=== PATIENT | male | born 1995 | race Caucasian/White ===

== ENCOUNTER 2019-09-10 08:39 | Emergency (ER) | payer SELFPAY ==
--- NOTE | 2019-09-10 08:42 | W.ED.ABDPA2 ---
HPI - Abdominal Pain General: Chief Complaint: Chest Pain Stated Complaint: abd pain Time Seen by Provider: 09/10/19 08:42 History of Present Illness: HPI narrative: Patient comes in today with complaints of abdominal pain. Patient has had several ER visits this year for complaints that are similar to today's issues. Patient has had CTA done in May but noted an episode of epiploic appendagitis, patient last visit was done and July on the and patient was diagnosed with acute bronchitis at that time. Patient appears well. Patient appears in mild to no pain. Patient does appear disheveled. MD elicited complaint: abdominal pain Associated Symptoms: Reports nausea and vomiting Review of Systems General: Reports: 10 or more systems reviewed and unremarkable except in HPI and below GI: Reports: abdominal pain, nausea, vomiting and painful bowel movements PFSH ED PFSH: Statuses (acute, chronic, etc) shown below reflect problem list status as previously entered and may not be historically accurate Social History Smoking and tobacco status: never smoked Physical Exam Const: COMMON NORMALS: no apparent distress and oriented x3 GENERAL APPEARANCE: cooperative HENMT: COMMON NORMALS: normocephalic, external ears normal, EAC's normal, TM's normal bilaterally and external nose normal HEAD & SCALP: normal to inspection and normocephalic FACE & SINUS: normal facial exam NOSE: external nose normal GENERAL EAR: hearing not grossly impaired EXTERNAL EAR: Yes external ears normal EXTERNAL AUDITORY CANAL: EAC's normal TYMPANIC MEMBRANE: TM's normal bilaterally MOUTH: oral and palatal mucosa normal THROAT: posterior oropharynx normal Eye: COMMON NORMALS: PERRL and EOMs intact bilaterally PUPIL: Yes PERRL Neck/C-Spine: COMMON NORMALS: full ROM and no lymphadenopathy Lymph: LYMPHATIC: no lymphedema noted Chest: COMMONS NORMALS: inspection of chest normal and palpation of chest normal Resp: COMMON NORMALS: normal respiratory effort and clear to auscultation bilaterally AUSCULTATION: clear to auscultation bilaterally Cardio: COMMON NORMALS: regular rate and regular rhythm RATE: regular rate RHYTHM: regular rhythm GI: COMMON NORMALS: normal to inspection, nondistended, normoactive bowel sounds PALPATION: Yes tender (moderate) Details: LLQ RECTAL EXAM: Yes visual inspection normal, Yes normal sphincter tone, Yes prostate normal, Yes heme negative stool and Yes anal wink reflex intact : COMMON NORMALS: Yes no CVA tenderness BLADDER/KIDNEY EXAM: Yes no CVA tenderness Back/Pelvis: COMMON NORMALS: no CVA tenderness and thoracic and lumbar spine normal to inspection Extremity: COMMON NORMALS: normal to inspection GENERAL: No edema Neuro: COMMON NORMALS: oriented x3, moves all extremities and no focal motor deficits Psych: COMMON NORMALS: mental status grossly normal and cooperative Skin: COMMON NORMALS: no rashes or lesions noted GENERAL SKIN EXAM: no rashes or lesions noted Course Vital Signs: Vital signs: Vital Signs Temperature 99 F 09/10/19 08:43 Respiratory Rate 16 09/10/19 08:43 Blood Pressure 156/100 09/10/19 08:43 Pulse Oximetry 99 09/10/19 08:43 MDM - Abdominal Pain MDM Narrative: Medical decision making narrative: Patient comes in today for complaints of abdominal and chest discomfort. Patient has been having this episodes for about the last year. Patient does not have insurance and has been diagnosed with bronchitis and other problems for the past year without much relief. Review of the record noted a diagnosis of epiploic appendagitis, on a previous CT. Exam noted soft abdomen with some tenderness in the left lower quadrant. Bowel sounds are present. Vital signs were stable. Differential diagnosis includes ACS, anxiety, malingering, ulcerative colitis, diverticulitis, appendagitis, mesenteric lymphadenitis, appendicitis, GI bleed, gastroenteritis. Laboratory values were insignificant acute abdomen x-ray series was negative for obstruction or free air. Patient was treated for pain with Toradol and Phenergan. Patient was recommended to follow-up for upper GI and colonoscopy series. Patient reported understanding and agreed with plan, case management will assist with referral. Patient will be given medication for pain and nausea. Lab Data: Labs: Lab Results 09/10/19 09/10/19 09/10/19 Range/Units 08:59 08:59 08:59 WBC 10.3 H (4.0-10.0) 10^3/ uL RBC 5.30 (4.1-5.3) 10^6/u L Hgb 15.8 (11.7-16.6) g/dL Hct 46.7 (42.0-52.0) % MCV 88.1 (80-94) fL MCH 29.8 (28.0-34.0) pg MCHC 33.8 (30.0-36.0) g/dL RDW 11.9 L (12.1-15.1) % Plt Count 270 (130-400) 10^3/c mm MPV 10.0 (7.4-10.4) fL Neut % (Auto) 42.5 % Lymph % (Auto) 43.5 % Woodward % (Auto) 8.2 % Eos % (Auto) 5.0 % Baso % (Auto) 0.6 % Neut # (Auto) 4.4 (1.8-7.7) 10^3/u L Lymph # (Auto) 4.5 (0.8-4.8) 10^3/u L Woodward # (Auto) 0.8 (0.2-0.9) 10^3/u L Eos # (Auto) 0.5 (0.0-0.8) 10^3/u L Baso # (Auto) 0.1 (0.0-0.1) 10^3/u L Nucleated RBC % (a uto) 0 % Nucleated RBCs # 0.0 /100WBC Sodium 138 (136-145) mmol/L Potassium 3.7 (3.5-5.1) mmol/L Chloride 103 (98-107) mmol/L Carbon Dioxide 23 (22-29) mmol/L Anion Gap 15.7 (5-19) BUN 16 (6-20) mg/dL Creatinine 0.9 (0.7-1.2) mg/dL GFR Calculation 103.7 (90-130) mL/min Glucose 101 (74-109) mg/dL Lactate 1.6 (0.5-2.2) mmol/L Calcium 10.3 H (8.6-10.0) mg/Dl Total Bilirubin 0.8 (0.15-1.2) mg/dL AST 18 (0-40) U/L ALT 28 (0-41) U/L Alkaline Phosphata se 71 (40-130) IU/L Total Protein 7.4 (6.6-8.7) g/dL Albumin 5.0 (3.5-5.2) g/dL Globulin 2.4 (1.3-4.6) g/dL Lipase 19 (13-60) U/L Urine Color (Yellow) Urine Appearance (CLEAR) Urine pH (5-7) Ur Specific Gravit y (1.005-1.030) Urine Protein (Negative) Urine Glucose (UA) (Normal) Urine Ketones (Negative) Urine Occult Blood (Negative) Urine Nitrate (Negative) Urine Bilirubin (NEGATIVE) Urine Urobilinogen (Negative) mg/dL Ur Leukocyte Mary ase (Negative) Urine RBC (0-2) /hpf Urine WBC (0-5) /hpf Ur Squamous Epith Cells (0-5) Urine Bacteria (NONE) Urine Mucus 09/10/19 Range/Units 09:45 WBC (4.0-10.0) 10^3/ uL RBC (4.1-5.3) 10^6/u L Hgb (11.7-16.6) g/dL Hct (42.0-52.0) % MCV (80-94) fL MCH (28.0-34.0) pg MCHC (30.0-36.0) g/dL RDW (12.1-15.1) % Plt Count (130-400) 10^3/c mm MPV (7.4-10.4) fL Neut % (Auto) % Lymph % (Auto) % Woodward % (Auto) % Eos % (Auto) % Baso % (Auto) % Neut # (Auto) (1.8-7.7) 10^3/u L Lymph # (Auto) (0.8-4.8) 10^3/u L Woodward # (Auto) (0.2-0.9) 10^3/u L Eos # (Auto) (0.0-0.8) 10^3/u L Baso # (Auto) (0.0-0.1) 10^3/u L Nucleated RBC % (a uto) % Nucleated RBCs # /100WBC Sodium (136-145) mmol/L Potassium (3.5-5.1) mmol/L Chloride (98-107) mmol/L Carbon Dioxide (22-29) mmol/L Anion Gap (5-19) BUN (6-20) mg/dL Creatinine (0.7-1.2) mg/dL GFR Calculation (90-130) mL/min Glucose (74-109) mg/dL Lactate (0.5-2.2) mmol/L Calcium (8.6-10.0) mg/Dl Total Bilirubin (0.15-1.2) mg/dL AST (0-40) U/L ALT (0-41) U/L Alkaline Phosphata se (40-130) IU/L Total Protein (6.6-8.7) g/dL Albumin (3.5-5.2) g/dL Globulin (1.3-4.6) g/dL Lipase (13-60) U/L Urine Color Yellow (Yellow) Urine Appearance Clear (CLEAR) Urine pH 7 (5-7) Ur Specific Gravit y 1.010 (1.005-1.030) Urine Protein Neg (Negative) Urine Glucose (UA) Norm (Normal) Urine Ketones Negative (Negative) Urine Occult Blood Neg (Negative) Urine Nitrate Negative (Negative) Urine Bilirubin Neg (NEGATIVE) Urine Urobilinogen Norm (Negative) mg/dL Ur Leukocyte Mary ase Negative (Negative) Urine RBC None (0-2) /hpf Urine WBC None (0-5) /hpf Ur Squamous Epith Cells None (0-5) Urine Bacteria None (NONE) Urine Mucus Trace EKG Data ^: EKG 1: Attestation: I personally reviewed and interpreted this EKG as follows: (0852, Sinus katelyn, rate 47, no ectopy, regular, no ST elevation, no significant change from prior EKG) Discharge Plan Discharge Patient Disposition: Home, Self-Care Clinical Impression: Epiploic appendagitis Abdominal pain Qualifiers: Abdominal location: left lower quadrant Qualified Code(s): R10.32 - Left lower quadrant pain Condition: Stable Prescriptions: New diclofenac potassium 50 mg tablet 50 mg PO Q8H PRN (Reason: pain) Qty: 20 RF: 0 promethazine 12.5 mg tablet 12.5 mg PO Q4H PRN (Reason: nausea and vomiting) Qty: 20 RF: 0 Patient Instructions: Cholecystitis (ED), Abdominal Pain (ED) Coding Level of Care Code ED Program Writer for Genaro Goddard Exam Problem Focused
[2019-09-10 08:43] VITALS: BP 156/100; RESP 16; TEMP 37.2; O2SAT 99; BMI 26.5
--- NOTE | 2019-09-10 09:02 | XRR_ITS ---
PROCEDURE INFORMATION: Exam: XR Complete Acute Abdomen Series Exam date and time: 09/10/2019 9:03 AM Age: 24 years old Clinical indication: Abdominal pain; Generalized; Additional info: Abd pain TECHNIQUE: Imaging protocol: XR complete acute abdomen series, including 2 or more views of the abdomen and a single view chest. COMPARISON: CT chest abdomen pelvis June 13, 2019 FINDINGS: Lungs: Normal. No consolidation. Pleural space: Normal. No pneumothorax. Heart/Mediastinum: Normal. No cardiomegaly. Gastrointestinal tract: Normal. No bowel dilation. Intraperitoneal space: Normal. No free air. Bones/joints: Normal. No acute fracture. Soft tissues: Normal. XR/XR acute abdomen series [id number] IMPRESSION: No acute findings.
[2019-09-10 09:05] LABS: Basophils # 0.1 10^3/uL (0.0-0.1); Basophils % 0.6 %; Eosinophils # 0.5 10^3/uL (0.0-0.8); Hematocrit 46.7 % (42.0-52.0); Hemoglobin 15.8 g/dL (11.7-16.6); Lymphocytes # 4.5 10^3/uL (0.8-4.8); Lymphocytes % 43.5 %; Mean Corpuscular HGB Conc 33.8 g/dL (30.0-36.0); Mean Corpuscular Hemoglobin 29.8 pg (28.0-34.0); Mean Corpuscular Volume 88.1 fL (80-94); Monocytes # 0.8 10^3/uL (0.2-0.9); Monocytes % 8.2 %; Neutrophils # 4.4 10^3/uL (1.8-7.7); Neutrophils % 42.5 %; Nucleated Red Blood Cells % 0 %; Platelet Count 270 10^3/cmm (130-400); Red Cell Distribution Width 11.9 % (12.1-15.1); White Blood Count 10.3 10^3/uL (4.0-10.0)
[2019-09-10 09:33] LABS: Alanine Aminotransferase 28 U/L (0-41); Alkaline Phosphatase 71 IU/L (40-130); Anion Gap 15.7 (5-19); Aspartate Amino Transferase 18 U/L (0-40); Blood Urea Nitrogen 16 mg/dL (6-20); Calcium 10.3 mg/Dl (8.6-10.0); Carbon Dioxide 23 mmol/L (22-29); Chloride 103 mmol/L (98-107); Globulin 2.4 g/dL (1.3-4.6); Glomerular Filtration Rate 103.7 mL/min (90-130); Glucose 101 mg/dL (74-109); Lipase 19 U/L (13-60); Potassium 3.7 mmol/L (3.5-5.1); Sodium 138 mmol/L (136-145); Total Bilirubin 0.8 mg/dL (0.15-1.2); Total Protein 7.4 g/dL (6.6-8.7)
[2019-09-10 09:34] LABS: Lactate (Lactic Acid level) 1.6 mmol/L (0.5-2.2)
[2019-09-10 10:13] LABS: Bilirubin Urine Neg (NEGATIVE); Blood Urine Neg (Negative); Glucose Urine UA Norm (Normal); Ketones Urine Negative (Negative); Nitrate Urine Negative (Negative); Protein Urine Neg (Negative); Urine Appearance Clear (CLEAR); Urine Color Yellow (Yellow); pH Urine 7 (5-7)
[2019-09-10 10:14] LABS: Leukocyte Esterase Urine Negative (Negative); Urobilinogen Urine Norm (Negative)
[2019-09-10 10:15] LABS: Add Urine Culture? No; Mucus Urine TRACE
[2019-09-10] MEDS: promethazine 25 mg/mL SDV 1 mL IM (10:55)
[2019-09-10] MEDS: ketorolac 30 mg/mL INJ IM (10:56)
--- NOTE | 2019-09-10 11:04 | ECG_ITS ---
Measurements Intervals [place] Rate: 47 P: 17 LA: 130 QRS: 7 QRSD: 100 T: 19 QT: 400 QTc: 357 SINUS BRADYCARDIA INTERPRETATION BASED ON A DEFAULT AGE OF 40 YEARS Compared to ECG 08/23/2019 15:08:00 No significant changes Electronically Signed On 09-10-2019 16:45:14 GETTER OPERATOR by Skinny Haley M.D. [id number]
[2019-09-10 11:19] VITALS: BP 151/99; PULSE 78; RESP 16; O2SAT 96
--- NOTE | 2019-09-12 15:11 | DCPLANNER ---
residential property manager had message to schedule a follow up appointment for patient with general surgery. residential property manager called [facility], spoke with [place], a follow up appointment is scheduled for Saturday, September 14, 2019 at 2:[address] Esteban. residential property manager called patient and gave patient the appointment information. Patient asked about financial assistance. residential property manager left both of the financial business analyst applications for patient at the ED registration for patient to lemon picker.
--- NOTE | 2019-09-20 14:25 | DCPLANNER ---
Patient attended appointment scheduled for 09.14.19 at [facility].
== END 2019-09-10 11:20 | disposition home or self-care (01) ==
PROVIDERS: Emergency Provider Nurse Practitioner Family
DX: K63.89 Other specified diseases of intestine (principal)
CPT/HCPCS: 36415; 74022; 80053; 81001; 83605; 83690; 85025; 87040; 93005; 96372; 99282; J1885; J2550

== ENCOUNTER 2019-09-12 06:57 | Outpatient (CLI) | payer SELFPAY ==
--- NOTE | 2019-09-12 07:02 | ECG_ITS ---
NAME OF STUDY: EXERCISE SESTAMIBI STRESS TEST INDICATION: Atypical Chest Pain Baseline blood pressure of 147/87 mm Hg, heart rate 49 beats per minute and oxygen saturation of 94%. EKG showed sinus bradycardia normal axis with with nonspecific T wave changes The patient exercised for 10 minutes 1 second on a standard Virgil protocol. Patient attained a maximum heart rate of 179 beats per minute(91 % of the maximum predicted heart rate) with a blood pressure at the peak exercise of 199/114 mm Hg and oxygen saturation of 90%. The EKG at the peak exercise revealed sinus tachycardia with no significant ST-T wave changes. Patient did not have any chest pain or any significant arrhythmia with the exercise During the recovery phase, there were no new changes. Blood pressure at the end of the recovery phase was 175/90 mm Hg with a heart rate of 95 beats per minute and oxygen saturation of 98%. CONCLUSION: 1. Normal EKG response to treadmill exercise. 2. No exercise-induced chest pain or cardiac arrhythmia. 3. Good exercise tolerance, attained a maximum of 13.5 METs. Maximum VO2 of 47.3 mL/kg/min. 4. Baseline normal blood pressure with normal response to exercise. Electronically Signed On 09-13-2019 12:29:37 BATH HOUSE ATTENDANT by Lissett Lora M.D. [email or web address]
--- NOTE | 2019-09-12 07:03 | NMCV_ITS ---
NM MIBI/MIBI Stress/Rest [id number] Anthony Del Valle Age: 24 Gender: M : 1995 Exam Date: 09/12/2019 07:48 Ordering Phys: Sanford Garcia NP Technologist: DEMETRI Vizcaino Exam Location: [facility] Indications: Atypical Chest Pain STRESS TEST [facility] IMAGE PROTOCOL Rest/Stress 1 Exercise Day Radiopharmaceutical Dose (mCi) Administration Site Administered by Rest: Tc-99m IV DEMETRI Vizcaino Sestamibi Stress:Tc-99m IV DEMETRI Vizcaino Sestamibi Rest: 12-Sep-2019 60 Discovery 630 Stress: 12-Sep-2019 60 Discovery 630 Radiopharmaceutical was injected at 86 % maximum heart rate. SPECT RESULTS Technical Quality: Good Raw Data Analysis: Normal Image Corrections: No attenuation or motion correction applied Summed Stress Score: 0 Summed Rest Score: 0 Summed Difference Score: 0 PERFUSION FINDINGS SPECT images demonstrate homogeneous tracer distribution throughout the myocardium. FUNCTIONAL RESULTS (calculated via Gated SPECT) Stress Image LV EF (%): 68 Stress EDV (mL):98 TID: 0.86 Stress ESV (mL):31 FUNCTIONAL FINDINGS: The left ventricle is normal in size. Transient Ischemia Dilatation of 0.86. There is normal left ventricular systolic function. The left ventricular ejection fraction is normal with a value of 68%. There is normal left ventricular wall thickening. Normal end-diastolic and end-systolic volumes. IMPRESSIONS 1. Myocardial perfusion imaging is normal. 2. Overall left ventricular systolic function is normal without regional wall motion abnormalities. 3. The left ventricular ejection fraction is normal with a value of 68%. 4. This study suggests a low likelihood of angiographically significant coronary artery disease. Lissett Lora MD (Electronically Signed) Final Date: 12 September 2019 13:26 S
[2019-09-12 07:19] VITALS: BMI 26.5
[2019-09-12 08:53] VITALS: BP 175/90; PULSE 97
== END 2019-09-12 06:58 | disposition home or self-care (01) ==
LOC: RAD 07:01
PROVIDERS: Visit Provider Nurse Practitioner Family
DX: R07.89 Other chest pain (principal)
CPT/HCPCS: 78452; 93017; A9500

== ENCOUNTER 2019-09-21 07:30 | Day surgery (SDC) | payer SELFPAY ==
[2019-09-20 13:31] VITALS: BMI 26.5
--- NOTE | 2019-09-21 08:07 | P.ANES_ITS ---
Pre-Anesthetic Assessment Pre-Anesthetic Assessment: Height/Weight: Height 1.78 m Weight 83.915 kg Proposed Procedure: Operation Date: 09/21/19 09:00 Proposed Procedures p EGD/COLON(Not Applicable) - Bj Driscoll MD s Colonoscopy(Not Applicable) - Bj Driscoll MD Social: Social History: No alcohol and No tobacco Exam: Pre-Anes Outpt Exam: alert, oriented x 3, clear to auscultation bilaterally and regular rate & rhythm Airway: Submandibular: WNL Cervical ROM: WNL MP: 1 History/ROS: No significant history except as noted Pulmonary: Pulmonary: None reported CV/HEM: CV/HEM: HTN : : None reported Hepatic: Hepatic: None reported GI: GI: GERD Metabolic: Metabolic: None reported Musc/skel: Musc/skel: None reported Neuropsych: Neuropsych: None reported Anesthetic Plan: ASA status: II Anesthesia: Anesthesia Evaluation and MAC Risk of > 500 ml blood loss (7ml/kg in children): No PFSH Anesthesia PFSH: Social History Smoking and tobacco status: never smoked Second hand smoke exposure: No Alcohol intake: never Adopted: No Caregiver/support person: Yes Lives independently: Yes Household members: significant other Housing: House Marital status: Single Highest education level completed: High School Graduate service: No Current occupational status: employed Current occupational exposures/hazards: No Pets and animals: No History of recent travel: No Leisure activites: exercise Sexually active: Yes Current gender identity: Male and Female Trixie/Scientologist: Sikh Special trixie needs: No Agree to transfusion: No Financial difficulty paying for basics: Not Very Hard Data Anesthesia Cardiac Studies: No Data to Display
[2019-09-21 08:42] VITALS: BP 159/104; PULSE 91; RESP 18; TEMP 36.7; O2SAT 97
[2019-09-21] MEDS: sodium chloride 0.9% 1,000 ML 30 ML (08:46)
--- NOTE | 2019-09-21 09:11 | PM.HPUD ---
H&P update H&P Update: DATE OF SURGERY/PROCEDURE: 09/21/19 DATE H&P PERFORMED: 09/14/19 H&P UPDATE INFORMATION: H&P completed within last 30 days and No changes to prior documentation PREOP DIAGNOSIS: Abdominal Pain PLANNED PROCEDURE: Operation Date: 09/21/19 09:00 Proposed Procedures p EGD/COLON(Not Applicable) - Bj Driscoll MD s Colonoscopy(Not Applicable) - Bj Driscoll MD Full H&P Perinent History: Family History: Family History (Updated 09/14/19 @ 14:54 by Quiana Diallo RN) Father Cancer liver Grandfather Cancer lung Denies family history of Anesthesia complication Bleeding disorder Social History: Social History Smoking and tobacco status: never smoked Second hand smoke exposure: No Alcohol intake: never Adopted: No Caregiver/support person: Yes Lives independently: Yes Household members: significant other Housing: House Marital status: Single Highest education level completed: High School Graduate service: No Current occupational status: employed Current occupational exposures/hazards: No Pets and animals: No History of recent travel: No Leisure activites: exercise Sexually active: Yes Current gender identity: Male and Female Trixie/Jewish: Yazidi Special trixie needs: No Agree to transfusion: No Financial difficulty paying for basics: Not Very Hard
[2019-09-21 09:35] VITALS: BP 115/80; PULSE 95; RESP 16; TEMP 36.1; O2SAT 96
--- NOTE | 2019-09-21 09:41 | ANE.PACU ---
 Inpatient post-anesthesia follow up: Airway intact: Yes Vital signs: Temperature 97.0 F Pulse Rate [Bilate ral Radial] 95 Respiratory Rate 16 Blood Pressure [Le ft Arm] 115/80 Pulse Oximetry 96 Oxygen Delivery Me thod Nasal Cannula Oxygen Flow Rate 2 Fraction of Inspir ed Oxygen Hydration adequate: Yes Nausea and vomiting: No Pain level: 1 Mental status: Baseline
[2019-09-21 09:50] VITALS: BP 135/75; PULSE 90; RESP 18; TEMP 36.1; O2SAT 94
[2019-09-22 11:02] LABS: H. Pylori / CLO Test Negative
== END 2019-09-21 10:09 | disposition home or self-care (01) ==
PROVIDERS: Absent Provider Internal Medicine; PCP Internal Medicine; Visit Provider Surgery
PROC: 0DJ08ZZ Inspection of Upper Intestinal Tract, Via Natural or Artificial Opening Endoscopic (ICD-10-PCS; CPT 43235; principal; 2019-09-21 09:00)
PROC: 0DJD8ZZ Inspection of Lower Intestinal Tract, Via Natural or Artificial Opening Endoscopic (ICD-10-PCS; CPT 45378; 2019-09-21 09:00)
DX: R10.9 Unspecified abdominal pain (principal); K21.9 Gastro-esophageal reflux disease without esophagitis; K29.70 Gastritis, unspecified, without bleeding; I10 Essential (primary) hypertension
CPT/HCPCS: 12345; 43239; 45378; 87077; 96365; J2704; J7030

== ENCOUNTER 2019-10-19 09:33 | Outpatient (CLI) | payer MEDICAID, SELFPAY ==
--- NOTE | 2019-10-19 09:42 | NM_ITS ---
WS: [id number] NUCLEAR MEDICINE HIDA SCAN CLINICAL INFORMATION: ABDOMINAL PAIN TECHNIQUE: Following intravenous administration of 8.1 mCi of technetium 99m mebrofenin, images of th e abdomen were obtained over the course of 60 minutes. Next, gallbladder ejection fraction was determ ined by obtaining preprandial and one-hour postprandial images of the gallbladder following oral pat stion of Ensure. COMPARISON: None. FINDINGS: Normal hepatic uptake at 5 minutes. Gallbladder is visualized by 15 minutes. Normal common bile duct and small bowel activity visualized. No evidence of acute cholecystitis. Gallbladder ejection fraction 90%. No evidence of chronic cholecystitis. NM/NM hepatobiliary w phar* [id number] IMPRESSION: 1. No evidence of acute or chronic cholecystitis. 2. Gallbladder ejection fraction 90% within normal limits.
== END 2019-10-19 09:34 | disposition home or self-care (01) ==
LOC: NM 09:36
PROVIDERS: PCP Internal Medicine; Visit Provider Surgery
DX: R10.9 Unspecified abdominal pain (principal)
CPT/HCPCS: 78227; A9537

== ENCOUNTER 2019-10-26 18:53 | Emergency (ER) | payer MEDICAID, SELFPAY ==
[2019-10-26 19:02] VITALS: BP 152/107; PULSE 75; RESP 17; TEMP 36.9; O2SAT 98; BMI 25.8
[2019-10-26 20:21] LABS: Basophils % 0.4 %; Eosinophils # 0.3 10^3/uL (0.0-0.8); Hematocrit 48.4 % (42.0-52.0); Hemoglobin 16.5 g/dL (11.7-16.6); Lymphocytes # 3.8 10^3/uL (0.8-4.8); Lymphocytes % 41.4 %; Mean Corpuscular HGB Conc 34.1 g/dL (30.0-36.0); Mean Corpuscular Hemoglobin 30.1 pg (28.0-34.0); Mean Corpuscular Volume 88.2 fL (80-94); Monocytes # 0.6 10^3/uL (0.2-0.9); Neutrophils # 4.5 10^3/uL (1.8-7.7); Nucleated Red Blood Cells % 0 %; Platelet Count 280 10^3/cmm (130-400); Red Blood Count 5.49 10^6/uL (4.1-5.3); Red Cell Distribution Width 11.9 % (12.1-15.1); White Blood Count 9.3 10^3/uL (4.0-10.0)
[2019-10-26 20:40] LABS: Alanine Aminotransferase 18 U/L (0-41); Albumin Level 4.8 g/dL (3.5-5.2); Alkaline Phosphatase 82 IU/L (40-130); Anion Gap 13.8 (5-19); Aspartate Amino Transferase 17 U/L (0-40); Blood Urea Nitrogen 12 mg/dL (6-20); Calcium 10.3 mg/dL (8.5-10.5); Carbon Dioxide 26 mmol/L (22-29); Chloride 102 mmol/L (98-107); Creatinine Clr Calc Pharmacy 153.9795; Globulin 3.8 g/dL (1.3-4.6); Glomerular Filtration Rate 118.8 mL/min (90-130); Glucose 99 mg/dL (65-115); Lipase 19 U/L (13-60); Potassium 3.8 mmol/L (3.5-5.1); Sodium 138 mmol/L (136-145); Total Bilirubin 0.8 mg/dL (0.15-1.2); Total Protein 8.6 g/dL (6.6-8.7)
[2019-10-26 22:24] VITALS: BP 170/109; PULSE 79; O2SAT 94
--- NOTE | 2019-10-26 22:24 | ED_ITS ---
Entered by Omayra Skinner, acting as scribe for Lina Armstrong Oct 26, 2019 18:53 HPI - Abdominal Pain General: Chief Complaint: Abdominal Pain Stated Complaint: ABD PAIN Time Seen by Provider: 10/26/19 19:02 Source: patient Mode of arrival: ambulatory History of Present Illness: HPI narrative: 24 y/o male presents to the ED with complaint of abd pain. Pt states this has been going on for about 4 months. He has been seen by Dr. Driscoll but the tests ( EGD, colonoscopy, HIDA scan) thus far have been inconclusive. He reports Upper and lower, Right and left side pain. He has had N/V as well. MD elicited complaint: abdominal pain Onset (ago): month(s) (4) Pain Consistency: constant Location: LUQ, RUQ, RLQ and LLQ Severity: similar to previous episodes Exacerbating factors: eating and movement Relieving factors: nothing Associated Symptoms: Denies chills, dysuria, fever(s), hematuria and syncope Review of Systems General: Reports: other (negative unless marked) Const: Denies: fever, chills, body aches, fatigue, malaise or diaphoresis Eyes: Denies: change in vision or blurry vision ENMT: Denies: throat pain, painful swallowing, hoarseness, ear pain, ear discharge, Change in hearing or nasal discharge Card: Denies: chest pain, palpitations, irregular heart rhythm, syncope, pre- syncope, shortness of breath on exertion or shortness of breath when lying down Resp: Denies: shortness of breath, productive cough, non-productive cough, wheezing, coughing up blood or chest congestion : Denies: flank pain, difficulty urinating, painful urination, urinary frequency, urinary urgency, decreased urine ouput, urinary incontinence or blood in urine Musc: Denies: neck pain, back pain, extremity pain, extremity swelling, joint pain, joint swelling, joint warmth or joint stiffness Skin/Breast: Denies: rash, skin tenderness or yellow skin Neuro: Denies: headache, numbness in extremities, weakness in extremities, changes in sensation, lack of coordination, difficulty walking, dizziness, vertigo or confusion Endo: Denies: excessive thirst, tired all the time, cold intolerance, excessive sweating, flushing or hot flashes Ady/Lymph: Denies: easy bruising, easy bleeding, petechiae or enlarged lymph nodes All/Imm: Denies: hives, throat swelling, tongue swelling, facial swelling or acute wheezing PFSH ED PFSH: Social History Smoking and tobacco status: never smoked Second hand smoke exposure: No Alcohol intake: never Adopted: No Caregiver/support person: Yes Lives independently: Yes Household members: significant other Housing: House Marital status: Single Highest education level completed: High School Graduate service: No Current occupational status: employed Current occupational exposures/hazards: No Pets and animals: No History of recent travel: No Leisure activites: exercise Sexually active: Yes Current gender identity: Male and Female Trixie/Yazidism: Synagogue Special trixie needs: No Agree to transfusion: No Financial difficulty paying for basics: Not Very Hard Physical Exam Const: COMMON NORMALS: no apparent distress, oriented x3, no limitations, healthy appearing and well nourished EXAM LIMITATIONS: no altered mental status GENERAL APPEARANCE: cooperative, well kempt and well developed ORIENTATION/CONSCIOUSNESS: Yes awake HENMT: COMMON NORMALS: normocephalic, head/scalp atraumatic, hearing grossly normal bilaterally, external ears normal, EAC's normal, external nose normal and moist oral mucous membranes HEAD & SCALP: normal to inspection, normocephalic and atraumatic FACE & SINUS: normal facial exam and face symmetric NOSE: external nose normal and nares normal EXTERNAL EAR: Yes external ears normal EXTERNAL AUDITORY CANAL: EAC's normal MOUTH: oral and palatal mucosa normal and tongue normal Eye: COMMON NORMALS: PERRL, EOMs intact bilaterally, conjunctivae normal and no scleral icterus GENERAL EYE: normal appearance of both eyes and normal light reflex CONJUNCTIVA: Yes conjunctivae normal SCLERA: sclerae normal CORNEA: Yes corneas normal PUPIL: Yes PERRL DIRECT OPHTHALMOSCOPY: Yes normal light reflex Neck/C-Spine: COMMON NORMALS: full ROM, no lymphadenopathy, supple, no meningeal signs and no JVD GENERAL: Yes normal visual inspection and Yes trachea midline CERVICAL SPINE: Yes cervical ROM normal Chest: COMMONS NORMALS: inspection of chest normal and palpation of chest normal Resp: COMMON NORMALS: normal respiratory effort, no retractions, no use of accessory muscles and clear to auscultation bilaterally EFFORT & INSPECTION: Yes able to speak in complete sentences AUSCULTATION: clear to auscultation bilaterally Cardio: COMMON NORMALS: no JVD, regular rate, regular rhythm, S1 normal heart sound, S2 normal heart sound, no gallops, no clicks, no murmurs and no rub JUGULAR VENOUS DISTENTION: no JVD RATE: regular rate RHYTHM: regular rhythm HEART SOUNDS: S1 normal and S2 normal : COMMON NORMALS: Yes no CVA tenderness BLADDER/KIDNEY EXAM: Yes no CVA tenderness Back/Pelvis: COMMON NORMALS: no CVA tenderness, thoracic and lumbar spine normal to inspection, no thoracic nor lumbar tenderness and thoraco-lumbar ROM normal Extremity: COMMON NORMALS: normal to inspection, full ROM, normal capillary refill, no joint enlargement, no clubbing, cyanosis or edema and no calf tenderness Neuro: COMMON NORMALS: oriented x3, CN's II-XII intact bilaterally, moves all extremities, no focal motor deficits and no sensory deficits noted MENINGEAL SIGNS: Yes no meningeal signs Psych: COMMON NORMALS: mental status grossly normal, thought process normal, cooperative, affect normal, speech normal and activity/motor behavior normal APPEARANCE: Yes well kempt SPEECH: Yes normal speech THOUGHT PROCESS: normal thought process Skin: COMMON NORMALS: no rashes or lesions noted, skin turgor normal, no jaundice, no petechiae and no mottling GENERAL SKIN EXAM: no rashes or lesions noted and turgor normal Course Vital Signs: Vital signs: Vital Signs Temperature 98.4 F 10/26/19 19:02 Pulse Rate 62 10/27/19 00:00 Respiratory Rate 17 10/26/19 19:02 Blood Pressure 134/88 10/27/19 00:00 Pulse Oximetry 95 10/27/19 00:00 MDM - Abdominal Pain MDM Narrative: Medical decision making narrative: The patient is relieved to hear his CT scan is unremarkable. We did follow-up on his HIDA scan which shows a normal ejection fraction from his gallbladder. His CT scan does show an enlarged lymph node on the left side and this is where he is hurting. I will put him on a short course of Cipro and Flagyl and he wants to follow-up with Dr. Driscoll who is performing his outpatient work-up of his chronic abdominal pain. Lab Data: Attestation: I reviewed the patient's lab results. Labs: Lab Results 10/26/19 10/26/19 Range/Units 20:15 20:15 WBC 9.3 (4.0-10.0) 10^3/ uL RBC 5.49 H (4.1-5.3) 10^6/u L Hgb 16.5 (11.7-16.6) g/dL Hct 48.4 (42.0-52.0) % MCV 88.2 (80-94) fL MCH 30.1 (28.0-34.0) pg MCHC 34.1 (30.0-36.0) g/dL RDW 11.9 L (12.1-15.1) % Plt Count 280 (130-400) 10^3/c mm MPV 10.0 (7.4-10.4) fL Neut % (Auto) 49.0 % Lymph % (Auto) 41.4 % Mckinley % (Auto) 6.0 % Eos % (Auto) 3.0 % Baso % (Auto) 0.4 % Neut # (Auto) 4.5 (1.8-7.7) 10^3/u L Lymph # (Auto) 3.8 (0.8-4.8) 10^3/u L Mckinley # (Auto) 0.6 (0.2-0.9) 10^3/u L Eos # (Auto) 0.3 (0.0-0.8) 10^3/u L Baso # (Auto) 0.0 (0.0-0.1) 10^3/u L Nucleated RBC % (a uto) 0 % Nucleated RBCs # 0.0 /100WBC Sodium 138 (136-145) mmol/L Potassium 3.8 (3.5-5.1) mmol/L Chloride 102 (98-107) mmol/L Carbon Dioxide 26 (22-29) mmol/L Anion Gap 13.8 (5-19) BUN 12 (6-20) mg/dL Creatinine 0.8 (0.7-1.2) mg/dL GFR Calculation 118.8 (90-130) mL/min Glucose 99 (65-115) mg/dL Calcium 10.3 (8.5-10.5) mg/dL Total Bilirubin 0.8 (0.15-1.2) mg/dL AST 17 (0-40) U/L ALT 18 (0-41) U/L Alkaline Phosphata se 82 (40-130) IU/L Total Protein 8.6 (6.6-8.7) g/dL Albumin 4.8 (3.5-5.2) g/dL Globulin 3.8 (1.3-4.6) g/dL Lipase 19 (13-60) U/L Imaging Data ^: CT Abd/Pel: Radiologist's impression: [address] [address] [address] Scan Report Signed Patient: Anthony Del Valle #: [id number] : 1995Acct#:[id number] Age/Sex: Date: 10/26/19 Loc: ERRoom/Bed: Attending Dr: Ordering Provider/Ordering MD: Lina Armstrong DO Date of Service: 10/26/19 Procedure(s): CT abdomen pelvis wo con [id number] Accession Number(s): [id number] Report Number: [id number] PROCEDURE INFORMATION: Exam: CT Abdomen And Pelvis Without Contrast Exam date and time: 10/26/2019 10:35 PM Age: 24 years old Clinical indication: Abdominal pain; Generalized; Patient HX: Chronic abd pain TECHNIQUE: Imaging protocol: Computed tomography of the abdomen and pelvis without contrast. Total DLP: 1587.85 mGy-cm Radiation optimization: All CT scans at this facility use at least one of these dose optimization techniques: automated exposure control; mA and/or kV adjustment per patient size (includes targeted exams where dose is matched to clinical indication); or iterative reconstruction. COMPARISON: CT abdomen pelvis w con* [id number] 11/22/2012 9:08 AM FINDINGS: Lungs: Interval mild atelectasis in the lung bases. Interval minimal decrease in size of the 5 mm granuloma in the left lower lobe. Heart: Interval prominent cardiophrenic fat pads. Still no cardiomegaly. Liver: No apparent liver disease. Gallbladder and bile ducts: Still no calcified gallstones or biliary ductal dilatation. Pancreas: Pancreas still unremarkable. Spleen: Still no splenomegaly. Adrenals: Still no adrenal mass. Kidneys and ureters: Still no hydronephrosis or apparent renal mass. Stomach and bowel: No current rectal impaction. Interval appearance of the 13 x 15 mm ovoid mass containing central fat along the anterior margin of the distal descending colon, but no haziness or stranding in the fat around it; no definite connection of the mass to the colon. No apparent colonic wall thickening. Terminal ileum unremarkable. Still no obstruction. Nondistended stomach. Appendix: Continued normal appendix. Intraperitoneal space: Still no free air or fluid. Vasculature: Still no aortic aneurysm. Two left renal arteries again evident. Lymph nodes: Slight enlargement of 1 mesenteric node, but interval clearance of most of the mesenteric adenopathy. No new suspicious nodes. Bladder: Interval lack of bladder distension. Still no stones. Reproductive: Unremarkable as visualized. Bones/joints: Stable slight compression fractures. Continued minimal retrolisthesis at L5-S1. Soft tissues: Unremarkable. CT/CT abdomen pelvis wo con [id number] IMPRESSION: 1. No acute abdominal findings. Interval mild atelectasis in the lung bases. 2. Interval appearance of the 13 x 15 mm ovoid mass along the distal descending colon suggesting a benign enlarged node. Interval clearance of most of the mesenteric adenopathy. Other findings detailed above. Radiation Dose CTDIVOL = (mGy): DLP = 1587.85 (mGy-cm) Dictated By:Sue Mascorro MD Signed By:Sue Mascorroigned Date/Time:10/26/192327 Discharge Plan Discharge Patient Disposition: Home, Self-Care Clinical Impression: Abdominal pain Qualifiers: Abdominal location: left upper quadrant Qualified Code(s): R10.12 - Left upper quadrant pain Condition: Stable Prescriptions: New Flagyl 500 mg tablet 500 mg PO Q8H 7 Days Qty: 21 RF: 0 Cipro 500 mg tablet 500 mg PO BID Qty: 20 RF: 0 No Action pantoprazole [Protonix] 40 mg tablet,delayed release (DR/EC) 40 mg PO ONCE RF: 0 Discharge Orders: Discharge Order (Routine); Ordered 10/26/19 Ordered By: Lina Armstrong Referrals: SWETHA VU DO [Primary Care Provider] - 1-3 days Bj Driscoll MD [Physician] - 1-3 days Discharge Diet: Advance as tolerated Discharge Activity: Increase activity as tolerated Patient Instructions: Abdominal Pain (ED) Activity Restrictions/Additional Instructions: Please return to the ER immediately for any of the signs or symptoms listed on your discharge instruction sheets, worsening/changing of your symptoms, you are not getting better as quickly as expected, or for ANY other cause or concerns. Discharge Date/Time: 10/27/19 00:00 Coding Level of Care Code ED Program Counselor for Chg Fwd Exam Comprehensive The documentation recorded by the liborioibBrody siu Ashley, accurately reflects the service I personally performed and the decisions made by me, Lina Armstrong Oct 26, 2019 18:53
[2019-10-26] MEDS: ondansetron 2 mg/ML SDV 2 mL 4 MG IVP (22:41)
[2019-10-26] MEDS: sodium chloride 0.9% 1,000 ML 999 ML IV (22:42)
--- NOTE | 2019-10-26 22:44 | PC.NURSE ---
pt transported to CT by wheelchair with tech
[2019-10-27] VITALS: BP 134/88; PULSE 62; O2SAT 95
[2019-10-27] MEDS: metroNIDAZOLE 500 MG Tablet PO (00:14)
[2019-10-27] MEDS: ciprofloxacin 500 mg Tablet PO (00:14)
== END 2019-10-27 | disposition home or self-care (01) ==
PROVIDERS: Emergency Medicine; Emergency Provider Emergency Medicine; PCP Internal Medicine
DX: R10.9 Unspecified abdominal pain (principal)
CPT/HCPCS: 36415; 74176; 80053; 83690; 85025; 96361; 96374; 96375; 99283; J2405; J7030

== ENCOUNTER 2019-11-23 08:58 | Outpatient (CLI) | payer MEDICAID, SELFPAY ==
--- NOTE | 2019-11-23 09:14 | FL_ITS ---
WS: [id number] SMALL BOWEL FOLLOW-THROUGH HISTORY: ABDOMINAL PAIN COMPARISON: CT abdomen and pelvis 10/26/2019 FLUOROSCOPY TIME: None. TECHNIQUE: Manager Pathology film performed of the abdomen. Parental oral contrast is provided to evaluate the sm all bowel. Sequential imaging is performed. Manager Pathology radiograph reveals mild fecal retention. No obstruction. Good distention of small bowel after b arium contrast. No areas of dilatation or stricture. Terminal ileum and RIGHT lower quadrant are nega tive. No fatty proliferation or obstruction. Normal transit time through the small bowel. FL/FL small bowel series 55530 IMPRESSION: Negative small bowel follow-through.
== END 2019-11-23 08:59 | disposition home or self-care (01) ==
LOC: RADWPI 09:04
PROVIDERS: PCP Internal Medicine; Visit Provider Surgery
DX: R10.9 Unspecified abdominal pain (principal)
CPT/HCPCS: 74250

== ENCOUNTER 2020-04-09 08:31 | Outpatient (CLI) | payer MEDICAID, SELFPAY ==
--- NOTE | 2020-04-09 08:34 | US_ITS ---
WS: [id number] ULTRASOUND ABDOMEN CLINICAL INFORMATION: CHRONIC ABDOMINAL PAIN COMPARISON: None. FINDINGS: Liver Size: Normal. Craniocaudal length: 15.5 cm. Echogenicity: Normal. Surface nodularity: None. Mass (size and location): None. Bile ducts Intrahepatic ducts: Normal. Common bile duct diameter: 0.4 cm. Gallbladder Normal. Gallstones: None. Gallbladder sludge: None. Gallbladder wall thickening: None. Pericholecystic fluid: None. Sonographic Bennett sign: Absent. Pancreas Normal as visualized. Spleen Splenomegaly: None. Craniocaudal length: cm. Right kidney: Normal. Hydronephrosis: None. Size: 10.4 cm x 5.6 cm x 5.9 cm Left kidney: Normal. Hydronephrosis: None. Size: 9.5 cm x 5.2 cm x 5.7 cm. Abdominal aorta and IVC Visualized portions are normal. Ascites: None. US/US abdomen complete* [id number] IMPRESSION: Normal abdominal ultrasound
== END 2020-04-09 08:32 | disposition home or self-care (01) ==
LOC: US 08:32
PROVIDERS: PCP Internal Medicine; Visit Provider Nurse Practitioner Family
DX: R10.9 Unspecified abdominal pain (principal); G89.29 Other chronic pain
CPT/HCPCS: 76700

== ENCOUNTER 2020-04-17 15:53 | Outpatient (CLI) | payer MEDICAID, SELFPAY ==
--- NOTE | 2020-04-17 16:29 | XR_ITS ---
WS: [id number] RIBS LEFT TECHNIQUE: 3 views left ribs CLINICAL INFORMATION: RIB PAIN, LEFT SIDED COMPARISON: March 27, 2020 FINDINGS: Visualized left ribs are normal. No visualized fractures. Visualized left lung is normal. XR/XR ribs LT 2V* [id number] IMPRESSION: Normal left ribs. No visualized fractures.
== END 2020-04-17 15:54 | disposition home or self-care (01) ==
LOC: RADWPI 15:55
PROVIDERS: PCP Internal Medicine; Visit Provider Nurse Practitioner Family
DX: R07.81 Pleurodynia (principal)
CPT/HCPCS: 71100

== ENCOUNTER 2020-04-24 11:38 | Outpatient (CLI) | payer MEDICAID, SELFPAY ==
--- NOTE | 2020-04-24 11:43 | XR_ITS ---
WS: [id number] PROCEDURE: XR chest 2V* [id number] CLINICAL INFORMATION: RIB PAIN COMPARISON: April 17, 2020 FINDINGS: Heart: Normal cardiac silhouette. Lungs: Lungs are clear. No consolidation or pleural fluid. Bones: Normal visualized bony structures. XR/XR chest 2V* [id number] IMPRESSION: Normal chest
== END 2020-04-24 11:39 | disposition home or self-care (01) ==
LOC: RAD 11:42
PROVIDERS: PCP Internal Medicine; Visit Provider Nurse Practitioner Family
DX: R07.81 Pleurodynia (principal)
CPT/HCPCS: 71046

== ENCOUNTER 2020-05-23 08:51 | Outpatient (CLI) | payer MEDICAID, SELFPAY ==
--- NOTE | 2020-05-23 09:00 | FL_ITS ---
WS: [id number] MODIFIED BARIUM SWALLOW TECHNIQUE: Modified barium swallow with speech therapy using multiple consistencies. FLUOROSCOPY TIME: 1.5 minutes. CLINICAL INFORMATION: R13.10 Dysphagia, unspecified COMPARISON: None. FINDINGS: Multiple consistencies utilized. No evidence of aspiration or penetration. Normal oropharyngeal phase . No difficulties with barium tablet. FL/FL barium swallow modifd [id number] IMPRESSION: Normal swallowing study
== END 2020-05-23 08:52 | disposition home or self-care (01) ==
LOC: RAD 08:54
PROVIDERS: PCP Internal Medicine; Visit Provider Surgery
DX: R13.10 Dysphagia, unspecified (principal)
CPT/HCPCS: 74230; 92611

== ENCOUNTER 2020-06-06 06:59 | Outpatient (CLI) | payer MEDICAID, SELFPAY ==
--- NOTE | 2020-06-06 07:15 | US_ITS ---
WS: [id number] US soft tissue head neck [id number] REASON FOR EXAM: right sided neck mass FINDINGS: Several elongated, ovoid-like masses are identified in the region of the clinical abnormality. They h ave an echogenicity very similar to muscle with septations and foci of hyper echogenicity. The larges t of these measures 1.27 x 0.5 or 5 x 1.45 cm and in the sagittal plane has a very kidney like appear ance. No other mass or focal fluid collection identified. There was no increased Doppler signal from these areas of abnormality. US/US soft tissue head neck 40981 IMPRESSION: Ultrasounding the area of clinical concern the right side of the neck demonstra fernando what is believed to be some mildly enlarged lymph nodes. The elongated appe arance of these nodes is more compatible with reaction to a low-grade inflammat ory process. Neoplasm is unlikely but not readily excluded with a single examin ation.
== END 2020-06-06 07:00 | disposition home or self-care (01) ==
LOC: RAD 07:00
PROVIDERS: PCP Internal Medicine; Visit Provider Surgery
DX: R22.1 Localized swelling, mass and lump, neck (principal)
CPT/HCPCS: 76536

== ENCOUNTER 2020-06-29 07:43 | Outpatient (CLI) | payer MEDICAID, SELFPAY ==
--- NOTE | 2020-06-29 08:09 | CT_ITS ---
WS: [id number] Exam: CT neck w con* [id number] Date/Time of Exam: 06/29/2020 8:09 AM Reason For Exam: lymph node enlargement DLP: 2594.[address] scans at [facility] use at least one of these dose optimization techniques: automat ed exposure control; mA and/or kV adjustment per patient size (includes targeted exams where dose is matched to clinical indication); or iterative reconstruction. The neck is evaluated in the axial plane with sagittal and coronal reformatted images. Intravenous co ntrast was administered. There is no sign of neck mass or significant cervical lymphadenopathy. The submandibular glands and p arotid glands are symmetrical side to side. No mass is noted in the region of the tongue base. The ai rway is patent. Normal thyroid lobes. The common carotid arteries and the extracranial internal carot id arteries are patent. Myofascial structures are unremarkable from side to side. The cervical spine is normal in appearance. CT/CT neck w con* [id number] IMPRESSION: 1. No sign of neck mass or significant cervical lymphadenopathy.
[2020-06-29] MEDS: iohexol 300 mg/mL 100 mL Btl IV (08:25)
== END 2020-06-29 07:44 | disposition home or self-care (01) ==
LOC: RADWPI 07:45
PROVIDERS: PCP Internal Medicine; Visit Provider Surgery
DX: R59.0 Localized enlarged lymph nodes (principal)
CPT/HCPCS: 70491; Q9967

== ENCOUNTER 2020-08-11 09:29 | Emergency (ER) | payer MEDICAID, SELFPAY ==
[2020-08-11 09:51] VITALS: BP 169/106; PULSE 104; RESP 18; TEMP 36.7; O2SAT 97; BMI 27.9
--- NOTE | 2020-08-11 09:55 | ECG_ITS ---
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
[2020-08-11] MEDS: lidocaine 2% viscous 15 ML, aluminum-mag hydrox-simethicon 30 ML, sucralfate oral liq 1 GM PO (10:16)
[2020-08-11 11:04] LABS: Basophils # 0.1 10^3/uL (0.0-0.1); Basophils % 0.5 %; Eosinophils # 0.1 10^3/uL (0.0-0.8); Eosinophils % 0.9 %; Hematocrit 52.1 % (42.0-52.0); Hemoglobin 17.6 g/dL (11.7-16.6); Lymphocytes # 2.8 10^3/uL (0.8-4.8); Lymphocytes % 18.6 %; Mean Corpuscular HGB Conc 33.8 g/dL (30.0-36.0); Mean Corpuscular Hemoglobin 29.8 pg (28.0-34.0); Mean Corpuscular Volume 88.2 fL (80-94); Mean Platelet Volume 10.8 fL (7.4-10.4); Monocytes # 1.4 10^3/uL (0.2-0.9); Monocytes % 9.4 %; Neutrophils # 10.73 10^3/uL (1.8-7.7); Neutrophils % 70.3 %; Nucleated Red Blood Cells % 0 %; Platelet Count 299 10^3/cmm (130-400); Red Blood Count 5.91 10^6/uL (4.1-5.3); Red Cell Distribution Width 11.9 % (12.1-15.1); White Blood Count 15.3 10^3/uL (4.0-10.0)
[2020-08-11 11:11] LABS: Troponin T (5th) Once 6 ng/L (0-15)
--- NOTE | 2020-08-11 11:11 | CTR_ITS ---
PROCEDURE INFORMATION: Exam: CT Abdomen And Pelvis With Contrast Exam date and time: 08/11/2020 11:48 AM Age: 25 years old Clinical indication: Abdominal pain TECHNIQUE: Imaging protocol: Computed tomography of the abdomen and pelvis with intravenous contrast. Radiation optimization: All CT scans at this facility use at least one of these dose optimization techniques: automated exposure control; mA and/or kV adjustment per patient size (includes targeted exams where dose is matched to clinical indication); or iterative reconstruction. Contrast material: OMNI 300; Contrast volume: 95 ml; Contrast route: INTRAVENOUS (IV); COMPARISON: CT abdomen pelvis wo con [id number] 10/26/2019 11:00 PM RADIATION DOSE METRICS: Total DLP (mGy-cm): 875.26 FINDINGS: Inferior thorax: Interstitial prominence and asymmetric left basilar airspace disease. Liver: Fatty infiltration of the liver. Gallbladder and bile ducts: Gallbladder dilatation and questionable cholelithiasis, which can be better evaluated with ultrasound if clinically indicated. No biliary ductal dilatation. Pancreas: No pancreatic mass or ductal dilatation. Spleen: Spleen upper limits of normal in size. Accessory spleens, the largest measuring 2.3 cm. New Adrenal glands: Unremarkable adrenals. Kidneys and ureters: Normal renal morphology. No hydronephrosis. Stomach and bowel: Questionable wall thickening in the nondistended stomach. Mild small bowel dilatation without a focal transition zone. Diverticula, without pericolonic inflammation. Prominent stool. Appendix: Appendix upper limits of normal in size, without periappendiceal inflammation. Intraperitoneal space: No free fluid. Vasculature: Normal caliber of the abdominal aorta. Lymph nodes: Subcentimeter lymph nodes. Urinary bladder: Normal bladder morphology . Reproductive: Unremarkable as visualized. Bones/joints: No acute osseous pathology. Soft tissues: Small fat containing umbilical hernia. CT/CT abdomen pelvis w con* [id number] IMPRESSION: 1. Gallbladder dilatation and questionable cholelithiasis, which can be better evaluated with ultrasound if clinically indicated. 2. No acute inflammatory process in the abdomen or pelvis. 3. Additional findings as described above. Radiation Dose CTDIVOL = (mGy): DLP = 875.26 (mGy-cm)
[2020-08-11 11:15] LABS: Add Urine Microscopic? NO
[2020-08-11 11:18] LABS: Bilirubin Urine Neg (Negative); Blood Urine Neg (Negative); Glucose Urine UA Norm (Normal); Ketones Urine Negative (Negative); Leukocyte Esterase Urine Negative (Negative); Nitrate Urine Negative (Negative); Protein Urine Neg (Negative); Specific Gravity, Urine 1.015 (1.005-1.030); Urine Appearance Clear (CLEAR); Urine Color Straw (Yellow); Urobilinogen Urine Norm (Negative); pH Urine 6.5 (5-7)
[2020-08-11 11:29] LABS: Alanine Aminotransferase 49 U/L (0-41); Albumin Level 4.8 g/dL (3.5-5.2); Alkaline Phosphatase 77 IU/L (40-130); Anion Gap 18.8 (5-19); Aspartate Amino Transferase 18 U/L (0-40); Blood Urea Nitrogen 10 mg/dL (6-20); Calcium 9.7 mg/dL (8.5-10.5); Carbon Dioxide 21 mmol/L (22-29); Chloride 100 mmol/L (98-107); Globulin 3.2 g/dL (1.3-4.6); Glomerular Filtration Rate 137.4 mL/min (90-130); Glucose 93 mg/dL (65-115); Lipase 16 U/L (13-60); Osmolality Calculated 281 mOsm/kg (285-295); Potassium 3.8 mmol/L (3.5-5.1); Sodium 136 mmol/L (136-145); Total Bilirubin 1.8 mg/dL (0.15-1.2)
[2020-08-11] MEDS: diphenhydrAMINE 50 mg/mL SDV 1mL IVP (11:54)
[2020-08-11] MEDS: iohexol 300 mg/mL 100 mL Btl IV (12:18)
--- NOTE | 2020-08-11 13:22 | USR_ITS ---
PROCEDURE INFORMATION: Exam: US Abdomen, Limited; Right Upper Quadrant Exam date and time: 08/11/2020 2:00 PM Age: 25 years old Clinical indication: Abdominal pain TECHNIQUE: Imaging protocol: US abdomen. Real time ultrasound with image documentation. Limited exam focused on the right upper quadrant. COMPARISON: US gall bladder [id number] 06/13/2019 2:54 AM FINDINGS: Liver: Fatty infiltration of the liver. Gallbladder: Low level echoes in the gallbladder, believed to be artifactual. No shadowing calculi, wall edema, or pericholecystic fluid. Common bile duct: Normal caliber of the incompletely visualized common bile duct measuring 2 mm in diameter. Pancreas: obscuration of the pancreas by bowel gas. Right kidney: Normal right renal morphology. No hydronephrosis. US/US gall bladder [id number] IMPRESSION: 1. Fatty infiltration of the liver. 2. No cholelithiasis
[2020-08-11 15:08] VITALS: BP 133/84; PULSE 94; RESP 18; O2SAT 95
[2020-08-11 15:09] VITALS: BP 133/84; PULSE 94; RESP 18; O2SAT 95
--- NOTE | 2020-08-11 15:30 | ED_ITS ---
HPI - Abdominal Pain General: Chief Complaint: Abdominal Pain Stated Complaint: ABD PAIN Time Seen by Provider: 08/11/20 09:35 Source: patient Mode of arrival: ambulatory Limitations: no limitations History of Present Illness: HPI narrative: 25-year-old male patient presents to the emergency department complaining of diffuse abdominal pain. Patient states this pain has been going on for over a year. Patient states he has to GI specialist has had a EGD and a colonoscopy and they are not able to find any acute findings. Patient states he feels like his abdominal pain is worsening. Patient denies any fever. Patient denies any chest pain or shortness of breath. Patient denies any urinary symptoms. Patient denies any back pain. Patient states he is taking 3 medications currently for GERD. Associated Symptoms: Reports nausea; Denies chills, constipation, diarrhea, dysuria, fever(s), syncope and vomiting Review of Systems Const: Reports: change in appetite; Denies: fever(s), chills, body aches, fatigue or malaise Eyes: Denies: change in vision ENMT: Denies: throat pain, uvular edema, enlarged tonsils, odynophagia, tinnitus, nasal discharge or nasal congestion Card: Denies: chest pain, palpitations, irregular heart rhythm, lightheadedness or syncope Resp: Denies: dyspnea, productive cough, non-productive cough or wheezing GI: Reports: abdominal pain and nausea; Denies: vomiting, diarrhea or constipation : Denies: flank pain, difficulty urinating, dysuria or urinary frequency Musc: Denies: neck pain, back pain, extremity pain or extremity swelling Skin/Breast: Denies: rash Neuro: Denies: headache(s) or numbness in extremities Psych: Denies: anxiety, depression, suicidal ideation or homicidal ideation [facility] ED PFSH: Medical History Abdominal pain Dysphagia Surgical History History of colonoscopy (~08/2019) History of esophagogastroduodenoscopy (EGD) (~08/2019) Family History Father Cancer liver Grandfather Cancer lung Denies family history of Anesthesia complication Bleeding disorder Social History Smoking and tobacco status: never smoked Second hand smoke exposure: No Alcohol intake: never Adopted: No Caregiver/support person: Yes Lives independently: Yes Household members: significant other Housing: House Marital status: Single Highest education level completed: High School Graduate service: No Current occupational status: employed Current occupational exposures/hazards: No Pets and animals: No History of recent travel: No Leisure activites: exercise Sexually active: Yes Current gender identity: Male and Female [employer]: [employer] tri[employer]ie needs: No Agree to transfusion: No Financial difficulty paying for basics: Not Very Hard Physical Exam Const: COMMON NORMALS: no acute distress, average body habitus, patient oriented x3, no limitations, healthy appearing, alert and well nourished HENMT: COMMON NORMALS: normocephalic, atraumatic, external ears normal, EAC's normal and Normal external nose present HEAD & SCALP: normocephalic and atraumatic FACE & SINUS: normal facial exam NOSE: Normal external nose present and Normal nares present EXTERNAL EAR: Yes external ears normal EXTERNAL AUDITORY CANAL: EAC's normal MOUTH: Normal oral and palatal mucosa present THROAT: posterior oropharynx normal, tonsils normal and uvula midline; no uvular edema Eye: COMMON NORMALS: Equal, round and reactive pupils present, EOMs intact bilaterally, conjunctivae normal, no scleral icterus and no papilledema CONJUNCTIVA: Yes conjunctivae normal PUPIL: Yes Equal, round and reactive pupils present DIRECT OPHTHALMOSCOPY: Yes no papilledema Neck/C-Spine: COMMON NORMALS: full ROM, no lymphadenopathy, supple, no meningeal signs and no JVD Lymph: LYMPHATIC: no lymphadenopathy noted and no lymphedema noted Chest: COMMONS NORMALS: normal inspection of the chest and normal palpation of entire chest wall Resp: COMMON NORMALS: normal respiratory effort, No retractions, No use of accessory muscles and clear to auscultation bilaterally AUSCULTATION: clear to auscultation bilaterally Cardio: COMMON NORMALS: no JVD, regular rate and regular rhythm RATE: regular rate RHYTHM: regular rhythm GI: COMMON NORMALS: Normal to inspection, nondistended, normoactive bowel sounds present, Soft to palpation, No hepatosplenomegaly present, no masses and no bruits INSPECTION: Yes normal to inspection AUSCULTATION: Yes normoactive bowel sounds PALPATION: Yes Soft to palpation, Yes Tenderness to palpation present (GI) Details: LLQ, RLQ, LUQ and RUQ and Yes No hepatosplenomegaly present : COMMON NORMALS: Yes no CVA tenderness BLADDER/KIDNEY EXAM: Yes no CVA tenderness Back/Pelvis: COMMON NORMALS: no CVA tenderness, thoracic and lumbar spine normal to inspection, no thoracic nor lumbar tenderness and thoraco-lumbar ROM normal Extremity: COMMON NORMALS: normal to inspection, full ROM and capillary refill normal Neuro: COMMON NORMALS: patient oriented x3, CN's II-XII intact bilaterally, moves all extremities, no focal motor deficits and no sensory deficits noted SENSORIUM/ORIENTATION: Yes alert MENINGEAL SIGNS: Yes no meningeal signs Psych: COMMON NORMALS: denies homicidal ideation and denies suicidal ideation Skin: COMMON NORMALS: no rashes or lesions noted, no wounds and turgor normal GENERAL SKIN EXAM: no rashes or lesions noted and turgor normal Course ED course: Pt developed a red erythema rash to right mandie eof neck. Pt was given Benadryl IV and this resolved the issue pt denied SOB or any other new symptoms Vital Signs: Vital signs: Vital Signs Temperature 98.1 F 08/11/20 09:51 Pulse Rate 94 08/11/20 15:09 Respiratory Rate 18 08/11/20 15:09 Blood Pressure 133/84 08/11/20 15:09 Pulse Oximetry 95 08/11/20 15:09 MDM - Abdominal Pain MDM Narrative: Medical decision making narrative: 25-year-old male patient presents to the emergency department complaining of diffuse abdominal pain. Patient states this pain has been going on for over a year. Patient states he has to GI specialist has had a EGD and a colonoscopy and they are not able to find any acute findings. Patient states he feels like his abdominal pain is worsening. Patient denies any fever. Patient denies any chest pain or shortness of breath. Patient denies any urinary symptoms. Patient denies any back pain. Patient states he is taking 3 medications currently for GERD. Pt is well appearing non toxic and in no acute distress. I reviewed lab findings with patient. Mildly elevated bilirubin elevated WBC. Pt was given GI coctail and stated that did seem to help. Pt does not have an acute surgical abd. CT reveals rdering Provider/Ordering MD: Charlotte Nunez NP Date of Service: 08/11/20 Procedure(s): CT abdomen pelvis w con* [id number] Accession Number(s): [id number] Report Number: [id number] PROCEDURE INFORMATION: Exam: CT Abdomen And Pelvis With Contrast Exam date and time: 08/11/2020 11:48 AM Age: 25 years old Clinical indication: Abdominal pain TECHNIQUE: Imaging protocol: Computed tomography of the abdomen and pelvis with intravenous contrast. Radiation optimization: All CT scans at this facility use at least one of these dose optimization techniques: automated exposure control; mA and/or kV adjustment per patient size (includes targeted exams where dose is matched to clinical indication); or iterative reconstruction. Contrast material: OMNI 300; Contrast volume: 95 ml; Contrast route: INTRAVENOUS (IV); COMPARISON: CT abdomen pelvis wo con [id number] 10/26/2019 11:00 PM RADIATION DOSE METRICS: Total DLP (mGy-cm): 875.26 FINDINGS: Inferior thorax: Interstitial prominence and asymmetric left basilar airspace disease. Liver: Fatty infiltration of the liver. Gallbladder and bile ducts: Gallbladder dilatation and questionable cholelithiasis, which can be better evaluated with ultrasound if clinically indicated. No biliary ductal dilatation. Pancreas: No pancreatic mass or ductal dilatation. Spleen: Spleen upper limits of normal in size. Accessory spleens, the largest measuring 2.3 cm. New Adrenal glands: Unremarkable adrenals. Kidneys and ureters: Normal renal morphology. No hydronephrosis. Stomach and bowel: Questionable wall thickening in the nondistended stomach. Mild small bowel dilatation without a focal transition zone. Diverticula, without pericolonic inflammation. Prominent stool. Appendix: Appendix upper limits of normal in size, without periappendiceal inflammation. Intraperitoneal space: No free fluid. Vasculature: Normal caliber of the abdominal aorta. Lymph nodes: Subcentimeter lymph nodes. Urinary bladder: Normal bladder morphology . Reproductive: Unremarkable as visualized. Bones/joints: No acute osseous pathology. Soft tissues: Small fat containing umbilical hernia. CT/CT abdomen pelvis w con* [id number] IMPRESSION: 1. Gallbladder dilatation and questionable cholelithiasis, which can be better evaluated with ultrasound if clinically indicated. 2. No acute inflammatory process in the abdomen or pelvis. 3. Additional findings as described above. I did discuss these findings with patient. Given the CT results I did order [facility] [address] [place] [address] Ultrasound Report Signed Patient: Anthony Del Valle #: [id number] : 1995Acct#:[id number] Age/Sex: 25 / MADM Date: 08/11/20 Loc: ERRoom/Bed: Attending Dr: Ordering Provider/Ordering MD: Charlotte Nunez NP Date of Service: 08/11/20 Procedure(s): US gall bladder [id number] Accession Number(s): [id number] Report Number: [id number] PROCEDURE INFORMATION: Exam: US Abdomen, Limited; Right Upper Quadrant Exam date and time: 08/11/2020 2:00 PM Age: 25 years old Clinical indication: Abdominal pain TECHNIQUE: Imaging protocol: US abdomen. Real time ultrasound with image documentation. Limited exam focused on the right upper quadrant. COMPARISON: US gall bladder [id number] 06/13/2019 2:54 AM FINDINGS: Liver: Fatty infiltration of the liver. Gallbladder: Low level echoes in the gallbladder, believed to be artifactual. No shadowing calculi, wall edema, or pericholecystic fluid. Common bile duct: Normal caliber of the incompletely visualized common bile duct measuring 2 mm in diameter. Pancreas: obscuration of the pancreas by bowel gas. Right kidney: Normal right renal morphology. No hydronephrosis. US/US gall bladder [id number] IMPRESSION: 1. Fatty infiltration of the liver. 2. No cholelithiasis I discussed dietary changes with patient and will prescribe carafate liquid to patient. Pt is to follow up with GI doc this coming week. Return precautions advised and home care reviewed. I advised patient to have labs rechecked at follow up visit. Case reviewed with Dr. Rojas Lab Data: Labs: Lab Results 08/11/20 08/11/20 08/11/20 Range/Units 10:28 10:28 10:28 WBC 15.3 H (4.0-10.0) 10^3/ uL RBC 5.91 H (4.1-5.3) 10^6/u L Hgb 17.6 H (11.7-16.6) g/dL Hct 52.1 H (42.0-52.0) % MCV 88.2 (80-94) fL MCH 29.8 (28.0-34.0) pg MCHC 33.8 (30.0-36.0) g/dL RDW 11.9 L (12.1-15.1) % Plt Count 299 (130-400) 10^3/c mm MPV 10.8 H (7.4-10.4) fL Neut % (Auto) 70.3 % Lymph % (Auto) 18.6 % Sevier % (Auto) 9.4 % Eos % (Auto) 0.9 % Baso % (Auto) 0.5 % Neut # (Auto) 10.73 H (1.8-7.7) 10^3/u L Lymph # (Auto) 2.8 (0.8-4.8) 10^3/u L Sevier # (Auto) 1.4 H (0.2-0.9) 10^3/u L Eos # (Auto) 0.1 (0.0-0.8) 10^3/u L Baso # (Auto) 0.1 (0.0-0.1) 10^3/u L Nucleated RBC % (a uto) 0 % Nucleated RBCs # 0.0 /100WBC Sodium Cancelled Potassium Cancelled Chloride Cancelled Carbon Dioxide Cancelled Anion Gap Cancelled BUN Cancelled Creatinine Cancelled GFR Calculation Cancelled Glucose Cancelled Calculated Osmolal ity Cancelled Calcium Cancelled Total Bilirubin Cancelled AST Cancelled ALT Cancelled Alkaline Phosphata se Cancelled Troponin T Gen 5 n g/L 6 (0-15) ng/L Total Protein Cancelled Albumin Cancelled Globulin Cancelled Lipase Cancelled Urine Color (Yellow) Urine Appearance (CLEAR) Urine pH (5-7) Ur Specific Gravit y (1.005-1.030) Urine Protein (Negative) Urine Glucose (UA) (Normal) Urine Ketones (Negative) Urine Blood (Negative) Urine Nitrate (Negative) Urine Bilirubin (Negative) Urine Urobilinogen (Negative) mg/dL Ur Leukocyte Mary ase (Negative) 08/11/20 08/11/20 Range/Units 10:28 10:44 WBC (4.0-10.0) 10^3/ uL RBC (4.1-5.3) 10^6/u L Hgb (11.7-16.6) g/dL Hct (42.0-52.0) % MCV (80-94) fL MCH (28.0-34.0) pg MCHC (30.0-36.0) g/dL RDW (12.1-15.1) % Plt Count (130-400) 10^3/c mm MPV (7.4-10.4) fL Neut % (Auto) % Lymph % (Auto) % Sevier % (Auto) % Eos % (Auto) % Baso % (Auto) % Neut # (Auto) (1.8-7.7) 10^3/u L Lymph # (Auto) (0.8-4.8) 10^3/u L Sevier # (Auto) (0.2-0.9) 10^3/u L Eos # (Auto) (0.0-0.8) 10^3/u L Baso # (Auto) (0.0-0.1) 10^3/u L Nucleated RBC % (a uto) % Nucleated RBCs # /100WBC Sodium 136 Potassium 3.8 Chloride 100 Carbon Dioxide 21 L Anion Gap 18.8 BUN 10 Creatinine 0.7 GFR Calculation 137.4 H Glucose 93 Calculated Osmolal ity 281 L Calcium 9.7 Total Bilirubin 1.8 H AST 18 ALT 49 H Alkaline Phosphata se 77 Troponin T Gen 5 n g/L (0-15) ng/L Total Protein 8.0 Albumin 4.8 Globulin 3.2 Lipase 16 Urine Color Straw (Yellow) Urine Appearance Clear (CLEAR) Urine pH 6.5 (5-7) Ur Specific Gravit y 1.015 (1.005-1.030) Urine Protein Neg (Negative) Urine Glucose (UA) Norm (Normal) Urine Ketones Negative (Negative) Urine Blood Neg (Negative) Urine Nitrate Negative (Negative) Urine Bilirubin Neg (Negative) Urine Urobilinogen Norm (Negative) mg/dL Ur Leukocyte Mary ase Negative (Negative) Discharge Plan Discharge Patient Disposition: Home Clinical Impression: Abdominal pain Qualifiers: Abdominal location: generalized Qualified Code(s): R10.84 - Generalized abdominal pain Condition: Stable Prescriptions: New Carafate 100 mg/mL suspension 1 g PO TID 28 Days Qty: 840 RF: 0 No Action pantoprazole [Protonix] 40 mg tablet,delayed release (DR/EC) 40 mg PO DAILY@10 RF: 0 sucralfate 1 gram tablet 1 g PO QID RF: 0 Tylenol Extra Strength 500 mg Tablet 1,000 mg PO PRN RF: 0 BC Pain Relief 845-65 mg Powder In Packet 1 ea PO BID PRN (Reason: Headache) RF: 0 Discharge Orders: Discharge ED (Routine); Ordered 08/11/20 Ordered By: Charlotte Nunez Referrals: Ankita Dong, [Primary Care Provider] - Discharge Diet: Advance as tolerated Discharge Activity: Resume usual activity Patient Instructions: Abdominal Pain (ED) Activity Restrictions/Additional Instructions: Please take medications as prescribed Please follow up with your Gi specialist Please return to ER with any worsening of symptoms Coding Level of Care Code ED [employer] for Genaro Goddard
== END 2020-08-11 15:11 | disposition home or self-care (01) ==
PROVIDERS: Emergency Provider Registered Nurse; PCP Internal Medicine
DX: R10.84 Generalized abdominal pain (principal)
CPT/HCPCS: 12345; 74177; 76705; 80053; 81003; 83690; 84484; 85025; 93005; 96374; 96375; 99283; J1200; Q9967

== ENCOUNTER 2020-08-30 12:31 | Outpatient (CLI) | payer MEDICAID, SELFPAY ==
--- NOTE | 2020-08-30 12:38 | XR_ITS ---
WS: [id number] Exam: XR KUB [id number] Date/Time of Exam: 08/30/2020 12:42 PM Reason For Exam: LEFT UPPER QUADRANT ABDOMINAL PAIN No bowel obstruction or free air. Visualized organ margins are intact. Bony elements of the lumbar sp ine and pelvis are unremarkable. XR/XR KUB [id number] IMPRESSION: 1. No acute abdominal finding.
--- NOTE | 2020-08-30 12:38 | XR_ITS ---
WS: [id number] Exam: XR chest 2V* [id number] Date/Time of Exam: 08/30/2020 12:38 PM Reason For Exam: CHEST WALL PAIN, ANTERIOR Comparison 04/24/2020. Findings: The lungs are clear and fully expanded. Costophrenic angles are sharp. No infiltrates. Bronchovascula r relief appears normal. Cardiac silhouette is unremarkable. Bony elements are intact. XR/XR chest 2V* [id number] IMPRESSION: Unremarkable chest radiograph.
== END 2020-08-30 12:32 | disposition home or self-care (01) ==
LOC: RAD 12:34
PROVIDERS: PCP Internal Medicine; Visit Provider Nurse Practitioner Family
DX: R07.89 Other chest pain (principal); R10.12 Left upper quadrant pain
CPT/HCPCS: 71046; 74018

== ENCOUNTER 2020-09-10 13:49 | Outpatient (CLI) | payer OTHER, MEDICAID, SELFPAY ==
--- NOTE | 2020-09-10 14:19 | PFTS_ITS ---
Date of Study:09/10/20 Date of Dictation: MECHANICS: Forced vital capacity (FVC) is normal. Forced expiratory volume in one second (FEV1) is normal. FEV1/FVC is normal. FLOW VOLUME LOOP: Normal. LUNG VOLUMES: Not performed DIFFUSING CAPACITY FOR CARBON MONOXIDE: Not performed. INTERPRETATION: The prebronchodilator spirometry is normal. MTDD
== END 2020-09-10 13:50 | disposition home or self-care (01) ==
LOC: RT 13:52
PROVIDERS: PCP Nurse Practitioner Family; Visit Provider Family Medicine
DX: R06.00 Dyspnea, unspecified (principal); R06.2 Wheezing
CPT/HCPCS: 94010

== ENCOUNTER 2020-09-14 17:42 | Emergency (ER) | payer BC, MEDICAID, SELFPAY ==
[2020-09-14 17:49] VITALS: BP 174/107; PULSE 111; RESP 18; TEMP 36.6; O2SAT 97; BMI 27.2
--- NOTE | 2020-09-14 18:03 | ED_ITS ---
HPI - Dizziness General: Chief Complaint: Dizziness Stated Complaint: Headaches/Ear pain and cordination Time Seen by Provider: 09/14/20 18:02 History of Present Illness: HPI Narrative: Patient is a 25-year-old male comes to the ED with a headache and right ear pain. Patient describes having headaches of been on and off for the past 6 months. He states that this current headache has been going on for about 3 days and it does cause him some nausea and vomiting. He rates his current headache is 7 out of 10 and the pain is located on the top right side of head and retro-orbital. He denies any photophobia, vision changes, numbness/weakness to extremities or face and any other neurological symptoms. He also is complaining of having some right ear pain that has progressed over the last 2 weeks. Denies any drainage right ear or loss of hearing. Associated symptoms: Reports headache(s); Denies chest pain, chills, nausea, nasal congestion, palpitations or vomiting Associated neuro symptoms: Deny numbness in extremities Review of Systems Const: Denies: fever(s), chills or fatigue Eyes: Denies: change in vision or eye discomfort ENMT: Reports: ear or mastoid pain (Right); Denies: throat pain, odynophagia, nasal discharge or nasal congestion Card: Denies: chest pain, palpitations, edema, swelling of feet/ankles, dyspnea on exertion or orthopnea Resp: Denies: dyspnea, productive cough or non-productive cough GI: Denies: abdominal pain, nausea, vomiting, diarrhea, constipation or hematochezia : Denies: flank pain, difficulty urinating, dysuria or hematuria Musc: Denies: neck pain, back pain or extremity swelling Skin/Breast: Denies: rash or new lesions Neuro: Reports: headache(s); Denies: numbness in extremities or weakness in extremities PFS ED PFSH: Medical History Abdominal pain Dysphagia Surgical History History of colonoscopy (~08/2019) History of esophagogastroduodenoscopy (EGD) (~08/2019) Family History Father Cancer liver Grandfather Cancer lung Denies family history of Anesthesia complication Bleeding disorder Social History Smoking and tobacco status: never smoked Second hand smoke exposure: No Alcohol intake: never Adopted: No Caregiver/support person: Yes Lives independently: Yes Household members: significant other Housing: House Marital status: Single Highest education level completed: High School Graduate service: No Current occupational status: employed Current occupational exposures/hazards: No Pets and animals: No History of recent travel: No Leisure activites: exercise Sexually active: Yes Current gender identity: Male and Female Trixie/Yazdanism: Rastafari Special trixie needs: No Agree to transfusion: No Financial difficulty paying for basics: Not Very Hard Physical Exam Const: COMMON NORMALS: no acute distress, patient oriented x3, healthy appearing and alert GENERAL APPEARANCE: cooperative and comfortable HENMT: COMMON NORMALS: normocephalic and EAC's normal HEAD & SCALP: normocephalic FACE & SINUS: no Facial tenderness on exam of face and sinuses EXTERNAL AUDITORY CANAL: EAC's normal TYMPANIC MEMBRANE: TM normal on the left and TM abnormal TM laterality: right Details: erythematous and fluid behind TM MOUTH: Normal oral and palatal mucosa present THROAT: posterior oropharynx normal and uvula midline Eye: COMMON NORMALS: Equal, round and reactive pupils present, EOMs intact bilaterally, conjunctivae normal and normal visual rivas by confrontation CONJUNCTIVA: Yes conjunctivae normal PUPIL: Yes Equal, round and reactive pupils present Neck/C-Spine: COMMON NORMALS: supple GENERAL: Yes normal visual inspection Resp: COMMON NORMALS: normal respiratory effort, No retractions, No use of accessory muscles and clear to auscultation bilaterally EFFORT & INSPECTION: Yes able to speak in complete sentences, No tachypneic, No respiratory distress and No labored AUSCULTATION: clear to auscultation bilaterally Cardio: COMMON NORMALS: regular rate, regular rhythm, S1 normal heart sound present, S2 normal heart sound present, No gallops present (Cardio), No clicks present (Cardio), No murmurs present (Cardio) and Peripheral pulses 2+ throughout RATE: regular rate RHYTHM: regular rhythm HEART SOUNDS: S1 normal heart sound present and S2 normal heart sound present PERIPHERAL PULSES: Peripheral pulses 2+ throughout GI: COMMON NORMALS: Normal to inspection, nondistended, normoactive bowel sounds present, Soft to palpation, non-tender and no masses PALPATION: Yes Soft to palpation : COMMON NORMALS: Yes no CVA tenderness BLADDER/KIDNEY EXAM: Yes no CVA tenderness Back/Pelvis: COMMON NORMALS: no CVA tenderness Extremity: COMMON NORMALS: normal to inspection Neuro: COMMON NORMALS: patient oriented x3, CN's II-XII intact bilaterally, moves all extremities and no sensory deficits noted SENSORIUM/ORIENTATION: Yes alert COORDINATION/BALANCE: [id number] test normal SPEECH: speech normal MOTOR EXAM: 5/5 motor strength present throughout COORDINATION: [id number] test normal Skin: GENERAL SKIN EXAM: dry skin Course Reevaluation(s): Reevaluation #1: After IV migraine cocktail patient says headache improved greatly. Vital Signs: Vital signs: Vital Signs Temperature 97.8 F 09/14/20 17:49 Pulse Rate 81 09/14/20 20:00 Respiratory Rate 18 09/14/20 20:45 Blood Pressure 153/91 09/14/20 20:00 Pulse Oximetry 96 09/14/20 20:00 MDM - Dizziness MDM Narrative: Medical decision making narrative: Patient is a 25-year-old male comes to the ED with headache and right ear pain. Patient has been having on and off again headaches for the past 6 months. This current headache has lasted for a couple days he also has nausea and vomiting. Right ear pain is been going on for the last 2 weeks with no drainage. Physical exam remarkable for right TM erythema and bulging. Neuro exam normal. CT of the head showed no acute findings. Patient was given IV migraine cocktail and his headache improved greatly. He was also given a dose of amoxicillin while here in the ED. Patient diagnosed with a headache and acute otitis media of the right ear. He was discharged with a prescription for amoxicillin. Follow-up with PCP in 7 to 10 days. Return ED precautions given. Patient understood agree with plan. Imaging Data^: CT Head: Attestation: I personally reviewed and interpreted this imaging study as follows: Radiologist's impression: [address] [address] [address] Scan Report Signed Patient: Anthony Del Valle Unit #: [id number] : 1995 Age/Sex: 25 / M ADM Date: 09/14/20 Loc: ER Room/Bed: Attending Dr: Ordering Provider/Ordering MD: Nathan Ryan Date of Service: 09/14/20 Procedure(s): CT head wo con* [id number] Accession Number(s): [id number] Report Number: [id number] PROCEDURE INFORMATION: Exam: CT Head Without Contrast Exam date and time: 09/14/2020 6:46 PM Age: 25 years old Clinical indication: Pain; Headache TECHNIQUE: Imaging protocol: Computed tomography of the head without contrast. Radiation optimization: All CT scans at this facility use at least one of these dose optimization techniques: automated exposure control; mA and/or kV adjustment per patient size (includes targeted exams where dose is matched to clinical indication); or iterative reconstruction. COMPARISON: CT head wo con* [id number] 06/10/2019 11:01 PM RADIATION DOSE METRICS: Total DLP (mGy-cm): 865.7 FINDINGS: Brain: Unremarkable. No hemorrhage. No significant white matter disease. No edema. Cerebral ventricles: No ventriculomegaly. Bones/joints: Unremarkable. No acute fracture. Paranasal sinuses: Visualized sinuses are unremarkable. No fluid levels. Mastoid air cells: Unremarkable as visualized. No mastoid effusion. Soft tissues: Unremarkable. CT/CT head wo con* [id number] IMPRESSION: 1. No acute intracranial abnormality demonstrated. 2. There is no interval change from the prior examination. Radiation Dose CTDIVOL = (mGy): DLP = 865.7 (mGy-cm) Dictated By: Vincent Bunn MD Signed By: Vincent Bunn MD Signed Date/Time: 09/14/201947 DD/ 45 Discharge Plan Discharge Patient Disposition: Home Clinical Impression: Otitis media Qualifiers: Otitis media type: serous Chronicity: acute Laterality: right Recurrence: non- recurrent Qualified Code(s): H65.01 - Acute serous otitis media, right ear Headache Qualifiers: Headache type: unspecified Headache chronicity pattern: acute headache Intractability: not intractable Qualified Code(s): R51.9 - Headache, unspecified Condition: Stable Prescriptions: New amoxicillin 500 mg tablet 500 mg PO BID 10 Days Qty: 20 RF: 0 No Action pantoprazole [Protonix] 40 mg tablet,delayed release (DR/EC) 40 mg PO DAILY@10 RF: 0 sucralfate 1 gram tablet 1 g PO QID RF: 0 Tylenol Extra Strength 500 mg Tablet 1,000 mg PO PRN RF: 0 BC Pain Relief 845-65 mg Powder In Packet 1 ea PO BID PRN (Reason: Headache) RF: 0 Discharge Orders: Discharge ED (Routine); Ordered 09/14/20 Ordered By: Nathan Ryan Referrals: Sanford Garcia NP [Primary Care Provider] - Discharge Diet: Regular Discharge Activity: Resume usual activity Patient Instructions: Headache, Otitis Media (ED) Activity Restrictions/Additional Instructions: Follow-up with medical provider as directed. Take full course of antibiotics as prescribed. Take Tylenol or ibuprofen for any fever or headache. Return to the ER or your medical provider if condition worsens. Please read and understand discharge instructions. If any questions, please ask. 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
[2020-09-14 18:13] VITALS: RESP 18
--- NOTE | 2020-09-14 18:40 | CTR_ITS ---
PROCEDURE INFORMATION: Exam: CT Head Without Contrast Exam date and time: 09/14/2020 6:46 PM Age: 25 years old Clinical indication: Pain; Headache TECHNIQUE: Imaging protocol: Computed tomography of the head without contrast. Radiation optimization: All CT scans at this facility use at least one of these dose optimization techniques: automated exposure control; mA and/or kV adjustment per patient size (includes targeted exams where dose is matched to clinical indication); or iterative reconstruction. COMPARISON: CT head wo con* [id number] 06/10/2019 11:01 PM RADIATION DOSE METRICS: Total DLP (mGy-cm): 865.7 FINDINGS: Brain: Unremarkable. No hemorrhage. No significant white matter disease. No edema. Cerebral ventricles: No ventriculomegaly. Bones/joints: Unremarkable. No acute fracture. Paranasal sinuses: Visualized sinuses are unremarkable. No fluid levels. Mastoid air cells: Unremarkable as visualized. No mastoid effusion. Soft tissues: Unremarkable. CT/CT head wo con* [id number] IMPRESSION: 1. No acute intracranial abnormality demonstrated. 2. There is no interval change from the prior examination. Radiation Dose CTDIVOL = (mGy): DLP = 865.7 (mGy-cm)
[2020-09-14] MEDS: sodium chloride 0.9% 1,000 ML 999 ML IV (18:59)
[2020-09-14] MEDS: ketorolac 30 mg/mL INJ IVP (19:00)
[2020-09-14] MEDS: diphenhydrAMINE 50 mg/mL SDV 1mL 25 MG IVP (19:00)
[2020-09-14] MEDS: metoclopramide 5 mg/mL SDV 2 mL 10 MG IVP (19:01)
[2020-09-14] MEDS: dexamethasone 10 mg/mL INJ IVP (19:01)
[2020-09-14 19:13] VITALS: BP 188/110; PULSE 98; RESP 18; O2SAT 96
[2020-09-14 20:00] VITALS: BP 153/91; PULSE 81; RESP 18; O2SAT 96
[2020-09-14] MEDS: amoxicillin 500 mg Capsule PO (20:32)
[2020-09-14 20:45] VITALS: RESP 18
== END 2020-09-14 20:45 | disposition home or self-care (01) ==
PROVIDERS: Emergency Provider Physician Assistant; PCP Nurse Practitioner Family
DX: R51.9 Headache, unspecified (principal); H65.01 Acute serous otitis media, right ear
CPT/HCPCS: 12345; 70450; 96361; 96374; 96375; 99283; J1100; J1200; J1885; J2765; J7030

== ENCOUNTER 2020-09-24 18:28 | Emergency (ER) | payer BC, MEDICAID, SELFPAY ==
[2020-09-24 19:01] VITALS: BP 143/105; PULSE 103; RESP 14; TEMP 37.1; O2SAT 97; BMI 27.2
--- NOTE | 2020-09-24 19:20 | ED_ITS ---
HPI - COVID General: Chief Complaint: COVID symptoms Stated Complaint: body aches Time Seen by Provider: 09/24/20 19:14 Triage information: No fever, cough or shortness of breath . No known COVID + exposure last 14 days History of Present Illness: HPI Narrative: Patient is a 25-year-old male who comes to the ED with body aches, nausea and emesis. Symptoms started approximately 3 days ago. He denies any known contact with Covid positive patient. He describes having body aches throughout his whole body. He has had some nausea for the past 3 days and has had a couple episodes of emesis. He says he is able to eat and drink and keep things down majority of the time. Currently he says he is not nauseous here in the ED. Denies any nasal drainage/ congestion, sore throat, fever, cough, shortness of breath, chest pain, abdominal pain, bladder or bowel symptoms. COVID 19 common symptoms: positive fatigue, body aches, nausea and vomiting; negative fever(s), chills, non-productive cough, productive cough, dyspnea, headache(s), throat pain, nasal congestion or diarrhea COVID 19 other sytmptoms: negative chest pain COVID Results: Nasal/Oral Coronavirus 2019 PCR Pending 09/24/20 19:45 09/24/20 Review of Systems Const: Reports: body aches and fatigue; Denies: fever(s) or chills Eyes: Denies: change in vision or eye discomfort ENMT: Denies: throat pain, odynophagia, nasal discharge or nasal congestion Card: Denies: chest pain, palpitations, edema, swelling of feet/ankles, dyspnea on exertion or orthopnea Resp: Denies: dyspnea, productive cough or non-productive cough GI: Reports: nausea and vomiting; Denies: abdominal pain, diarrhea, constipation or hematochezia : Denies: flank pain, difficulty urinating, dysuria or hematuria Musc: Denies: neck pain, back pain or extremity swelling Skin/Breast: Denies: rash or new lesions Neuro: Denies: headache(s), numbness in extremities or weakness in extremities PFS ED PFSH: Medical History Abdominal pain Dysphagia Surgical History History of colonoscopy (~08/2019) History of esophagogastroduodenoscopy (EGD) (~08/2019) Family History Father Cancer liver Grandfather Cancer lung Denies family history of Anesthesia complication Bleeding disorder Social History Smoking and tobacco status: never smoked Second hand smoke exposure: No Alcohol intake: never Adopted: No Caregiver/support person: Yes Lives independently: Yes Household members: significant other Housing: House Marital status: Single Highest education level completed: High School Graduate service: No Current occupational status: employed Current occupational exposures/hazards: No Pets and animals: No History of recent travel: No Leisure activites: exercise Sexually active: Yes Current gender identity: Male and Female Trixie/Holiness: Mormonism Special trixie needs: No Agree to transfusion: No Financial difficulty paying for basics: Not Very Hard Physical Exam Const: COMMON NORMALS: no acute distress, patient oriented x3, healthy appearing and alert GENERAL APPEARANCE: cooperative and comfortable HENMT: COMMON NORMALS: normocephalic HEAD & SCALP: normocephalic MOUTH: Normal oral and palatal mucosa present THROAT: posterior oropharynx normal and uvula midline Eye: COMMON NORMALS: Equal, round and reactive pupils present PUPIL: Yes Equal, round and reactive pupils present Neck/C-Spine: COMMON NORMALS: supple GENERAL: Yes normal visual inspection Resp: COMMON NORMALS: normal respiratory effort, No retractions, No use of accessory muscles and clear to auscultation bilaterally EFFORT & INSPECTION: Yes able to speak in complete sentences, No tachypneic, No respiratory distress and No labored AUSCULTATION: clear to auscultation bilaterally Cardio: COMMON NORMALS: regular rate, regular rhythm, S1 normal heart sound present, S2 normal heart sound present, No gallops present (Cardio), No clicks present (Cardio), No murmurs present (Cardio) and Peripheral pulses 2+ throughout RATE: regular rate RHYTHM: regular rhythm HEART SOUNDS: S1 normal heart sound present and S2 normal heart sound present PERIPHERAL PULSES: Peripheral pulses 2+ throughout GI: COMMON NORMALS: Normal to inspection, nondistended, normoactive bowel sounds present, Soft to palpation, non-tender and no masses PALPATION: Yes Soft to palpation : COMMON NORMALS: Yes no CVA tenderness BLADDER/KIDNEY EXAM: Yes no CVA tenderness Back/Pelvis: COMMON NORMALS: no CVA tenderness Extremity: COMMON NORMALS: normal to inspection and no pedal edema Neuro: COMMON NORMALS: patient oriented x3 and moves all extremities SENSORIUM/ORIENTATION: Yes alert Skin: GENERAL SKIN EXAM: dry skin Course Vital Signs: Vital signs: Vital Signs Temperature 98.7 F 09/24/20 19:01 Pulse Rate 78 09/24/20 20:38 Respiratory Rate 16 09/24/20 20:38 Blood Pressure 142/96 09/24/20 20:38 Pulse Oximetry 95 09/24/20 20:38 MDM - COVID MDM Narrative: Medical decision making narrative: Patient is a 25-year-old male comes to the ED with body aches. Denies fever, cough, shortness of breath, chest pain. Patient appears in no acute severe pain. Lungs are clear to auscultation bilaterally. Vitals are stable. Chest x-ray was unremarkable. Influenza negative. COVID-19 pending results. Patient was given Toradol while here in the ED and discharged. He was given instructions on how to self quarantine pending COVID-19 results. Return to ED precautions given. Follow-up with PCP in 7 to 10 days. Patient understood and agree with plan. Lab Data: Labs: Lab Results 09/24/20 Range/Units 19:45 Influenza Type A A g Negative (Negative) Influenza Type B A g Negative (Negative) Imaging Data: CXR: Attestation: I personally reviewed and interpreted this imaging study as follows: My impression: Chest x-ray showed no acute findings. COVID Results: Nasal/Oral Coronavirus 2019 PCR Pending 09/24/20 19:45 09/24/20 Discharge Plan Discharge Patient Disposition: Home Clinical Impression: Acute viral syndrome Condition: Stable Prescriptions: No Action pantoprazole [Protonix] 40 mg tablet,delayed release (DR/EC) 40 mg PO DAILY@10 RF: 0 sucralfate 1 gram tablet 1 g PO QID RF: 0 Tylenol Extra Strength 500 mg Tablet 1,000 mg PO PRN RF: 0 BC Pain Relief 845-65 mg Powder In Packet 1 ea PO BID PRN (Reason: Headache) RF: 0 Discharge Orders: Discharge ED (Routine); Ordered 09/24/20 Ordered By: Nathan Ryan Referrals: Sanford Garcia NP [Primary Care Provider] - Discharge Diet: Regular Discharge Activity: Increase activity as tolerated and Limit activity as instructed Patient Instructions: Viral Syndrome (ED) Activity Restrictions/Additional Instructions: Follow-up with medical provider as directed in 7-10 days. COVID testing was performed and sent to lab and results will be back in 1 to 2 days. [facility] should contact you to let you know Covid results, but you can also contact [facility] to find out results as well. Self quarantine until you get Covid results. If positive self quarantine for the next 12 days. Take ibuprofen or Tylenol for fevers. Drink plenty of fluids and stay hydrated. Sy mptom management with [id number] cough and nasal decongestant meds. Return to the ER or your medical provider if condition worsens. Please read and understand discharge instructions. 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
--- NOTE | 2020-09-24 19:21 | XR_ITS ---
WS: [id number] Exam: XR chest 1V portable [id number] Date/Time of Exam: 09/24/2020 7:26 PM Reason For Exam: upper resp symptoms Comparison 08/30/2020. Findings: The lungs are clear and fully expanded. Costophrenic angles are sharp. No infiltrates. Bronchovascula r relief appears normal. Cardiac silhouette is unremarkable. Bony elements are intact. XR/XR chest 1V portable [id number] IMPRESSION: Unremarkable chest radiograph.
[2020-09-24 19:42] VITALS: O2SAT 97
[2020-09-24] MEDS: ketorolac 60 mg/2 mL INJ IM (19:49)
[2020-09-24 20:38] VITALS: BP 142/96; PULSE 78; RESP 16; O2SAT 95
[2020-09-24 20:54] LABS: Influenza A by IFA Negative (Negative); Influenza B by IFA Negative (Negative)
[2020-09-25 16:49] LABS: Coronavirus Test Green County Not Detected
--- NOTE | 2020-09-26 08:23 | PC.NURSE ---
Pt called and notified of negative COVID result.
== END 2020-09-24 21:49 | disposition home or self-care (01) ==
PROVIDERS: Emergency Provider Physician Assistant; PCP Nurse Practitioner Family
DX: B34.9 Viral infection, unspecified (principal)
CPT/HCPCS: 12345; 71045; 87635; 87804; 96372; 99281; 99283; J1885

== ENCOUNTER 2020-09-25 18:00 | Outpatient (CLI) | payer BC, MEDICAID, SELFPAY ==
[2020-09-25 18:18] LABS: Basophils # 0.1 10^3/uL (0.0-0.1); Basophils % 0.5 %; Eosinophils # 0.1 10^3/uL (0.0-0.8); Eosinophils % 0.5 %; Hematocrit 51.9 % (42.0-52.0); Hemoglobin 17.7 g/dL (11.7-16.6); Lymphocytes # 3.6 10^3/uL (0.8-4.8); Lymphocytes % 29.9 %; Mean Corpuscular HGB Conc 34.1 g/dL (30.0-36.0); Mean Corpuscular Hemoglobin 29.8 pg (28.0-34.0); Mean Corpuscular Volume 87.4 fL (80-94); Mean Platelet Volume 9.8 fL (7.4-10.4); Monocytes # 1.1 10^3/uL (0.2-0.9); Monocytes % 9.4 %; Neutrophils # 7.12 10^3/uL (1.8-7.7); Neutrophils % 59.4 %; Nucleated Red Blood Cells % 0 %; Platelet Count 347 10^3/cmm (130-400); Red Blood Count 5.94 10^6/uL (4.1-5.3); Red Cell Distribution Width 12.2 % (12.1-15.1)
[2020-09-25 18:29] LABS: LAB Peripheral Smear Sent for Review
[2020-09-25 18:52] LABS: C Reactive Protein 51.8 mg/L (0.0-4.9); Creatine Phosphokinase 62 U/L (39-308)
[2020-09-25 19:09] LABS: Erythrocyte Sedimentation Rate 16 mm/hr (0-10)
== END 2020-09-25 18:01 | disposition home or self-care (01) ==
LOC: LAB 18:03
PROVIDERS: PCP Nurse Practitioner Family; Visit Provider Nurse Practitioner Family
DX: R53.83 Other fatigue (principal); M79.10 Myalgia, unspecified site; R20.2 Paresthesia of skin
CPT/HCPCS: 36415; 80500; 82550; 85025; 85651; 86140

== ENCOUNTER 2020-10-26 09:41 | Outpatient (CLI) | payer BC, MEDICAID, SELFPAY ==
--- NOTE | 2020-10-26 09:46 | FL_ITS ---
WS: [id number] ESOPHAGRAM WITH FLUOROSCOPY HISTORY: DYSPHAGIA, OROPHARYNGEAL PHASE COMPARISON: None available. FLUOROSCOPY TIME: 1.1 minutes. Esophagus and swallowing function: Patient swallowed the barium mixture without difficulty. No strict ures or mucosal abnormalities are identified. Barium tablet swallowed without difficulty. Gastroesophageal reflux: None. Hiatal hernia: No hiatal hernia. FL/FL barium swallow [id number] IMPRESSION: Normal esophagram.
== END 2020-10-26 09:42 | disposition home or self-care (01) ==
LOC: RADWPI 09:44
PROVIDERS: PCP Nurse Practitioner Family; Visit Provider Specialist
DX: R13.12 Dysphagia, oropharyngeal phase (principal)
CPT/HCPCS: 74220

== ENCOUNTER 2020-11-22 11:41 | Emergency (ER) | payer BC, MEDICAID, SELFPAY ==
[2020-11-22] VITALS (7 sets, daily range): BP systolic 120–144; BP diastolic 57–86; PULSE 68–110; RESP 16–18; TEMP 36.2; O2SAT 95–99; BMI 25.8
[2020-11-22] MEDS: ketorolac 30 mg/mL INJ IVP (12:38)
[2020-11-22] MEDS: diphenhydrAMINE 50 mg/mL SDV 1mL IVP (12:38)
--- NOTE | 2020-11-22 12:40 | ED_ITS ---
HPI - Headache General: Chief Complaint: Headache Stated Complaint: Headache x 2 weeks Time Seen by Provider: 11/22/20 12:10 Source: patient Mode of arrival: ambulatory Limitations: no limitations History of Present Illness: MD elicited complaint: headache Onset (ago): week(s) (2) Onset description: gradually Location: frontal Severity: severe Quality & Timing: throbbing Exacerbating factors: light Relieving factors: nothing Context: occurred at rest Associated symptoms: Reports photophobia; Deny chest pain, confusion, cough, diaphoresis, eye pain, eye redness, fever(s), lightheadedness, loss of vision, malaise, nausea, neck stiffness, numbness, paresthesias, pre-syncope, rash, seizures, short of breath, sound sensitivity, syncope, vomiting or weakness Review of Systems General: Reports: 10 or more systems reviewed and unremarkable except in HPI and below Const: Denies: fever(s), malaise or diaphoresis Eyes: Denies: change in vision or blurry vision ENMT: Denies: throat pain, enlarged tonsils, odynophagia, hoarseness, mouth pain or swelling of lips/tongue Card: Denies: chest pain, lightheadedness, syncope or pre-syncope Resp: Denies: dyspnea, productive cough or non-productive cough GI: Denies: nausea or vomiting : Denies: flank pain, dysuria, urinary frequency, urinary urgency or urinary hesitancy Musc: Denies: neck pain, back pain or extremity swelling Skin/Breast: Denies: rash Neuro: Denies: confusion Endo: Denies: polyuria, polydipsia or tired all the time PFS ED PFSH: Medical History Abdominal pain Dysphagia Surgical History History of colonoscopy (~08/2019) History of esophagogastroduodenoscopy (EGD) (~08/2019) Family History Father Cancer liver Grandfather Cancer lung Denies family history of Anesthesia complication Bleeding disorder Social History Smoking and tobacco status: never smoked Second hand smoke exposure: No Alcohol intake: never Adopted: No Caregiver/support person: Yes Lives independently: Yes Household members: significant other Housing: House Marital status: Single Highest education level completed: High School Graduate service: No Current occupational status: employed Current occupational exposures/hazards: No Pets and animals: No History of recent travel: No Leisure activites: exercise Sexually active: Yes Current gender identity: Male and Female Trixie/Anabaptist: Pentecostal Special trixie needs: No Agree to transfusion: No Financial difficulty paying for basics: Not Very Hard Physical Exam Const: COMMON NORMALS: no acute distress, average body habitus, patient orien sherly x3, no limitations, healthy appearing, alert and well nourished HENMT: COMMON NORMALS: normocephalic, atraumatic and moist oral mucous membran es HEAD & SCALP: normocephalic and atraumatic Eye: COMMON NORMALS: Equal, round and reactive pupils present, EOMs intact bilaterally, conjunctivae normal and no scleral icterus CONJUNCTIVA: Yes conjunctivae normal PUPIL: Yes Equal, round and reactive pupils present DIRECT OPHTHALMOSCOPY: Yes photophobia Neck/C-Spine: COMMON NORMALS: full ROM, supple, no meningeal signs, no JVD and No carotid bruits Resp: COMMON NORMALS: normal respiratory effort, No retractions, No use of accessory muscles, clear to auscultation bilaterally and percussion normal AUSCULTATION: clear to auscultation bilaterally PERCUSSION: percussion normal Cardio: COMMON NORMALS: no JVD, regular rate, regular rhythm, S1 normal heart sound present, S2 normal heart sound present, No gallops present (Cardio), No clicks present (Cardio), No murmurs present (Cardio), No rub (Cardio) and Peripheral pulses 2+ throughout RATE: regular rate RHYTHM: regular rhythm HEART SOUNDS: S1 normal heart sound present and S2 normal heart sound present PERIPHERAL PULSES: Peripheral pulses 2+ throughout GI: COMMON NORMALS: Normal to inspection, nondistended, normoactive bowel sounds present, Soft to palpation, non-tender, No hepatosplenomegaly present, no masses and no bruits PALPATION: Yes Soft to palpation and Yes No hepatosplenomegaly present Neuro: COMMON NORMALS: patient oriented x3 SENSORIUM/ORIENTATION: Yes alert MENINGEAL SIGNS: Yes no meningeal signs Skin: COMMON NORMALS: no rashes or lesions noted, no wounds, turgor normal, no jaundice, no petechiae and no mottling GENERAL SKIN EXAM: no rashes or lesions noted and turgor normal Course Reevaluation(s): Reevaluation #1: At any better. Will order dexamethasone, magnesium sulfate and valproic acid. He voiced understanding and is in agre ement with the plan. Time: 13:37 Reevaluation #2: Discussed the CT scan findings with him. Negative for acute findings. Explained that he likely has a migraine. We will discharge him home. He is to follow-up with his primary care provider for further evaluation and management. He voiced understanding and he is in agreement with the plan. Time: 17:43 Vital Signs: Vital signs: Vital Signs Temperature 97.2 F L 11/22/20 12:18 Pulse Rate 110 H 11/22/20 18:32 Respiratory Rate 18 11/22/20 18:32 Blood Pressure 130/57 11/22/20 18:32 Pulse Oximetry 96 11/22/20 18:32 MDM - Headache MDM Narrative: Medical decision making narrative: 25-year-old male with a history of migraines who presents to the emergency department with a headache. Evaluation in the emergency department is unremarkable and discharged home. Head CT was negative. Headache eventually improved after multiple medications. Medical Records: Attestation: I reviewed the patient's medical records. Imaging Data^: CT Head: Attestation: I personally reviewed and interpreted this imaging study as follows: Radiologist's impression: [address] [address] [address] Scan Report Signed Patient: Anthony Del Valle #: [id number] : 1995Acct#:[id number] Age/Sex: 25 / MADM Date: 11/22/20 [facility] Attending Dr: Ordering Provider/Ordering MD: Kareem Carmona MD, [facility] [place] Date of Service: 11/22/20 Procedure(s): CT head wo con* [id number] Accession Number(s): [id number] Report Number: [id number] PROCEDURE INFORMATION: Exam: CT Head Without Contrast Exam date and time: 11/22/2020 4:46 PM Age: 25 years old Clinical indication: Pain; Dizziness; Headache TECHNIQUE: Imaging protocol: Computed tomography of the head without contrast. Radiation optimization: All CT scans at this facility use at least one of these dose optimization techniques: automated exposure control; mA and/or kV adjustment per patient size (includes targeted exams where dose is matched to clinical indication); or iterative reconstruction. COMPARISON: CT head wo con* [id number] 09/14/2020 7:21 PM RADIATION DOSE METRICS: Total DLP (mGy-cm): 920.37 FINDINGS: Brain: Normal. No hemorrhage. Unremarkable white matter. No mass effect. Cerebral ventricles: No ventriculomegaly. Bones/joints: Unremarkable. No acute fracture. Paranasal sinuses: Visualized sinuses are unremarkable. No fluid levels. Mastoid air cells: Visualized mastoid air cells are well aerated. Soft tissues: Unremarkable. CT/CT head wo con* [id number] IMPRESSION: No acute intracranial abnormality. Radiation Dose CTDIVOL = (mGy): DLP = 920.37 (mGy-cm) Dictated By:Alexander Latif MD Signed By:Alexander Latif MDSigned Date/Time:11/22/201717 DD/ 15 Discharge Plan Discharge Patient Disposition: Home Clinical Impression: Migraine Qualifiers: Migraine type: without aura Status migrainosus presence: without status migrainosus Intractability: intractable Qualified Code(s): G43.019 - Migraine without aura, intractable, without status migrainosus Condition: Stable Prescriptions: Continued pantoprazole [Protonix] 40 mg tablet,delayed release (DR/EC) 40 mg PO BID RF: 0 lisinopril 20 mg Tablet 20 mg PO DAILY RF: 0 Effexor XR 150 mg Capsule,Extended Release 24hr 150 mg PO DAILY RF: 0 sumatriptan succinate 50 mg tablet 50 mg PO PRN MDD 2 tabs PRN (Reason: Migraine Headache) RF: 0 ProAir HFA 90 mcg/actuation Hfa Aerosol Inhaler 1 puff INHALATION Q4H PRN (Reason: Shortness Of Breath) RF: 0 acetaminophen [Tylenol Extra Strength] 500 mg Tablet 1,000 mg PO PRN RF: 0 Discharge Orders: Discharge ED (Routine); Ordered 11/22/20 Ordered By: Kareem Carmona Referrals: Sanford Garcia NP [Primary Care Provider] - 1-3 days Discharge Diet: Usual diet Discharge Activity: Increase activity as tolerated Patient Instructions: Headache - Migraine (Adult) Activity Restrictions/Additional Instructions: Return for any new or worsening symptoms. Follow-up with your primary care provider within 3 days. Take your migraine medications as prescribed. Coding Level of Care Code ED Marketing Sales Manager for Chg Fwd Exam Comprehensive
[2020-11-22] MEDS: dexamethasone 10 mg/mL INJ IVP (13:52)
[2020-11-22] MEDS: magnesium sulfate premix 2 GM/50 ML PIGGYBACK IV (13:52)
[2020-11-22] MEDS: valproic acid inj 1,000 MG in sodium chloride 0.9% 50 ML 55 MG IV (14:57)
--- NOTE | 2020-11-22 16:45 | CTR_ITS ---
PROCEDURE INFORMATION: Exam: CT Head Without Contrast Exam date and time: 11/22/2020 4:46 PM Age: 25 years old Clinical indication: Pain; Dizziness; Headache TECHNIQUE: Imaging protocol: Computed tomography of the head without contrast. Radiation optimization: All CT scans at this facility use at least one of these dose optimization techniques: automated exposure control; mA and/or kV adjustment per patient size (includes targeted exams where dose is matched to clinical indication); or iterative reconstruction. COMPARISON: CT head wo con* [id number] 09/14/2020 7:21 PM RADIATION DOSE METRICS: Total DLP (mGy-cm): 920.37 FINDINGS: Brain: Normal. No hemorrhage. Unremarkable white matter. No mass effect. Cerebral ventricles: No ventriculomegaly. Bones/joints: Unremarkable. No acute fracture. Paranasal sinuses: Visualized sinuses are unremarkable. No fluid levels. Mastoid air cells: Visualized mastoid air cells are well aerated. Soft tissues: Unremarkable. CT/CT head wo con* [id number] IMPRESSION: No acute intracranial abnormality. Radiation Dose CTDIVOL = (mGy): DLP = 920.37 (mGy-cm)
[2020-11-22] MEDS: SUMAtriptan 6 mg/0.5 mL SDV SUBCUT (18:06)
== END 2020-11-22 18:30 | disposition home or self-care (01) ==
PROVIDERS: Emergency Provider Family Medicine; PCP Nurse Practitioner Family
DX: G43.019 Migraine without aura, intractable, without status migrainosus (principal)
CPT/HCPCS: 70450; 96365; 96375; 99284; J1100; J1200; J1885; J3030; J3475

== ENCOUNTER 2020-11-27 18:04 | Emergency (ER) | payer BC, MEDICAID, SELFPAY ==
[2020-11-27 18:15] VITALS: BP 144/103; PULSE 80; RESP 16; TEMP 36.9; O2SAT 97; BMI 27.2
--- NOTE | 2020-11-27 18:58 | W.ED.ANXIETY ---
HPI - Anxiety General: Chief Complaint: Anxiety Stated Complaint: Depression, N/V, Body Aches Time Seen by Provider: 11/27/20 18:35 Source: patient and family (significant other) Mode of arrival: ambulatory Limitations: no limitations History of Present Illness: HPI narrative: This is a 25-year-old gentleman who presents to the emergency department with complaints of generalized body aches. He states that his symptoms have been ongoing for about 2 years. He has had multiple tests and some different specialists and has not been given any definite diagnosis as his test has been negative. His symptoms started with left upper abdominal pain and eventually his pain is become generalized. He has had an upper and lower GI endoscopy with negative results. He has tried multiple medications but with no improvement in his symptoms. Imaging done has also been unremarkable. Because of all this pain that he has had with no diagnosis and the fact that he has been living with pain every day he has been getting more and more depressed and has had thoughts of suicide. He has no plans for suicide but only has thoughts that may be of a better day down to continue living in pain. He is not actively suicidal at this time. He just wants a break from his pain. He is here to see a associate juvenile court judge or a pain specialist. He is also not sleeping as he is in a lot of pain. He is depressed and has anxiety because of this. complaint: anxiety Severity: severe Quality: constant Provoking factors: none known Relieving factors: nothing Associated symptoms: Deny anorexia, chest pain, chills, confusion, diaphoresis, fever(s), headache(s), malaise, nausea, palpitations, short of breath, syncope, vomiting or weakness Review of Systems General: Reports: 10 or more systems reviewed and unremarkable except in HPI and below Const: Denies: fever(s), chills, malaise or diaphoresis Card: Denies: chest pain, palpitations or syncope GI: Denies: nausea or vomiting Neuro: Denies: headache(s) or confusion [facility] ED PFSH: Medical History (Reviewed 11/27/20 @ 22:57 by Kareem Carmona MD, [facility] [place]) Abdominal pain Dysphagia Surgical History (Reviewed 11/27/20 @ 22:57 by Kareem Carmona MD, [facility] [place]) History of colonoscopy (~08/2019) History of esophagogastroduodenoscopy (EGD) (~08/2019) Family History (Reviewed 11/27/20 @ 22:57 by Kareem Carmona MD, [facility] [place]) Father Cancer liver Grandfather Cancer lung Denies family history of Anesthesia complication Bleeding disorder Social History (Reviewed 11/27/20 @ 22:57 by Kareem Carmona MD, [facility] [place]) Smoking and tobacco status: never smoked Second hand smoke exposure: No Alcohol intake: never Adopted: No Caregiver/support person: Yes Lives independently: Yes Household members: significant other Housing: House Marital status: Single Highest education level completed: High School Graduate service: No Current occupational status: employed Current occupational exposures/hazards: No Pets and animals: No History of recent travel: No Leisure activites: exercise Sexually active: Yes Current gender identity: Male and Female Trixie/Jewish: Presybeterian Special trixie needs: No Agree to transfusion: No Financial difficulty paying for basics: Not Very Hard Physical Exam Const: COMMON NORMALS: no acute distress, average body habitus, patient oriented x3, no limitations, healthy appearing, alert and well nourished HENMT: COMMON NORMALS: normocephalic, atraumatic and moist oral mucous membranes HEAD & SCALP: normocephalic and atraumatic Eye: COMMON NORMALS: Equal, round and reactive pupils present, EOMs intact bilaterally, conjunctivae normal and no scleral icterus CONJUNCTIVA: Yes conjunctivae normal PUPIL: Yes Equal, round and reactive pupils present Neck/C-Spine: COMMON NORMALS: no meningeal signs and no JVD Resp: COMMON NORMALS: normal respiratory effort, No retractions, No use of accessory muscles, clear to auscultation bilaterally and percussion normal AUSCULTATION: clear to auscultation bilaterally PERCUSSION: percussion normal Cardio: COMMON NORMALS: no JVD, regular rate, regular rhythm, S1 normal heart sound present, S2 normal heart sound present, No gallops present (Cardio), No clicks present (Cardio), No murmurs present (Cardio), No rub (Cardio) and Peripheral pulses 2+ throughout RATE: regular rate RHYTHM: regular rhythm HEART SOUNDS: S1 normal heart sound present and S2 normal heart sound present PERIPHERAL PULSES: Peripheral pulses 2+ throughout GI: COMMON NORMALS: Normal to inspection, nondistended, normoactive bowel sounds present, Soft to palpation, non-tender, No hepatosplenomegaly present, no masses and no bruits PALPATION: Yes Soft to palpation and Yes No hepatosplenomegaly present Extremity: COMMON NORMALS: normal to inspection, full ROM, capillary refill normal, no calf tenderness and no pedal edema Neuro: COMMON NORMALS: patient oriented x3 SENSORIUM/ORIENTATION: Yes alert MENINGEAL SIGNS: Yes no meningeal signs Skin: COMMON NORMALS: no rashes or lesions noted, no wounds, turgor normal, no jaundice, no petechiae and no mottling GENERAL SKIN EXAM: no rashes or lesions noted and turgor normal Course Vital Signs: Vital signs: Vital Signs Temperature 98.4 F 11/27/20 18:15 Pulse Rate 76 11/27/20 19:25 Respiratory Rate 16 11/27/20 19:25 Blood Pressure 140/93 11/27/20 19:25 Pulse Oximetry 97 11/27/20 19:25 MDM - Anxiety MDM Narrative: Medical decision making narrative: 25 year old male with chronic generalized pain. His pain has been ongoing for at least 2 years. He has not obtained any relief from his pain. His chronic pain is causing him to be depressed which is worsening his functional status. He has had thoughts of suicide because of the chronic pain but is not suicidal at this moment. His who he lives with has no fears that he is suicidal and she is comfortable with him being discharged home. I had an extensive conversation with both of them and i explained that his chronic pain is best managed on an outpatient basis. However i think he may benefit from a trial of gabapentin for his pain and trazodone for his sleep. He will also benefit from referral to rheumatology to evaluate him for possible rheumatologic illness and if this is negative he can follow up with the pain specialists to assist with pain control. They were grateful for conversation and plan to f/u with rheumatology/pain management. They will try trazodone and gabapentin. A referral to rheumatology was made. Medical Records: Attestation: I reviewed the patient's medical records. Discharge Plan Discharge Patient Disposition: Home Clinical Impression: Chronic pain disorder Insomnia Qualifiers: Insomnia type: unspecified Qualified Code(s): G47.00 - Insomnia, unspecified Condition: Stable Prescriptions: New trazodone 50 mg tablet 50 mg PO BEDTIME PRN (Reason: insomnia) Qty: 30 RF: 0 gabapentin 100 mg capsule 100 mg PO TID Qty: 90 RF: 0 Continued pantoprazole [Protonix] 40 mg tablet,delayed release (DR/EC) 40 mg PO BID@0900,1800 RF: 0 lisinopril 20 mg Tablet 20 mg PO DAILY@0900 RF: 0 venlafaxine [Effexor XR] 150 mg Capsule,Extended Release 24hr 150 mg PO DAILY@0900 RF: 0 albuterol sulfate [ProAir HFA] 90 mcg/actuation Hfa Aerosol Inhaler 1 puff INHALATION Q4H PRN (Reason: Shortness Of Breath) RF: 0 acetaminophen [Tylenol Extra Strength] 500 mg Tablet 1,000 mg PO PRN RF: 0 No Action ibuprofen 200 mg Tablet 200 - 400 mg PO Q6H PRN (Reason: pain/fever) RF: 0 Vitamin C 1 tab PO DAILY@0900 RF: 0 Vitamin D3 1 tab PO DAILY@0900 RF: 0 Discharge Orders: Discharge ED (Routine); Ordered 11/27/20 Ordered By: Kareem Carmona Referrals: Sanford Garcia NP [Primary Care Provider] - 1-3 days Discharge Diet: Usual diet Discharge Activity: Increase activity as tolerated Patient Instructions: Chronic Pain (ED), Insomnia (ED) Activity Restrictions/Additional Instructions: Return for any new or worsening symptoms. Follow-up with your primary care provider within 3 days. You will be contacted to schedule an appointment with [facility] and with a associate juvenile court judge. Take the gabapentin and trazodone as we discussed. The trazodone will be taken at night for sleep as needed while the gabapentin can be taken up to 3 times a day. Coding Level of Care Code ED Casualty Underwriter for Genaro Goddard
[2020-11-27 19:11] VITALS: RESP 18
[2020-11-27] MEDS: orphenadrine 30 mg/mL Inj 2 mL 60 MG IM (19:11)
[2020-11-27] MEDS: morphine 4 mg/mL SDV 1 mL IM (19:11)
[2020-11-27] MEDS: ketorolac 60 mg/2 mL INJ IM (19:11)
[2020-11-27 19:25] VITALS: BP 140/93; PULSE 76; RESP 16; O2SAT 97
--- NOTE | 2020-11-28 12:17 | DCPLANNER ---
Addendum entered by Rayna Grissom 03/26/21 11:35: Patient had a follow up appointment scheduled for 03.18.[address] Aaron with Rheuatology - patient did attend appointment. Addendum entered by Rayna Grissom 02/06/21 11:14: Patient has a follow up appointment scheduled for Thursday, February at 1:[address] Aaron. Clinic will call patient with appointment information. Original Note: intellectual property manager had message to schedule a follow up appointment for patient with rheumatology, and [facility]. intellectual property manager called rheumatology, left message for Ruth about the referral for patient. intellectual property manager also had message to speak with patient about [facility] services. intellectual property manager called patient and told patient what he would need to do to start services. intellectual property manager told patient that he would need to go to [facility] and fill out the initial paperwork, turn it in and then an initial assessment would be set up for patient. intellectual property manager told patient that patient case coordinator would email Raisa Box at [facility] and let her know to be looking for patients paperwork so that an initial assessment can be scheduled. Patient stated that he would go and fill out the paperwork.
== END 2020-11-27 19:26 | disposition home or self-care (01) ==
PROVIDERS: Emergency Provider Family Medicine; PCP Nurse Practitioner Family
DX: G89.29 Other chronic pain (principal); G47.00 Insomnia, unspecified
CPT/HCPCS: 96372; 99283; J1885; J2270; J2360

== ENCOUNTER 2020-11-28 18:49 | Emergency (ER) | payer BC, MEDICAID, SELFPAY ==
[2020-11-28 18:52] VITALS: BP 175/98; PULSE 102; RESP 18; O2SAT 97; BMI 27.2
--- NOTE | 2020-11-28 19:06 | XR_ITS ---
WS: [id number] Lumbar spine, 3 views, 11/28/2020 Clinical Data: left leg pain= sciatica Comparison: None. Findings: No compression fractures or subluxation is seen. No disc space narrowing is seen. The transverse proc esses and SI joints are normal. XR/XR lumbar spine 2-3V* [id number] Impression: Negative lumbar spine.
--- NOTE | 2020-11-28 19:07 | W.ED.GENADLT ---
HPI - General Adult General: Chief complaint: General Medical Stated complaint: body aches, here 11/27 for same Time Seen by Provider: 11/28/20 19:00 History of Present Illness: HPI narrative: Patient with ongoing pain seen here in the ER yesterday. Did not get prescription filled. Patient desiring radiology imaging for his pain. Patient is not suicidal and said he would not take his life that thoughts of suicide he has had a good part of his life but it is not something he would act on. complaint: Left leg pain chest pains back pains chronic Onset (ago): year(s) Severity: moderate Quality: aching Pain Consistency: constant Relieving factors: none Exacerbating factors: movement Associated symptoms: Reports no associated symptoms; Deny chest pain, dyspnea, headache(s), nausea, rash or vomiting Treatments prior to arrival: none Review of Systems Const: Denies: fever(s), chills or body aches Eyes: Denies: change in vision or blurry vision ENMT: Denies: throat pain or nasal congestion Card: Denies: chest pain or dyspnea on exertion Resp: Denies: dyspnea, productive cough or non-productive cough GI: Denies: abdominal pain, nausea or vomiting : Denies: difficulty urinating Musc: Reports: back pain, extremity pain and joint pain Skin/Breast: Denies: rash Neuro: Denies: headache(s) Psych: Denies: anxiety or depression Ady/Lymph: Denies: easy bruising PFSH ED PFSH: Medical History (Reviewed 11/27/20 @ 22:57 by Kareem Carmona MD, [facility] [place]) Abdominal pain Dysphagia Surgical History (Reviewed 11/27/20 @ 22:57 by Kareem Carmona MD, [facility] [place]) History of colonoscopy (~08/2019) History of esophagogastroduodenoscopy (EGD) (~08/2019) Family History (Reviewed 11/27/20 @ 22:57 by Kareem Carmona MD, [facility] [place]) Father Cancer liver Grandfather Cancer lung Denies family history of Anesthesia complication Bleeding disorder Social History (Reviewed 11/27/20 @ 22:57 by Kareem Carmona MD, [facility] [place]) Smoking and tobacco status: never smoked Second hand smoke exposure: No Alcohol intake: never Adopted: No Caregiver/support person: Yes Lives independently: Yes Household members: significant other Housing: House Marital status: Single Highest education level completed: High School Graduate service: No Current occupational status: employed Current occupational exposures/hazards: No Pets and animals: No History of recent travel: No Leisure activites: exercise Sexually active: Yes Current gender identity: Male and Female Trixie/Orthodoxy: Muslim Special trixie needs: No Agree to transfusion: No Financial difficulty paying for basics: Not Very Hard Physical Exam Const: COMMON NORMALS: no acute distress, average body habitus and patient oriented x3 HENMT: COMMON NORMALS: normocephalic HEAD & SCALP: normal to inspection and normocephalic FACE & SINUS: normal facial exam Eye: COMMON NORMALS: conjunctivae normal GENERAL EYE: appearance normal, both eyes and all related structures CONJUNCTIVA: Yes conjunctivae normal Neck/C-Spine: COMMON NORMALS: no JVD Chest: COMMONS NORMALS: normal inspection of the chest Resp: COMMON NORMALS: normal respiratory effort and clear to auscultation bilaterally AUSCULTATION: clear to auscultation bilaterally Cardio: COMMON NORMALS: no JVD, regular rate and regular rhythm RATE: regular rate RHYTHM: regular rhythm GI: COMMON NORMALS: Normal to inspection, nondistended, normoactive bowel sounds present Extremity: COMMON NORMALS: normal to inspection and full ROM Neuro: COMMON NORMALS: patient oriented x3 Psych: COMMON NORMALS: mental status grossly normal, Normal thought process present, cooperative, normal affect, speech normal, activity/motor behavior normal, denies hallucinations, denies homicidal ideation and denies suicidal ideation SPEECH: Yes normal speech THOUGHT PROCESS: Normal thought process present Course Vital Signs: Vital signs: Vital Signs Pulse Rate 102 H 11/28/20 18:52 Respiratory Rate 18 11/28/20 18:52 Blood Pressure 175/98 11/28/20 18:52 Pulse Oximetry 97 11/28/20 18:52 MDM - General Adult MDM Narrative: Medical decision making narrative: Patient is not suicidal. He has no thoughts even hurt himself and does not want her himself. Said he just tired of hurting. Did not get his prescription filled last night. Requesting imaging studies done. I looked back at his history and he has had multiple imaging studies done but none of his lumbar spines we will go ahead and check that due to his sciatica on the left side. 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 Discharge Plan Discharge Patient Disposition: Home Clinical Impression: Chronic pain disorder, Anxiety about health Condition: Stable Prescriptions: No Action pantoprazole [Protonix] 40 mg tablet,delayed release (DR/EC) 40 mg PO BID@0900,1800 RF: 0 lisinopril 20 mg Tablet 20 mg PO DAILY@0900 RF: 0 venlafaxine [Effexor XR] 150 mg Capsule,Extended Release 24hr 150 mg PO DAILY@0900 RF: 0 albuterol sulfate [ProAir HFA] 90 mcg/actuation Hfa Aerosol Inhaler 1 puff INHALATION Q4H PRN (Reason: Shortness Of Breath) RF: 0 ibuprofen 200 mg Tablet 200 - 400 mg PO Q6H PRN (Reason: pain/fever) RF: 0 Vitamin C 1 tab PO DAILY@0900 RF: 0 Vitamin D3 1 tab PO DAILY@0900 RF: 0 trazodone 50 mg tablet 50 mg PO BEDTIME PRN (Reason: insomnia) Qty: 30 RF: 0 gabapentin 100 mg capsule 100 mg PO TID@,, RF: 0 acetaminophen [Tylenol Extra Strength] 500 mg Tablet 1,000 mg PO PRN RF: 0 Discharge Orders: Discharge ED (Routine); Ordered 11/28/20 Ordered By: Filiberto Abel Referrals: Sanford Garcia, PREDICTIVE MAINTENANCE SPECIALIST [Primary Care Provider] - Discharge Diet: Usual diet Discharge Activity: Resume usual activity Patient Instructions: Fibromyalgia (ED) Activity Restrictions/Additional Instructions: Get your prescription filled as wrote by Dr. Carmona. Follow-up Sanford Garcia and have work-up for your muscle pain, fibromyalgia, and anxiety over health. 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
[2020-11-28] MEDS: trazodone 50 mg Tablet 25 MG PO (20:17)
[2020-11-28] MEDS: gabapentin 300 mg Capsule PO (20:17)
== END 2020-11-28 20:52 | disposition home or self-care (01) ==
PROVIDERS: Emergency Provider Nurse Practitioner Family; PCP Nurse Practitioner Family
DX: G89.29 Other chronic pain (principal); F41.9 Anxiety disorder, unspecified
CPT/HCPCS: 72100; 99283

== ENCOUNTER 2020-12-01 12:40 | Emergency (ER) | payer BC, MEDICAID, SELFPAY ==
[2020-12-01 12:45] VITALS: BP 139/92; PULSE 100; RESP 18; TEMP 36.6; O2SAT 97; BMI 27.2
[2020-12-01 13:44] LABS: Basophils # 0.1 10^3/uL (0.0-0.1); Basophils % 0.6 %; Eosinophils # 0.4 10^3/uL (0.0-0.8); Eosinophils % 4.1 %; Hematocrit 46.5 % (42.0-52.0); Hemoglobin 15.9 g/dL (11.7-16.6); Lymphocytes # 3.7 10^3/uL (0.8-4.8); Lymphocytes % 37.2 %; Mean Corpuscular HGB Conc 34.2 g/dL (30.0-36.0); Mean Corpuscular Hemoglobin 30.9 pg (28.0-34.0); Mean Corpuscular Volume 90.5 fL (80-94); Mean Platelet Volume 10.3 fL (7.4-10.4); Monocytes # 0.8 10^3/uL (0.2-0.9); Monocytes % 8.1 %; Neutrophils # 4.92 10^3/uL (1.8-7.7); Neutrophils % 49.8 %; Nucleated Red Blood Cells % 0 %; Platelet Count 309 10^3/cmm (130-400); Red Blood Count 5.14 10^6/uL (4.1-5.3); Red Cell Distribution Width 12.4 % (12.1-15.1); White Blood Count 9.9 10^3/uL (4.0-10.0)
--- NOTE | 2020-12-01 13:44 | ED_ITS ---
HPI - Psych General: Chief Complaint: Psychiatric Symptoms Stated Complaint: Muscle Aches/Chest tightness Time Seen by Provider: 12/01/20 13:00 History of Present Illness: HPI Narrative: Patient presents complaining with multiple complaints that have all been chronic for months to year. He has left leg pain any bowel or bladder incontinence denies numbness or tingling he has mid to left upper abdominal pain colicky in nature sharp at times. He also has generalized bone pain throughout but denies specific joint pain denies recent tick bites or fevers denies any STDs exposures or dysuria. He also has chest pain that has been intermittent for a year center of his chest and his back and sharp in nature denies shortness of breath. He feels all of these complaints are not being taken seriously by his doctors and that it is leading to some depression and that while he does not think he would actually harm himself he has had some thoughts of suicide he feels his anxiety is up and elevated. He has been to the ER 3 times this week for similar type complaints denies any vomiting diarrhea Never been hospitalized for psychiatric issues he does not have a plan he does not think he would really do anything but he is says he is being honest that he has thought about it Review of Systems General: Reports: 10 or more systems reviewed and unremarkable except in HPI and below Narrative: General: denies fatigue, fever or chills, generalized myalgias HEENT: denies ear pain, denies nasal congestion, denies vision changes, denies sore throat Neck: denies masses or pain Resp: denies cough, denies shortness of breath, denies pleuritic pain Cardio: See HPI denies edema GI: See HPI denies N/V/D, denies black/tarry or bloody stools : denies hematuria, denies dysuria Neuro: denies headache, denies dizziness, denies motor or sensory changes Musculoskeletal: See HPI denies swelling denies any trauma Skin: denies rashes Psych: See HPI Endocrine: denies thyroid symptoms, denies lymphadenopathy all over ROS reviewed and patient denies PFSH ED PFSH: Medical History Abdominal pain Dysphagia Surgical History History of colonoscopy (~08/2019) History of esophagogastroduodenoscopy (EGD) (~08/2019) Family History Father Cancer liver Grandfather Cancer lung Denies family history of Anesthesia complication Bleeding disorder Social History Smoking and tobacco status: never smoked Second hand smoke exposure: No Alcohol intake: never Adopted: No Caregiver/support person: Yes Lives independently: Yes Household members: significant other Housing: House Marital status: Single Highest education level completed: High School Graduate service: No Current occupational status: employed Current occupational exposures/hazards: No Pets and animals: No History of recent travel: No Leisure activites: exercise Sexually active: Yes Current gender identity: Male and Female Trixie/Faith: Nondenominational Special trixie needs: No Agree to transfusion: No Financial difficulty paying for basics: Not Very Hard Physical Exam Narrative: EXAM NARRATIVE: General: a/o/3, no distress Head: atraumatic HEENT: normal eyes, normal conjunctiva, normal hearing, normal external nose, normal mouth, mucous membranes moist small eyelid stye left upper eyelid conjunctiva is normal Neck: FROM, trachea midline Chest: normal expansion, no gross deformities Resp: normal speech, no retractions, no accessory muscle use, CTA bilaterally Cardio: regular rate and rhythm and no murmur, no peripheral edema, normal peripheral pulses GI: soft, flat non tender, no guarding normal BS : deferred Musculoskeletal: FROM, no pain or gross deformities Neuro: a/o appropriate for age, no gross motor or sensory deficitys, CN II-XII grossly intact, normal coordination, normal speech Skin: no rashes Psych: cooperative, flat MDM - Psych MDM Narrative: Medical decision making narrative: Reviewed patient's chart has been here several times this week for similar type complaints has made some slight comments of suicidal ideation and anxiety both times he is denied a plan or that he would actually go through with it. I reviewed his medical chart as well and he has significant amount of testing I discussed with the patient I can do some basic laboratory work here today but as far as testing I can only provide CAT scans ultrasounds laboratory work and he has had all of these done I do not feel these need to be repeated especially in his age group. Discussed with him he needs to follow-up with his primary care doctor there might be other testings and work-up that can be done that we cannot do in the emergency department as they are not deemed emergent. I did discuss with psychiatry Dr. Costa who will come and evaluate the patient from a psychiatric standpoint to see if he is cleared for discharge from a psychiatric standpoint Dr. Costa saw the patient the emergency department felt we could start him on propanolol 20 mg 3 times daily after 3 days he can start Prozac 20 mg a day as he wants the patient to see how he feels on the propanolol first before he starts an additional medication. Dr. Costa note will be in the chart and he did discuss that maybe eventually the patient should wean down off his Effexor but that maybe he is on that for pain as that can sometimes be used. However patient will have to follow-up with the provider to discuss that type of medication. I discussed with patient about his symptoms he feels safe he feels comfortable going home says he will not harm himself and contracts with me for safety the he has any further thoughts of that he return to the emergency department Medical Records: Attestation: I reviewed the patient's medical records. Lab Data: Attestation: I reviewed the patient's lab results. Labs: Lab Results 12/01/20 12/01/20 12/01/20 Range/Units 13:32 13:38 13:38 WBC 9.9 (4.0-10.0) 10^3/ uL RBC 5.14 (4.1-5.3) 10^6/u L Hgb 15.9 (11.7-16.6) g/dL Hct 46.5 (42.0-52.0) % MCV 90.5 (80-94) fL MCH 30.9 (28.0-34.0) pg MCHC 34.2 (30.0-36.0) g/dL RDW 12.4 (12.1-15.1) % Plt Count 309 (130-400) 10^3/c mm MPV 10.3 (7.4-10.4) fL Neut % (Auto) 49.8 % Lymph % (Auto) 37.2 % [place] % (Auto) 8.1 % Eos % (Auto) 4.1 % Baso % (Auto) 0.6 % Neut # (Auto) 4.92 (1.8-7.7) 10^3/u L Lymph # (Auto) 3.7 (0.8-4.8) 10^3/u L [place] # (Auto) 0.8 (0.2-0.9) 10^3/u L Eos # (Auto) 0.4 (0.0-0.8) 10^3/u L Baso # (Auto) 0.1 (0.0-0.1) 10^3/u L Nucleated RBC % (a uto) 0 % Nucleated RBCs # 0.0 /100WBC Sodium 140 (136-145) mmol/L Potassium 3.6 (3.5-5.1) mmol/L Chloride 109 H (98-107) mmol/L Carbon Dioxide 20 L (22-29) mmol/L Anion Gap 14.6 (5-19) BUN 10 (6-20) mg/dL Creatinine 0.8 (0.7-1.2) mg/dL GFR Calculation 117.8 (90-130) mL/min Glucose 105 (65-115) mg/dL Calculated Osmolal ity 289 (285-295) mOsm/k g Calcium 9.8 (8.5-10.5) mg/dL Total Bilirubin 1.2 (0.15-1.2) mg/dL AST 18 (0-40) U/L ALT 36 (0-41) U/L Alkaline Phosphata se 65 (40-130) IU/L Total Protein 7.4 (6.6-8.7) g/dL Albumin 4.8 (3.5-5.2) g/dL Globulin 2.6 (1.3-4.6) g/dL Lipase (13-60) U/L Urine Opiates Scre en Negative (Negative) ng/mL Ur Barbiturates Sc reen Negative (Negative) ng/mL Ur Phencyclidine S crn Negative (Negative) ng/mL Ur Amphetamines Sc reen Negative (Negative) ng/mL U Benzodiazepines Scrn Negative (Negative) ng/mL Urine Cocaine Scre en Negative (Negative) ng/mL U Marijuana (THC) Screen Positive H (Negative) ng/mL Ethyl Alcohol < 10 (0-10) mg/dL 12/01/20 Range/Units 13:38 WBC (4.0-10.0) 10^3/ uL RBC (4.1-5.3) 10^6/u L Hgb (11.7-16.6) g/dL Hct (42.0-52.0) % MCV (80-94) fL MCH (28.0-34.0) pg MCHC (30.0-36.0) g/dL RDW (12.1-15.1) % Plt Count (130-400) 10^3/c mm MPV (7.4-10.4) fL Neut % (Auto) % Lymph % (Auto) % [place] % (Auto) % Eos % (Auto) % Baso % (Auto) % Neut # (Auto) (1.8-7.7) 10^3/u L Lymph # (Auto) (0.8-4.8) 10^3/u L [place] # (Auto) (0.2-0.9) 10^3/u L Eos # (Auto) (0.0-0.8) 10^3/u L Baso # (Auto) (0.0-0.1) 10^3/u L Nucleated RBC % (a uto) % Nucleated RBCs # /100WBC Sodium (136-145) mmol/L Potassium (3.5-5.1) mmol/L Chloride (98-107) mmol/L Carbon Dioxide (22-29) mmol/L Anion Gap (5-19) BUN (6-20) mg/dL Creatinine (0.7-1.2) mg/dL GFR Calculation (90-130) mL/min Glucose (65-115) mg/dL Calculated Osmolal ity (285-295) mOsm/k g Calcium (8.5-10.5) mg/dL Total Bilirubin (0.15-1.2) mg/dL AST (0-40) U/L ALT (0-41) U/L Alkaline Phosphata se (40-130) IU/L Total Protein (6.6-8.7) g/dL Albumin (3.5-5.2) g/dL Globulin (1.3-4.6) g/dL Lipase 21 (13-60) U/L Urine Opiates Scre en (Negative) ng/mL Ur Barbiturates Sc reen (Negative) ng/mL Ur Phencyclidine S crn (Negative) ng/mL Ur Amphetamines Sc reen (Negative) ng/mL U Benzodiazepines Scrn (Negative) ng/mL Urine Cocaine Scre en (Negative) ng/mL U Marijuana (THC) Screen (Negative) ng/mL Ethyl Alcohol (0-10) mg/dL Discharge Plan Discharge Condition: Stable Prescriptions: New propranolol 20 mg tablet 20 mg PO TID Qty: 90 RF: 0 Prozac 20 mg capsule 20 mg PO DAILY Qty: 30 RF: 0 No Action pantoprazole [Protonix] 40 mg tablet,delayed release (DR/EC) 40 mg PO BID@0900,1800 RF: 0 lisinopril 20 mg Tablet 20 mg PO DAILY@0900 RF: 0 venlafaxine [Effexor XR] 150 mg Capsule,Extended Release 24hr 150 mg PO DAILY@0900 RF: 0 albuterol sulfate [ProAir HFA] 90 mcg/actuation Hfa Aerosol Inhaler 1 puff INHALATION Q4H PRN (Reason: Shortness Of Breath) RF: 0 ibuprofen 200 mg Tablet 200 - 400 mg PO Q6H PRN (Reason: pain/fever) RF: 0 Vitamin C 1 tab PO DAILY@0900 RF: 0 Vitamin D3 1 tab PO DAILY@0900 RF: 0 trazodone 50 mg tablet 50 mg PO BEDTIME PRN (Reason: insomnia) Qty: 30 RF: 0 gabapentin 100 mg capsule 100 mg PO TID@,, RF: 0 acetaminophen [Tylenol Extra Strength] 500 mg Tablet 1,000 mg PO PRN RF: 0 Discharge Orders: Discharge ED (Routine); Ordered 12/01/20 Ordered By: Nona Reyes Referrals: Sanford Garcia NP [Primary Care Provider] - Discharge Diet: Usual diet Discharge Activity: Resume usual activity Patient Instructions: Chronic Pain (ED), Anxiety (ED) Activity Restrictions/Additional Instructions: You are to take the propanolol 20 mg 3 times a day for 3 days prior to starting the other new medication fluoxetine. You also need to make an appoint with your provider in follow-up to discuss if you eventually want to wean off your other Venlafaxine (effexor) but do not stop this medication suddenly this needs to be a slow discontinuation should you and your provider decide that you want to try to change medications Return if you have thoughts of wanting to harm yourself or if you have further anxiety please make sure and follow-up as you are trying some new medications and were not sure if they are going to affect you appropriately Turn to the ER as needed Thank you for choosing [facility] for your healthcare needs today. Please realize this is an emergency room and that we are providing you with a medical screening exam and this may not be complete and all inclusive of all the testing and or work up that you may need to determine your ailment or severity of your illness. It is very important that you follow up as instructed or that you return to the Emergency Department should you have concerns or if your condition changes or worsens in any way. Coding Level of Care Code ED Executive Pastry Chef for Genaro Goddard
[2020-12-01 13:57] LABS: Alanine Aminotransferase 36 U/L (0-41); Albumin Level 4.8 g/dL (3.5-5.2); Alkaline Phosphatase 65 IU/L (40-130); Anion Gap 14.6 (5-19); Aspartate Amino Transferase 18 U/L (0-40); Blood Urea Nitrogen 10 mg/dL (6-20); Calcium 9.8 mg/dL (8.5-10.5); Carbon Dioxide 20 mmol/L (22-29); Chloride 109 mmol/L (98-107); Globulin 2.6 g/dL (1.3-4.6); Glomerular Filtration Rate 117.8 mL/min (90-130); Glucose 105 mg/dL (65-115); Osmolality Calculated 289 mOsm/kg (285-295); Potassium 3.6 mmol/L (3.5-5.1); Sodium 140 mmol/L (136-145); Total Bilirubin 1.2 mg/dL (0.15-1.2); Total Protein 7.4 g/dL (6.6-8.7)
[2020-12-01 14:01] LABS: Alcohol Level < 10 mg/dL (0-10)
[2020-12-01 14:19] LABS: Lipase 21 U/L (13-60)
[2020-12-01 14:19] LABS: Amphetamines Screen Urine Negative (Negative); Barbiturates Screen Urine Negative (Negative); Benzodiazepines Screen Urine Negative (Negative); Cocaine Screen Urine Negative (Negative); Opiate Screen Urine Negative (Negative); PCP Screen Urine Negative (Negative); THC Screen Urine Positive (Negative)
[2020-12-01 15:13] VITALS: RESP 16
== END 2020-12-01 15:13 | disposition home or self-care (01) ==
PROVIDERS: Emergency Provider Emergency Medicine; PCP Nurse Practitioner Family
DX: M79.604 Pain in right leg (principal)
CPT/HCPCS: 80053; 80306; 80307; 83690; 85025; 99283

== ENCOUNTER 2020-12-07 17:30 | Emergency (ER) | payer BC, MEDICAID, SELFPAY ==
[2020-12-07 18:04] VITALS: BP 136/96; PULSE 100; RESP 18; TEMP 37; O2SAT 96; BMI 27.2
--- NOTE | 2020-12-07 19:34 | XRR_ITS ---
PROCEDURE INFORMATION: Exam: XR Left Knee Exam date and time: 12/07/2020 7:36 PM Age: 25 years old Clinical indication: Pain; Knee; Left TECHNIQUE: Imaging protocol: XR Left knee. Views: 3 views. COMPARISON: No relevant prior studies available. FINDINGS: Bones/joints: Normal. Soft tissues: Normal. XR/XR knee LT 3V* [id number] IMPRESSION: No acute findings.
--- NOTE | 2020-12-07 19:45 | ED_ITS ---
HPI - Extremity Problem General: Chief complaint: Extremity Problem,Nontraumatic Stated complaint: LLE LARGE USAMA Time Seen by Provider: 12/07/20 19:21 Source: patient Mode of arrival: ambulatory Limitations: no limitations History of Present Illness: HPI Narrative: Patient is a 25-year-old male who presents to ED today with a complaint of left lower extremity pain. He seems very concerned regarding a knot to the lateral aspect of his left knee. Patient is ambulatory. He states when he walks he has pain to my entire leg but mainly to knee and thigh. He has not had any injury or trauma. He has not noticed any color or temperature changes to his extremity. MD Complaint: joint pain Onset (ago): day(s) Pain Consistency: constant Location: left and lower extremity Radiation: proximal Relieving factors: immobilization Exacerbating factors: weight bearing and walking Associated symptoms: Reports no associated symptoms; Deny chest pain or fever(s) Review of Systems Const: Denies: fever(s) Card: Denies: chest pain Resp: Denies: dyspnea GI: Denies: nausea or vomiting Musc: Reports: extremity pain (L LE) and joint pain (L lateral knee); Denies: neck pain, back pain, extremity swelling, joint swelling, joint stiffness or limited range of motion Neuro: Denies: numbness in extremities or sensory changes PFSH ED PFSH: Medical History Abdominal pain Dysphagia Surgical History History of colonoscopy (~08/2019) History of esophagogastroduodenoscopy (EGD) (~08/2019) Family History Father Cancer liver Grandfather Cancer lung Denies family history of Anesthesia complication Bleeding disorder Social History Smoking and tobacco status: never smoked Second hand smoke exposure: No Alcohol intake: never Adopted: No Caregiver/support person: Yes Lives independently: Yes Household members: significant other Housing: House Marital status: Single Highest education level completed: High School Graduate service: No Current occupational status: employed Current occupational exposures/hazards: No Pets and animals: No History of recent travel: No Leisure activites: exercise Sexually active: Yes Current gender identity: Male and Female Trixie/Spiritism: Spiritism Special trixie needs: No Agree to transfusion: No Financial difficulty paying for basics: Not Very Hard Physical Exam Const: COMMON NORMALS: no acute distress, patient oriented x3, no limitations and alert GENERAL APPEARANCE: cooperative ORIENTATION/CONSCIOUSNESS: Yes awake Extremity: COMMON NORMALS: full ROM, capillary refill normal, no joint enlargement, no clubbing, cyanosis or edema, no calf tenderness and no pedal edema GENERAL: Yes normal exam except as noted OTHER: he is concerned regarding a knot to his L lateral knee; I explained to him that this bony prominence is normal anatomy (fibular head); I even showed patient that he has the same prominence to his R LE as well Neuro: COMMON NORMALS: patient oriented x3, moves all extremities, no focal motor deficits, no sensory deficits noted and gait normal SENSORIUM/ORIENTATION: Yes alert Skin: COMMON NORMALS: no rashes or lesions noted NARRATIVE SKIN EXAM: no color/temp changes noted to extremities GENERAL SKIN EXAM: no rashes or lesions noted TRAUMA: no lacerations or abrasions Course Vital Signs: Vital signs: Vital Signs Temperature 98.6 F 12/07/20 18:04 Pulse Rate 100 12/07/20 18:04 Respiratory Rate 18 12/07/20 18:04 Blood Pressure 136/96 12/07/20 18:04 Pulse Oximetry 96 12/07/20 18:04 MDM - Extremity (Nontraumatic) Imaging Data^: XR L knee: Radiologist's impression: [address] [address] XRay Report Signed Patient: Anthony Del Valle #: [id number] : 1995Acct#:[id number] Age/Sex: 25 / MADM Date: 12/07/20 Loc: ERRoom/Bed: Attending Dr: Ordering Provider/Ordering MD: Argentina Souza Date of Service: 12/07/20 Procedure(s): XR knee LT 3V* [id number] Accession Number(s): [id number] Report Number: [id number] PROCEDURE INFORMATION: Exam: XR Left Knee Exam date and time: 12/07/2020 7:36 PM Age: 25 years old Clinical indication: Pain; Knee; Left TECHNIQUE: Imaging protocol: XR Left knee. Views: 3 views. COMPARISON: No relevant prior studies available. FINDINGS: Bones/joints: Normal. Soft tissues: Normal. XR/XR knee LT 3V* [id number] IMPRESSION: No acute findings. Dictated By:Jae Gilbert Signed By:Lucius Gilbert Date/Time:12/07/202028 DD/ 27 Discharge Plan Discharge Patient Disposition: Home Clinical Impression: Left leg pain Condition: Stable Prescriptions: No Action pantoprazole [Protonix] 40 mg tablet,delayed release (DR/EC) 40 mg PO BID@0900,1800 RF: 0 lisinopril 20 mg Tablet 20 mg PO DAILY@0900 RF: 0 venlafaxine [Effexor XR] 150 mg Capsule,Extended Release 24hr 150 mg PO DAILY@0900 RF: 0 albuterol sulfate [ProAir HFA] 90 mcg/actuation Hfa Aerosol Inhaler 1 puff INHALATION Q4H PRN (Reason: Shortness Of Breath) RF: 0 ibuprofen 200 mg Tablet 200 - 400 mg PO Q6H PRN (Reason: pain/fever) RF: 0 Vitamin C 1 tab PO DAILY@0900 RF: 0 Vitamin D3 1 tab PO DAILY@0900 RF: 0 trazodone 50 mg tablet 50 mg PO BEDTIME PRN (Reason: insomnia) Qty: 30 RF: 0 gabapentin 100 mg capsule 100 mg PO TID@,, RF: 0 propranolol 20 mg tablet 20 mg PO TID Qty: 90 RF: 0 Prozac 20 mg capsule 20 mg PO DAILY Qty: 30 RF: 0 acetaminophen [Tylenol Extra Strength] 500 mg Tablet 1,000 mg PO PRN RF: 0 Discharge Orders: Discharge ED (Routine); Ordered 12/07/20 Ordered By: Argentina Souza Referrals: Sanford Garcia NP [Primary Care Provider] - Coding Level of Care Code ED Forensic Accountant for Chg Fwd Exam Expanded Problem Focused
== END 2020-12-07 20:40 | disposition home or self-care (01) ==
PROVIDERS: Emergency Provider Physician Assistant; PCP Nurse Practitioner Family
DX: M79.605 Pain in left leg (principal)
CPT/HCPCS: 73562; 99282

== ENCOUNTER → 2021-01-21 14:03 | Outpatient (BNVA) | payer BC, MEDICAID, SELFPAY | PROVIDERS: PCP Nurse Practitioner Family; Visit Provider Specialist | DX: G43.711 Chronic migraine without aura, intractable, with status migrainosus (principal) | CPT/HCPCS: 99204 ==

== ENCOUNTER → 2021-01-23 08:41 | Outpatient (BNVA) | payer BC, MEDICAID, SELFPAY | PROVIDERS: PCP Nurse Practitioner Family; Referring Provider Family Medicine; Visit Provider Specialist | DX: M25.562 Pain in left knee (principal) | CPT/HCPCS: 73560; 73565 ==

== ENCOUNTER 2021-02-01 14:28 | Emergency (ER) | payer BC, MEDICAID, SELFPAY ==
--- NOTE | 2021-02-01 14:43 | ECG_ITS ---
[facility] Test Date: 2021-02-01 Pat Name: Anthony Del Valle Department: Room: Gender: Male [employer] Driver: : 1995 Requested By: Charlotte Nunez Order Number: [id number] Reading MD: TAVIA CASAS Measurements Intervals [place] Rate: 97 P: 70 FL: 140 QRS: 116 QRSD: 77 T: 30 QT: 326 QTc: 415 Interpretive Statements SINUS RHYTHM RIGHT VENTRICULAR HYPERTROPHY [SOME/ALL OF: PROMINENT R IN V1, LATE TRANSITION, RAD, JESUS, SSS] NONSPECIFIC T-WAVE ABNORMALITY Compared to ECG 08/11/2020 10:02:20 Right ventricular hypertrophy now present Atrial abnormality now present T-wave abnormality still present Electronically Signed On 02-02-2021 20:21:41 CDT by TAVIA CASAS [email or web address]
--- NOTE | 2021-02-01 14:44 | XR_ITS ---
WS: [id number] Portable AP upright chest, 02/01/2021 Clinical Data: cp Comparison: Portable chest, 09/24/2020. Findings: No nodules, masses or effusions are seen. The heart is normal. The pulmonary vascularity is not increased. No pneumonia or pneumothorax is seen. XR/XR chest 1V portable [id number] Impression: Negative chest.
[2021-02-01 14:46] VITALS: BP 156/105; PULSE 105; RESP 18; TEMP 36.5; O2SAT 98; BMI 27.2
[2021-02-01 15:14] LABS: Basophils # 0.1 10^3/uL (0.0-0.1); Basophils % 0.7 %; Eosinophils # 0.2 10^3/uL (0.0-0.8); Eosinophils % 2.9 %; Hematocrit 45.6 % (42.0-52.0); Hemoglobin 16.2 g/dL (11.7-16.6); Mean Corpuscular HGB Conc 35.5 g/dL (30.0-36.0); Mean Corpuscular Hemoglobin 31.1 pg (28.0-34.0); Mean Corpuscular Volume 87.5 fL (80-94); Mean Platelet Volume 10.1 fL (7.4-10.4); Monocytes # 0.6 10^3/uL (0.2-0.9); Monocytes % 6.9 %; Neutrophils # 4.38 10^3/uL (1.8-7.7); Neutrophils % 53.3 %; Nucleated Red Blood Cells % 0 %; Platelet Count 310 10^3/cmm (130-400); Red Blood Count 5.21 10^6/uL (4.1-5.3); Red Cell Distribution Width 12.5 % (12.1-15.1); White Blood Count 8.2 10^3/uL (4.0-10.0)
[2021-02-01 15:35] LABS: Alanine Aminotransferase 38 U/L (0-41); Albumin Level 4.3 g/dL (3.5-5.2); Alkaline Phosphatase 73 IU/L (40-130); Blood Urea Nitrogen 21 mg/dL (6-20); Calcium 8.7 mg/dL (8.5-10.5); Carbon Dioxide 24 mmol/L (22-29); Chloride 105 mmol/L (98-107); Globulin 2.9 g/dL (1.3-4.6); Glomerular Filtration Rate 137.4 mL/min (90-130); Glucose 111 mg/dL (65-115); Lipase 27 U/L (13-60); Osmolality Calculated 296 mOsm/kg (285-295); Sodium 141 mmol/L (136-145); Total Bilirubin 0.7 mg/dL (0.15-1.2); Total Protein 7.2 g/dL (6.6-8.7)
[2021-02-01 15:36] LABS: Troponin T (5th) Once 6 ng/L (0-15)
[2021-02-01 15:38] LABS: Anion Gap 15.4 (5-19); Aspartate Amino Transferase 30 U/L (0-40); Potassium 3.4 mmol/L (3.5-5.1)
[2021-02-01] MEDS: hyDROXYzine 25 mg Capsule 50 MG PO (15:45)
[2021-02-01 16:17] VITALS: BP 137/94; PULSE 82; RESP 18; O2SAT 98
--- NOTE | 2021-02-01 16:24 | ED_ITS ---
Documented by User: Charlotte Nunez 02/01/21 16:27 HPI - Chest Pain General: Chief Complaint: Chest Pain Stated Complaint: chest pain, lower back pain Time Seen by Provider: 02/01/21 14:51 Source: patient Mode of arrival: ambulatory Limitations: no limitations History of Present Illness: HPI narrative: 25 year old patient present with chest wall pain. He reports it has been an ongoing issue for over a year. He has been seen in the ER and had a stress test and all have been non concerning Pt debies fever, abd pain or sob pt denies n/v/d. Pt does have history of anxiety Associated symptoms: Deny abdominal pain, diaphoresis, dyspnea, fever(s), nausea, palpitations, syncope or vomiting Review of Systems Const: Denies: fever(s), chills, body aches, change in appetite, change in weight, fatigue, malaise or diaphoresis Eyes: Denies: change in vision, blurry vision, blind spots, photophobia, eye discomfort, eye discharge, eye redness, floaters or seeing flashes ENMT: Denies: throat pain, uvular edema, enlarged tonsils, odynophagia, hoarseness, mouth pain, swelling of lips/tongue, oral sores, bleeding gums, dental pain, dry mouth, ear or mastoid pain, ear discharge, change in hearing, tinnitus, disequilibrium, nasal discharge, nasal congestion, post nasal drip or sinus pain Card: Reports: chest pain; Denies: palpitations, irregular heart rhythm, edema, swelling of feet/ankles, lightheadedness, syncope, pre-syncope, dyspnea on exertion, orthopnea, leg pain with exertion or acrocyanosis Resp: Denies: dyspnea, productive cough, non-productive cough, wheezing, stridor, pain on inspiration, change in phlegm color, hemoptysis or chest congestion GI: Denies: abdominal pain, nausea, vomiting, hematemesis, dysphagia, diarrhea, constipation, GI cramping, change in bowel habits or rectal pain : Denies: flank pain, dysuria, urinary frequency, urinary urgency, urinary hesitancy or hematuria Musc: Denies: neck pain, back pain, extremity pain, extremity swelling, joint pain, joint swelling, joint redness, joint warmth or deformity Skin/Breast: Denies: rash, pruritus, erythema, sores, new lesions, changes in skin color or dry skin Neuro: Denies: headache(s), numbness in extremities, weakness in extremities, sensory changes, lack of coordination, difficulty walking, frequent falls, dizziness, vertigo, confusion, behavioral changes, Slurred speech present, difficulty communicating thoughts or seizure-like activity Psych: Denies: anxiety, depression, suicidal ideation or homicidal ideation Endo: Denies: polyuria, polydipsia, tired all the time, cold intolerance, excessive sweating, flushing, hot flashes or heat intolerance Ady/Lymph: Denies: easy bruising, easy bleeding, petechiae, purpura, enlarged lymph nodes or tender lymph nodes All/Imm: Denies: urticaria, throat swelling, tongue swelling, facial swelling, acute wheezing or itchy eyes PFSH ED PFSH: Medical History Abdominal pain Dysphagia Surgical History History of colonoscopy (~08/2019) History of esophagogastroduodenoscopy (EGD) (~08/2019) Family History Father Cancer liver Grandfather Cancer lung Denies family history of Anesthesia complication Bleeding disorder Social History Smoking and tobacco status: never smoked Second hand smoke exposure: No Alcohol intake: never Adopted: No Caregiver/support person: Yes Lives independently: Yes Household members: significant other Housing: House Marital status: Single Highest education level completed: High School Graduate service: No Current occupational status: employed Current occupational exposures/hazards: No Pets and animals: No History of recent travel: No Leisure activites: exercise Sexually active: Yes Current gender identity: Male and Female Trixie/Anabaptist: Episcopal Special trixie needs: No Agree to transfusion: No Financial difficulty paying for basics: Not Very Hard Physical Exam Const: COMMON NORMALS: no acute distress, patient oriented x3, healthy appearing, alert and well nourished GENERAL APPEARANCE: cooperative, comfortable, well kempt and well developed; not ill appearing ORIENTATION/CONSCIOUSNESS: Yes awake, Yes oriented to person, Yes oriented to place and Yes oriented to time HENMT: COMMON NORMALS: normocephalic, atraumatic, hearing grossly normal bilaterally, external ears normal, EAC's normal, TM's normal bilaterally, Normal external nose present, Normal nasal mucous membranes and turbinates present and moist oral mucous membranes HEAD & SCALP: normal to inspection, normocephalic and atraumatic FACE & SINUS: normal facial exam, sinuses nontender and face symmetric NOSE: Normal external nose present, Normal nares present, Normal nasal mucous membranes and turbinates present, No nasal discharge present and Abnormal external nose present EXTERNAL EAR: Yes external ears normal and Yes mastoids normal EXTERNAL AUDITORY CANAL: EAC's normal TYMPANIC MEMBRANE: TM's normal bilaterally MOUTH: Normal oral and palatal mucosa present, lip normal, tongue normal and Normal salivary glands and ducts present THROAT: no uvular edema Eye: COMMON NORMALS: Equal, round and reactive pupils present, EOMs intact bilaterally, conjunctivae normal, no scleral icterus and no papilledema GENERAL EYE: appearance normal, both eyes and all related structures EYELID: eyelids normal CONJUNCTIVA: Yes conjunctivae normal SCLERA: sclerae normal CORNEA: Yes corneas normal PUPIL: Yes Equal, round and reactive pupils present DIRECT OPHTHALMOSCOPY: Yes no papilledema Neck/C-Spine: COMMON NORMALS: full ROM, no lymphadenopathy, supple, no meningeal signs, no JVD and Thyroid normal GENERAL: Yes normal visual inspection and Yes trachea midline THYROID: Thyroid normal CERVICAL SPINE: Yes cervical ROM normal Lymph: LYMPHATIC: no lymphadenopathy noted and no lymphedema noted Chest: COMMONS NORMALS: normal inspection of the chest and normal palpation of entire chest wall Resp: COMMON NORMALS: normal respiratory effort, No retractions, No use of accessory muscles and clear to auscultation bilaterally EFFORT & INSPECTION: Yes able to speak in complete sentences and Yes symmetric chest movement AUSCULTATION: clear to auscultation bilaterally Cardio: COMMON NORMALS: no JVD, regular rate and regular rhythm RATE: regular rate RHYTHM: regular rhythm GI: COMMON NORMALS: Normal to inspection, nondistended, normoactive bowel sounds present, Soft to palpation, non-tender, No hepatosplenomegaly present, no masses and no bruits INSPECTION: Yes normal to inspection AUSCULTATION: Yes normoactive bowel sounds PALPATION: Yes Soft to palpation and Yes No hepatosplenomegaly present PERCUSSION: normal to percussion RECTAL EXAM: Yes deferred : COMMON NORMALS: Yes no CVA tenderness BLADDER/KIDNEY EXAM: Yes no CVA tenderness Back/Pelvis: COMMON NORMALS: no CVA tenderness, thoracic and lumbar spine normal to inspection, no thoracic nor lumbar tenderness, thoraco-lumbar ROM normal and straight leg raise negative bilaterally THORACIC SPINE/UPPER BACK: Yes normal to inspection LUMBAR SPINE/LOWER BACK: Yes normal to inspection Extremity: COMMON NORMALS: normal to inspection, full ROM and capillary refill normal GENERAL: Yes normal exam except as noted Neuro: COMMON NORMALS: patient oriented x3, CN's II-XII intact bilaterally, moves all extremities, no focal motor deficits, no sensory deficits noted, deep tendon reflexes 2+ bilaterally and gait normal SENSORIUM/ORIENTATION: Yes alert, Yes oriented to person, Yes oriented to place and Yes oriented to time MENINGEAL SIGNS: Yes no meningeal signs CRANIAL NERVES: Yes CN normal except as noted SPEECH: speech normal GAIT: Yes Normal gait present SENSORY EXAM: Yes extremities MOTOR EXAM: 5/5 motor strength present throughout Psych: COMMON NORMALS: mental status grossly normal, Normal thought process present, cooperative, normal affect, speech normal, activity/motor behavior normal, denies hallucinations, denies homicidal ideation and denies suicidal ideation APPEARANCE: Yes grossly normal and Yes well kempt ATTITUDE: Yes calm ACTIVITY/MOTOR BEHAVIOR: Yes appropriate eye contact SPEECH: Yes normal speech THOUGHT PROCESS: Normal thought process present THOUGHT CONTENT: Yes Normal thought content present ATTENTION/CONCENTRATION: Yes attention grossly intact MEMORY/COGNITION: Yes memory grossly intact INSIGHT: Good insight present (Psych) JUDGEMENT: Good judgement present (Psych) Skin: COMMON NORMALS: no rashes or lesions noted, no wounds, turgor normal, no jaundice, no petechiae and no mottling GENERAL SKIN EXAM: no rashes or lesions noted and turgor normal Course Vital Signs: Vital signs: Vital Signs Temperature 97.7 F 02/01/21 14:46 Pulse Rate 82 02/01/21 16:37 Respiratory Rate 18 02/01/21 16:37 Blood Pressure 137/94 02/01/21 16:37 Pulse Oximetry 98 02/01/21 16:37 MDM - Chest Pain MDM Narrative: Medical decision making narrative: Pt is well appearing non toxic adn in no acute distress. Pt rop is normal as well as EKG that shows SR without st elevation or depression no acute concerning findings. cxr normal. Labs other robertson unremarkable. Pt ws gien richietaril and states he feels better. Pt has had a normal stress test this year. Lab Data: Labs: Lab Results 02/01/21 02/01/21 02/01/21 Range/Units 15:05 15:05 15:05 WBC 8.2 (4.0-10.0) 10^3/ uL RBC 5.21 (4.1-5.3) 10^6/u L Hgb 16.2 (11.7-16.6) g/dL Hct 45.6 (42.0-52.0) % MCV 87.5 (80-94) fL MCH 31.1 (28.0-34.0) pg MCHC 35.5 (30.0-36.0) g/dL RDW 12.5 (12.1-15.1) % Plt Count 310 (130-400) 10^3/c mm MPV 10.1 (7.4-10.4) fL Neut % (Auto) 53.3 % Lymph % (Auto) 36.0 % Kane % (Auto) 6.9 % Eos % (Auto) 2.9 % Baso % (Auto) 0.7 % Neut # (Auto) 4.38 (1.8-7.7) 10^3/u L Lymph # (Auto) 3.0 (0.8-4.8) 10^3/u L Kane # (Auto) 0.6 (0.2-0.9) 10^3/u L Eos # (Auto) 0.2 (0.0-0.8) 10^3/u L Baso # (Auto) 0.1 (0.0-0.1) 10^3/u L Nucleated RBC % (a uto) 0 % Nucleated RBCs # 0.0 /100WBC Sodium 141 (136-145) mmol/L Potassium 3.4 L (3.5-5.1) mmol/L Chloride 105 (98-107) mmol/L Carbon Dioxide 24 (22-29) mmol/L Anion Gap 15.4 (5-19) BUN 21 H (6-20) mg/dL Creatinine 0.7 (0.7-1.2) mg/dL GFR Calculation 137.4 H (90-130) mL/min Glucose 111 (65-115) mg/dL Calculated Osmolal ity 296 H (285-295) mOsm/k g Calcium 8.7 (8.5-10.5) mg/dL Total Bilirubin 0.7 (0.15-1.2) mg/dL AST 30 (0-40) U/L ALT 38 (0-41) U/L Alkaline Phosphata se 73 (40-130) IU/L Troponin T Gen 5 n g/L 6 (0-15) ng/L Total Protein 7.2 (6.6-8.7) g/dL Albumin 4.3 (3.5-5.2) g/dL Globulin 2.9 (1.3-4.6) g/dL Lipase 27 (13-60) U/L Discharge Plan Discharge Patient Disposition: Home Clinical Impression: Anxiety Condition: Stable Prescriptions: No Action Ajovy Autoinjector 225 mg/1.5 mL auto-injector 225 mg SUBCUT Q30D Qty: 1.5 RF: 3 naproxen 375 mg tablet 375 mg PO BID 7 Days Qty: 14 RF: 0 pantoprazole [Protonix] 40 mg tablet,delayed release (DR/EC) 40 mg PO BID@0900,1800 RF: 0 lisinopril 20 mg Tablet 20 mg PO DAILY@0900 RF: 0 venlafaxine [Effexor XR] 150 mg Capsule,Extended Release 24hr 150 mg PO DAILY@0900 RF: 0 albuterol sulfate [ProAir HFA] 90 mcg/actuation Hfa Aerosol Inhaler 1 puff INHALATION Q4H PRN (Reason: Shortness Of Breath) RF: 0 Vitamin C 1 tab PO DAILY@0900 RF: 0 Vitamin D3 1 tab PO DAILY@0900 RF: 0 trazodone 50 mg tablet 50 mg PO BEDTIME PRN (Reason: insomnia) Qty: 30 RF: 0 gabapentin 100 mg capsule 100 mg PO TID@,, RF: 0 propranolol 20 mg tablet 20 mg PO TID Qty: 90 RF: 0 Prozac 20 mg capsule 20 mg PO DAILY Qty: 30 RF: 0 acetaminophen [Tylenol Extra Strength] 500 mg Tablet 1,000 mg PO PRN RF: 0 Discharge Orders: Discharge ED (Routine); Ordered 02/01/21 Ordered By: Charlotte Nunez Referrals: Sanford Garcia NP [Primary Care Provider] - Discharge Diet: Advance as tolerated Discharge Activity: Increase activity as tolerated Patient Instructions: Opioid Safety Activity Restrictions/Additional Instructions: Pleae return to the ER with any concerning findings Continue to take meds as directed Coding Level of Care Code ED Funds Transfer Clerk for Chg Fwd Exam Comprehensive Documented by User: Kyle Ruffin DO 02/01/21 17:20 HPI - Chest Pain General: Chief Complaint: Chest Pain Stated Complaint: chest pain, lower back pain Time Seen by Provider: 02/01/21 14:51 PFSH ED PFSH: Medical History Abdominal pain Dysphagia Surgical History History of colonoscopy (~08/2019) History of esophagogastroduodenoscopy (EGD) (~08/2019) Family History Father Cancer liver Grandfather Cancer lung Denies family history of Anesthesia complication Bleeding disorder Social History Smoking and tobacco status: never smoked Second hand smoke exposure: No Alcohol intake: never Adopted: No Caregiver/support person: Yes Lives independently: Yes Household members: significant other Housing: House Marital status: Single Highest education level completed: High School Graduate service: No Current occupational status: employed Current occupational exposures/hazards: No Pets and animals: No History of recent travel: No Leisure activites: exercise Sexually active: Yes Current gender identity: Male and Female Trixie/Anabaptist: Episcopal Special trixie needs: No Agree to transfusion: No Financial difficulty paying for basics: Not Very Hard Course Vital Signs: Vital signs: Vital Signs Temperature 97.7 F 02/01/21 14:46 Pulse Rate 82 02/01/21 16:37 Respiratory Rate 18 02/01/21 16:37 Blood Pressure 137/94 02/01/21 16:37 Pulse Oximetry 98 02/01/21 16:37 MDM - Chest Pain MDM Narrative: Medical decision making narrative: Discussed patient with Charlotte Wooten AIRCRAFT REFUELLER. Agree with assessment and plan Lab Data: Labs: Lab Results 02/01/21 02/01/21 02/01/21 Range/Units 15:05 15:05 15:05 WBC 8.2 (4.0-10.0) 10^3/ uL RBC 5.21 (4.1-5.3) 10^6/u L Hgb 16.2 (11.7-16.6) g/dL Hct 45.6 (42.0-52.0) % MCV 87.5 (80-94) fL MCH 31.1 (28.0-34.0) pg MCHC 35.5 (30.0-36.0) g/dL RDW 12.5 (12.1-15.1) % Plt Count 310 (130-400) 10^3/c mm MPV 10.1 (7.4-10.4) fL Neut % (Auto) 53.3 % Lymph % (Auto) 36.0 % Kane % (Auto) 6.9 % Eos % (Auto) 2.9 % Baso % (Auto) 0.7 % Neut # (Auto) 4.38 (1.8-7.7) 10^3/u L Lymph # (Auto) 3.0 (0.8-4.8) 10^3/u L Kane # (Auto) 0.6 (0.2-0.9) 10^3/u L Eos # (Auto) 0.2 (0.0-0.8) 10^3/u L Baso # (Auto) 0.1 (0.0-0.1) 10^3/u L Nucleated RBC % (a uto) 0 % Nucleated RBCs # 0.0 /100WBC Sodium 141 (136-145) mmol/L Potassium 3.4 L (3.5-5.1) mmol/L Chloride 105 (98-107) mmol/L Carbon Dioxide 24 (22-29) mmol/L Anion Gap 15.4 (5-19) BUN 21 H (6-20) mg/dL Creatinine 0.7 (0.7-1.2) mg/dL GFR Calculation 137.4 H (90-130) mL/min Glucose 111 (65-115) mg/dL Calculated Osmolal ity 296 H (285-295) mOsm/k g Calcium 8.7 (8.5-10.5) mg/dL Total Bilirubin 0.7 (0.15-1.2) mg/dL AST 30 (0-40) U/L ALT 38 (0-41) U/L Alkaline Phosphata se 73 (40-130) IU/L Troponin T Gen 5 n g/L 6 (0-15) ng/L Total Protein 7.2 (6.6-8.7) g/dL Albumin 4.3 (3.5-5.2) g/dL Globulin 2.9 (1.3-4.6) g/dL Lipase 27 (13-60) U/L Discharge Plan Discharge Patient Disposition: Home Clinical Impression: Anxiety Condition: Stable Prescriptions: No Action Ajovy Autoinjector 225 mg/1.5 mL auto-injector 225 mg SUBCUT Q30D Qty: 1.5 RF: 3 naproxen 375 mg tablet 375 mg PO BID 7 Days Qty: 14 RF: 0 pantoprazole [Protonix] 40 mg tablet,delayed release (DR/EC) 40 mg PO BID@0900,1800 RF: 0 lisinopril 20 mg Tablet 20 mg PO DAILY@0900 RF: 0 venlafaxine [Effexor XR] 150 mg Capsule,Extended Release 24hr 150 mg PO DAILY@0900 RF: 0 albuterol sulfate [ProAir HFA] 90 mcg/actuation Hfa Aerosol Inhaler 1 puff INHALATION Q4H PRN (Reason: Shortness Of Breath) RF: 0 Vitamin C 1 tab PO DAILY@0900 RF: 0 Vitamin D3 1 tab PO DAILY@0900 RF: 0 trazodone 50 mg tablet 50 mg PO BEDTIME PRN (Reason: insomnia) Qty: 30 RF: 0 gabapentin 100 mg capsule 100 mg PO TID@,, RF: 0 propranolol 20 mg tablet 20 mg PO TID Qty: 90 RF: 0 Prozac 20 mg capsule 20 mg PO DAILY Qty: 30 RF: 0 acetaminophen [Tylenol Extra Strength] 500 mg Tablet 1,000 mg PO PRN RF: 0 Discharge Orders: Discharge ED (Routine); Ordered 02/01/21 Ordered By: Charlotte Nunez Referrals: Sanford Garcia NP [Primary Care Provider] - Discharge Diet: Advance as tolerated Discharge Activity: Increase activity as tolerated Patient Instructions: Opioid Safety Activity Restrictions/Additional Instructions: Pleae return to the ER with any concerning findings Continue to take meds as directed Coding Level of Care Code ED Funds Transfer Clerk for Raúlg Fwd Exam Comprehensive
[2021-02-01 16:37] VITALS: BP 137/94; PULSE 82; RESP 18; O2SAT 98
== END 2021-02-01 16:38 | disposition home or self-care (01) ==
PROVIDERS: Emergency Provider Registered Nurse; PCP Nurse Practitioner Family
DX: F41.9 Anxiety disorder, unspecified (principal)
CPT/HCPCS: 71045; 80053; 83690; 84484; 85025; 93005; 99283

== ENCOUNTER 2021-03-12 16:44 | Emergency (ER) | payer BC, MEDICAID, SELFPAY ==
[2021-03-12 17:02] VITALS: BP 171/107; PULSE 91; RESP 16; TEMP 36.8; O2SAT 96; BMI 27.2
--- NOTE | 2021-03-12 17:30 | ED_ITS ---
HPI - General Adult General: Chief complaint: General Medical Stated complaint: Headache, R ear pain Time Seen by Provider: 03/12/21 17:11 History of Present Illness: HPI narrative: 25-year-old male patient comes in today with complaints of migraine headache. Patient has been evaluated in the ER before multiple times for his headaches. Patient seen neurologist, Dr. Sandoval, in December. Review of prior exams with CT scans x2 this year noted normal brain anatomy. Patient appears well. Patient appears no acute distress. Patient reports right ear pain and headache today. Associated symptoms: Reports headache(s) Review of Systems General: Reports: 10 or more systems reviewed and unremarkable except in HPI and below Neuro: Reports: headache(s) PFSH ED PFSH: Medical History Abdominal pain Dysphagia Surgical History History of colonoscopy (~08/2019) History of esophagogastroduodenoscopy (EGD) (~08/2019) Family History Father Cancer liver Grandfather Cancer lung Denies family history of Anesthesia complication Bleeding disorder Social History Smoking and tobacco status: never smoked Second hand smoke exposure: No Alcohol intake: never Adopted: No Caregiver/support person: Yes Lives independently: Yes Household members: significant other Housing: House Marital status: Single Highest education level completed: High School Graduate service: No Current occupational status: employed Current occupational exposures/hazards: No Pets and animals: No History of recent travel: No Leisure activites: exercise Sexually active: Yes Current gender identity: Male and Female Trixie/Sabianism: Mandaen Special trixie needs: No Agree to transfusion: No Financial difficulty paying for basics: Not Very Hard Physical Exam Const: COMMON NORMALS: no acute distress and patient oriented x3 GENERAL APPEARANCE: cooperative HENMT: COMMON NORMALS: normocephalic and Normal external nose present HEAD & SCALP: normal to inspection and normocephalic NOSE: Normal external nose present and Nasal discharge present TYMPANIC MEMBRANE: TM abnormal TM laterality: bilateral with fluid behind the TM MOUTH: Normal oral and palatal mucosa present THROAT: posterior oropharynx abnormal erythema Eye: GENERAL EYE: appearance normal, both eyes and all related structures Neck/C-Spine: COMMON NORMALS: full ROM Lymph: LYMPHATIC: no lymphadenopathy noted Chest: COMMONS NORMALS: normal inspection of the chest Resp: COMMON NORMALS: normal respiratory effort EFFORT & INSPECTION: Yes able to speak in complete sentences Cardio: COMMON NORMALS: regular rate and regular rhythm RATE: regular rate RHYTHM: regular rhythm GI: COMMON NORMALS: non-tender Back/Pelvis: COMMON NORMALS: thoracic and lumbar spine normal to inspection Extremity: COMMON NORMALS: normal to inspection Neuro: COMMON NORMALS: patient oriented x3 and moves all extremities Psych: COMMON NORMALS: mental status grossly normal and cooperative Skin: COMMON NORMALS: no rashes or lesions noted GENERAL SKIN EXAM: no rashes or lesions noted Course Vital Signs: Vital signs: Vital Signs Temperature 98.2 F 03/12/21 17:02 Pulse Rate 91 03/12/21 17:02 Respiratory Rate 16 03/12/21 17:02 Blood Pressure 171/107 03/12/21 17:02 Pulse Oximetry 96 03/12/21 17:02 MDM - General Adult MDM Narrative: Medical decision making narrative: 25-year-old male patient comes in with exacerbation of headache. Patient been given medication before for migraine type headaches. Patient has always had recurrent headaches and review of the medical documents notes 2 CTs this year and examination by neurology. Patient today also has complaints of right ear pain. Exam is normal with no signs of focal neural deficits, some mild erythema is posterior pharynx and fluid behind both tympanic membranes. Patient has no sinus pain and is afebrile. Differential diagnosis includes but not limited to sinusitis, otitis serous, recurrent migraine syndrome. Patient was medicated with ketorolac, dexamethasone, and Reglan. Patient will be continued on antibiotic for a otitis serous with Flonase spray, and diclofenac and promethazine for his migraine. Patient should follow-up with primary care for further instruction and return to the ER as needed for worsening symptoms. Discharge Plan Discharge Patient Disposition: Home Clinical Impression: Chronic migraine without aura, intractable, with status migrainosus Acute serous otitis media Qualifiers: Laterality: bilateral Recurrence: not specified as recurrent Qualified Code(s): H65.03 - Acute serous otitis media, bilateral Condition: Stable Prescriptions: New Augmentin 875-125 mg tablet 1 tab PO BID Qty: 14 RF: 0 Flonase Allergy Relief 50 mcg/actuation spray,suspension 1 spray intranasal BID Qty: 16 RF: 0 diclofenac sodium 75 mg tablet,delayed release (DR/EC) 75 mg PO BID Qty: 14 RF: 0 promethazine 25 mg tablet 6.25 mg PO BID Qty: 14 RF: 0 No Action Ajovy Autoinjector 225 mg/1.5 mL auto-injector 225 mg SUBCUT Q30D Qty: 1.5 RF: 3 naproxen 375 mg tablet 375 mg PO BID 7 Days Qty: 14 RF: 0 pantoprazole [Protonix] 40 mg tablet,delayed release (DR/EC) 40 mg PO BID@0900,1800 RF: 0 lisinopril 20 mg Tablet 20 mg PO DAILY@0900 RF: 0 venlafaxine [Effexor XR] 150 mg Capsule,Extended Release 24hr 150 mg PO DAILY@0900 RF: 0 albuterol sulfate [ProAir HFA] 90 mcg/actuation Hfa Aerosol Inhaler 1 puff INHALATION Q4H PRN (Reason: Shortness Of Breath) RF: 0 Vitamin C 1 tab PO DAILY@0900 RF: 0 Vitamin D3 1 tab PO DAILY@0900 RF: 0 trazodone 50 mg tablet 50 mg PO BEDTIME PRN (Reason: insomnia) Qty: 30 RF: 0 gabapentin 100 mg capsule 100 mg PO TID@09,,22 RF: 0 propranolol 20 mg tablet 20 mg PO TID Qty: 90 RF: 0 Prozac 20 mg capsule 20 mg PO DAILY Qty: 30 RF: 0 acetaminophen [Tylenol Extra Strength] 500 mg Tablet 1,000 mg PO PRN RF: 0 Discharge Orders: Discharge ED (Routine); Ordered 03/12/21 Ordered By: Gagandeep Franco Referrals: Sanford Garcia NP [Primary Care Provider] - Discharge Diet: Usual diet Discharge Activity: Resume usual activity Patient Instructions: Migraine Headache (ED), Otitis Media (ED), Opioid Safety Activity Restrictions/Additional Instructions: Home and rest, drink plenty of fluids. Activity as tolerated. Follow-up with primary care for further instructions. Return to ER for new concerns Stand Alone Forms: Work/School Release Coding Level of Care Code ED Clinical Nurse Leader for Genaro Goddard
[2021-03-12] MEDS: dexamethasone 4 mg Tablet 10 MG PO (17:32)
[2021-03-12] MEDS: ketorolac 30 mg/mL INJ IM (17:33)
[2021-03-12] MEDS: metoclopramide 5 mg/mL SDV 2 mL 10 MG IM (17:33)
[2021-03-12 17:37] VITALS: BP 145/90; PULSE 66; RESP 18; TEMP 36.6; O2SAT 98
== END 2021-03-12 17:53 | disposition home or self-care (01) ==
PROVIDERS: Emergency Provider Nurse Practitioner Family; PCP Nurse Practitioner Family
DX: G43.701 Chronic migraine without aura, not intractable, with status migrainosus (principal); H65.03 Acute serous otitis media, bilateral
CPT/HCPCS: 96372; 99283; J1885; J2765; J8540

== ENCOUNTER 2021-03-14 13:28 | Outpatient (CLI) | payer BC, MEDICAID, SELFPAY ==
--- NOTE | 2021-03-14 13:45 | MR_ITS ---
WS: [id number] MRI LEFT KNEE NONCONTRAST TECHNIQUE: Axial PD, coronal PD fat sat, coronal PD, sagittal PD, and sagittal PD fat-sat images obta ined. CLINICAL INFORMATION: M25.569 - Pain in unspecified knee COMPARISON: None. FINDINGS: Distal quadriceps and patella tendons are intact. Normal ACL and PCL. No significant joint effusion. Normal medial and lateral meniscus. No acute appearing meniscal tears. Normal bone marrow signal in t he femoral condyles and tibial plateau. Medial and lateral collateral ligaments are intact. Normal pa tella. No significant chondromalacia patella. Normal medial and lateral patellar retinaculum. Palpable marker overlying the head of the fibula. No evidence of underlying mass or lesion. Normal un derlying subcutaneous soft tissues. MR/MR knee LT wo con* [id number] IMPRESSION: 1. Normal ACL and PCL. 2. No acute appearing meniscal tears. 3. Normal patella. 4. No abnormal mass or lesion deep to the palpable marker at the level of the fibular head. Outbridge grading: grade I: focal areas of hyperintensity with normal contour
== END 2021-03-14 13:29 | disposition home or self-care (01) ==
LOC: RADSHAW 13:32
PROVIDERS: PCP Nurse Practitioner Family; Visit Provider Specialist
DX: M25.562 Pain in left knee (principal)
CPT/HCPCS: 73721

== ENCOUNTER → 2021-03-18 12:59 | Outpatient (BNVA) | payer BC, MEDICAID, SELFPAY | PROVIDERS: PCP Family Medicine; Visit Provider Internal Medicine | DX: M25.50 Pain in unspecified joint (principal); R53.83 Other fatigue; R70.0 Elevated erythrocyte sedimentation rate; R51.9 Headache, unspecified; R21 Rash and other nonspecific skin eruption; Z11.59 Encounter for screening for other viral diseases | CPT/HCPCS: 99204 ==

== ENCOUNTER 2021-03-18 13:58 | Outpatient (CLI) | payer BC, MEDICAID, SELFPAY ==
--- NOTE | 2021-03-18 14:23 | XRR_ITS ---
PROCEDURE INFORMATION: Exam: XR Lumbosacral Spine Exam date and time: 03/18/2021 2:23 PM Age: 25 years old Clinical indication: Low back pain; Additional info: R51.9 - headache, unspecified TECHNIQUE: Imaging protocol: XR of the lumbosacral spine. Views: 2 or 3 views. COMPARISON: CR XR knees AP WB w LT lmt ORTH 01/23/2021 8:48 AM FINDINGS: Bones/joints: Normal. No acute fracture. Normal alignment. Vertebral body heights and intervertebral disc spaces are preserved. Soft tissues: Unremarkable. XR/XR lumbar spine 2-3V* [id number] IMPRESSION: No acute findings.
--- NOTE | 2021-03-18 14:23 | XRR_ITS ---
PROCEDURE INFORMATION: Exam: XR Left Hand Exam date and time: 03/18/2021 2:23 PM Age: 25 years old Clinical indication: Condition or disease; Other: Psoriasis; Additional info: R51.9 - headache, unspecified TECHNIQUE: Imaging protocol: XR Left hand. Views: 1 or 2 views. COMPARISON: CR XR knees AP WB w LT lmt ORTH 01/23/2021 8:48 AM FINDINGS: Bones/joints: Normal. Soft tissues: Normal. XR/XR hand LT 2V [id number] IMPRESSION: No acute findings.
--- NOTE | 2021-03-18 14:23 | XRR_ITS ---
PROCEDURE INFORMATION: Exam: XR Bilateral Sacroiliac Joints Exam date and time: 03/18/2021 2:23 PM Age: 25 years old Clinical indication: Condition or disease; Other: Psoriasis; Additional info: L40.9 - psoriasis, unspecified TECHNIQUE: Imaging protocol: XR Bilateral XR of the sacroiliac joints. Views: 3 or more views. COMPARISON: CR XR knees AP WB w LT lmt ORTH 01/23/2021 8:48 AM FINDINGS: Bones/joints: Normal. No acute fracture. Soft tissues: Normal. XR/XR sacroiliac ts 3V [id number] IMPRESSION: No acute findings. No radiographic sequela of sacroiliitis.
--- NOTE | 2021-03-18 14:23 | XRR_ITS ---
PROCEDURE INFORMATION: Exam: XR Right Hand Exam date and time: 03/18/2021 2:23 PM Age: 25 years old Clinical indication: Condition or disease; Other: Psoriasis; Additional info: R51.9 - headache, unspecified TECHNIQUE: Imaging protocol: XR Right hand. Views: 1 or 2 views. COMPARISON: No relevant prior studies available. FINDINGS: Bones/joints: Normal. No evidence of joint space narrowing or osseous erosions. Soft tissues: Normal. XR/XR hand RT 2V [id number] IMPRESSION: No acute findings.
--- NOTE | 2021-03-18 14:23 | XRR_ITS ---
PROCEDURE INFORMATION: Exam: XR Thoracic Spine Exam date and time: 03/18/2021 2:23 PM Age: 25 years old Clinical indication: Other: Low back pain; Additional info: R51.9 - headache, unspecified TECHNIQUE: Imaging protocol: XR of the thoracic spine. Views: 3 views. COMPARISON: CR XR knees AP WB w LT lmt ORTH 01/23/2021 8:48 AM FINDINGS: Bones/joints: Normal. No acute fracture. Normal alignment. Vertebral body heights and intervertebral disc spaces are preserved. Soft tissues: Unremarkable. XR/XR thoracic spine 3V* [id number] IMPRESSION: No acute findings.
[2021-03-18 16:04] LABS: Hepatitis B Core AB, Total Non-Reactive (Nonreactive); Hepatitis B Surface Antigen Non-Reactive (Nonreactive); Hepatitis C Virus Antibody Non-Reactive (Nonreactive)
[2021-03-18 16:17] LABS: 25 Hydroxy Vitamin D 24 ng/mL (30-100); C Reactive Protein 0.7 mg/L (0.0-4.9); Ferritin 271 ng/mL (30-400); Iron 110 ug/dL (59-158); Magnesium 2.4 mg/dL (1.7-2.3); Thyroid Stimulating Hormone 1.77 uIU/mL (0.27-4.20)
[2021-03-18 17:04] LABS: Erythrocyte Sedimentation Rate 6 mm/hr (0-10)
[2021-03-19 13:37] LABS: Cyclic Citrullinated Peptide <16 UNITS
[2021-03-20 13:07] LABS: COMPLEMENT COMPONENT C3C 137 mg/dL (82-185); COMPLEMENT COMPONENT C4C 26 mg/dL (15-53)
[2021-03-20 15:58] LABS: COMPLEMENT, TOTAL (CH50) >60 U/mL (31-60)
[2021-03-21 12:42] LABS: CENTROMERE B ANTIBODY <1.0 NEG AI (<1.0 NEG); JO-1 ANTIBODY <1.0 NEG AI (<1.0 NEG); RNP ANTIBODY <1.0 NEG AI (<1.0 NEG); SCL-70 ANTIBODY <1.0 NEG AI (<1.0 NEG); SJOGREN'S ANTIBODY (SS-A) <1.0 NEG AI (<1.0 NEG); SM ANTIBODY <1.0 NEG AI (<1.0 NEG); SS-B <1.0 NEG AI (<1.0 NEG)
[2021-03-21 15:34] LABS: THYROID PEROXIDASE ANTIBODIES <1 IU/mL (<9)
[2021-03-21 17:48] LABS: ANA SCREEN, IFA NEGATIVE (NEGATIVE); HLA-B27 NEGATIVE (NEGATIVE)
[2021-03-23 14:08] LABS: Tissue Transglutaminase IgA Ab <1 U/mL; Tissue transglutaminase Ab.IgG <1 U/mL
[2021-03-24 21:58] LABS: Immunoglobulin A 206 mg/dL (47-310)
[2021-03-25 20:08] LABS: Gliadin Ab.IgA 5 U (<20); Gliadin Ab.IgG 1 U (<20)
[2021-03-25 22:07] LABS: DNA AB (DS) CRITHIDIA,IFA NEGATIVE (NEGATIVE)
== END 2021-03-18 13:59 | disposition home or self-care (01) ==
PROVIDERS: PCP Family Medicine; Visit Provider Internal Medicine
DX: M25.50 Pain in unspecified joint (principal); R53.83 Other fatigue; R70.0 Elevated erythrocyte sedimentation rate; R51.9 Headache, unspecified; R21 Rash and other nonspecific skin eruption; Z11.59 Encounter for screening for other viral diseases
CPT/HCPCS: 36415; 72072; 72100; 72202; 73120; 82306; 82728; 82784; 83516; 83540; 83735; 84443; 85651; 86140; 86160; 86162; 86235; 86255; 86376; 86704; 86803; 86812; 87340

== ENCOUNTER 2021-03-19 11:21 | Emergency (ER) | payer BC, MEDICAID, SELFPAY ==
[2021-03-19 12:12] VITALS: BP 147/83; PULSE 70; RESP 16; TEMP 37.1; O2SAT 97; BMI 27.2
--- NOTE | 2021-03-19 13:26 | CT_ITS ---
WS: [id number] CT HEAD NONCONTRAST HISTORY: migraine like headache for 3 weeks TECHNIQUE: Contiguous axial imaging performed through the brain in 2.5 mm imaging. Bone and soft tiss ue windows. Sagittal and coronal reformats reviewed. All CT scans at [facility] use at le ast one of these dose optimization techniques: automated exposure control; mA and/or kV adjustment pe r patient size (includes targeted exams where dose is matched to clinical indication); or iterative r econstruction. DLP: 914.41 mGy.cm COMPARISON: 11/22/2020 No acute intracranial hemorrhage, midline shift or mass effect. No atrophy or prior infarcts or herniation. Ventricles: Normal size with no hydrocephalus. Paranasal sinuses: As visualized are clear. Mastoid air cells: Well pneumatized. Calvarium and scalp: Skull is intact with no soft tissue edema or swelling. Unfused posterior ring of C1 normal variant. CT/CT head wo con* [id number] IMPRESSION: Negative head CT.
--- NOTE | 2021-03-19 13:32 | ED_ITS ---
HPI - Headache General: Chief Complaint: Headache Stated Complaint: Headache Time Seen by Provider: 03/19/21 13:02 History of Present Illness: HPI Narrative: Patient is a 25-year-old male who comes to the ED with headache. Headache started approximately 3 weeks ago. He endorses some nausea and photophobia as well. Patient has a history of migraines. The headache is located in the frontal vertex region of head. He rates the headache a 7 out of 10 and he describes it as a throbbing pain. Denies any neurological symptoms. Patient says he is taken Tylenol and ibuprofen and it has not helped. Associated symptoms: Reports nausea; Deny chest pain, fever(s), rash or vomiting Review of Systems Const: Denies: fever(s), chills or fatigue Eyes: Reports: photophobia; Denies: change in vision or eye discomfort ENMT: Denies: throat pain, odynophagia, nasal discharge or nasal congestion Card: Denies: chest pain, palpitations, edema, swelling of feet/ankles, dyspnea on exertion or orthopnea Resp: Denies: dyspnea, productive cough or non-productive cough GI: Reports: nausea; Denies: abdominal pain, vomiting, diarrhea, constipation or hematochezia : Denies: flank pain, difficulty urinating, dysuria or hematuria Musc: Denies: neck pain, back pain or extremity swelling Skin/Breast: Denies: rash or new lesions Neuro: Reports: headache(s); Denies: numbness in extremities or weakness in extremities PFSH ED PFSH: Medical History Abdominal pain Dysphagia Surgical History History of colonoscopy (~08/2019) History of esophagogastroduodenoscopy (EGD) (~08/2019) Family History Father Cancer liver Grandfather Cancer lung Denies family history of Anesthesia complication Bleeding disorder Social History Smoking and tobacco status: never smoked Second hand smoke exposure: No Alcohol intake: never Adopted: No Caregiver/support person: Yes Lives independently: Yes Household members: significant other Housing: House Marital status: Single Highest education level completed: High School Graduate service: No Current occupational status: employed Current occupational exposures/hazards: No Pets and animals: No History of recent travel: No Leisure activites: exercise Sexually active: Yes Current gender identity: Male and Female Trixie/Nondenominational: Restoration Special trixie needs: No Agree to transfusion: No Financial difficulty paying for basics: Not Very Hard Physical Exam Const: COMMON NORMALS: no acute distress, patient oriented x3 and alert GENERAL APPEARANCE: cooperative and comfortable HENMT: COMMON NORMALS: normocephalic HEAD & SCALP: normocephalic MOUTH: Normal oral and palatal mucosa present THROAT: posterior oropharynx normal and uvula midline Neck/C-Spine: COMMON NORMALS: supple GENERAL: Yes normal visual inspection Resp: COMMON NORMALS: normal respiratory effort, No retractions, No use of accessory muscles and clear to auscultation bilaterally AUSCULTATION: clear to auscultation bilaterally Cardio: COMMON NORMALS: regular rate, regular rhythm, S1 normal heart sound present, S2 normal heart sound present, No gallops present (Cardio), No clicks present (Cardio), No murmurs present (Cardio) and Peripheral pulses 2+ throughout RATE: regular rate RHYTHM: regular rhythm HEART SOUNDS: S1 normal heart sound present and S2 normal heart sound present PERIPHERAL PULSES: Peripheral pulses 2+ throughout GI: COMMON NORMALS: Normal to inspection, nondistended, normoactive bowel sounds present, Soft to palpation, non-tender and no masses PALPATION: Yes Soft to palpation : COMMON NORMALS: Yes no CVA tenderness BLADDER/KIDNEY EXAM: Yes no CVA tenderness Back/Pelvis: COMMON NORMALS: no CVA tenderness Extremity: COMMON NORMALS: normal to inspection Neuro: COMMON NORMALS: patient oriented x3, CN's II-XII intact bilaterally, moves all extremities, no focal motor deficits and no sensory deficits noted SENSORIUM/ORIENTATION: Yes alert SENSORY EXAM: Yes extremities (intact) MOTOR EXAM: 5/5 motor strength present throughout Skin: GENERAL SKIN EXAM: dry skin Course Reevaluation(s): Reevaluation #1: After patient received meds he rates his migraine now 5. It started at an 8. Patient thinks his migraine level is now manageable and improving and he would like to go home and rest. Time: 14:35 Vital Signs: Vital signs: Vital Signs Temperature 98.7 F 03/19/21 12:12 Pulse Rate 61 03/19/21 14:49 Respiratory Rate 18 03/19/21 14:49 Blood Pressure 164/96 03/19/21 14:49 Pulse Oximetry 97 03/19/21 14:49 MDM - Headache MDM Narrative: Medical decision making narrative: Patient is a 25-year-old male comes to the ED with migraine. Patient is having migraines been going on for 3 weeks and says that he has never had headache like this before. Neuro exam was normal. Patient appears in no acute distress or pain. CT of head showed no acute findings. Patient was given IV fluids, Toradol, Decadron and Reglan and his symptoms improved. He was discharged home and told to follow-up with his PCP in 7 to 10 days reevaluation. Return ED precautions given. Patient understood agree with plan. Imaging Data^: CT Head: Attestation: I personally reviewed and interpreted this imaging study as follows: Radiologist's impression: [place] [address] CT Scan Report Signed Patient: Anthony Del Valle Unit #: [id number] : 1995 Age/Sex: 25 / M ADM Date: 03/19/21 Loc: ER Room/Bed: Attending Dr: Ordering Provider/Ordering MD: aNthan Ryan Date of Service: 03/19/21 Procedure(s): CT head wo con* [id number] Accession Number(s): [id number] Report Number: [id number] WS: [id number] CT HEAD NONCONTRAST HISTORY: migraine like headache for 3 weeks TECHNIQUE: Contiguous axial imaging performed through the brain in 2.5 mm imaging. Bone and soft tissue windows. Sagittal and coronal reformats reviewed. All CT scans at [facility] use at least one of these dose optimization techniques: automated exposure control; mA and/or kV adjustment per patient size (includes targeted exams where dose is matched to clinical indication); or iterative reconstruction. DLP: 914.41 mGy.cm COMPARISON: 11/22/2020 No acute intracranial hemorrhage, midline shift or mass effect. No atrophy or prior infarcts or herniation. Ventricles: Normal size with no hydrocephalus. Paranasal sinuses: As visualized are clear. Mastoid air cells: Well pneumatized. Calvarium and scalp: Skull is intact with no soft tissue edema or swelling. Unfused posterior ring of C1 normal variant. CT/CT head wo con* [id number] IMPRESSION: Negative head CT. Dictated By: Rona Turpin DO Signed By: Rona Turpin DO Signed Date/Time: 03/19/21 1350 DD/ 1348 Discharge Plan Discharge Patient Disposition: Home Clinical Impression: Migraine Qualifiers: Migraine type: without aura Status migrainosus presence: with status migrainosus Intractability: not intractable Qualified Code(s): G43.001 - Migraine without aura, not intractable, with status migrainosus Condition: Stable Prescriptions: No Action Ajovy Autoinjector 225 mg/1.5 mL auto-injector 225 mg SUBCUT Q30D Qty: 1.5 RF: 3 naproxen 375 mg tablet 375 mg PO BID 7 Days Qty: 14 RF: 0 pantoprazole [Protonix] 40 mg tablet,delayed release (DR/EC) 40 mg PO BID@0900,1800 RF: 0 multivitamin Tablet 1 tab PO DAILY RF: 0 lisinopril 20 mg Tablet 20 mg PO DAILY@0900 RF: 0 albuterol sulfate [ProAir HFA] 90 mcg/actuation Hfa Aerosol Inhaler 1 puff INHALATION Q4H PRN (Reason: Shortness Of Breath) RF: 0 Vitamin C 1 tab PO DAILY@0900 RF: 0 Vitamin D3 1 tab PO DAILY@0900 RF: 0 trazodone 50 mg tablet 50 mg PO BEDTIME PRN (Reason: insomnia) Qty: 30 RF: 0 propranolol 20 mg tablet 20 mg PO TID Qty: 90 RF: 0 Flonase Allergy Relief 50 mcg/actuation spray,suspension 1 spray intranasal BID Qty: 16 RF: 0 diclofenac sodium 75 mg tablet,delayed release (DR/EC) 75 mg PO BID Qty: 14 RF: 0 promethazine 25 mg tablet 6.25 mg PO BID Qty: 14 RF: 0 acetaminophen [Tylenol Extra Strength] 500 mg Tablet 1,000 mg PO PRN RF: 0 Discharge Orders: Discharge ED (Routine); Ordered 03/19/21 Ordered By: Nathan Ryan Referrals: Chava Castro MD [Primary Care Provider] - Discharge Diet: Regular Discharge Activity: Resume usual activity Patient Instructions: Migraine Headache (ED) Activity Restrictions/Additional Instructions: Follow-up with medical provider as directed in 7-19 days. You can go home and take a 25 mg dose of Benadryl and rest to help with headache. Take [id number] Tylenol or ibuprofen for any recurrent headache. Return to the ER or your medical provider if condition worsens. Please read and understand discharge instructions. Thank you for choosing [facility] for your healthcare needs today. Please realize this is an emergency room and that we are providing you with a medical screening exam and this may not be complete and all inclusive of all the testing and or work up that you may need to determine your ailment or severity of your illness. It is very important that you follow up as instructed or that you return to the Emergency Department should you have concerns or if your condition changes or worsens in any way. Coding Level of Care Code ED Photoengraving Proofer Apprentice for Genaro Goddard Exam Comprehensive
[2021-03-19 13:50] VITALS: BP 148/107; PULSE 64; RESP 16; O2SAT 98
[2021-03-19] MEDS: sodium chloride 0.9% 1,000 ML 999 ML IV (14:01)
[2021-03-19] MEDS: ketorolac 30 mg/mL INJ IVP (14:03)
[2021-03-19] MEDS: metoclopramide 5 mg/mL SDV 2 mL 10 MG IVP (14:03)
[2021-03-19] MEDS: dexamethasone 4 mg/mL INJ 10 MG IVP (14:03)
[2021-03-19 14:49] VITALS: BP 164/96; PULSE 61; RESP 18; O2SAT 97
== END 2021-03-19 14:51 | disposition home or self-care (01) ==
PROVIDERS: Emergency Provider Physician Assistant; PCP Family Medicine
DX: G43.001 Migraine without aura, not intractable, with status migrainosus (principal)
CPT/HCPCS: 70450; 96361; 96374; 96375; 99284; J1100; J1885; J2765; J7030

== ENCOUNTER 2021-03-22 14:05 | Outpatient (CLI) | payer BC, MEDICAID, SELFPAY ==
[2021-03-22 14:55] LABS: Basophils # 0.1 10^3/uL (0.0-0.1); Basophils % 0.6 %; Eosinophils # 0.1 10^3/uL (0.0-0.8); Eosinophils % 0.6 %; Hematocrit 50.4 % (42.0-52.0); Lymphocytes % 36.4 %; Mean Corpuscular HGB Conc 33.7 g/dL (30.0-36.0); Mean Corpuscular Hemoglobin 30.3 pg (28.0-34.0); Mean Corpuscular Volume 89.8 fL (80-94); Mean Platelet Volume 11.1 fL (7.4-10.4); Monocytes # 0.9 10^3/uL (0.2-0.9); Monocytes % 7.8 %; Neutrophils # 5.92 10^3/uL (1.8-7.7); Neutrophils % 54.2 %; Nucleated Red Blood Cells % 0 %; Platelet Count 282 10^3/cmm (130-400); Red Blood Count 5.61 10^6/uL (4.1-5.3); Red Cell Distribution Width 12.3 % (12.1-15.1); White Blood Count 10.9 10^3/uL (4.0-10.0)
[2021-03-22 15:35] LABS: LAB Peripheral Smear Sent for Review
== END 2021-03-22 14:06 | disposition home or self-care (01) ==
LOC: LAB 14:10
PROVIDERS: PCP Family Medicine; Visit Provider Family Medicine
DX: R59.0 Localized enlarged lymph nodes (principal); D72.829 Elevated white blood cell count, unspecified
CPT/HCPCS: 36415; 80500; 85025

== ENCOUNTER 2021-04-21 21:41 | Emergency (ER) | payer BC, MEDICAID, SELFPAY ==
[2021-04-21 21:45] VITALS: BP 154/103; PULSE 100; RESP 16; TEMP 36.4; O2SAT 96; BMI 26.5
--- NOTE | 2021-04-21 22:01 | W.ED.GENADLT ---
HPI - General Adult General: Chief complaint: General Medical Stated complaint: back pain for several months, rash on skin Time Seen by Provider: 04/21/21 21:57 History of Present Illness: HPI narrative: Patient is having some anxieties about health. 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 Patient said his white blood cell count has fluctuated. Said just and felt good on and off for months. Also has chronic back pain. Associated symptoms: Reports no associated symptoms; Deny chest pain, dyspnea, headache(s), nausea, rash or vomiting Review of Systems Const: Denies: fever(s), chills or body aches Eyes: Denies: change in vision or blurry vision ENMT: Denies: throat pain or nasal congestion Card: Denies: chest pain or dyspnea on exertion Resp: Denies: dyspnea, productive cough or non-productive cough GI: Denies: abdominal pain, nausea or vomiting : Denies: difficulty urinating Musc: Reports: back pain; Denies: extremity pain Skin/Breast: Reports: other (Random tiny red spots on his skin. 4 months); Denies: rash Neuro: Denies: headache(s) Psych: Denies: anxiety or depression Ady/Lymph: Denies: easy bruising PFSH ED PFSH: Medical History Abdominal pain Dysphagia Surgical History History of colonoscopy (~08/2019) History of esophagogastroduodenoscopy (EGD) (~08/2019) Family History Father Cancer liver Grandfather Cancer lung Denies family history of Anesthesia complication Bleeding disorder Social History Smoking and tobacco status: never smoked Second hand smoke exposure: No Alcohol intake: never Adopted: No Caregiver/support person: Yes Lives independently: Yes Household members: significant other Housing: House Marital status: Single Highest education level completed: High School Graduate service: No Current occupational status: employed Current occupational exposures/hazards: No Pets and animals: No History of recent travel: No Leisure activites: exercise Sexually active: Yes Current gender identity: Male and Female Trixie/Christian: Mu-Ism Special trixie needs: No Agree to transfusion: No Financial difficulty paying for basics: Not Very Hard Physical Exam Const: COMMON NORMALS: no acute distress, average body habitus and patient oriented x3 HENMT: COMMON NORMALS: normocephalic HEAD & SCALP: normal to inspection and normocephalic FACE & SINUS: normal facial exam Eye: COMMON NORMALS: conjunctivae normal GENERAL EYE: appearance normal, both eyes and all related structures CONJUNCTIVA: Yes conjunctivae normal Neck/C-Spine: COMMON NORMALS: no JVD Chest: COMMONS NORMALS: normal inspection of the chest Resp: COMMON NORMALS: normal respiratory effort and clear to auscultation bilaterally AUSCULTATION: clear to auscultation bilaterally Cardio: COMMON NORMALS: no JVD, regular rate and regular rhythm RATE: regular rate RHYTHM: regular rhythm GI: COMMON NORMALS: Normal to inspection, nondistended, normoactive bowel sounds present Extremity: COMMON NORMALS: normal to inspection and full ROM Neuro: COMMON NORMALS: patient oriented x3 Skin: NARRATIVE SKIN EXAM: M may be 1-3 small petechiae not bigger than a pinhead on his arms and right knee. No other areas noted. Course Vital Signs: Vital signs: Vital Signs Temperature 97.6 F 04/21/21 21:45 Pulse Rate 85 04/21/21 22:33 Respiratory Rate 18 04/21/21 22:33 Blood Pressure 141/98 04/21/21 22:33 Pulse Oximetry 95 04/21/21 22:33 MDM - General Adult MDM Narrative: Medical decision making narrative: Patient has anxiety about health. He is requesting CBC. Said he has had some abnormal CBCs in the past and thinks he might have leukemia would like that checked out. Lab Data: Labs: Lab Results 04/21/21 Range/Units 22:00 WBC 10.5 H (4.0-10.0) 10^3/ uL RBC 5.73 H (4.1-5.3) 10^6/u L Hgb 17.4 H (11.7-16.6) g/dL Hct 51.2 (42.0-52.0) % MCV 89.4 (80-94) fl MCH 30.4 (28.0-34.0) pg MCHC 34.0 (30.0-36.0) g/dL RDW 12.2 (12.1-15.1) % Plt Count 296 (130-400) 10^3/c mm MPV 10.7 H (7.4-10.4) fL Neut % (Auto) 50.6 % Lymph % (Auto) 39.2 % Crockett % (Auto) 7.9 % Eos % (Auto) 1.5 % Baso % (Auto) 0.6 % Neut # (Auto) 5.29 (1.8-7.7) 10^3/u L Lymph # (Auto) 4.1 (0.8-4.8) 10^3/u L Crockett # (Auto) 0.8 (0.2-0.9) 10^3/u L Eos # (Auto) 0.2 (0.0-0.8) 10^3/u L Baso # (Auto) 0.1 (0.0-0.1) 10^3/u L Nucleated RBC % (a uto) 0 % Nucleated RBCs # 0.0 /100WBC Discharge Plan Discharge Patient Disposition: Home Clinical Impression: Anxiety about health Condition: Stable Prescriptions: No Action Ajovy Autoinjector 225 mg/1.5 mL auto-injector 225 mg SUBCUT Q30D Qty: 1.5 RF: 3 naproxen 375 mg tablet 375 mg PO BID 7 Days Qty: 14 RF: 0 pantoprazole [Protonix] 40 mg tablet,delayed release (DR/EC) 40 mg PO BID@0900,1800 RF: 0 multivitamin Tablet 1 tab PO DAILY RF: 0 promethazine 25 mg tablet 6.25 mg PO BID PRNRF: 0 propranolol 20 mg tablet 20 mg PO TID PRNRF: 0 cholecalciferol (vitamin D3) 1,250 mcg (50,000 unit) capsule 50,000 unit PO .qweek Qty: 14 RF: 0 lisinopril 20 mg Tablet 20 mg PO DAILY@0900 RF: 0 albuterol sulfate [ProAir HFA] 90 mcg/actuation Hfa Aerosol Inhaler 1 puff INHALATION Q4H PRN (Reason: Shortness Of Breath) RF: 0 Vitamin C 1 tab PO DAILY@0900 RF: 0 Vitamin D3 1 tab PO DAILY@0900 RF: 0 Flonase Allergy Relief 50 mcg/actuation spray,suspension 1 spray intranasal BID Qty: 16 RF: 0 acetaminophen [Tylenol Extra Strength] 500 mg Tablet 1,000 mg PO PRN RF: 0 Discharge Orders: Discharge ED (Routine); Ordered 04/21/21 Ordered By: Filiberto Abel Referrals: Chava Castro MD [Primary Care Provider] - Discharge Diet: Usual diet Discharge Activity: Resume usual activity Activity Restrictions/Additional Instructions: Follow-up with your primary care provider as directed. Consider going to see a mental health professional and discuss your anxieties. Coding Level of Care Code ED Quarrying Manager for Raúlg Fwd Exam Comprehensive
[2021-04-21 22:16] VITALS: BP 137/92; PULSE 92; RESP 18; O2SAT 96
[2021-04-21 22:19] LABS: Basophils # 0.1 10^3/uL (0.0-0.1); Basophils % 0.6 %; Eosinophils # 0.2 10^3/uL (0.0-0.8); Eosinophils % 1.5 %; Hematocrit 51.2 % (42.0-52.0); Hemoglobin 17.4 g/dL (11.7-16.6); Lymphocytes # 4.1 10^3/uL (0.8-4.8); Lymphocytes % 39.2 %; Mean Corpuscular Hemoglobin 30.4 pg (28.0-34.0); Mean Corpuscular Volume 89.4 fl (80-94); Mean Platelet Volume 10.7 fL (7.4-10.4); Monocytes # 0.8 10^3/uL (0.2-0.9); Monocytes % 7.9 %; Neutrophils # 5.29 10^3/uL (1.8-7.7); Neutrophils % 50.6 %; Nucleated Red Blood Cells % 0 %; Platelet Count 296 10^3/cmm (130-400); Red Blood Count 5.73 10^6/uL (4.1-5.3); Red Cell Distribution Width 12.2 % (12.1-15.1); White Blood Count 10.5 10^3/uL (4.0-10.0)
[2021-04-21 22:33] VITALS: BP 141/98; PULSE 85; RESP 18; O2SAT 95
== END 2021-04-21 22:34 | disposition home or self-care (01) ==
PROVIDERS: Emergency Provider Nurse Practitioner Family; PCP Family Medicine
DX: F41.9 Anxiety disorder, unspecified (principal)
CPT/HCPCS: 85025; 99282

== ENCOUNTER 2021-04-22 13:04 | Outpatient (CLI) | payer BC, MEDICAID, SELFPAY ==
[2021-04-22 13:43] LABS: Basophils # 0.1 10^3/uL (0.0-0.1); Basophils % 0.5 %; Eosinophils # 0.4 10^3/uL (0.0-0.8); Eosinophils % 3.9 %; Hematocrit 50.7 % (42.0-52.0); Hemoglobin 17.2 g/dL (11.7-16.6); Lymphocytes # 3.8 10^3/uL (0.8-4.8); Lymphocytes % 40.6 %; Mean Corpuscular HGB Conc 33.9 g/dL (30.0-36.0); Mean Corpuscular Hemoglobin 30.2 pg (28.0-34.0); Mean Corpuscular Volume 88.9 fl (80-94); Monocytes # 0.8 10^3/uL (0.2-0.9); Monocytes % 8.5 %; Neutrophils # 4.12 10^3/uL (1.8-7.7); Neutrophils % 44.7 %; Nucleated Red Blood Cells % 0 %; Platelet Count 272 10^3/cmm (130-400); Red Cell Distribution Width 12.3 % (12.1-15.1); White Blood Count 9.3 10^3/uL (4.0-10.0)
[2021-04-22 14:06] LABS: Alanine Aminotransferase 23 U/L (0-41); Albumin Level 4.7 g/dL (3.5-5.2); Alkaline Phosphatase 77 IU/L (40-130); Aspartate Amino Transferase 18 U/L (0-40); Blood Urea Nitrogen 19 mg/dL (6-20); Calcium 9.9 mg/dL (8.5-10.5); Carbon Dioxide 23 mmol/L (22-29); Chloride 102 mmol/L (98-107); Glucose 90 mg/dL (65-115); Osmolality Calculated 292 mOsm/kg (285-295); Sodium 140 mmol/L (136-145); Total Bilirubin 1.5 mg/dL (0.15-1.2); Total Protein 7.7 g/dL (6.6-8.7)
--- NOTE | 2021-04-22 15:43 | ONC CON_ITS ---
Dr. Lopez New Patient Note Patient: Anthony Del Valle Unit #: [id number]: 1995 Dicatated By: Gema Lopez M.D.Date of Visit: Apr 22, 2021 Onc MED New Patient/Consult Referring Physician: Chava Castro History of Present Illness: Mr. Anthony Del Valle, is a 26-year-old gentleman with a year long history of fluctuating mild isolated leukocytosis., As per patient his white blood count would stay between 15-18,000, patient denies any history of recurrent infection,, denies any night sweats but about 10 pound weight loss due to epigastric discomfort for which he underwent CT scan of abdomen pelvis done on August 11, 2020 which showed gallbladder dilation and questionable cholelithiasis, no acute inflammatory process in the abdomen or pelvis. As per patient he underwent a HIDA scan it was unremarkable, as per patient in the past he underwent colonoscopy twice but it was unremarkable. Patient said he did notice small lymphadenopathy in the right neck for which he underwent CT scan of neck done on June 29, 2020 shows no sign of neck mass or significant cervical lymphadenopathy and during follow-up patient had lab work-up done, his CBC done on March 22, 2021, shows persistent isolated leukocytosis, white blood count 10.9, peripheral blood smear shows mild leukocytosis with a normal platelet count slightly elevated red blood cell count no evidence of blast or blast equivalent cell. Repeat CBC done on March 27, 2021 showed white blood count 11.9K, and hemoglobin 17.5 g normal range is 16.6 or below hematocrit 50.2 platelets 286,000 and again peripheral blood smear showed leukocytosis with monocytosis and atypical lymphocytes, most likely reactive as no blasts or blast equivalent cells seen either. , B12 251, RPR nonreactive, JEAN negative, C-reactive protein 2 normal being 0-10 Patient denies smoking but to use off and on Flonase for allergic rhinitis. Denies any dysuria, denies any sinusitis related side effect he denies any skin infection denies any signs symptom suggestive of chronic infection Past Medical History: Mr. Salomon medical history consists of anxiety, hypertension, and Migraines. Past Surgical History: There is no documented surgical history. Medications: Albuterol Sulfate Aerosol Powder, Breath Activated Inhalation PRN, Lisinopril (20 mg) Tablet Oral daily, Maxalt Tablet Oral PRN, Pantoprazole Sodium 1 Tablet (of 40 mg) Pack Oral b.i.d., Propranolol HCl (20 mg) Tablet Oral t.i.d., traZODone HCl (50 mg) Tablet Oral at bedtime Allergies: No Known Allergies. Social History: Mr. Del Valle is single. Mr. Del Valle has never smoked. He has no history of drinking. He has indicated exposure to the following products: chewing tobacco. uses 1 can smokeless tobacco daily. Family History: Mr. Del Valle's father at age 59: liver cancer. Review Of Symptoms: Review of Systems is not available for this patient. Vital Signs: Performed on Apr 22, 2021 13:57: 7, 5, 26.03, 2.00 sq.m, 70 in, 98 %, 87 /min, 18 /min, 135/80 mm(hg), 97.7 F (LOW), and 181.4 lbs (HIGH). Performance Status: 0 - Fully active, able to carry on all predisease activities without restrictions. (ECOG) Physical Examination: ENMT - , No mouth sores, no thrush, no jaundice, no cervical or axillary lymphadenopathy, Respiratory - Lungs are clear to auscultation, Cardiovascular - Regular rate and rhythm of heart, Abdomen - Soft, bowel sounds present, Extremities - No visible edema or rash. Lab/Imaging: Most recent lab results are not available for this patient. Impression: . Mild fluctuating isolated leukocytosis etiology unclear could be reactive to chronic inflammation like patient may have underlying mild/subacute cholecystitis or stress-induced, patient is on antidepression or off and on steroid especially Flonase or myeloproliferative disorder but less likely Mild polycythemia, reactive to underlying sleep apnea, or polycythemia vera but less likely Anxiety disorder/hypertension/migraine Plan: Discussed with patient regarding his labs from today White blood count 9.3, hemoglobin 17.2 normal being 11.7 to 16.6 g, hematocrit 50.7 normal being 42-52, platelets 272,000 with a normal differential CMP within normal limits Clinically, patient is doing well with no new signs symptom suggestive of acute infection, his repeat CBC done today shows resolution of mild fluctuating isolated leukocytosis but mildly elevated hemoglobin which could be secondary to underlying sleep apnea, will suggest PMD to consider screening for sleep apnea and if needed follow sleep study to confirm sleep apnea as CPAP may benefit especially his symptoms like generalized weakness and fatigue and musculoskeletal discomfort. As mentioned above his repeat CBC done today shows resolution of mild isolated leukocytosis with normal differential, will monitor his blood counts so he will return to clinic in 1 month with CBC with Differential Signed By: Gema Lopez M.D. <<Signature on File>>
== END 2021-04-22 13:05 | disposition home or self-care (01) ==
PROVIDERS: PCP Family Medicine; Visit Provider Internal Medicine Hematology & Oncology
DX: D72.829 Elevated white blood cell count, unspecified (principal); D75.1 Secondary polycythemia; F41.9 Anxiety disorder, unspecified; I10 Essential (primary) hypertension; G43.909 Migraine, unspecified, not intractable, without status migrainosus
CPT/HCPCS: 36415; 80053; 85025; 99204; 99213

== ENCOUNTER 2021-04-30 14:58 | Emergency (ER) | payer BC, MEDICAID, SELFPAY ==
[2021-04-30 15:15] VITALS: BP 150/93; PULSE 81; RESP 18; TEMP 36.8; O2SAT 97; BMI 26.5
--- NOTE | 2021-04-30 15:47 | W.ED.ABDPA2 ---
Documented by User: ISABELLE Serra 04/30/21 16:46 HPI - Abdominal Pain General: Chief Complaint: Abdominal Pain Stated Complaint: R FLANK PAIN, ABD PAIN Time Seen by Provider: 04/30/21 15:33 History of Present Illness: HPI narrative: Patient states that abdominal discomfort very inside since Thursday. He told triage abdominal pain started this morning at 10:00. Said he had one episode of pain with urination last night. Denies any nausea and vomiting able to eat and drink denies any bowel problems. MD elicited complaint: flank pain Pertinent past history: other Onset (ago): day(s) Pain Consistency: colicky Location: Epigastric, L flank and R flank Severity: mild Quality: aching Exacerbating factors: nothing Relieving factors: nothing Associated Symptoms: Reports no associated symptoms; Denies chills, fever(s), nausea and vomiting Review of Systems Const: Denies: fever(s), chills or body aches Eyes: Denies: change in vision or blurry vision ENMT: Denies: throat pain or nasal congestion Card: Denies: chest pain or dyspnea on exertion Resp: Denies: dyspnea, productive cough or non-productive cough GI: Reports: abdominal pain; Denies: nausea or vomiting : Reports: flank pain; Denies: difficulty urinating Musc: Denies: extremity pain Skin/Breast: Denies: rash Neuro: Denies: headache(s) Psych: Denies: anxiety or depression Ady/Lymph: Denies: easy bruising PFSH ED PFSH: Medical History Abdominal pain Dysphagia Surgical History History of colonoscopy (~08/2019) History of esophagogastroduodenoscopy (EGD) (~08/2019) Family History Father Cancer liver Grandfather Cancer lung Denies family history of Anesthesia complication Bleeding disorder Social History Smoking and tobacco status: never smoked Second hand smoke exposure: No Alcohol intake: never Adopted: No Caregiver/support person: Yes Lives independently: Yes Household members: significant other Housing: House Marital status: Single Highest education level completed: High School Graduate service: No Current occupational status: employed Current occupational exposures/hazards: No Pets and animals: No History of recent travel: No Leisure activites: exercise Sexually active: Yes Current gender identity: Male and Female Trixie/Shinto: Anabaptism Special trixie needs: No Agree to transfusion: No Financial difficulty paying for basics: Not Very Hard Physical Exam Const: COMMON NORMALS: no acute distress, average body habitus and patient oriented x3 HENMT: COMMON NORMALS: normocephalic HEAD & SCALP: normal to inspection and normocephalic FACE & SINUS: normal facial exam Eye: COMMON NORMALS: conjunctivae normal GENERAL EYE: appearance normal, both eyes and all related structures CONJUNCTIVA: Yes conjunctivae normal Neck/C-Spine: COMMON NORMALS: no JVD Chest: COMMONS NORMALS: normal inspection of the chest Resp: COMMON NORMALS: normal respiratory effort and clear to auscultation bilaterally AUSCULTATION: clear to auscultation bilaterally Cardio: COMMON NORMALS: no JVD, regular rate and regular rhythm RATE: regular rate RHYTHM: regular rhythm GI: COMMON NORMALS: Normal to inspection, nondistended, normoactive bowel sounds present Extremity: COMMON NORMALS: normal to inspection and full ROM Neuro: COMMON NORMALS: patient oriented x3 Course Vital Signs: Vital signs: Vital Signs Temperature 98.2 F 04/30/21 15:15 Pulse Rate 62 04/30/21 17:20 Respiratory Rate 18 04/30/21 17:20 Blood Pressure 144/92 04/30/21 17:20 Pulse Oximetry 99 04/30/21 17:20 MDM - Abdominal Pain MDM Narrative: Medical decision making narrative: Repeat urine sample to see consent see across test results. Patient urinalysis here to be fine in the past. Lab Data: Labs: Lab Results 04/30/21 04/30/21 Range/Units 15:45 16:51 Urine Color Yellow Yellow (Yellow) Urine Appearance Sl hazy Sl hazy (CLEAR) Urine pH 5 6 (5-7) Ur Specific Gravit y 1.020 1.020 (1.005-1.030) Urine Protein Neg Neg (Negative) Urine Glucose (UA) Norm Norm (Normal) Urine Ketones 2+ H 2+ H (Negative) Urine Blood 2+ H 2+ H (Negative) Urine Nitrate Negative Negative (Negative) Urine Bilirubin 1+ H 1+ H (Negative) Urine Urobilinogen 1 H 1 H (Negative) mg/dL Ur Leukocyte Mary [place]se Negative Negative (Negative) Urine RBC 5-10 H (0-2) /hpf Urine WBC 0-4 H (0-5) /hpf Ur Squamous Epith Cells 0-4 H (0-5) /hpf Amorphous Sediment Not Reportable Urine Bacteria 1+ H (NONE) /hpf Urine Mucus 2+ /hpf Discharge Plan Discharge Patient Disposition: Home Clinical Impression: UTI symptoms Hematuria Qualifiers: Hematuria type: unspecified type Qualified Code(s): R31.9 - Hematuria, unspecified Condition: Stable Prescriptions: No Action naproxen 375 mg tablet 375 mg PO BID 7 Days Qty: 14 RF: 0 pantoprazole [Protonix] 40 mg tablet,delayed release (DR/EC) 40 mg PO BID@0900,1800 RF: 0 multivitamin Tablet 1 tab PO DAILY RF: 0 promethazine 25 mg tablet 6.25 mg PO BID PRN (Reason: NAAUSEA/VOMITING) RF: 0 propranolol 20 mg tablet 20 mg PO TID PRN (Reason: UNKNOWN) RF: 0 albuterol sulfate [ProAir HFA] 90 mcg/actuation Hfa Aerosol Inhaler 1 puff INHALATION Q4H PRN (Reason: Shortness Of Breath) RF: 0 Vitamin C 1 tab PO DAILY@0900 RF: 0 Vitamin D3 1 tab PO DAILY@0900 RF: 0 fluticasone propionate [Flonase Allergy Relief] 50 mcg/actuation spray,suspension 1 spray intranasal BID Qty: 16 RF: 0 acetaminophen [Tylenol Extra Strength] 500 mg Tablet 1,000 mg PO PRN RF: 0 Discharge Orders: Discharge ED (Routine); Ordered 04/30/21 Ordered By: Gagandeep Franco Referrals: Chava Castro MD [Primary Care Provider] - Discharge Diet: Usual diet Discharge Activity: Increase activity as tolerated Patient Instructions: Acute Hematuria (ED), Opioid Safety Activity Restrictions/Additional Instructions: Drink plenty of water. Monitor for fever. Follow-up with primary care in 1 week to recheck urine. Return to the ER for worsening pain, fever greater than 100.4, or new concerns. Sign Out Sign Out Data: Patient Sign Out occurred on 04/30/21 at 16:56. Patient's care was discussed, and care was transferred from to Gagandeep Franco. Coding Level of Care Code ED Non Profit Job Titles for Chg Fwd Exam Comprehensive Documented by User: ISABELLE Estrada 04/30/21 18:12 HPI - Abdominal Pain General: Chief Complaint: Abdominal Pain Stated Complaint: R FLANK PAIN, ABD PAIN Time Seen by Provider: 04/30/21 15:33 PFSH ED PFSH: Medical History Abdominal pain Dysphagia Surgical History History of colonoscopy (~08/2019) History of esophagogastroduodenoscopy (EGD) (~08/2019) Family History Father Cancer liver Grandfather Cancer lung Denies family history of Anesthesia complication Bleeding disorder Social History Smoking and tobacco status: never smoked Second hand smoke exposure: No Alcohol intake: never Adopted: No Caregiver/support person: Yes Lives independently: Yes Household members: significant other Housing: House Marital status: Single Highest education level completed: High School Graduate service: No Current occupational status: employed Current occupational exposures/hazards: No Pets and animals: No History of recent travel: No Leisure activites: exercise Sexually active: Yes Current gender identity: Male and Female Trixie/Shinto: Anabaptism Special trixie needs: No Agree to transfusion: No Financial difficulty paying for basics: Not Very Hard Course Vital Signs: Vital signs: Vital Signs Temperature 98.2 F 04/30/21 15:15 Pulse Rate 62 04/30/21 17:20 Respiratory Rate 18 04/30/21 17:20 Blood Pressure 144/92 04/30/21 17:20 Pulse Oximetry 99 04/30/21 17:20 MDM - Abdominal Pain MDM Narrative: Medical decision making narrative: Patient comes in today with complaints of some flank pain and discomfort with urination. On exam patient appears well. Patient appears in no acute distress. Lungs are clear to auscultation. Abdomen soft nontender. No CVA tenderness is noted on percussion. Differential diagnosis includes urinary tract infection, renal calculi, worried well. Urinalysis showed some blood in the urine. CT scan indicated no renal calculi. There was no specific white blood cells in the urine. Patient has no other signs or symptoms of infection. Recommended patient follow-up with primary care in 1 week for recheck of urine for blood clearance. Encourage patient to drink plenty of water. Recommended follow-up for high fever or worsening symptoms. Patient agreed to plan. Lab Data: Labs: Lab Results 04/30/21 04/30/21 Range/Units 15:45 16:51 Urine Color Yellow Yellow (Yellow) Urine Appearance Sl hazy Sl hazy (CLEAR) Urine pH 5 6 (5-7) Ur Specific Gravit y 1.020 1.020 (1.005-1.030) Urine Protein Neg Neg (Negative) Urine Glucose (UA) Norm Norm (Normal) Urine Ketones 2+ H 2+ H (Negative) Urine Blood 2+ H 2+ H (Negative) Urine Nitrate Negative Negative (Negative) Urine Bilirubin 1+ H 1+ H (Negative) Urine Urobilinogen 1 H 1 H (Negative) mg/dL Ur Leukocyte Mary ase Negative Negative (Negative) Urine RBC 5-10 H (0-2) /hpf Urine WBC 0-4 H (0-5) /hpf Ur Squamous Epith Cells 0-4 H (0-5) /hpf Amorphous Sediment Not Reportable Urine Bacteria 1+ H (NONE) /hpf Urine Mucus 2+ /hpf Discharge Plan Discharge Patient Disposition: Home Clinical Impression: UTI symptoms Hematuria Qualifiers: Hematuria type: unspecified type Qualified Code(s): R31.9 - Hematuria, unspecified Condition: Stable Prescriptions: No Action naproxen 375 mg tablet 375 mg PO BID 7 Days Qty: 14 RF: 0 pantoprazole [Protonix] 40 mg tablet,delayed release (DR/EC) 40 mg PO BID@0900,1800 RF: 0 multivitamin Tablet 1 tab PO DAILY RF: 0 promethazine 25 mg tablet 6.25 mg PO BID PRN (Reason: NAAUSEA/VOMITING) RF: 0 propranolol 20 mg tablet 20 mg PO TID PRN (Reason: UNKNOWN) RF: 0 albuterol sulfate [ProAir HFA] 90 mcg/actuation Hfa Aerosol Inhaler 1 puff INHALATION Q4H PRN (Reason: Shortness Of Breath) RF: 0 Vitamin C 1 tab PO DAILY@0900 RF: 0 Vitamin D3 1 tab PO DAILY@0900 RF: 0 fluticasone propionate [Flonase Allergy Relief] 50 mcg/actuation spray,suspension 1 spray intranasal BID Qty: 16 RF: 0 acetaminophen [Tylenol Extra Strength] 500 mg Tablet 1,000 mg PO PRN RF: 0 Discharge Orders: Discharge ED (Routine); Ordered 04/30/21 Ordered By: Gagandeep Franco Referrals: Chava Castro MD [Primary Care Provider] - Discharge Diet: Usual diet Discharge Activity: Increase activity as tolerated Patient Instructions: Acute Hematuria (ED), Opioid Safety Activity Restrictions/Additional Instructions: Drink plenty of water. Monitor for fever. Follow-up with primary care in 1 week to recheck urine. Return to the ER for worsening pain, fever greater than 100.4, or new concerns. Sign Out Sign Out Data: Patient Sign Out occurred on 04/30/21 at 16:56. Patient's care was discussed, and care was transferred from to Gagandeep Franco. Coding Level of Care Code ED Non Profit Job Titles for Genaro Fwd Exam Comprehensive
[2021-04-30 16:03] LABS: Urine Color Yellow (Yellow)
[2021-04-30 16:04] LABS: Add Urine Microscopic? YES; Bilirubin Urine 1+ (Negative); Blood Urine 2+ (Negative); Glucose Urine UA Norm (Normal); Ketones Urine 2+ (Negative); Leukocyte Esterase Urine Negative (Negative); Nitrate Urine Negative (Negative); Protein Urine Neg (Negative); Urine Appearance SL Hazy (CLEAR); Urobilinogen Urine 1 mg/dL (Negative); pH Urine 5 (5-7)
[2021-04-30 16:05] LABS: Add Urine Culture? No; Bacteria Urine 1+ /hpf; Mucus Urine 2+ /hpf; Squamous Epithelial Cell Urine 0-4 /hpf (0-5); WBC Urine 0-4 /hpf (0-5)
--- NOTE | 2021-04-30 16:57 | CTR_ITS ---
PROCEDURE INFORMATION: Exam: CT Abdomen And Pelvis Without Contrast Exam date and time: 04/30/2021 4:57 PM Age: 26 years old Clinical indication: Nausea and other: Hematuria; Abdominal pain; Flank; Other: Bilat; Additional info: Hematuria, yelitza flank pain TECHNIQUE: Imaging protocol: Computed tomography of the abdomen and pelvis without contrast. Total images: 340 Radiation optimization: All CT scans at this facility use at least one of these dose optimization techniques: automated exposure control; mA and/or kV adjustment per patient size (includes targeted exams where dose is matched to clinical indication); or iterative reconstruction. COMPARISON: CT abdomen pelvis w con* [id number] 08/11/2020 12:00 PM RADIATION DOSE METRICS: Total DLP (mGy-cm): 1372.9 FINDINGS: Lungs: Limited assessment of the lung bases fails to reveal evidence for active cardiopulmonary process. Liver: No visible hepatic mass or cystic structure. Gallbladder and bile ducts: Normal. No calcified stones. No ductal dilation. Pancreas: Pancreas is unremarkable. No visible pancreatic ductal ectasia. Spleen: Splenules. Spleen otherwise unremarkable. Adrenal glands: Adrenal glands unremarkable. Kidneys and ureters: No visible hydronephrosis or perinephric fluid bilaterally. No visible nephrolithiasis or visible ureterolithiasis. Stomach and bowel: Assessment of the hollow viscus fails to reveal evidence of active or acute pathology. Nonobstructed bowel pattern. No visible acute diverticulitis. No visible adynamic or reactive ileus. Appendix: The appendix is visualized and appears noninflamed. Intraperitoneal space: No visible evidence of mesenteric lymphadenitis or active mesenteritis/panniculitis. No visible pneumoperitoneum or intraperitoneal ascites. Vasculature: The abdominal aorta is nonaneurysmal. Lymph nodes: No current visible evidence of active mesenteric or retroperitoneal lymphadenopathy. Urinary bladder: Urinary bladder unremarkable. Reproductive: Unremarkable as visualized. Bones/joints: No visible active or acute osseous pathology. Soft tissues: Unremarkable. CT/CT kidney stone [id number] IMPRESSION: 1. Currently no visible evidence of acute abdominal or pelvic pathologic process. 2. No visible hydronephrosis, hydroureter, ureterolithiasis, nephrolithiasis, or nephrocalcinosis. Radiation Dose CTDIVOL = (mGy): DLP = 1372.9 (mGy-cm)
[2021-04-30 17:03] LABS: Charge for UA Resulting for Rev
[2021-04-30 17:18] LABS: Add Urine Microscopic? YES; Bilirubin Urine 1+ (Negative); Blood Urine 2+ (Negative); Glucose Urine UA Norm (Normal); Ketones Urine 2+ (Negative); Leukocyte Esterase Urine Negative (Negative); Nitrate Urine Negative (Negative); Protein Urine Neg (Negative); Urine Appearance SL Hazy (CLEAR); Urine Color Yellow (Yellow); Urobilinogen Urine 1 mg/dL (Negative); pH Urine 6 (5-7)
[2021-04-30 17:20] VITALS: BP 144/92; PULSE 62; RESP 18; O2SAT 99
[2021-04-30 18:21] VITALS: BP 154/90; PULSE 69; RESP 16; TEMP 36.8; O2SAT 98
[2021-04-30 18:22] VITALS: BP 154/90; PULSE 69; RESP 16; TEMP 36.8; O2SAT 98
== END 2021-04-30 18:24 | disposition home or self-care (01) ==
PROVIDERS: Nurse Practitioner Family; Emergency Provider Nurse Practitioner Family; PCP Family Medicine
DX: R31.9 Hematuria, unspecified (principal)
CPT/HCPCS: 74176; 81001; 81003; 99282

== ENCOUNTER 2021-05-24 08:15 | Outpatient (CLI) | payer BC, MEDICAID, SELFPAY ==
[2021-05-24 08:57] LABS: Basophils # 0.1 10^3/uL (0.0-0.1); Basophils % 0.5 %; Eosinophils # 0.1 10^3/uL (0.0-0.8); Eosinophils % 1.4 %; Hematocrit 49.2 % (42.0-52.0); Hemoglobin 16.8 g/dL (11.7-16.6); Lymphocytes # 4.5 10^3/uL (0.8-4.8); Lymphocytes % 43.8 %; Mean Corpuscular HGB Conc 34.1 g/dL (30.0-36.0); Mean Corpuscular Hemoglobin 30.7 pg (28.0-34.0); Mean Corpuscular Volume 89.8 fl (80-94); Mean Platelet Volume 11.1 fL (7.4-10.4); Monocytes # 0.9 10^3/uL (0.2-0.9); Monocytes % 8.4 %; Neutrophils # 4.72 10^3/uL (1.8-7.7); Neutrophils % 45.6 %; Nucleated Red Blood Cells % 0 %; Platelet Count 253 10^3/cmm (130-400); Red Blood Count 5.48 10^6/uL (4.1-5.3); Red Cell Distribution Width 12.7 % (12.1-15.1); White Blood Count 10.3 10^3/uL (4.0-10.0)
[2021-05-24 09:34] LABS: Alanine Aminotransferase 16 U/L (0-41); Albumin Level 4.4 g/dL (3.5-5.2); Alkaline Phosphatase 68 IU/L (40-130); Anion Gap 17.7 (5-19); Aspartate Amino Transferase 12 U/L (0-40); Blood Urea Nitrogen 10 mg/dL (6-20); Calcium 9.8 mg/dL (8.5-10.5); Carbon Dioxide 24 mmol/L (22-29); Chloride 105 mmol/L (98-107); Globulin 2.9 g/dL (1.3-4.6); Glomerular Filtration Rate 116.9 mL/min (90-130); Glucose 87 mg/dL (65-115); Osmolality Calculated 294 mOsm/kg (285-295); Potassium 3.7 mmol/L (3.5-5.1); Sodium 143 mmol/L (136-145); Total Bilirubin 1.1 mg/dL (0.15-1.2); Total Protein 7.3 g/dL (6.6-8.7)
== END 2021-05-24 08:16 | disposition home or self-care (01) ==
LOC: ONCMED 08:17
PROVIDERS: PCP Family Medicine; Visit Provider Internal Medicine Hematology & Oncology
DX: D72.829 Elevated white blood cell count, unspecified (principal); D75.1 Secondary polycythemia; I10 Essential (primary) hypertension; F41.9 Anxiety disorder, unspecified; R59.1 Generalized enlarged lymph nodes; Z79.899 Other long term (current) drug therapy
CPT/HCPCS: 36415; 80053; 85025

== ENCOUNTER 2021-05-27 06:41 | Outpatient (CLI) | payer BC, MEDICAID, SELFPAY ==
--- NOTE | 2021-05-27 10:00 | ONC FU_ITS ---
Dr. Lopez follow up note Patient: Anthony Del Valle Unit #: [id number]: 1995 Dicatated By: Gema Lopez M.D.Date of Visit:May 27, 2021 Onc Med Follow-up/Prog Note History of Present Illness: Mr. Anthony Del Valle, is a 26-year-old gentleman with a year long history of fluctuating mild isolated leukocytosis., As per patient his white blood count would stay between 15-18,000, patient denies any history of recurrent infection,, denies any night sweats but about 10 pound weight loss due to epigastric discomfort for which he underwent CT scan of abdomen pelvis done on August 11, 2020 which showed gallbladder dilation and questionable cholelithiasis, no acute inflammatory process in the abdomen or pelvis. As per patient he underwent a HIDA scan it was unremarkable, as per patient in the past he underwent colonoscopy twice but it was unremarkable. Patient said he did notice small lymphadenopathy in the right neck for which he underwent CT scan of neck done on June 29, 2020 shows no sign of neck mass or significant cervical lymphadenopathy and during follow-up patient had lab work-up done, his CBC done on March 22, 2021, shows persistent isolated leukocytosis, white blood count 10.9, peripheral blood smear shows mild leukocytosis with a normal platelet count slightly elevated red blood cell count no evidence of blast or blast equivalent cell. Repeat CBC done on March 27, 2021 showed white blood count 11.9K, and hemoglobin 17.5 g normal range is 16.6 or below hematocrit 50.2 platelets 286,000 and again peripheral blood smear showed leukocytosis with monocytosis and atypical lymphocytes, most likely reactive as no blasts or blast equivalent cells seen either. , B12 251, RPR nonreactive, JEAN negative, C-reactive protein 2 normal being 0-10 Patient denies smoking but to use off and on Flonase for allergic rhinitis. Denies any dysuria, denies any sinusitis related side effect he denies any skin infection denies any signs symptom suggestive of chronic infection Came for follow-up, denies any specific complaint except recently underwent right neck fluctuating lymph node biopsy. As per patient biopsy was performed by Dr. Gallardo at [facility] in [place] and he is awaiting the report. Patient is also complaining of about 5 pound weight loss since his last visit due to poor appetite but denies any night sweats, denies any recurrent fever denies any sore throat denies any dysuria denies any cough or shortness of breath denies any headaches. Denies any jaundice but complaining of off and on abdominal fullness and done pain in the lower back/pelvis. Patient also has history of off and on right ear pain, as per patient he has seen 3 ENT physician but without any definitive diagnosis. Medications: Albuterol Sulfate Aerosol Powder, Breath Activated Inhalation PRN, Lisinopril (20 mg) Tablet Oral daily, Maxalt Tablet Oral PRN, Pantoprazole Sodium 1 Tablet (of 40 mg) Pack Oral b.i.d., Propranolol HCl (20 mg) Tablet Oral t.i.d., traZODone HCl (50 mg) Tablet Oral at bedtime Allergies: No Known Allergies. Review of Systems: Review of Systems is not available for this patient. Vital Signs: Vitals are not available for this patient. Performance Status: 0 - Fully active, able to carry on all predisease activities without restrictions. (ECOG) Physical Examination: ENMT - No mouth sores, no thrush, no jaundice, status post right neck lymph node biopsy, surgical wound is healing well, Respiratory - Lungs are clear to auscultation, Cardiovascular - Regular rate and rhythm of heart, Abdomen - Soft, bowel sounds present, no rebound tenderness, no mass palpable, Extremities - No visible edema. Lab/Imaging: Most recent lab results are not available for this patient. Impression: . Mild fluctuating isolated leukocytosis etiology unclear could be reactive to chronic inflammation like patient may have underlying mild/subacute cholecystitis or stress-induced, patient is on antidepression or off and on steroid especially Flonase or myeloproliferative disorder but less likely Mild polycythemia, reactive to underlying sleep apnea, or polycythemia vera but less likely Anxiety disorder/hypertension/migraine Right cervical lymphadenopathy status post right neck biopsy done on May 21, 2021 report pending Plan: Discussed with patient regarding his labs white blood count 10.3 hemoglobin 16.8 hematocrit 49.2 platelets 253,000 CMP within normal limits, including bilirubin which is 1.1 compared to 1.5 previously Clinically, patient is doing reasonably well but in mild distress due to off and on abdominal fullness and discomfort in the pelvic area, and off and on right ear pain and recently underwent right neck lymph node biopsy, awaiting pathology report. His follow-up labs shows resolution of mild hyperbilirubinemia but now his white blood count has gone up to 10.3 thousand compared to 9.3 previously, at this point we will consider whole blood flow cytometric to rule out myeloproliferative/lymphoproliferative disorder and will also follow-up with right neck lymph node biopsy report which was done last Thursday by Dr. Gallardo at [facility] in [place]. Patient will return to clinic in 1 week with CBC, to discuss about whole blood flow cytometry report as well as right neck lymph node biopsy report. Signed By: Gema Lopez M.D. <<Signature on File>>
== END 2021-05-27 06:42 | disposition home or self-care (01) ==
LOC: ONCMED 06:41
PROVIDERS: PCP Family Medicine; Visit Provider Internal Medicine Hematology & Oncology
DX: D72.829 Elevated white blood cell count, unspecified (principal); D75.1 Secondary polycythemia; I10 Essential (primary) hypertension; F41.9 Anxiety disorder, unspecified; R59.1 Generalized enlarged lymph nodes; Z79.899 Other long term (current) drug therapy
CPT/HCPCS: 36415; 88184; 88185; 99214

== ENCOUNTER 2021-06-04 06:48 | Outpatient (CLI) | payer BC, MEDICAID, SELFPAY ==
[2021-06-04 15:22] LABS: Basophils # 0.1 10^3/uL (0.0-0.1); Basophils % 0.5 %; Eosinophils # 0.3 10^3/uL (0.0-0.8); Eosinophils % 2.7 %; Hematocrit 48.3 % (42.0-52.0); Lymphocytes # 3.3 10^3/uL (0.8-4.8); Lymphocytes % 27.3 %; Mean Corpuscular HGB Conc 35.2 g/dL (30.0-36.0); Mean Corpuscular Volume 88.1 fl (80-94); Mean Platelet Volume 10.5 fL (7.4-10.4); Monocytes # 0.9 10^3/uL (0.2-0.9); Monocytes % 7.2 %; Neutrophils # 7.45 10^3/uL (1.8-7.7); Nucleated Red Blood Cells % 0 %; Platelet Count 283 10^3/cmm (130-400); Red Blood Count 5.48 10^6/uL (4.1-5.3); Red Cell Distribution Width 12.6 % (12.1-15.1)
== END 2021-06-04 06:49 | disposition home or self-care (01) ==
LOC: ONCMED 06:48
PROVIDERS: PCP Family Medicine; Visit Provider Internal Medicine Hematology & Oncology
DX: D72.829 Elevated white blood cell count, unspecified (principal); D75.1 Secondary polycythemia; I10 Essential (primary) hypertension; F41.9 Anxiety disorder, unspecified; R59.1 Generalized enlarged lymph nodes; Z79.899 Other long term (current) drug therapy
CPT/HCPCS: 36415; 85025

== ENCOUNTER 2021-06-05 06:33 | Outpatient (CLI) | payer BC, MEDICAID, SELFPAY ==
--- NOTE | 2021-06-06 17:58 | ONC FU_ITS ---
Dr. Lopez follow up note Patient: Anthony Del Valle Unit #: [id number]: 1995 Dicatated By: Gema Lopez M.D.Date of Visit:Jun 05, 2021 Onc Med Follow-up/Prog Note History of Present Illness: Mr. Anthony Del Valle, is a 26-year-old gentleman with a year long history of fluctuating mild isolated leukocytosis., As per patient his white blood count would stay between 15-18,000, patient denies any history of recurrent infection,, denies any night sweats but about 10 pound weight loss due to epigastric discomfort for which he underwent CT scan of abdomen pelvis done on August 11, 2020 which showed gallbladder dilation and questionable cholelithiasis, no acute inflammatory process in the abdomen or pelvis. As per patient he underwent a HIDA scan it was unremarkable, as per patient in the past he underwent colonoscopy twice but it was unremarkable. Patient said he did notice small lymphadenopathy in the right neck for which he underwent CT scan of neck done on June 29, 2020 shows no sign of neck mass or significant cervical lymphadenopathy and during follow-up patient had lab work-up done, his CBC done on March 22, 2021, shows persistent isolated leukocytosis, white blood count 10.9, peripheral blood smear shows mild leukocytosis with a normal platelet count slightly elevated red blood cell count no evidence of blast or blast equivalent cell. Repeat CBC done on March 27, 2021 showed white blood count 11.9K, and hemoglobin 17.5 g normal range is 16.6 or below hematocrit 50.2 platelets 286,000 and again peripheral blood smear showed leukocytosis with monocytosis and atypical lymphocytes, most likely reactive as no blasts or blast equivalent cells seen either. , B12 251, RPR nonreactive, JEAN negative, C-reactive protein 2 normal being 0-10 Patient denies smoking but to use off and on Flonase for allergic rhinitis. Denies any dysuria, denies any sinusitis related side effect he denies any skin infection denies any signs symptom suggestive of chronic infection Right cervical lymph node excisional biopsy done on 05/21/2021 at [facility] in [place] showed minimally enlarged lymph node with no histopathology color changes Whole blood flow cytometry done for fluctuating leukocytosis on 05/27/2021 showed no aberrant myeloid or lymphoid population detected. Came for follow-up, denies any specific complaints, no fever chills, no nausea or vomiting, no diarrhea or constipation, no night sweats, no weight loss, no recurrent fever but chronic sinusitis for which he takes [id number] Claritin on as-needed basis. Medications: Albuterol Sulfate Aerosol Powder, Breath Activated Inhalation PRN, Lisinopril (20 mg) Tablet Oral daily, Pantoprazole Sodium 1 Tablet (of 40 mg) Pack Oral b.i.d., Propranolol HCl (20 mg) Tablet Oral t.i.d., traZODone HCl (50 mg) Tablet Oral at bedtime Allergies: No Known Allergies. Review of Systems: Review of Systems is not available for this patient. Vital Signs: Performed on Jun 05, 2021 08:06 Height - 70.00 in Weight - 182.2 lbs (HIGH) BSA - 2.01 sq.m BMI - 26.14 Temperature - 96.3 F (LOW) Pulse - 57 /min (LOW) Respiration - 18 /min BP - 160/105 mm(hg) (HIGH) O2 Sat - 99 % Pain - 6 Fatigue - 5 Performance Status: 0 - Fully active, able to carry on all predisease activities without restrictions. (ECOG) Physical Examination: ENMT - No mouth sores, no thrush, no jaundice, Respiratory - Lungs are clear to auscultation, Cardiovascular - Regular rate and rhythm of heart, Abdomen - Soft, bowel sounds present, Extremities - No visible edema. Lab/Imaging: Most recent lab results are not available for this patient. Impression: . Mild fluctuating isolated leukocytosis etiology unclear could be reactive to chronic inflammation like patient may have underlying mild/subacute cholecystitis or stress-induced, patient is on antidepression or off and on steroid especially Flonase or myeloproliferative disorder but less likely, Whole blood flow cytometry done on 05/27/2021 showed no aberrant myeloid or lymphoid population detected Mild polycythemia, reactive to underlying sleep apnea, or polycythemia vera but less likely Anxiety disorder/hypertension/migraine Right cervical lymphadenopathy status post right neck biopsy done on May 21, 2021 report Showed no evidence of malignancy Plan: Discussed with patient regarding his labs white blood count 12,000 hemoglobin 17 hematocrit 48.3 platelets 283,000 with a normal differential and whole blood flow cytometry done recently showed no aberrant myeloid or lymphoid population Clinically, patient doing well with no B symptoms, no sign or symptom suggestive of infection except chronic sinusitis for which he takes [id number] Claritin on as-needed basis. Patient has fluctuating leukocytosis for which whole blood flow cytometry was done which shows no aberrant myeloid or lymphoid population, etiology of fluctuating leukocytosis could be reactive or early myeloproliferative disorder, at this point, we will monitor him and if his leukocytosis shows progression, will consider further molecular testing for myeloproliferative disorder As far as mild cervical lymphadenopathy is concerned, recently underwent right cervical lymph node excisional biopsy which showed no evidence of malignancy. Patient return to clinic in 3 months with CBC, patient was advised in case, he has any abdominal fullness or peripheral lymphadenopathy or recurrent fever or night sweats, he need to call us early. Signed By: Gema Lopez M.D. <<Signature on File>>
== END 2021-06-05 06:34 | disposition home or self-care (01) ==
LOC: ONCMED 06:34
PROVIDERS: PCP Family Medicine; Visit Provider Internal Medicine Hematology & Oncology
DX: D72.829 Elevated white blood cell count, unspecified (principal); D75.1 Secondary polycythemia; I10 Essential (primary) hypertension; F41.9 Anxiety disorder, unspecified; R59.1 Generalized enlarged lymph nodes; Z79.899 Other long term (current) drug therapy
CPT/HCPCS: 99214

== ENCOUNTER 2021-06-07 14:03 | Emergency (ER) | payer BC, MEDICAID, SELFPAY ==
[2021-06-07 14:16] VITALS: BP 138/83; PULSE 51; RESP 16; TEMP 36.8; O2SAT 99; BMI 25.8
--- NOTE | 2021-06-07 15:21 | ECG_ITS ---
[facility] Test Date: 2021-06-07 Pat Name: Anthony Del Valle Department: Room: Gender: Male Monotype Caster: : 1995 Requested By: Kyle Stout Order Number: [id number] Zaheer MD: Lissett Lora M.D. Measurements Intervals [place] Rate: 49 P: 38 NH: 124 QRS: 24 QRSD: 90 T: 32 QT: 402 QTc: 365 Interpretive Statements SINUS BRADYCARDIA Compared to ECG 02/01/2021 14:34:21 Sinus rhythm no longer present Right ventricular hypertrophy no longer present Atrial abnormality no longer present T-wave abnormality no longer present Electronically Signed On 06-07-2021 19:20:28 CDT by Lissett Lora M.D. [email or web address]
--- NOTE | 2021-06-07 15:21 | XR_ITS ---
WS: [id number] XR chest 1V portable [id number] REASON FOR EXAM: dyspnea/cough FINDINGS: Chest is unchanged compared to 02/01/2011. Heart and mediastinum are within normal limits. Calcified granulomatous disease in both hemithoraces. No active pulmonary parenchymal or pleural disease. Unremarkable bony thorax. XR/XR chest 1V portable [id number] IMPRESSION: No acute chest abnormality.
[2021-06-07 15:58] VITALS: BP 142/102; PULSE 49; RESP 55; O2SAT 98
--- NOTE | 2021-06-07 16:04 | PC.PHAR ---
pt states he takes care of his own medications-pt states he just restarted taking his lisinopril 20mg qam ext med history shows last filled on 10/04/20 30d/s-pt states he also restarted taking his propranolol 20mg tid prn-notes are made in the pharmacy comments
[2021-06-07 16:05] LABS: Basophils # 0.1 10^3/uL (0.0-0.1); Basophils % 0.8 %; Eosinophils # 0.4 10^3/uL (0.0-0.8); Eosinophils % 3.8 %; Hemoglobin 17.1 g/dL (11.7-16.6); Lymphocytes # 3.2 10^3/uL (0.8-4.8); Mean Corpuscular HGB Conc 34.2 g/dL (30.0-36.0); Mean Corpuscular Volume 90.6 fl (80-94); Mean Platelet Volume 11.4 fL (7.4-10.4); Monocytes # 0.9 10^3/uL (0.2-0.9); Monocytes % 8.4 %; Neutrophils # 6.05 10^3/uL (1.8-7.7); Neutrophils % 56.8 %; Nucleated Red Blood Cells % 0 %; Platelet Count 271 10^3/cmm (130-400); Red Blood Count 5.52 10^6/uL (4.1-5.3); Red Cell Distribution Width 12.6 % (12.1-15.1); White Blood Count 10.7 10^3/uL (4.0-10.0)
[2021-06-07 16:38] LABS: Alanine Aminotransferase 24 U/L (0-41); Alkaline Phosphatase 84 IU/L (40-130); Anion Gap 16.3 (5-19); Aspartate Amino Transferase 14 U/L (0-40); Blood Urea Nitrogen 7 mg/dL (6-20); Calcium 10.1 mg/dL (8.5-10.5); Carbon Dioxide 24 mmol/L (22-29); Chloride 105 mmol/L (98-107); Creatine Phosphokinase 78 U/L (39-308); Creatinine Clr Calc Pharmacy 151.3247; Globulin 2.7 g/dL (1.3-4.6); Glomerular Filtration Rate 116.9 mL/min (90-130); Glucose 78 mg/dL (65-115); Osmolality Calculated 289 mOsm/kg (285-295); Potassium 4.3 mmol/L (3.5-5.1); Sodium 141 mmol/L (136-145); Total Bilirubin 1.2 mg/dL (0.15-1.2); Total Protein 7.7 g/dL (6.6-8.7)
[2021-06-07 16:39] LABS: Troponin(5th) Baseline 6 ng/L (0-15)
--- NOTE | 2021-06-07 18:28 | W.ED.CHESTPA ---
HPI - Chest Pain General: Chief Complaint: Chest Pain Stated Complaint: CP, Pain down both sides Time Seen by Provider: 06/07/21 15:09 History of Present Illness: HPI narrative: 26-year-old male presents emergency room with complaint of epigastric pain/chest radiating to his chest little bit into his right upper quadrant is been present for over a week. Is not been short of breath with is not rating to his neck or arms. The flank pain has been present for months he denies any dysuria urgency or frequency or hematuria. MD complaint: chest heaviness and chest discomfort Onset (ago): week(s) (1) Timing of current episode: episodic Onset: during rest and during exertion Pain location: substernal and epigastric Pain radiation: other (Right upper quadrant) Severity: mild Quality: aching Relieving factors: nothing Exacerbating factors: nothing Associated symptoms: Reports abdominal pain; Deny diaphoresis, dyspnea, fever(s), leg edema, nausea, palpitations, sense of impending doom, syncope or vomiting Treatment prior to arrival: none Review of Systems Const: Denies: fever(s) or diaphoresis ENMT: Denies: throat pain, ear or mastoid pain, nasal discharge or nasal congestion Card: Denies: palpitations or syncope Resp: Denies: dyspnea GI: Reports: abdominal pain; Denies: nausea or vomiting : Denies: flank pain, dysuria, urinary frequency or urinary urgency Skin/Breast: Denies: rash or pruritus PFS ED PFSH: Medical History Abdominal pain Dysphagia Surgical History History of colonoscopy (~08/2019) History of esophagogastroduodenoscopy (EGD) (~08/2019) Family History Father Cancer liver Grandfather Cancer lung Denies family history of Anesthesia complication Bleeding disorder Social History Smoking and tobacco status: never smoked Second hand smoke exposure: No Alcohol intake: never Adopted: No Caregiver/support person: Yes Lives independently: Yes Household members: significant other Housing: House Marital status: Single Highest education level completed: High School Graduate service: No Current occupational status: employed Current occupational exposures/hazards: No Pets and animals: No History of recent travel: No Leisure activites: exercise Sexually active: Yes Current gender identity: Male and Female Trixie/Faith: Faith Special trixie needs: No Agree to transfusion: No Financial difficulty paying for basics: Not Very Hard Physical Exam Const: COMMON NORMALS: no acute distress GENERAL APPEARANCE: cooperative and comfortable ORIENTATION/CONSCIOUSNESS: Yes awake, Yes oriented to person, Yes oriented to place and Yes oriented to time HENMT: COMMON NORMALS: normocephalic, atraumatic and hearing grossly normal bilaterally HEAD & SCALP: normocephalic and atraumatic Neck/C-Spine: COMMON NORMALS: no JVD Resp: COMMON NORMALS: normal respiratory effort, No retractions, No use of accessory muscles and clear to auscultation bilaterally AUSCULTATION: clear to auscultation bilaterally Cardio: COMMON NORMALS: no JVD, regular rate, regular rhythm and No murmurs present (Cardio) RATE: regular rate RHYTHM: regular rhythm GI: COMMON NORMALS: Soft to palpation and No hepatosplenomegaly present AUSCULTATION: Yes normoactive bowel sounds PALPATION: Yes Soft to palpation, No Tenderness to palpation present (GI), No Guarding due to palpation present (GI) and Yes No hepatosplenomegaly present Extremity: COMMON NORMALS: normal to inspection, capillary refill normal, no clubbing, cyanosis or edema, no calf tenderness and no pedal edema Neuro: SENSORIUM/ORIENTATION: Yes oriented to person, Yes oriented to place and Yes oriented to time Skin: COMMON NORMALS: no rashes or lesions noted GENERAL SKIN EXAM: no rashes or lesions noted Course Vital Signs: Vital signs: Vital Signs Temperature 98.2 F 06/07/21 14:16 Pulse Rate 56 L 06/07/21 19:07 Respiratory Rate 18 06/07/21 19:07 Blood Pressure 134/74 06/07/21 19:07 Pulse Oximetry 96 06/07/21 19:07 MDM - Chest Pain MDM Narrative: Medical decision making narrative: Labs imaging and EKG reviewed as found on the chart. Reviewed findings with the patient. Will discharge home on Protonix. EKG was unremarkable cardiac enzymes negative. If Protonix does not improve follow-up with his primary care may need further imaging is significant worsening return to the emergency room. Lab Data: Labs: Lab Results 06/07/21 06/07/21 06/07/21 15:50 15:50 15:50 WBC 10.7 10^3/uL H 10 ^3/uL (4.0-10.0) RBC 5.52 10^6/uL H 10 ^6/uL (4.1-5.3) Hgb 17.1 g/dL H g/dL (11.7-16.6) Hct 50.0 % % (42.0-52.0) MCV 90.6 fl fl (80-94) MCH 31.0 pg pg (28.0-34.0) MCHC 34.2 g/dL g/dL (30.0-36.0) RDW 12.6 % % (12.1-15.1) Plt Count 271 10^3/cmm 10^3 /cmm (130-400) MPV 11.4 fL H fL (7.4-10.4) Neut % (Auto) 56.8 % % Lymph % (Auto) 30.0 % % [place] % (Auto) 8.4 % % Eos % (Auto) 3.8 % % Baso % (Auto) 0.8 % % Neut # (Auto) 6.05 10^3/uL 10^3 /uL (1.8-7.7) Lymph # (Auto) 3.2 10^3/uL 10^3/ uL (0.8-4.8) [place] # (Auto) 0.9 10^3/uL 10^3/ uL (0.2-0.9) Eos # (Auto) 0.4 10^3/uL 10^3/ uL (0.0-0.8) Baso # (Auto) 0.1 10^3/uL 10^3/ uL (0.0-0.1) Nucleated RBC % (a uto) 0 % % Nucleated RBCs # 0.0 /100WBC /100W BC Sodium 141 mmol/L mmol/L (136-145) Potassium 4.3 mmol/L mmol/L (3.5-5.1) Chloride 105 mmol/L mmol/L (98-107) Carbon Dioxide 24 mmol/L mmol/L (22-29) Anion Gap 16.3 (5-19) BUN 7 mg/dL mg/dL (6-20) Creatinine 0.8 mg/dL mg/dL (0.7-1.2) GFR Calculation 116.9 mL/min mL/m in (90-130) Glucose 78 mg/dL mg/dL (65-115) Calculated Osmolal ity 289 mOsm/kg mOsm/ kg (285-295) Calcium 10.1 mg/dL mg/dL (8.5-10.5) Total Bilirubin 1.2 mg/dL mg/dL (0.15-1.2) AST 14 U/L U/L (0-40) ALT 24 U/L U/L (0-41) Alkaline Phosphata se 84 IU/L IU/L (40-130) Creatine Kinase 78 U/L U/L (39-308) Troponin T Baselin e 6 ng/L ng/L (0-15) Troponin T 120 Min [place] Troponin T Total Protein 7.7 g/dL g/dL (6.6-8.7) Albumin 5.0 g/dL g/dL (3.5-5.2) Globulin 2.7 g/dL g/dL (1.3-4.6) 06/07/21 18:25 WBC RBC Hgb Hct MCV MCH MCHC RDW Plt Count MPV Neut % (Auto) Lymph % (Auto) [place] % (Auto) Eos % (Auto) Baso % (Auto) Neut # (Auto) Lymph # (Auto) [place] # (Auto) Eos # (Auto) Baso # (Auto) Nucleated RBC % (a uto) Nucleated RBCs # Sodium Potassium Chloride Carbon Dioxide Anion Gap BUN Creatinine GFR Calculation Glucose Calculated Osmolal ity Calcium Total Bilirubin AST ALT Alkaline Phosphata se Creatine Kinase Troponin T Baselin e Troponin T 120 Min [place] 6.66 ng/L ng/L (0-15) Delta Troponin T 0.66 ABS# ABS# (0-10) Total Protein Albumin Globulin Discharge Plan Discharge Patient Disposition: Home Clinical Impression: Chest pain due to gastrointestinal reflux disease Condition: Stable Prescriptions: New Protonix 40 mg tablet,delayed release (DR/EC) 40 mg PO BID Qty: 60 RF: 0 No Action pantoprazole [Protonix] 40 mg tablet,delayed release (DR/EC) 40 mg PO BID@0900,1800 RF: 0 multivitamin Tablet 1 tab PO QAM RF: 0 promethazine 25 mg tablet 6.25 mg PO BID PRN (Reason: NAAUSEA/VOMITING) RF: 0 propranolol 20 mg tablet 20 mg PO TID PRN (Reason: rx written on 04/02/21-pt states he just takes prn) RF: 0 albuterol sulfate [ProAir HFA] 90 mcg/actuation Hfa Aerosol Inhaler 1 puff INHALATION Q4H PRN (Reason: Shortness Of Breath) RF: 0 Vitamin C 1 tab PO DAILY@0900 RF: 0 Vitamin D3 1 tab PO DAILY@0900 RF: 0 lisinopril 20 mg Tablet 20 mg PO QAM RF: 0 diclofenac sodium 75 mg tablet,delayed release (DR/EC) 75 mg PO BID PRN (Reason: unknown) RF: 0 BC Pain Relief 845-65 mg Powder In Packet 1 ea PO PRN RF: 0 Flonase Allergy Relief 50 mcg/actuation spray,suspension 1 spray intranasal BID PRN (Reason: Allergy Symptoms) RF: 0 acetaminophen [Tylenol Extra Strength] 500 mg Tablet 500 - 1,000 mg PO Q4H PRN (Reason: Pain) RF: 0 Discharge Orders: Discharge ED (Routine); Ordered 06/07/21 Ordered By: Kyle Ruffin Referrals: Chava Castro MD [Primary Care Provider] - Patient Instructions: Opioid Safety Coding Level of Care Code ED Software Security Consultant for Chg Fwd Exam Comprehensive
[2021-06-07 18:54] LABS: Troponin 5 2HR 6.66 ng/L (0-15); Troponin 5 2HR Delta 0.66 ABS# (0-10)
[2021-06-07 19:00] VITALS: BP 134/74; PULSE 56; RESP 18; O2SAT 96
[2021-06-07 19:07] VITALS: BP 134/74; PULSE 56; RESP 18; O2SAT 96
== END 2021-06-07 19:07 | disposition home or self-care (01) ==
PROVIDERS: Emergency Provider Family Medicine; PCP Family Medicine
DX: K21.9 Gastro-esophageal reflux disease without esophagitis (principal)
CPT/HCPCS: 71045; 80053; 82550; 84484; 85025; 93005; 99283

== ENCOUNTER 2021-06-25 11:54 | Outpatient (CLI) | payer BC, MEDICAID, SELFPAY ==
[2021-06-25 12:29] LABS: Basophils # 0.1 10^3/uL (0.0-0.1); Basophils % 0.6 %; Eosinophils # 0.2 10^3/uL (0.0-0.8); Eosinophils % 2.4 %; Hematocrit 50.9 % (42.0-52.0); Hemoglobin 17.4 g/dL (11.7-16.6); Lymphocytes # 3.3 10^3/uL (0.8-4.8); Lymphocytes % 38.4 %; Mean Corpuscular HGB Conc 34.2 g/dL (30.0-36.0); Mean Corpuscular Hemoglobin 30.4 pg (28.0-34.0); Mean Platelet Volume 10.6 fL (7.4-10.4); Monocytes # 0.7 10^3/uL (0.2-0.9); Monocytes % 7.7 %; Neutrophils # 4.29 10^3/uL (1.8-7.7); Neutrophils % 50.7 %; Nucleated Red Blood Cells % 0 %; Platelet Count 298 10^3/cmm (130-400); Red Blood Count 5.72 10^6/uL (4.1-5.3); White Blood Count 8.5 10^3/uL (4.0-10.0)
[2021-06-25 12:33] LABS: Bilirubin Urine Neg (Negative); Blood Urine Neg (Negative); Glucose Urine UA Norm (Normal); Ketones Urine Negative (Negative); Leukocyte Esterase Urine Negative (Negative); Nitrate Urine Negative (Negative); Protein Urine 1+ (Negative); Specific Gravity, Urine 1.015 (1.005-1.030); Urine Appearance Clear (CLEAR); Urine Color Yellow (Yellow); Urobilinogen Urine Norm (Negative); pH Urine 6.5 (5-7)
[2021-06-25 12:47] LABS: Add Urine Culture? No; Bacteria Urine TRACE /hpf; Mucus Urine 2+ /hpf; RBC Urine 0-4 /hpf (0-2); Transitional Epi Cells Urine 0-4 /hpf
[2021-06-25 13:05] LABS: Alanine Aminotransferase 20 U/L (0-41); Albumin Level 4.7 g/dL (3.5-5.2); Alkaline Phosphatase 69 IU/L (40-130); Amylase 26 U/L (28-100); Anion Gap 15.7 (5-19); Aspartate Amino Transferase 14 U/L (0-40); Blood Urea Nitrogen 14 mg/dL (6-20); Calcium 9.7 mg/dL (8.5-10.5); Carbon Dioxide 24 mmol/L (22-29); Chloride 103 mmol/L (98-107); Globulin 3.1 g/dL (1.3-4.6); Glomerular Filtration Rate 116.9 mL/min (90-130); Glucose 90 mg/dL (65-115); Lipase 25 U/L (13-60); Osmolality Calculated 288 mOsm/kg (285-295); Potassium 3.7 mmol/L (3.5-5.1); Sodium 139 mmol/L (136-145); Total Bilirubin 1.1 mg/dL (0.15-1.2); Total Protein 7.8 g/dL (6.6-8.7)
[2021-06-26 14:31] LABS: Immunoglobulin IGA 226 mg/dL (70-400); Immunoglobulin IGG 970 mg/dL (700-1600); Immunoglobulin IGM 141 mg/dL (40-230)
--- NOTE | 2021-07-07 13:46 | ONC FU_ITS ---
L[facility] Patient Note Patient: Anthony Del Valle Unit #: [id number]: 1995 Dictated By: Nohemi HernandezDate of Visit: Jun 25, 2021 Onc MED Follow-Up/Prog Note Chief Complaint: Leukocytosis History of Present Illness: Mr. Del Valle is a 26-year-old gentleman with a year long history of fluctuating mild isolated leukocytosis., As per patient his white blood count would stay between 15-18,000, patient denies any history of recurrent infection. He denies any night sweats but about 10 pound weight loss due to epigastric discomfort. He underwent CT scan of abdomen pelvis done on August 11, 2020 which showed gallbladder dilation and questionable cholelithiasis, no acute inflammatory process in the abdomen or pelvis. As per patient he underwent a HIDA scan it was unremarkable, as per patient in the past he underwent colonoscopy twice but it was unremarkable. Patient said he did notice small lymphadenopathy in the right neck for which he underwent CT scan of neck done on June 29, 2020 shows no sign of neck mass or significant cervical lymphadenopathy and during follow-up patient had lab work-up done, his CBC done on March 22, 2021, shows persistent isolated leukocytosis, white blood count 10.9, peripheral blood smear shows mild leukocytosis with a normal platelet count slightly elevated red blood cell count no evidence of blast or blast equivalent cell. Repeat CBC done on March 27, 2021 showed white blood count 11.9K, and hemoglobin 17.5 g normal range is 16.6 or below hematocrit 50.2 platelets 286,000 and again peripheral blood smear showed leukocytosis with monocytosis and atypical lymphocytes, most likely reactive as no blasts or blast equivalent cells seen either. , B12 251, RPR nonreactive, JEAN negative, C-reactive protein 2 normal being 0-10 Patient denies smoking but to use off and on Flonase for allergic rhinitis. Denies any dysuria, denies any sinusitis related side effect he denies any skin infection denies any signs symptom suggestive of chronic infection Right cervical lymph node excisional biopsy done on 05/21/2021 at [facility] in [place] showed minimally enlarged lymph node with no histopathology color changes Whole blood flow cytometry done for fluctuating leukocytosis on 05/27/2021 showed no aberrant myeloid or lymphoid population detected. Mr. Del Valle had follow-up with Dr. Lopez on June 05, 2021 at which time his white count was 12.0 hemoglobin was 17 hematocrit was 48.3 and platelets were 283,000. Dr. Lopez's notes indicate he plan to see him back in 3 months but advised him to call in the interim should he have any further abdominal fullness or pain. Mr. Del Valle called in requesting an urgent visit due to the abdominal discomfort today. He was seen in the ER on 06/07/2021 with complaints of epigastric pain/chest pain that radiates into the right upper quadrant at that point he stated has been there for a week. He states he also had flank pain at that time which been there for months . His white count on 06/07/2021 was 10.7 hemoglobin 17.1 hematocrit was 50% and his platelet count was 231,000. His ANC was 6050 and his absolute lymphocyte count was 3200. His chemistry was unremarkable. He was discharged with a diagnosis of chest pain due to gastro reflux disease. He was started on Protonix 40 mg twice daily. His last abdominal imaging was on 04/30/2021 which reported no current visible evidence of acute abdominal or pelvic pathologic process. There is no visible hydronephrosis hydroureter utero lithiasis nephrolithiasis or nephrocalcinosis. His appendix was visualized and reported as normal. The gallbladder and bile ducts were normal with no calcified stones and no ductal dilatation. There was no hepatic masses or cystic structures and the pancreas was unremarkable as well. Mr. Gonzalez presents with multiple complaints today. He states that he has been having pain all over for about a year. He states he is almost bedridden that he cannot get up and work due to the pain. He is not specifically regarding the pain. He states it is in his back and in his abdomen. He states that he has lower back pain that is dull but, sharp he states it is worse with walking and he cannot stand for any length of time without having significant back pain. He also reports that he has numbness and tingling in his feet and legs. He states it tends to come and go but is worse if he tries to do much standing or walking around. He states his feet get numb and then become painful as well. He describes the abdominal pain is right upper quadrant pain but also radiates to the left upper quadrant and then in the abdomen in general. He cannot contribute particularly with eating but does think that this tends to make it worse. His heartburn/esophagitis is improved on the Protonix 40 mg twice daily. However he still has some at night . He denies any cough. He denies any hemoptysis. Mr Dle Valle is also complaining of kidney pain . He states he does not feel like when he thought he had kidney stones before this is just more of an achy burning type feeling. He states that he has not had any dysuria or hematuria. But is having to go more frequent than what is normal for him. He states that he was treated for UTI about a month ago and thinks that it may be back. He is also complaining of right ear pain. He states been having some drainage significant ear pain with that. He states that heat does help it a little bit. He states that overall Tylenol and gabapentin has not helped his generalized pain. He states that he feels that he may have leukemia and we are missing it. He was reassured that his blood counts have all been normal with just slight elevation of the white count. There is been no indication to feel that he has leukemia at this point. We did review his blood counts from today which reveal a white count of 8.6 hemoglobin 17.4 hematocrit 50.9 platelets are 298,000. Potassium is normal 3.7 creatinine 0.9 and his LFTs are all normal amylase was 26 lipase is 25 his urine does show 1+ protein normal bilirubin and 0-4 transepithelial cells and 2+ mucus there was trace of back to area as well. His weight is stable at 184.6 today. He states he thinks he has had some low-grade fever off and on but has not checked it at home. He denies any night sweats or chills. He states his appetite kind of comes and goes but is good for the most part . He is not active. He states he has too much pain to be active and he lays around most of the time . He states he wants to get up and work and do things with his kids but is just unable due to the pain. He denies any nausea or vomiting. He denies any diarrhea or constipation at present. Urinary symptoms are as above. He denies any lower extremity edema. His ECOG is 1 due to the pain. Past Medical History: Anxiety Hypertension Migraines Past Surgical History: Allergies: No Known Allergies. Medications: Albuterol Sulfate Aerosol Powder, Breath Activated Inhalation PRN Lisinopril (20 mg) Tablet Oral daily Pantoprazole Sodium 1 Tablet (of 40 mg) Pack Oral b.i.d. Propranolol HCl (20 mg) Tablet Oral t.i.d. traZODone HCl (50 mg) Tablet Oral at bedtime Family History: Mr. Del Valle's father at age 59: liver cancer. Social History: Mr. Del Valle is single. Mr. Del Valle has never smoked. He has no history of drinking. He has indicated exposure to the following products: chewing tobacco. uses 1 can smokeless tobacco daily. Review Of Symptoms: <See Above> Vital Signs: Performed on Jun 25, 2021 12:39 Height - 70.00 in Weight - 184.6 lbs (HIGH) BSA - 2.02 sq.m BMI - 26.49 Temperature - 99.5 F (HIGH) Pulse - 58 /min (LOW) Respiration - 18 /min BP - 124/82 mm(hg) O2 Sat - 96 % Pain - 5 Fatigue - 3,1 - No physically strenuous activity, but ambulatory and able to carry out light or sedentary work (e.g. office work, light house work). (ECOG) Physical Examination: Constitutional Alert, oriented, no acute distress. Skin pink, warm and dry. Head Normocephalic; atraumatic. Eyes Conjunctivae and sclerae are clear and without icterus. Pupils are reactive and equal. ENMT No oral exudates, ulcers, masses, thrush or mucositis. Oropharynx clear. Tongue normal. Right TM is mildly red with minimal serosanguineous drainage. No odor was appreciated. Left ear exam is unremarkable. Neck Supple without masses or thyromegaly. No jugular venous distension. Hematologic/Lymphatic No petechiae or purpura. No tender or palpable lymph nodes in the cervical or supraclavicular areas. Respiratory Lungs are clear to auscultation without rhonchi or wheezing. Cardiovascular Regular rate and rhythm of heart without murmurs,clicks, gallops or rubs. Abdomen Mild tenderness right upper quadrant with light palpation but otherwise non-distended, no masses or ascites noted. Good bowel sounds noted in all quads. Back/Spine Non-tender to light palpation. Extremities No visible deformities, no cyanosis, clubbing or edema. Musculoskeletal No tenderness or swelling, normal range of motion without obvious weakness. Integumentary No rashes or lesions. Neurologic No sensory or motor deficits, normal cerebellar function, slow but normal gait. Psychiatric Alert and oriented times three. Coherent speech. Verbalizes understanding of our discussions today. Laboratory:Test performed on Jun 25, 2021 12:17 Ua Color Yellow Ua Appearance Clear Ua pH 6.5 Ua Specific Butler 1.015 Ua Glucose Norm Ua Ketones Negative Ua Protein 1+ Ua Blood Neg Ua Bilirubin Neg Ua Nitrites Negative Ua Leukocyte Esterase Negative Ua Micro: Trans Epith Cells 0-4 /hpf Ua Micro: RBC 0-4 /hpf Ua Micro: Bacteria TRACE /hpf Ua Micro: Mucous 2+ /hpf Test performed on Jun 25, 2021 12:11 Amylase 26 U/L Lipase 25 U/L Sodium 139 mmol/L Potassium 3.7 mmol/L Chloride 103 mmol/L CO2 24 mmol/L Anion Gap 15.7 BUN 14 mg/dL Creatinine 0.8 mg/dL Cr Clearance (Est) 165.7200 mL/min eGFR 116.9 mL/min Glucose 90 mg/dL Osmolality - Calculated 288 mOsm/kg Calcium 9.7 mg/dL Protein, Total 7.8 g/dL Albumin 4.7 g/dL Globulin 3.1 g/dL Bilirubin, Total 1.1 mg/dL ALT (SGPT) 20 U/L AST (SGOT) 14 U/L Alkaline Phosphatase 69 IU/L WBC 8.5 10 3/uL RBC 5.72 10 6/uL HGB 17.4 g/dL HCT 50.9 % MCV 89.0 fl MCH 30.4 pg MCHC 34.2 g/dL RDW 12.0 % Platelet Count 298 10 3/cmm MPV 10.6 fL Neutrophils 4.29 10 3/uL Lymphocytes 3.3 10 3/uL Monocytes 0.7 10 3/uL Eosinophils 0.2 10 3/uL Basophils 0.1 10 3/uL Neutrophil % 50.7 % Lymphocyte % 38.4 % Monocyte % 7.7 % Eosinophil % 2.4 % Basophils % 0.6 % NRBC % 0 % Impression: . Mild fluctuating isolated leukocytosis etiology unclear could be reactive to chronic inflammation like patient may have underlying mild/subacute cholecystitis or stress-induced, patient is on antidepressants or off and on steroid especially Flonase or myeloproliferative disorder but less likely, Whole blood flow cytometry done on 05/27/2021 showed no aberrant myeloid or lymphoid population detected Mild polycythemia, reactive to underlying sleep apnea, or polycythemia vera but less likely Anxiety disorder/hypertension/migraine Right cervical lymphadenopathy status post right neck biopsy done on May 21, 2021 report Showed no evidence of malignancy Plan/Problems Addressed at this Visit: Mild fluctuating leukocytosis Clinically, patient doing well with no B symptoms, no sign or symptom suggestive of infection except chronic sinusitis for which he takes [id number] Claritin on as-needed basis. Patient has fluctuating leukocytosis for which whole blood flow cytometry was done which shows no aberrant myeloid or lymphoid population, etiology of fluctuating leukocytosis could be reactive or early myeloproliferative disorder, at this point, we will monitor him and if his leukocytosis shows progression, will consider further molecular testing for myeloproliferative disorder As far as mild cervical lymphadenopathy is concerned, recently underwent right cervical lymph node excisional biopsy which showed no evidence of malignancy. Mr. Del Valle presents with multiple complaints today. It is uncertain what is the etiology behind no other complaints. He has abdominal pain, back pain and dysuria. Is also complaining of right ear pain. The lower back pain per his report debilitating and that he has difficulty walking. He states the pain is getting worse. A. I will request MRI of the thoracic and lumbar sacral spine due to his complaints of lower back pain. He is also having some difficulty walking stating that his legs are numb and tingly most of the time . Did have x-rays of his thoracic lumbar sacral spine on March 18, 2021 which reported no acute findings. He has continued to have back pain. B. we will give a prescription for Ultram 50 mg to try every 8 hours as needed for pain. Did advise him of side effects to include nausea, rash and potential opioid addiction. C. I did request QUIGS blood in lab if possible due to his recent recurrent infections as well as 1+ protein in his urine. D. Given history of frequent UTIs I did request a urine for GC/chlamydia but this was unable to be added to the urine specimen that had in the lab. E. We will start him on Bactrim DS 1 tablet twice daily for 7 7 days to see if this will clear up his urinary tract symptoms. This should also help his right ear. He did have some exudate and the tympanic membrane was slightly red. F. We will request a CT of the abdomen/pelvis with contrast given that his last one was in March 2001. He had had a CT of the abdomen/pelvis with contrast on 08/11/2020 which reported gallbladder dilatation and questionable cholelithiasis. Follow-up ultrasound on the gallbladder from 08/11/2020 no cholelithiasis. He is having recurrent symptoms I feel need to be reinvestigated. G. We will plan to see him back as scheduled unless otherwise needed once the requested imaging has been obtained. H. I did discuss with Mr. Del Valle that symptoms he are having do not usually present with leukocytosis and if we are unable to find answers with the above requested tests he may need to follow back up with internal medicine for further investigation. I. Total time spent [id number] with Mr. Del Valle in regards to his concerns and formulating a plan of care was 65 minutes. Signed By: Nohemi Hernandez-GILSON, AOCNP Gema Lopez MD <<Signature on File>>
== END 2021-06-25 11:55 | disposition home or self-care (01) ==
PROVIDERS: PCP Family Medicine; Visit Provider Nurse Practitioner
DX: D72.829 Elevated white blood cell count, unspecified (principal); D75.1 Secondary polycythemia; I10 Essential (primary) hypertension; F41.9 Anxiety disorder, unspecified; G43.919 Migraine, unspecified, intractable, without status migrainosus; R59.0 Localized enlarged lymph nodes; Z79.899 Other long term (current) drug therapy
CPT/HCPCS: 36415; 80053; 81001; 82150; 82784; 83690; 85025; 99215

== ENCOUNTER 2021-06-29 09:42 | Emergency (ER) | payer BC, MEDICAID, SELFPAY ==
[2021-06-29 09:54] VITALS: BP 142/93; PULSE 69; RESP 17; TEMP 36.7; O2SAT 96; BMI 26.5
[2021-06-29 10:00] VITALS: BP 137/91; PULSE 83; RESP 14; O2SAT 95
--- NOTE | 2021-06-29 10:00 | ED_ITS ---
HPI - Male Genitourinary General: Chief complaint: Urogenital-Male Stated complaint: BACK & HIP PAIN Time Seen by Provider: 06/29/21 09:43 History of Present Illness: HPI Narrative: Patient is a 26-year-old male comes to the ED with bilateral back pain and dysuria. Approximately 2 months ago he was seen here in the ED on April 30 for similar complaint. Patient says since that visit he has developed worsening bilateral lower back/kidney pain and he has dysuria. He describes dysuria as a burning sensation when he urinates. Denies any visible blood in urine. The bilateral lower back/kidney pain is constant achy pain. He rates his lower back pain as an 8 out of 10. Denies any fever, chills, abdominal pain, nausea/vomiting or bowel symptoms. Associated symptoms: Reports hematuria; Deny dysuria, nausea or vomiting Review of Systems Const: Denies: fever(s), chills or fatigue Eyes: Denies: change in vision or eye discomfort ENMT: Denies: throat pain, odynophagia, nasal discharge or nasal congestion Card: Denies: chest pain, palpitations, edema, swelling of feet/ankles, dyspnea on exertion or orthopnea Resp: Denies: dyspnea, productive cough or non-productive cough GI: Denies: abdominal pain, nausea, vomiting, diarrhea, constipation or hematochezia : Reports: flank pain and hematuria; Denies: difficulty urinating or dysuria Musc: Reports: back pain (lumbar back pain); Denies: neck pain or extremity swelling Skin/Breast: Denies: rash or new lesions Neuro: Denies: headache(s), numbness in extremities or weakness in extremities FOR[facility]LY [facility], [facility] ED PFSH: Medical History Abdominal pain Dysphagia Surgical History History of colonoscopy (~08/2019) History of esophagogastroduodenoscopy (EGD) (~08/2019) Family History Father Cancer liver Grandfather Cancer lung Denies family history of Anesthesia complication Bleeding disorder Social History Smoking and tobacco status: never smoked Second hand smoke exposure: No Alcohol intake: never Adopted: No Caregiver/support person: Yes Lives independently: Yes Household members: significant other Housing: House Marital status: Single Highest education level completed: High School Graduate service: No Current occupational status: employed Current occupational exposures/hazards: No Pets and animals: No History of recent travel: No Leisure activites: exercise Sexually active: Yes Current gender identity: Male and Female Trixie/Latter-Day: Catholic Special trixie needs: No Agree to transfusion: No Financial difficulty paying for basics: Not Very Hard Physical Exam Narrative: EXAM NARRATIVE: Patient is a 26 y/o male appears in no acute pain or distress and is sitting comfortably on exam bed running in the room. Const: COMMON NORMALS: no acute distress, patient oriented x3, healthy appearing and alert GENERAL APPEARANCE: cooperative and comfortable HENMT: COMMON NORMALS: normocephalic HEAD & SCALP: normocephalic MOUTH: Normal oral and palatal mucosa present THROAT: posterior oropharynx normal and uvula midline Eye: COMMON NORMALS: Equal, round and reactive pupils present and conjunctivae normal CONJUNCTIVA: Yes conjunctivae normal PUPIL: Yes Equal, round and reactive pupils present Neck/C-Spine: COMMON NORMALS: supple GENERAL: Yes normal visual inspection Resp: COMMON NORMALS: normal respiratory effort, No retractions, No use of accessory muscles and clear to auscultation bilaterally AUSCULTATION: clear to auscultation bilaterally Cardio: COMMON NORMALS: regular rate, regular rhythm, S1 normal heart sound pr esent, S2 normal heart sound present, No gallops present (Cardio), No clicks present (Cardio), No murmurs present (Cardio) and Peripheral pulses 2+ throughout RATE: regular rate RHYTHM: regular rhythm HEART SOUNDS: S1 normal heart sound present and S2 normal heart sound present PERIPHERAL PULSES: Peripheral pulses 2+ throughout GI: COMMON NORMALS: Normal to inspection, nondistended, normoactive bowel sounds present, Soft to palpation, non-tender and no masses PALPATION: Yes Soft to palpation : BLADDER/KIDNEY EXAM: Yes CVA tenderness Back/Pelvis: GENERAL BACK: Yes CVA tenderness CVA tenderness: bilateral LUMBAR SPINE/LOWER BACK: Yes pain with ROM, No lumbar spinal tenderness, Yes paraspinal muscle tenderness Lumbar paraspinal muscle tenderness: bilateral and Yes other soft tissue findings Other lumbar soft tissue findings laterality: bilateral Bilateral other lumbar soft tissue findings details: tenderness Extremity: COMMON NORMALS: normal to inspection Neuro: COMMON NORMALS: patient oriented x3 and moves all extremities SENSORIUM/ORIENTATION: Yes alert Skin: GENERAL SKIN EXAM: dry skin Course Vital Signs: Vital signs: Vital Signs Temperature 98.1 F 06/29/21 09:54 Pulse Rate 56 L 06/29/21 11:13 Respiratory Rate 18 06/29/21 11:13 Blood Pressure 124/79 06/29/21 11:13 Pulse Oximetry 93 06/29/21 11:13 MDM - Male MDM Narrative: Medical decision making narrative: Patient is a 26-year-old male comes to the ED with back pain and UTI symptoms. Denies any fever, chills, nausea/vomiting. Vitals are stable and patient appears in no acute distress or pain. He sitting comfortably on exam table in the room. He has some lumbar muscle tenderness upon palpation and some bilateral CVA tenderness. Rest of exam is benign. All patient's labs are unremarkable. His UA did not show any signs of infection. Patient was diagnosed with UTI symptoms and lumbar back pain. Due to his bilateral CVA tenderness and dysuria we will send him home with a prescription for Bactrim. He currently takes tramadol for pain and numbness and pneumonia with some Flexeril to help with back pain symptoms as well. He was told to follow-up with his PCP in 7 to 10 days reevaluation. Return to ED precautions given. Patient understood and agreed with plan. Lab Data: Attestation: I reviewed the patient's lab results. Labs: Lab Results 06/29/21 06/29/21 06/29/21 10:18 10:18 11:10 WBC 7.3 10^3/uL 10^3/ uL (4.0-10.0) RBC 5.49 10^6/uL H 10 ^6/uL (4.1-5.3) Hgb 16.8 g/dL H g/dL (11.7-16.6) Hct 49.0 % % (42.0-52.0) MCV 89.3 fl fl (80-94) MCH 30.6 pg pg (28.0-34.0) MCHC 34.3 g/dL g/dL (30.0-36.0) RDW 11.9 % L % (12.1-15.1) Plt Count 257 10^3/cmm 10^3 /cmm (130-400) MPV 10.1 fL fL (7.4-10.4) Neut % (Auto) 54.9 % % Lymph % (Auto) 34.2 % % [place] % (Auto) 6.5 % % Eos % (Auto) 3.4 % % Baso % (Auto) 0.7 % % Neut # (Auto) 4.02 10^3/uL 10^3 /uL (1.8-7.7) Lymph # (Auto) 2.5 10^3/uL 10^3/ uL (0.8-4.8) [place] # (Auto) 0.5 10^3/uL 10^3/ uL (0.2-0.9) Eos # (Auto) 0.3 10^3/uL 10^3/ uL (0.0-0.8) Baso # (Auto) 0.1 10^3/uL 10^3/ uL (0.0-0.1) Nucleated RBC % (a uto) 0 % % Nucleated RBCs # 0.0 /100WBC /100W BC Sodium 139 mmol/L mmol/L (136-145) Potassium 4.1 mmol/L mmol/L (3.5-5.1) Chloride 105 mmol/L mmol/L (98-107) Carbon Dioxide 23 mmol/L mmol/L (22-29) Anion Gap 15.1 (5-19) BUN 14 mg/dL mg/dL (6-20) Creatinine 1.0 mg/dL mg/dL (0.7-1.2) GFR Calculation 90.3 mL/min mL/mi n (90-130) Glucose 94 mg/dL mg/dL (65-115) Calculated Osmolal ity 288 mOsm/kg mOsm/ kg (285-295) Calcium 9.6 mg/dL mg/dL (8.5-10.5) Total Bilirubin 0.9 mg/dL mg/dL (0.15-1.2) AST 13 U/L U/L (0-40) ALT 16 U/L U/L (0-41) Alkaline Phosphata se 70 IU/L IU/L (40-130) Total Protein 7.2 g/dL g/dL (6.6-8.7) Albumin 4.5 g/dL g/dL (3.5-5.2) Globulin 2.7 g/dL g/dL (1.3-4.6) Lipase 17 U/L U/L (13-60) Urine Color Yellow (Yellow) Urine Appearance Clear (CLEAR) Urine pH 6 (5-7) Ur Specific Gravit y 1.015 (1.005-1.030) Urine Protein Neg (Negative) Urine Glucose (UA) Norm (Normal) Urine Ketones Negative (Negative) Urine Blood Neg (Negative) Urine Nitrate Negative (Negative) Urine Bilirubin 1+ H (Negative) Urine Urobilinogen Norm mg/dL mg/dL (Negative) Ur Leukocyte [place] Negative (Negative) Discharge Plan Discharge Patient Disposition: Home Clinical Impression: UTI symptoms, Lumbar back pain Condition: Stable Prescriptions: New cyclobenzaprine 10 mg tablet 10 mg PO BID PRN (Reason: muscle spasm) Qty: 20 RF: 0 Bactrim DS 800-160 mg tablet 1 tab PO BID 5 Days Qty: 10 RF: 0 No Action pantoprazole [Protonix] 40 mg tablet,delayed release (DR/EC) 40 mg PO BID@0900,1800 RF: 0 multivitamin Tablet 1 tab PO QAM RF: 0 promethazine 25 mg tablet 6.25 mg PO BID PRN (Reason: NAAUSEA/VOMITING) RF: 0 propranolol 20 mg tablet 20 mg PO TID PRN (Reason: rx written on 04/02/21-pt states he just takes prn) RF: 0 albuterol sulfate [ProAir HFA] 90 mcg/actuation Hfa Aerosol Inhaler 1 puff INHALATION Q4H PRN (Reason: Shortness Of Breath) RF: 0 Vitamin C 1 tab PO DAILY@0900 RF: 0 Vitamin D3 1 tab PO DAILY@0900 RF: 0 lisinopril 20 mg Tablet 20 mg PO QAM RF: 0 diclofenac sodium 75 mg tablet,delayed release (DR/EC) 75 mg PO BID PRN (Reason: unknown) RF: 0 BC Pain Relief 845-65 mg Powder In Packet 1 ea PO PRN RF: 0 Flonase Allergy Relief 50 mcg/actuation spray,suspension 1 spray intranasal BID PRN (Reason: Allergy Symptoms) RF: 0 Protonix 40 mg tablet,delayed release (DR/EC) 40 mg PO BID Qty: 60 RF: 0 acetaminophen [Tylenol Extra Strength] 500 mg Tablet 500 - 1,000 mg PO Q4H PRN (Reason: Pain) RF: 0 Discharge Orders: Discharge ED (Routine); Ordered 06/29/21 Ordered By: Nathan Ryan Referrals: Chava Castro MD [Primary Care Provider] - Discharge Diet: Regular Discharge Activity: Increase activity as tolerated Patient Instructions: Urinary Tract Infection in Men (ED), Back Pain (ED) Activity Restrictions/Additional Instructions: Follow-up with medical provider as directed in 7 to 10 days for reevaluation. Take medications as prescribed. Cyclobenzaprine is a muscle relaxer and can cause some drowsiness so take at night before going to bed. Return to the ER or your medical provider if condition worsens. Please read and understand discharge instructions. Thank you for choosing [facility] for your healthcare needs today. Please realize this is an emergency room and that we are providing you with a medical screening exam and this may not be complete and all inclusive of all the testing and or work up that you may need to determine your ailment or severity of your illness. It is very important that you follow up as instructed or that you return to the Emergency Department should you have concerns or if your condition changes or worsens in any way. Coding Level of Care Code ED Stave Hewer for Genaro Fwbrian Exam Comprehensive
[2021-06-29 10:22] LABS: Basophils # 0.1 10^3/uL (0.0-0.1); Basophils % 0.7 %; Eosinophils # 0.3 10^3/uL (0.0-0.8); Eosinophils % 3.4 %; Hemoglobin 16.8 g/dL (11.7-16.6); Lymphocytes # 2.5 10^3/uL (0.8-4.8); Lymphocytes % 34.2 %; Mean Corpuscular HGB Conc 34.3 g/dL (30.0-36.0); Mean Corpuscular Hemoglobin 30.6 pg (28.0-34.0); Mean Corpuscular Volume 89.3 fl (80-94); Mean Platelet Volume 10.1 fL (7.4-10.4); Monocytes # 0.5 10^3/uL (0.2-0.9); Monocytes % 6.5 %; Neutrophils # 4.02 10^3/uL (1.8-7.7); Neutrophils % 54.9 %; Nucleated Red Blood Cells % 0 %; Platelet Count 257 10^3/cmm (130-400); Red Blood Count 5.49 10^6/uL (4.1-5.3); Red Cell Distribution Width 11.9 % (12.1-15.1); White Blood Count 7.3 10^3/uL (4.0-10.0)
--- NOTE | 2021-06-29 10:32 | PC.NURSE ---
Urinalysis collection: This nurse charted in error that urinalysis was collected at 1030. Provider notified of charting error.
[2021-06-29 10:40] LABS: Alanine Aminotransferase 16 U/L (0-41); Albumin Level 4.5 g/dL (3.5-5.2); Alkaline Phosphatase 70 IU/L (40-130); Anion Gap 15.1 (5-19); Aspartate Amino Transferase 13 U/L (0-40); Blood Urea Nitrogen 14 mg/dL (6-20); Calcium 9.6 mg/dL (8.5-10.5); Carbon Dioxide 23 mmol/L (22-29); Chloride 105 mmol/L (98-107); Globulin 2.7 g/dL (1.3-4.6); Glomerular Filtration Rate 90.3 mL/min (90-130); Glucose 94 mg/dL (65-115); Lipase 17 U/L (13-60); Osmolality Calculated 288 mOsm/kg (285-295); Potassium 4.1 mmol/L (3.5-5.1); Sodium 139 mmol/L (136-145); Total Bilirubin 0.9 mg/dL (0.15-1.2); Total Protein 7.2 g/dL (6.6-8.7)
--- NOTE | 2021-06-29 11:12 | PC.NURSE ---
Urine collected and taken to lab.
[2021-06-29 11:13] VITALS: BP 124/79; PULSE 56; RESP 18; O2SAT 93
[2021-06-29 11:13] LABS: Add Urine Microscopic? NO; Charge for UA Resulting for Rev
[2021-06-29 11:36] LABS: Bilirubin Urine 1+ (Negative); Blood Urine Neg (Negative); Glucose Urine UA Norm (Normal); Ketones Urine Negative (Negative); Leukocyte Esterase Urine Negative (Negative); Nitrate Urine Negative (Negative); Protein Urine Neg (Negative); Specific Gravity, Urine 1.015 (1.005-1.030); Urine Appearance Clear (CLEAR); Urine Color Yellow (Yellow); Urobilinogen Urine Norm (Negative); pH Urine 6 (5-7)
[2021-06-29] MEDS: acetaminophen 500 mg Tablet 1000 MG PO (11:56)
[2021-06-29 12:31] VITALS: BP 117/72; PULSE 54; RESP 14; O2SAT 93
== END 2021-06-29 12:27 | disposition home or self-care (01) ==
PROVIDERS: Emergency Provider Physician Assistant; PCP Family Medicine
DX: N39.0 Urinary tract infection, site not specified (principal); M54.50 Low back pain, unspecified; Z79.01 Long term (current) use of anticoagulants; Z79.51 Long term (current) use of inhaled steroids
CPT/HCPCS: 80053; 81003; 83690; 85025; 99283

== ENCOUNTER 2021-07-18 07:04 | Emergency (ER) | payer BC, MEDICAID, SELFPAY ==
[2021-07-18 07:10] VITALS: BP 152/94; PULSE 89; RESP 18; TEMP 36.6; O2SAT 97; BMI 25.8
--- NOTE | 2021-07-18 07:21 | W.ED.BACK ---
HPI - Back Pain/Injury General: Chief Complaint: Back Pain/Injury Stated Complaint: PT says pain and tingling from spine to feet Time Seen by Provider: 07/18/21 07:17 History of Present Illness: HPI Narrative: Patient complains about back pain for months. Says he saw his primary care care provider last week and they did not do anything about it. Patient says he has tingling down his feet says this has been going on since his back's been hurting. Said he is also seen neurologist and has not helped him any at all. Medications have not helped. MD elicited complaint: back pain Pertinent past history: prior back pain Onset (ago): month(s) Timing: intermittent and progressively worsening Severity: mild Similar Symptoms Previously: Yes Quality: aching Location: lumbar spine and thoracic spine Radiation: none Exacerbating factors: movement Relieving factors: immobilization Context: unknown Associated symptoms: Reports no associated symptoms; Deny abdominal pain, chills, fever(s), nausea or vomiting Review of Systems Const: Denies: fever(s), chills or body aches Eyes: Denies: change in vision or blurry vision ENMT: Denies: throat pain or nasal congestion Card: Denies: chest pain or dyspnea on exertion Resp: Denies: dyspnea, productive cough or non-productive cough GI: Denies: abdominal pain, nausea or vomiting : Denies: difficulty urinating Musc: Reports: back pain; Denies: extremity pain Skin/Breast: Denies: rash Neuro: Denies: headache(s) Psych: Denies: anxiety or depression Ady/Lymph: Denies: easy bruising PFSH ED PFSH: Medical History Abdominal pain Dysphagia Surgical History History of colonoscopy (~08/2019) History of esophagogastroduodenoscopy (EGD) (~08/2019) Family History Father Cancer liver Grandfather Cancer lung Denies family history of Anesthesia complication Bleeding disorder Social History Smoking and tobacco status: never smoked Second hand smoke exposure: No Alcohol intake: never Adopted: No Caregiver/support person: Yes Lives independently: Yes Household members: significant other Housing: House Marital status: Single Highest education level completed: High School Graduate service: No Current occupational status: employed Current occupational exposures/hazards: No Pets and animals: No History of recent travel: No Leisure activites: exercise Sexually active: Yes Current gender identity: Male and Female Trixie/Christianity: Anabaptist Special trixie needs: No Agree to transfusion: No Financial difficulty paying for basics: Not Very Hard Physical Exam Const: COMMON NORMALS: no acute distress, average body habitus and patient oriented x3 HENMT: COMMON NORMALS: normocephalic HEAD & SCALP: normal to inspection and normocephalic FACE & SINUS: normal facial exam Eye: COMMON NORMALS: conjunctivae normal GENERAL EYE: appearance normal, both eyes and all related structures CONJUNCTIVA: Yes conjunctivae normal Neck/C-Spine: COMMON NORMALS: no JVD Resp: COMMON NORMALS: normal respiratory effort Cardio: COMMON NORMALS: no JVD, regular rate and regular rhythm RATE: regular rate RHYTHM: regular rhythm GI: COMMON NORMALS: Normal to inspection, nondistended, normoactive bowel sounds present Back/Pelvis: THORACIC SPINE/UPPER BACK: Yes thoracic ROM normal LUMBAR SPINE/LOWER BACK: Yes lumbar ROM normal, No paraspinal muscle tenderness, No paraspinal muscle spasm, Yes straight leg raise positive right Straight leg raise positive details right: at 60 degrees and Yes straight leg raise positive left Straight leg raise positive details left: at 60 degrees PELVIS: Yes buttocks normal SACROILIAC JOINTS: Yes SI joints normal OTHER: Patient has good distal neurovascular status Extremity: COMMON NORMALS: normal to inspection and full ROM Neuro: COMMON NORMALS: patient oriented x3 Course Vital Signs: Vital signs: Vital Signs Temperature 97.9 F 07/18/21 07:10 Pulse Rate 89 07/18/21 07:10 Respiratory Rate 18 07/18/21 07:10 Blood Pressure 152/94 07/18/21 07:10 Pulse Oximetry 97 07/18/21 07:10 Discharge Plan Discharge Prescriptions: No Action pantoprazole [Protonix] 40 mg tablet,delayed release (DR/EC) 40 mg PO BID@0900,1800 RF: 0 multivitamin Tablet 1 tab PO QAM RF: 0 promethazine 25 mg tablet 6.25 mg PO BID PRN (Reason: NAAUSEA/VOMITING) RF: 0 propranolol 20 mg tablet 20 mg PO TID PRN (Reason: rx written on 04/02/21-pt states he just takes prn) RF: 0 albuterol sulfate [ProAir HFA] 90 mcg/actuation Hfa Aerosol Inhaler 1 puff INHALATION Q4H PRN (Reason: Shortness Of Breath) RF: 0 Vitamin C 1 tab PO DAILY@0900 RF: 0 Vitamin D3 1 tab PO DAILY@0900 RF: 0 lisinopril 20 mg Tablet 20 mg PO QAM RF: 0 diclofenac sodium 75 mg tablet,delayed release (DR/EC) 75 mg PO BID PRN (Reason: unknown) RF: 0 BC Pain Relief 845-65 mg Powder In Packet 1 ea PO PRN RF: 0 Flonase Allergy Relief 50 mcg/actuation spray,suspension 1 spray intranasal BID PRN (Reason: Allergy Symptoms) RF: 0 Protonix 40 mg tablet,delayed release (DR/EC) 40 mg PO BID Qty: 60 RF: 0 acetaminophen [Tylenol Extra Strength] 500 mg Tablet 500 - 1,000 mg PO Q4H PRN (Reason: Pain) RF: 0 cyclobenzaprine 10 mg tablet 10 mg PO BID PRN (Reason: muscle spasm) Qty: 20 RF: 0 Coding Level of Care Code ED Wire Coater for Genaro Goddard
[2021-07-18 07:26] VITALS: BP 146/88; PULSE 77; RESP 16; O2SAT 97
[2021-07-18 07:35] VITALS: BP 146/88; PULSE 77; RESP 16; O2SAT 97
== END 2021-07-18 07:35 | disposition home or self-care (01) ==
PROVIDERS: Emergency Provider Nurse Practitioner Family; PCP Family Medicine
DX: M54.9 Dorsalgia, unspecified (principal)
CPT/HCPCS: 99282

== ENCOUNTER 2021-07-23 11:27 | Outpatient (CLI) | payer BC, MEDICAID, SELFPAY ==
--- NOTE | 2021-07-23 11:38 | XRR_ITS ---
PROCEDURE INFORMATION: Exam: XR Thoracic Spine Exam date and time: 07/23/2021 11:38 AM Age: 26 years old Clinical indication: Pain in thoracic spine; Patient HX: Back pain starts at t1 and extends to level of t7. ; Additional info: Thoracic back pain TECHNIQUE: Imaging protocol: XR of the thoracic spine. Views: 2 views. COMPARISON: CR XR thoracic spine 3V* [id number] 03/18/2021 2:54 PM FINDINGS: Bones/joints: Normal. No acute fracture. Normal alignment. Soft tissues: Unremarkable. XR/XR thoracic spine 2V [id number] IMPRESSION: No acute findings. Radiation Dose CTDIVOL = (mGy): DLP = (mGy-cm)
== END 2021-07-23 11:28 | disposition home or self-care (01) ==
PROVIDERS: PCP Family Medicine; Visit Provider Nurse Practitioner Family
DX: M54.6 Pain in thoracic spine (principal)
CPT/HCPCS: 72070

== ENCOUNTER 2021-08-18 09:47 | Emergency (ER) | payer BC, MEDICAID, SELFPAY ==
[2021-08-18 10:05] VITALS: BP 142/88; PULSE 92; RESP 18; TEMP 36.4; O2SAT 98; BMI 26.5
--- NOTE | 2021-08-18 10:12 | ED_ITS ---
HPI - Neck Pain/Injury General: Chief Complaint: Neck Pain/Injury Stated Complaint: PAIN IN NECK/GOING INTO R SHOULDER Time Seen by Provider: 08/18/21 09:53 Source: patient Mode of arrival: ambulatory Limitations: no limitations History of Present Illness: HPI Narrative: Patient is a 26-year-old male who presents to ED today with complaint of right-sided neck pain that radiates down into his right shoulder and down his right upper extremity above the elbow. Patient states symptoms been present about a month. He states he has seen his PCP Dr. Castro and was prescribed muscle relaxers which do not seem to be helping. Patient has not noticed any weakness to the upper extremity. Continues to use extremity normally. He has not had any recent injury or trauma to his neck. MD complaint: neck pain Onset (ago): week(s) Radiation: right shoulder and right upper extremity Duration: constant Relieving factors: none Exacerbating factors: none Associated symptoms: Reports no associated symptoms; Denies difficulty walking or headache(s) Treatments prior to arrival: other (muscle relaxers) Review of Systems Const: Denies: fever(s), chills, body aches, fatigue or malaise Eyes: Denies: change in vision or blurry vision Card: Denies: chest pain Resp: Denies: dyspnea GI: Denies: abdominal pain : Denies: flank pain Musc: Reports: neck pain and back pain (chronic) Skin/Breast: Denies: rash Neuro: Denies: headache(s), numbness in extremities, weakness in extremities, sensory changes or difficulty walking [facility] PFSH: Medical History Abdominal pain Dysphagia Surgical History History of colonoscopy (~08/2019) History of esophagogastroduodenoscopy (EGD) (~08/2019) Family History Father Cancer liver Grandfather Cancer lung Denies family history of Anesthesia complication Bleeding disorder Social History Smoking and tobacco status: never smoked Second hand smoke exposure: No Alcohol intake: never Adopted: No Caregiver/support person: Yes Lives independently: Yes Household members: significant other Housing: House Marital status: Single Highest education level completed: High School Graduate service: No Current occupational status: employed Current occupational exposures/hazards: No Pets and animals: No History of recent travel: No Leisure activites: exercise Sexually active: Yes Current gender identity: Male and Female Trixie/Scientology: Quaker Special trixie needs: No Agree to transfusion: No Financial difficulty paying for basics: Not Very Hard Physical Exam Const: COMMON NORMALS: no acute distress, average body habitus, patient oriented x3, no limitations, healthy appearing, alert and well nourished GENERAL APPEARANCE: cooperative HENMT: COMMON NORMALS: normocephalic and atraumatic HEAD & SCALP: normal to inspection, normocephalic and atraumatic Neck/C-Spine: COMMON NORMALS: full ROM, no lymphadenopathy and no meningeal signs CERVICAL SPINE: Yes Cervical spine tenderness (lower c spine), No step off deformity, Yes Paracervical muscle tenderness right and No Paracervical spasm Extremity: COMMON NORMALS: normal to inspection and full ROM GENERAL: Yes normal exam except as noted Neuro: COMMON NORMALS: patient oriented x3, moves all extremities, no focal motor deficits and no sensory deficits noted SENSORIUM/ORIENTATION: Yes alert MENINGEAL SIGNS: Yes no meningeal signs MOTOR EXAM: 5/5 motor strength present throughout Skin: COMMON NORMALS: no rashes or lesions noted GENERAL SKIN EXAM: no rashes or lesions noted Course Vital Signs: Vital signs: Vital Signs Temperature 97.5 F L 08/18/21 10:05 Pulse Rate 92 08/18/21 10:05 Respiratory Rate 18 08/18/21 10:05 Blood Pressure 142/88 08/18/21 10:05 Pulse Oximetry 98 08/18/21 10:05 MDM - Neck Pain/Injury MDM Narrative: Medical decision making narrative: Patient here with right- sided neck pain over the past month. He notes any indication for emergent labs/imaging from today's visit. States muscle relaxers have not really been helping with his discomfort. Will place him on steroids/NSAIDs and recommend follow-up with PCP. Of note, after reviewing patient's previous documentation it appears just this year he has had a total of 31 medical visits for various complaints (this is just through [facility] system-reports PCP is at [facility]). Over the past 2 years he has had 34 various imaging studies. Patient has seen multiple specialty providers including pulmonology, GI, hematology/oncology, rheumatology, and ENT. Discharge Plan Discharge Patient Disposition: Home Clinical Impression: Cervical radiculopathy Condition: Stable Prescriptions: New Medrol (Rajesh) 4 mg tablets,dose pack See Rx Instructions .ROUTE .COMPLEX Qty: 21 RF: 0 Continued diclofenac sodium 75 mg tablet,delayed release (DR/EC) 75 mg PO BID PRN (Reason: pain) Qty: 20 RF: 0 No Action methylprednisolone [Medrol (Rajesh)] 4 mg tablets,dose pack See Rx Instructions PO PER PKG DIR Qty: 21 RF: 0 pantoprazole [Protonix] 40 mg tablet,delayed release (DR/EC) 40 mg PO BID@0900,1800 RF: 0 multivitamin Tablet 1 tab PO QAM RF: 0 promethazine 25 mg tablet 6.25 mg PO BID PRN (Reason: NAAUSEA/VOMITING) RF: 0 propranolol 20 mg tablet 20 mg PO TID PRN (Reason: rx written on 04/02/21-pt states he just takes prn) RF: 0 albuterol sulfate [ProAir HFA] 90 mcg/actuation Hfa Aerosol Inhaler 1 puff INHALATION Q4H PRN (Reason: Shortness Of Breath) RF: 0 Vitamin C 1 tab PO DAILY@0900 RF: 0 Vitamin D3 1 tab PO DAILY@0900 RF: 0 lisinopril 20 mg Tablet 20 mg PO QAM RF: 0 BC Pain Relief 845-65 mg Powder In Packet 1 ea PO PRN RF: 0 Flonase Allergy Relief 50 mcg/actuation spray,suspension 1 spray intranasal BID PRN (Reason: Allergy Symptoms) RF: 0 Protonix 40 mg tablet,delayed release (DR/EC) 40 mg PO BID Qty: 60 RF: 0 acetaminophen [Tylenol Extra Strength] 500 mg Tablet 500 - 1,000 mg PO Q4H PRN (Reason: Pain) RF: 0 cyclobenzaprine 10 mg tablet 10 mg PO BID PRN (Reason: muscle spasm) Qty: 20 RF: 0 Discharge Orders: Discharge ED (Routine); Ordered 08/18/21 Ordered By: Argentina Souza Referrals: Chava Castro MD [Primary Care Provider] - Coding Level of Care Code ED Precipitator Operator for Chg Nitza
== END 2021-08-18 10:32 | disposition home or self-care (01) ==
PROVIDERS: Emergency Provider Physician Assistant; PCP Family Medicine
DX: M54.12 Radiculopathy, cervical region (principal)
CPT/HCPCS: 99281

== ENCOUNTER 2021-09-02 13:12 | Outpatient (CLI) | payer BC, MEDICAID, SELFPAY ==
--- NOTE | 2021-09-02 13:29 | XRR_ITS ---
PROCEDURE INFORMATION: Exam: XR Right Hip Exam date and time: 09/02/2021 1:29 PM Age: 26 years old Clinical indication: Right hip; Patient HX: RT hip pain. Unknown injury. PT stated the pain is more around the joint and the lateral area of RT hip; Additional info: R hip joint pain TECHNIQUE: Imaging protocol: XR Right hip. Views: 1 view hip with pelvis when performed. COMPARISON: CT kidney stone [id number] 04/30/2021 5:29 PM FINDINGS: Bones/joints: Unremarkable. No acute fracture. Soft tissues: Unremarkable. XR/XR hip RT 2-3V wo/w pel* [id number] IMPRESSION: No acute findings.
== END 2021-09-02 13:13 | disposition home or self-care (01) ==
LOC: RAD 13:17
PROVIDERS: PCP Family Medicine; Visit Provider Family Medicine
DX: M25.551 Pain in right hip (principal)
CPT/HCPCS: 73502

== ENCOUNTER 2021-09-06 09:27 | Outpatient (CLI) | payer BC, MEDICAID, SELFPAY ==
[2021-09-06 09:58] LABS: Basophils # 0.1 10^3/uL (0.0-0.1); Basophils % 0.5 %; Eosinophils # 0.3 10^3/uL (0.0-0.8); Eosinophils % 2.9 %; Hematocrit 50.9 % (42.0-52.0); Hemoglobin 17.3 g/dL (11.7-16.6); Lymphocytes # 4.5 10^3/uL (0.8-4.8); Mean Corpuscular Hemoglobin 30.9 pg (28.0-34.0); Mean Corpuscular Volume 91.1 fl (80-94); Mean Platelet Volume 10.4 fL (7.4-10.4); Monocytes # 0.6 10^3/uL (0.2-0.9); Monocytes % 5.7 %; Neutrophils # 5.68 10^3/uL (1.8-7.7); Neutrophils % 50.6 %; Nucleated Red Blood Cells % 0 %; Platelet Count 282 10^3/cmm (130-400); Red Blood Count 5.59 10^6/uL (4.1-5.3); Red Cell Distribution Width 12.5 % (12.1-15.1); White Blood Count 11.2 10^3/uL (4.0-10.0)
== END 2021-09-06 09:28 | disposition home or self-care (01) ==
PROVIDERS: PCP Family Medicine; Visit Provider Internal Medicine Hematology & Oncology
DX: D72.829 Elevated white blood cell count, unspecified (principal)
CPT/HCPCS: 36415; 85025

== ENCOUNTER 2021-09-09 06:36 | Outpatient (CLI) | payer BC, MEDICAID, SELFPAY ==
--- NOTE | 2021-09-09 14:26 | ONC FU_ITS ---
Dr. Lopez follow up note Patient: Anthony Del Valel Unit #: [id number]: 1995 Dicatated By: Gema Lopez M.D.Date of Visit:Sep 09, 2021 Onc Med Follow-up/Prog Note History of Present Illness: Mr. Del Valle is a 26-year-old gentleman with a year long history of fluctuating mild isolated leukocytosis., As per patient his white blood count would stay between 15-18,000, patient denies any history of recurrent infection. He denies any night sweats but about 10 pound weight loss due to epigastric discomfort. He underwent CT scan of abdomen pelvis done on August 11, 2020 which showed gallbladder dilation and questionable cholelithiasis, no acute inflammatory process in the abdomen or pelvis. As per patient he underwent a HIDA scan it was unremarkable, as per patient in the past he underwent colonoscopy twice but it was unremarkable. Patient said he did notice small lymphadenopathy in the right neck for which he underwent CT scan of neck done on June 29, 2020 shows no sign of neck mass or significant cervical lymphadenopathy and during follow-up patient had lab work-up done, his CBC done on March 22, 2021, shows persistent isolated leukocytosis, white blood count 10.9, peripheral blood smear shows mild leukocytosis with a normal platelet count slightly elevated red blood cell count no evidence of blast or blast equivalent cell. Repeat CBC done on March 27, 2021 showed white blood count 11.9K, and hemoglobin 17.5 g normal range is 16.6 or below hematocrit 50.2 platelets 286,000 and again peripheral blood smear showed leukocytosis with monocytosis and atypical lymphocytes, most likely reactive as no blasts or blast equivalent cells seen either. , B12 251, RPR nonreactive, JEAN negative, C-reactive protein 2 normal being 0-10 Patient denies smoking but to use off and on Flonase for allergic rhinitis. Denies any dysuria, denies any sinusitis related side effect he denies any skin infection denies any signs symptom suggestive of chronic infection Right cervical lymph node excisional biopsy done on 05/21/2021 at [facility] in [place] showed minimally enlarged lymph node with no histopathology color changes Whole blood flow cytometry done for fluctuating leukocytosis on 05/27/2021 showed no aberrant myeloid or lymphoid population detected. Mr. Del Valle had follow-up with us on June 05, 2021 at which time his white count was 12.0 hemoglobin was 17 hematocrit was 48.3 and platelets were 283,000. and plan to see him back in 3 months but advised to call in the interim should he have any further abdominal fullness or pain. . He was seen in the ER on 06/07/2021 with complaints of epigastric pain/chest pain that radiates into the right upper quadrant at that point he stated has been there for a week. He states he also had flank pain at that time which been there for months . His white count on 06/07/2021 was 10.7 hemoglobin 17.1 hematocrit was 50% and his platelet count was 231,000. His ANC was 6050 and his absolute lymphocyte count was 3200. His chemistry was unremarkable. He was discharged with a diagnosis of chest pain due to gastro reflux disease. He was started on Protonix 40 mg twice daily. His last abdominal imaging was on 04/30/2021 which reported no current visible evidence of acute abdominal or pelvic pathologic process. There is no visible hydronephrosis hydroureter utero lithiasis nephrolithiasis or nephrocalcinosis. His appendix was visualized and reported as normal. The gallbladder and bile ducts were normal with no calcified stones and no ductal dilatation. There was no hepatic masses or cystic structures and the pancreas was unremarkable as well. Came for follow-up, denies any specific complaints except soreness in the right lateral hip area, recently underwent x-ray of right hip shows no bony abnormality, as per patient his PMD gave him anti-inflammatory, he is using Bengay cream which is helping. Denies any nausea or vomiting denies any diarrhea or constipation denies any melena or hematochezia denies any dysuria or hematuria denies any sinus problems denies any fever or chills denies any weight loss denies any night sweats denies smoking Medications: Albuterol Sulfate Aerosol Powder, Breath Activated Inhalation PRN, Lisinopril (20 mg) Tablet Oral daily, Pantoprazole Sodium 1 Tablet (of 40 mg) Pack Oral b.i.d., Propranolol HCl (20 mg) Tablet Oral t.i.d., traZODone HCl (50 mg) Tablet Oral at bedtime Allergies: No Known Allergies. Review of Systems: Review of Systems is not available for this patient. Vital Signs: Performed on Sep 09, 2021 13:57 Height - 70.00 in Weight - 185 lbs (HIGH) BSA - 2.02 sq.m BMI - 26.54 Temperature - 98.9 F (HIGH) Pulse - 105 /min (HIGH) Respiration - 18 /min BP - 150/92 mm(hg) (HIGH) O2 Sat - 98 % Pain - 7 Fatigue - 6 Performance Status: 0 - Fully active, able to carry on all predisease activities without restrictions. (ECOG) Physical Examination: ENMT - No mouth sores, no thrush, no jaundice, No peripheral lymphadenopathy, Respiratory - Lungs are clear to auscultation, Cardiovascular - Regular rate and rhythm of heart, Abdomen - Soft, bowel sounds present, Extremities - No visible edema. Lab/Imaging: Test performed on Jun 25, 2021 12:17 Ua Color Yellow Ua Appearance Clear Ua pH 6.5 Ua Specific [place] 1.015 Ua Glucose Norm Ua Ketones Negative Ua Protein 1+ Ua Blood Neg Ua Bilirubin Neg Ua Nitrites Negative Ua Leukocyte Esterase Negative Ua Micro: Trans Epith Cells 0-4 /hpf Ua Micro: RBC 0-4 /hpf Ua Micro: Bacteria TRACE /hpf Ua Micro: Mucous 2+ /hpf Test performed on Jun 25, 2021 12:11 Amylase 26 U/L Lipase 25 U/L Sodium 139 mmol/L Potassium 3.7 mmol/L Chloride 103 mmol/L CO2 24 mmol/L Anion Gap 15.7 BUN 14 mg/dL Creatinine 0.8 mg/dL Cr Clearance (Est) 165.7200 mL/min eGFR 116.9 mL/min Glucose 90 mg/dL Osmolality - Calculated 288 mOsm/kg Calcium 9.7 mg/dL Protein, Total 7.8 g/dL Albumin 4.7 g/dL Globulin 3.1 g/dL Bilirubin, Total 1.1 mg/dL ALT (SGPT) 20 U/L AST (SGOT) 14 U/L Alkaline Phosphatase 69 IU/L WBC 8.5 10 3/uL RBC 5.72 10 6/uL HGB 17.4 g/dL HCT 50.9 % MCV 89.0 fl MCH 30.4 pg MCHC 34.2 g/dL RDW 12.0 % Platelet Count 298 10 3/cmm MPV 10.6 fL Neutrophils 4.29 10 3/uL Lymphocytes 3.3 10 3/uL Monocytes 0.7 10 3/uL Eosinophils 0.2 10 3/uL Basophils 0.1 10 3/uL Neutrophil % 50.7 % Lymphocyte % 38.4 % Monocyte % 7.7 % Eosinophil % 2.4 % Basophils % 0.6 % NRBC % 0 % Impression: . Mild fluctuating isolated leukocytosis etiology unclear could be reactive to chronic inflammation like patient may have underlying mild/subacute cholecystitis or stress-induced, patient is on antidepressants or off and on steroid especially Flonase or myeloproliferative disorder but less likely, Whole blood flow cytometry done on 05/27/2021 showed no aberrant myeloid or lymphoid population detected Mild polycythemia, reactive to underlying sleep apnea, or polycythemia vera but less likely Anxiety disorder/hypertension/migraine Right cervical lymphadenopathy status post right neck biopsy done on May 21, 2021 report Showed no evidence of malignancy Plan: Discussed with patient regarding his labs white blood count 11.2 hemoglobin 17.3 hematocrit 50.9 platelets 282,000 Clinically, patient doing well with no new signs symptom suggestive of acute or chronic infection, his follow-up CBC shows mild leukocytosis, compared to labs done in May 2021 at that time white blood count was 8.5 prior to that he was 12,000, patient has fluctuating isolated leukocytosis and mild polycythemia, etiology remains unclear, at this point, will consider bone marrow evaluation to rule out underlying myeloproliferative disorder., With flow cytometry/cytogenetics and molecular profiling for myelo/lymphoproliferative disorder Return to clinic 10 days after bone marrow evaluation Signed By: Gema Lopez M.D. <<Signature on File>>
== END 2021-09-09 06:37 | disposition home or self-care (01) ==
LOC: ONCMED 06:36
PROVIDERS: PCP Family Medicine; Visit Provider Internal Medicine Hematology & Oncology
DX: D72.828 Other elevated white blood cell count (principal)
CPT/HCPCS: 99214

== ENCOUNTER → 2021-09-16 15:14 | Outpatient (BNVA) | payer BC, MEDICAID, SELFPAY | PROVIDERS: PCP Family Medicine; Visit Provider Specialist | DX: G43.711 Chronic migraine without aura, intractable, with status migrainosus (principal); M54.50 Low back pain, unspecified; M79.605 Pain in left leg; D72.829 Elevated white blood cell count, unspecified; F81.9 Developmental disorder of scholastic skills, unspecified | CPT/HCPCS: 99215 ==

== ENCOUNTER → 2021-09-18 13:48 | Outpatient (BNVA) | payer BC, MEDICAID, SELFPAY | PROVIDERS: PCP Family Medicine; Visit Provider Internal Medicine Hematology & Oncology | DX: Z20.822 Contact with and (suspected) exposure to COVID-19 (principal); Z01.812 Encounter for preprocedural laboratory examination | CPT/HCPCS: 87635 ==

== ENCOUNTER 2021-09-23 11:03 | Day surgery (SDC) | payer BC, MEDICAID, SELFPAY ==
[2021-09-20 10:54] VITALS: BMI 26.5
--- NOTE | 2021-09-23 11:29 | P.ANESASSM_ITS ---
Pre-Anesthetic Assessment Pre-Anesthetic Assessment: Height/Weight: Height 1.78 m Weight 83.915 kg Preop Diagnosis: Abdominal Pain Proposed Procedure: Operation Date: 09/23/21 12:30 Proposed Procedures p Bone Marrow Biospy With Aspiration(Not Applicable) - Gema Lopez MD Was Beta Zay taken within 24 hours: N/A Was Clonidine taken within 24 hours: N/A Social: Social History: No alcohol and No tobacco Exam: Pre-Anes Outpt Exam: alert, oriented x 3, clear to auscultation bilaterally and regular rate & rhythm Airway: Submandibular: WNL Cervical ROM: WNL MP: 2 Dentition: Full History/ROS: No significant history except as noted Pulmonary: Pulmonary: None reported CV/HEM: CV/HEM: HTN Comments: EKG 06/20 Interpretive Statements SINUS BRADYCARDIA Compared to ECG 02/01/2021 14:34:21 Sinus rhythm no longer present Right ventricular hypertrophy no longer present Atrial abnormality no longer present T-wave abnormality no longer present Electronically Signed On 06-07-2021 19:20:28 CDT by Lissett Lora M.D. [email or web address] : : None reported Hepatic: Hepatic: None reported GI: GI: GERD Metabolic: Metabolic: None reported Musc/skel: Musc/skel: None reported Neuropsych: Neuropsych: None reported Anesthetic Plan: ASA status: 2 Anesthesia: Anesthesia Evaluation, General and MAC Other: Discussed risk and benefits of general and MAC anesthesia. Discussed spectrum of MAC anesthesia including possible recall of intraop stimuli including pain/discomfort. Plan MAC w/ general as needed. Risk of > 500 ml blood loss (7ml/kg in children): No Other Pertinent Information: Leukocytosis PFSH Anesthesia PFSH: Medical History Abdominal pain Dysphagia Surgical History History of colonoscopy (~08/2019) History of esophagogastroduodenoscopy (EGD) (~08/2019) Family History Father Cancer liver Grandfather Cancer lung Denies family history of Anesthesia complication Bleeding disorder Social History Smoking and tobacco status: never smoked Second hand smoke exposure: No Alcohol intake: never Adopted: No Caregiver/support person: Yes Lives independently: Yes Household members: significant other Housing: House Marital status: Single Highest education level completed: High School Graduate service: No Current occupational status: employed Current occupational exposures/hazards: No Pets and animals: No History of recent travel: No Leisure activites: exercise Sexually active: Yes Current gender identity: Male and Female Trixie/Hinduism: Confucianist Special trixie needs: No Agree to transfusion: No Financial difficulty paying for basics: Not Very Hard Data Anesthesia Cardiac Studies: Sestamibi Stress Test (Cardiology) 09/12/19
[2021-09-23] MEDS: sodium chloride 0.9% 1,000 ML 30 ML IV (11:53)
[2021-09-23 11:58] VITALS: BP 173/91; PULSE 83; RESP 16; TEMP 37.1; O2SAT 98
[2021-09-23 12:06] LABS: Basophils % 0.4 %; Eosinophils # 0.2 10^3/uL (0.0-0.8); Eosinophils % 1.9 %; Hematocrit 47.9 % (42.0-52.0); Hemoglobin 16.6 g/dL (11.7-16.6); Lymphocytes # 4.3 10^3/uL (0.8-4.8); Lymphocytes % 42.9 %; Mean Corpuscular HGB Conc 34.7 g/dL (30.0-36.0); Mean Corpuscular Hemoglobin 30.6 pg (28.0-34.0); Mean Corpuscular Volume 88.4 fl (80-94); Mean Platelet Volume 11.3 fL (7.4-10.4); Monocytes # 0.7 10^3/uL (0.2-0.9); Monocytes % 6.5 %; Neutrophils # 4.81 10^3/uL (1.8-7.7); Neutrophils % 48.1 %; Nucleated Red Blood Cells % 0 %; Platelet Count 265 10^3/cmm (130-400); Red Blood Count 5.42 10^6/uL (4.1-5.3); Red Cell Distribution Width 12.3 % (12.1-15.1)
--- NOTE | 2021-09-23 12:42 | W.PM.OPSUD ---
Surgery/Procedure H&P Update DATE OF PROCEDURE: September 23, 2021 DATE H&P PERFORMED: 09/09/21 PREOP DIAGNOSIS: Abdominal Pain PLANNED PROCEDURE: Operation Date: 09/23/21 12:30 Proposed Procedures p Bone Marrow Biospy With Aspiration(Not Applicable) - Gema Lopez MD Patient seen and examined no changes since last evaluation, will proceed with his bone marrow aspiration and biopsy
--- NOTE | 2021-09-23 13:03 | P.PCN_ITS ---
Bone Marrow Biopsy Bone Marrow Biopsy: I was consulted by [] office regarding bone marrow biopsy on Anthony Del Valle[]. Briefly, the patient is a [26] year old [Male] with [Fluctuating leukocytosis/polycythemia]. In the Outpatient Services Department, with nursing staff and laboratory technologists in attendance, the procedure was discussed with the patient. Appropriate consent form had been signed. Appropriate alternatives, benefits and risks of procedure were discussed with the patient and he was pre-operativ taylor assessed with a history and physical by myself and cleared for the biopsy procedure. The patient did request IV sedation and that was provided by the Anesthesia Department. Under aseptic condition right posterior iliac area was cleaned and prepped, 15 cc of bone marrow aspirate and core biopsy was obtained, patient tolerated procedure well, hemostasis was obtained, specimen was sent for routine histopathology, flow cytometry, cytogenetics and molecular testing for myeloproliferative disorder. Postprocedure nursing instructions were given Thank you for allowing me to participate in this patient's care and diagnosis. Coding Level of Care Code Acute Wire Stitcher Machine for Genaro Goddard
[2021-09-23 13:07] VITALS: BP 117/77; PULSE 84; RESP 16; TEMP 36.1; O2SAT 93
[2021-09-23 13:22] VITALS: BP 116/75; PULSE 76; RESP 18; O2SAT 95
[2021-09-23 13:36] VITALS: BP 136/96; PULSE 73; RESP 16; TEMP 36.1; O2SAT 97
--- NOTE | 2021-09-23 14:44 | ANE.PACU2 ---
Inpatient post-anesthesia follow up: Airway intact: Yes Vital signs: Temperature 97 F Pulse Rate 73 Respiratory Rate 16 Blood Pressure 136/96 Pulse Oximetry 97 Oxygen Delivery Me thod Room Air Oxygen Flow Rate 3 Fraction of Inspir ed Oxygen Hydration adequate: Yes Nausea and vomiting: No Pain level: 1 Mental status: Baseline
[2021-09-26 13:30] LABS: Miscellaneous Test See Scanned Lab Rpt
[2021-10-08 12:07] LABS: Miscellaneous Test See Scanned Lab Rpt
== END 2021-09-23 13:51 | disposition home or self-care (01) ==
PROVIDERS: PCP Family Medicine; Visit Provider Internal Medicine Hematology & Oncology
PROC: 07DT3ZX Extraction of Bone Marrow, Percutaneous Approach, Diagnostic (ICD-10-PCS; CPT 38222; principal; 2021-09-23 12:30)
DX: D75.1 Secondary polycythemia (principal); D72.829 Elevated white blood cell count, unspecified; I10 Essential (primary) hypertension
CPT/HCPCS: 36415; 38222; 85025; 88184; 88185; 88237; 88264; 88271; 88275; 88305; 88311; J2704; J7030

== ENCOUNTER 2021-10-10 08:11 | Outpatient (CLI) | payer BC, MEDICAID, SELFPAY ==
[2021-10-10 08:40] LABS: Basophils # 0.1 10^3/uL (0.0-0.1); Basophils % 0.4 %; Eosinophils # 0.2 10^3/uL (0.0-0.8); Eosinophils % 1.9 %; Hematocrit 47.9 % (42.0-52.0); Hemoglobin 16.1 g/dL (11.7-16.6); Lymphocytes # 4.8 10^3/uL (0.8-4.8); Lymphocytes % 40.7 %; Mean Corpuscular HGB Conc 33.6 g/dL (30.0-36.0); Mean Corpuscular Hemoglobin 30.8 pg (28.0-34.0); Mean Corpuscular Volume 91.8 fl (80-94); Monocytes # 0.9 10^3/uL (0.2-0.9); Monocytes % 7.9 %; Neutrophils % 48.9 %; Nucleated Red Blood Cells % 0 %; Platelet Count 270 10^3/cmm (130-400); Red Blood Count 5.22 10^6/uL (4.1-5.3); Red Cell Distribution Width 12.6 % (12.1-15.1); White Blood Count 11.9 10^3/uL (4.0-10.0)
--- NOTE | 2021-10-10 16:16 | ONC FU_ITS ---
Dr. Lopez follow up note Patient: Anthony Del Valle Unit #: [id number]: 1995 Dicatated By: Gema Lopez M.D.Date of Visit:Oct 10, 2021 Onc Med Follow-up/Prog Note History of Present Illness: Mr. Del Valle is a 26-year-old gentleman with a year long history of fluctuating mild isolated leukocytosis., As per patient his white blood count would stay between 15-18,000, patient denies any history of recurrent infection. He denies any night sweats but about 10 pound weight loss due to epigastric discomfort. He underwent CT scan of abdomen pelvis done on August 11, 2020 which showed gallbladder dilation and questionable cholelithiasis, no acute inflammatory process in the abdomen or pelvis. As per patient he underwent a HIDA scan it was unremarkable, as per patient in the past he underwent colonoscopy twice but it was unremarkable. Patient said he did notice small lymphadenopathy in the right neck for which he underwent CT scan of neck done on June 29, 2020 shows no sign of neck mass or significant cervical lymphadenopathy and during follow-up patient had lab work-up done, his CBC done on March 22, 2021, shows persistent isolated leukocytosis, white blood count 10.9, peripheral blood smear shows mild leukocytosis with a normal platelet count slightly elevated red blood cell count no evidence of blast or blast equivalent cell. Repeat CBC done on March 27, 2021 showed white blood count 11.9K, and hemoglobin 17.5 g normal range is 16.6 or below hematocrit 50.2 platelets 286,000 and again peripheral blood smear showed leukocytosis with monocytosis and atypical lymphocytes, most likely reactive as no blasts or blast equivalent cells seen either. , B12 251, RPR nonreactive, JEAN negative, C-reactive protein 2 normal being 0-10 Patient denies smoking but to use off and on Flonase for allergic rhinitis. Denies any dysuria, denies any sinusitis related side effect he denies any skin infection denies any signs symptom suggestive of chronic infection Right cervical lymph node excisional biopsy done on 05/21/2021 at [facility] showed minimally enlarged lymph node with no histopathology color changes Whole blood flow cytometry done for fluctuating leukocytosis on 05/27/2021 showed no aberrant myeloid or lymphoid population detected. Mr. Del Valle had follow-up with us on June 05, 2021 at which time his white count was 12.0 hemoglobin was 17 hematocrit was 48.3 and platelets were 283,000. and plan to see him back in 3 months but advised to call in the interim should he have any further abdominal fullness or pain. . He was seen in the ER on 06/07/2021 with complaints of epigastric pain/chest pain that radiates into the right upper quadrant at that point he stated has been there for a week. He states he also had flank pain at that time which been there for months . His white count on 06/07/2021 was 10.7 hemoglobin 17.1 hematocrit was 50% and his platelet count was 231,000. His ANC was 6050 and his absolute lymphocyte count was 3200. His chemistry was unremarkable. He was discharged with a diagnosis of chest pain due to gastro reflux disease. He was started on Protonix 40 mg twice daily. His last abdominal imaging was on 04/30/2021 which reported no current visible evidence of acute abdominal or pelvic pathologic process. There is no visible hydronephrosis hydroureter utero lithiasis nephrolithiasis or nephrocalcinosis. His appendix was visualized and reported as normal. The gallbladder and bile ducts were normal with no calcified stones and no ductal dilatation. There was no hepatic masses or cystic structures and the pancreas was unremarkable as well. Whole blood flow cytometry done on May 27, 2021 showed no evident myeloid or lymphoid population but his white blood count keeps fluctuating and stayed elevated, for which he underwent bone marrow evaluation on September 23, 2021 which showed normocellular bone marrow for age with trilineage hematopoiesis. No dyspoietic or megaloblastic changes seen, blasts are not increased. No evidence of panmyelosis, myeloid hyperplasia, abnormal megakaryocytes or fibrosis seen. Flow cytometry did not detect any aberrant myeloid or lymphoid population. Came for follow-up, complaining of left knee pain, no swelling but off and on numbness in the left foot but no weakness or issues with walking. Patient said he has history of chronic but self-limiting bilateral knee pain, has discussed with his PMD in the past, now being observed. Patient has never seen neurologist or orthopedics. Denies any trauma to his left knee, denies any swelling or local tenderness, denies any weakness in the left leg, denies any lower back pain. Denies any fever chills, denies any dysuria or hematuria, denies any sinus related symptoms, denies any cough. Denies any night sweats, denies any weight loss. Recently underwent bone marrow evaluation and he is here to discuss the results. Medications: Albuterol Sulfate Aerosol Powder, Breath Activated Inhalation PRN, Lisinopril (20 mg) Tablet Oral daily, Pantoprazole Sodium 1 Tablet (of 40 mg) Pack Oral b.i.d., Propranolol HCl (20 mg) Tablet Oral t.i.d., traZODone HCl (50 mg) Tablet Oral at bedtime Allergies: No Known Allergies. Review of Systems: Review of Systems is not available for this patient. Vital Signs: Performed on Oct 10, 2021 09:55 Height - 70.00 in Weight - 188.6 lbs (HIGH) BSA - 2.04 sq.m BMI - 27.06 Temperature - 99.4 F (HIGH) Pulse - 77 /min Respiration - 16 /min BP - 124/88 mm(hg) O2 Sat - 96 % Pain - 8 Fatigue - 10 Performance Status: 0 - Fully active, able to carry on all predisease activities without restrictions. (ECOG) Physical Examination: ENMT - No mouth sores, no thrush, no jaundice, no cervical lymphadenopathy, Respiratory - Lungs are clear to auscultation, Cardiovascular - Regular rate and rhythm of heart, Abdomen - Soft, bowel sounds present, no organomegaly, Extremities - , No visible edema, no left knee swelling or overlying skin changes or focal tenderness, Neuro exam is nonfocal. Lab/Imaging: Test performed on Jun 25, 2021 12:17 Ua Color Yellow Ua Appearance Clear Ua pH 6.5 Ua Specific [place] 1.015 Ua Glucose Norm Ua Ketones Negative Ua Protein 1+ Ua Blood Neg Ua Bilirubin Neg Ua Nitrites Negative Ua Leukocyte Esterase Negative Ua Micro: Trans Epith Cells 0-4 /hpf Ua Micro: RBC 0-4 /hpf Ua Micro: Bacteria TRACE /hpf Ua Micro: Mucous 2+ /hpf Test performed on Jun 25, 2021 12:11 Amylase 26 U/L Lipase 25 U/L Sodium 139 mmol/L Potassium 3.7 mmol/L Chloride 103 mmol/L CO2 24 mmol/L Anion Gap 15.7 BUN 14 mg/dL Creatinine 0.8 mg/dL Cr Clearance (Est) 165.7200 mL/min eGFR 116.9 mL/min Glucose 90 mg/dL Osmolality - Calculated 288 mOsm/kg Calcium 9.7 mg/dL Protein, Total 7.8 g/dL Albumin 4.7 g/dL Globulin 3.1 g/dL Bilirubin, Total 1.1 mg/dL ALT (SGPT) 20 U/L AST (SGOT) 14 U/L Alkaline Phosphatase 69 IU/L WBC 8.5 10 3/uL RBC 5.72 10 6/uL HGB 17.4 g/dL HCT 50.9 % MCV 89.0 fl MCH 30.4 pg MCHC 34.2 g/dL RDW 12.0 % Platelet Count 298 10 3/cmm MPV 10.6 fL Neutrophils 4.29 10 3/uL Lymphocytes 3.3 10 3/uL Monocytes 0.7 10 3/uL Eosinophils 0.2 10 3/uL Basophils 0.1 10 3/uL Neutrophil % 50.7 % Lymphocyte % 38.4 % Monocyte % 7.7 % Eosinophil % 2.4 % Basophils % 0.6 % NRBC % 0 % Impression: . Mild fluctuating isolated leukocytosis etiology unclear could be reactive to chronic inflammation like patient may have underlying mild/subacute cholecystitis or stress-induced, patient is on antidepressants or off and on steroid especially Flonase or myeloproliferative disorder but less likely, Whole blood flow cytometry done on 05/27/2021 showed no aberrant myeloid or lymphoid population detected Mild polycythemia, reactive to underlying sleep apnea, or polycythemia vera but less likely Anxiety disorder/hypertension/migraine Right cervical lymphadenopathy status post right neck biopsy done on May 21, 2021 report Showed no evidence of malignancy Plan: Discussed with patient regarding his labs white blood count 11.9 hemoglobin 16.1 hematocrit 47.9 platelets 270,000, bone marrow evaluation done on September 23, 2021 showed no evidence of malignancy or panmyelosis, flow cytometry showed no abnormality. Clinically, patient is doing well with no new signs symptom suggestive of acute or chronic infection or inflammation except off and on bilateral knee pain/discomfort, now complaining of left knee pain, on exam there is no left knee fullness or overlying skin changes or focal tenderness. Today's CBC shows mildly elevated white blood cells with a normal hemoglobin and platelets, etiology of fluctuating mild leukocytosis could be reactive to self-limiting chronic inflammation as bone marrow evaluation done recently shows no myeloproliferative disorder or malignancy. At this point, no further work-up rather observation, patient return to clinic in 6 months with CBC, if there is a progression in his isolated leukocytosis, will consider further work-up. As far as, off and on left knee pain/numbness is concerned, he is being monitored by his PMD, patient was suggested to consider neurology consult. He will discuss with his PMD patient was advised in case there is worsening of symptoms he need to go to ER for evaluation. Signed By: Gema Lopez M.D. <<Signature on File>>
== END 2021-10-10 08:12 | disposition home or self-care (01) ==
LOC: ONCMED 08:22
PROVIDERS: PCP Family Medicine; Visit Provider Internal Medicine Hematology & Oncology
DX: D72.828 Other elevated white blood cell count (principal)
CPT/HCPCS: 36415; 85025; 99214

== ENCOUNTER 2021-10-14 07:32 | Emergency (ER) | payer BC, MEDICAID, SELFPAY ==
[2021-10-14 07:40] VITALS: BP 141/87; PULSE 69; RESP 20; TEMP 36.4; O2SAT 99; BMI 26.5
--- NOTE | 2021-10-14 07:51 | ED_ITS ---
Documented by User: SHAMIR Almanzar 10/14/21 09:49 HPI - Chest Pain General: Chief Complaint: Chest Pain Stated Complaint: Chest pains, SOB Time Seen by Provider: 10/14/21 07:42 Source: patient Mode of arrival: ambulatory Limitations: no limitations History of Present Illness: Patient is a 26-year-old male who presents to ED today with a complaint of substernal and left-sided chest pain over the past week or so. Patient states pain began at rest. He states pain seems to be worse at night and worse with lying flat. States pain somewhat improves during the day. He states pain does not seem to be affected by eating or exertion. Patient reports he has had chest pains previously due to acid reflux but states this pain feels different. He is still taking his daily Protonix. He is not having any nausea or vomiting. Denies abdominal/epigastric pains. He states he feels a little short of breath in the mornings when he wakes up but again this seems to improve throughout the day. He has no previous significant cardiac or pulmonary history. He has not had any URI symptoms. No radicular pains into neck, arm, or back. complaint: chest pain Onset (ago): day(s) Timing of current episode: constant Onset: during rest Pain location: substernal and left chest Pain radiation: none Relieving factors: nothing Exacerbating factors: supine Associated symptoms: Reports no associated symptoms; Deny abdominal pain, fever(s), nausea, palpitations, syncope or vomiting Treatment prior to arrival: none Review of Systems Const: Denies: fever(s), chills, body aches, fatigue or malaise Card: Reports: chest pain and orthopnea; Denies: palpitations, irregular heart rhythm, edema, swelling of feet/ankles, lightheadedness, syncope, pre-syncope, dyspnea on exertion, leg pain with ex ertion or acrocyanosis Resp: Denies: productive cough, non-productive cough, wheezing, pain on inspiration, hemoptysis or chest congestion GI: Denies: abdominal pain, nausea, vomiting or diarrhea : Denies: flank pain Musc: Denies: back pain Neuro: Denies: headache(s) or dizziness PFS ED PFSH: Medical History Abdominal pain Dysphagia Surgical History History of colonoscopy (~08/2019) History of esophagogastroduodenoscopy (EGD) (~08/2019) Family History Father Cancer liver Grandfather Cancer lung Denies family history of Anesthesia complication Bleeding disorder Social History Smoking and tobacco status: never smoked Second hand smoke exposure: No Alcohol intake: never Adopted: No Caregiver/support person: Yes Lives independently: Yes Household members: significant other Housing: House Marital status: Single Highest education level completed: High School Graduate service: No Current occupational status: employed Current occupational exposures/hazards: No Pets and animals: No History of recent travel: No Leisure activites: exercise Sexually active: Yes Current gender identity: Male and Female Trixie/Jain: Yarsanism Special trixie needs: No Agree to transfusion: No Financial difficulty paying for basics: Not Very Hard Physical Exam Const: COMMON NORMALS: no acute distress, patient oriented x3, no limitations, alert and well nourished GENERAL APPEARANCE: cooperative ORIENTATION/CONSCIOUSNESS: Yes awake, Yes oriented to person, Yes oriented to place and Yes oriented to time HENMT: COMMON NORMALS: normocephalic and atraumatic HEAD & SCALP: normal to inspection, normocephalic and atraumatic Neck/C-Spine: GENERAL: No JVD CAROTIDS: Yes normal carotid upstroke and No bruit Chest: COMMONS NORMALS: normal inspection of the chest OTHER: mild tenderness with palpation of sternal area Resp: COMMON NORMALS: normal respiratory effort and clear to auscultation bilaterally AUSCULTATION: clear to auscultation bilaterally Cardio: COMMON NORMALS: regular rate and regular rhythm RATE: regular rate RHYTHM: regular rhythm GI: COMMON NORMALS: Normal to inspection, nondistended, normoactive bowel sounds present, Soft to palpation, non-tender, No hepatosplenomegaly present and no masses PALPATION: Yes Soft to palpation and Yes No hepatosplenomegaly present : COMMON NORMALS: Yes no CVA tenderness BLADDER/KIDNEY EXAM: Yes no CVA tenderness Back/Pelvis: COMMON NORMALS: no CVA tenderness, thoracic and lumbar spine normal to inspection, no thoracic nor lumbar tenderness and thoraco-lumbar ROM normal Extremity: COMMON NORMALS: normal to inspection, capillary refill normal, no joint enlargement, no clubbing, cyanosis or edema, no calf tenderness and no pedal edema Neuro: GURPREET COMA SCALE: document GCS findings Gurpreet coma scale eye opening: Spontaneous [place] coma scale verbal response: Orientated Gurpreet coma scale motor response: Obey commands [place] coma scale total score: 15 COMMON NORMALS: patient oriented x3, CN's II-XII intact bilaterally, moves all extremities, no focal motor deficits, no sensory deficits noted and gait normal SENSORIUM/ORIENTATION: Yes alert, Yes oriented to person, Yes oriented to place and Yes oriented to time Skin: COMMON NORMALS: no rashes or lesions noted GENERAL SKIN EXAM: no rashes or lesions noted Course Vital Signs: Vital signs: Vital Signs Temperature 97.5 F L 10/14/21 07:40 Pulse Rate 67 10/14/21 09:52 Respiratory Rate 20 H 10/14/21 09:52 Blood Pressure 117/90 10/14/21 09:52 Pulse Oximetry 97 10/14/21 09:52 MDM - Chest Pain Medical Decision Making Patient clinically appears in no acute distress. His vital signs are normal. Labs including CBC, CMP, troponin, BNP are all unremarkable. His CXR is normal. EKG shows no ischemic changes. Well's score is 0 for a PE. I have no concern for dissection or aneurysm based on history and physical exam. At this point recommend follow-up with PCP if symptoms persist. Lab Data : 10/14/21 07:58 10/14/21 08:45 Radiology Impressions Chest X-Ray 10/14/21 07:51 IMPRESSION: Normal chest Laboratory Results WBC 9.2 10^3/uL (4.0-10.0) 10/14/21 07:58 RBC 5.07 10^6/uL (4.1-5.3) 10/14/21 07:58 Hgb 15.6 g/dL (11.7-16.6) 10/14/21 07:58 Hct 46.5 % (42.0-52.0) 10/14/21 07:58 MCV 91.7 fl (80-94) 10/14/21 07:58 MCH 30.8 pg (28.0-34.0) 10/14/21 07:58 MCHC 33.5 g/dL (30.0-36.0) 10/14/21 07:58 RDW 12.8 % (12.1-15.1) 10/14/21 07:58 Plt Count 279 10^3/cmm (130-400) 10/14/21 07:58 MPV 10.0 fL (7.4-10.4) 10/14/21 07:58 Neut % (Auto) 43.4 % 10/14/21 07:58 Lymph % (Auto) 45.7 % 10/14/21 07:58 [place] % (Auto) 7.0 % 10/14/21 07:58 Eos % (Auto) 3.2 % 10/14/21 07:58 Baso % (Auto) 0.5 % 10/14/21 07:58 Neut # (Auto) 3.98 10^3/uL (1.8-7.7) 10/14/21 07:58 Lymph # (Auto) 4.2 10^3/uL (0.8-4.8) 10/14/21 07:58 [place] # (Auto) 0.6 10^3/uL (0.2-0.9) 10/14/21 07:58 Eos # (Auto) 0.3 10^3/uL (0.0-0.8) 10/14/21 07:58 Baso # (Auto) 0.1 10^3/uL (0.0-0.1) 10/14/21 07:58 Nucleated RBC % (auto) 0 % 10/14/21 07:58 Nucleated RBCs # 0.0 /100WBC 10/14/21 07:58 Sodium 139 mmol/L (136-145) 10/14/21 08:45 Potassium 4.2 mmol/L (3.5-5.1) 10/14/21 08:45 Chloride 105 mmol/L (98-107) 10/14/21 08:45 Carbon Dioxide 23 mmol/L (22-29) 10/14/21 08:45 Anion Gap 15.2 (5-19) 10/14/21 08:45 BUN 12 mg/dL (6-20) 10/14/21 08:45 Creatinine 0.9 mg/dL (0.7-1.2) 10/14/21 08:45 GFR Calculation 102.0 mL/min (90-130) 10/14/21 08:45 Glucose 98 mg/dL (65-115) 10/14/21 08:45 Calculated Osmolality 288 mOsm/kg (285-295) 10/14/21 08:45 Calcium 8.7 mg/dL (8.5-10.5) 10/14/21 08:45 Total Bilirubin 0.6 mg/dL (0.15-1.2) 10/14/21 08:45 AST 13 U/L (0-40) 10/14/21 08:45 ALT 18 U/L (0-41) 10/14/21 08:45 Alkaline Phosphatase 73 IU/L (40-130) 10/14/21 08:45 Troponin T Gen 5 ng/L 9 ng/L (0-15) 10/14/21 08:45 NT-Pro-B Natriuret Pep 37 pg/mL (0-125) 10/14/21 08:45 Total Protein 7.0 g/dL (6.6-8.7) 10/14/21 08:45 Albumin 4.5 g/dL (3.5-5.2) 10/14/21 08:45 Globulin 2.5 g/dL (1.3-4.6) 10/14/21 08:45 EKG Data EKG 1: EKG interpretation date: 10/14/21 EKG interpretation time: 08:03 Interpretation: Sinus rhythm with sinus arrhythmia Rate [address] elevation or depression noted Discharge Plan Discharge Patient Disposition: Home Clinical Impression: Non-cardiac chest pain Condition: Stable Prescriptions: No Action multivitamin Tablet 1 tab PO QAM 0RF promethazine 25 mg tablet 6.25 mg PO BID PRN (Reason: NAAUSEA/VOMITING) 0RF Rx Instructions: take with diclofenac for headache albuterol sulfate [ProAir HFA] 90 mcg/actuation Hfa Aerosol Inhaler 1 puff INHALATION Q4H PRN (Reason: Shortness Of Breath) 0RF lisinopril 20 mg Tablet 20 mg PO QAM 0RF fluticasone propionate [Flonase Allergy Relief] 50 mcg/actuation spray,suspension 1 spray intranasal BID PRN (Reason: Allergy Symptoms) 0RF Rx Instructions: administer into each nostril pantoprazole [Protonix] 40 mg tablet,delayed release (DR/EC) 40 mg PO BID Qty: 60 0RF acetaminophen [Tylenol Extra Strength] 500 mg Tablet 500 - 1,000 mg PO Q4H PRN (Reason: Pain) 0RF Discharge Orders: Discharge ED (Routine); Ordered 10/14/21 Ordered By: Argentina Souza Referrals: Chava Castro MD [Primary Care Provider] - Patient Instructions: Noncardiac Chest Pain (ED) Coding Level of Care Code ED Grey Roll Man for Chg Fwd Exam Comprehensive Documented by User: Kyle Ruffin DO 10/14/21 14:39 HPI - Chest Pain General: Chief Complaint: Chest Pain Stated Complaint: Chest pains, SOB Time Seen by Provider: 10/14/21 07:42 PFSH ED PFSH: Medical History Abdominal pain Dysphagia Surgical History History of colonoscopy (~08/2019) History of esophagogastroduodenoscopy (EGD) (~08/2019) Family History Father Cancer liver Grandfather Cancer lung Denies family history of Anesthesia complication Bleeding disorder Social History Smoking and tobacco status: never smoked Second hand smoke exposure: No Alcohol intake: never Adopted: No Caregiver/support person: Yes Lives independently: Yes Household members: significant other Housing: House Marital status: Single Highest education level completed: High School Graduate service: No Current occupational status: employed Current occupational exposures/hazards: No Pets and animals: No History of recent travel: No Leisure activites: exercise Sexually active: Yes Current gender identity: Male and Female Trixie/Jain: Yarsanism Special trixie needs: No Agree to transfusion: No Financial difficulty paying for basics: Not Very Hard Physical Exam Neuro: GURPREET COMA SCALE: document GCS findings Gurpreet coma scale total score: 15 Course Vital Signs: Vital signs: Vital Signs Temperature 97.5 F L 10/14/21 07:40 Pulse Rate 67 10/14/21 09:52 Respiratory Rate 20 H 10/14/21 09:52 Blood Pressure 117/90 10/14/21 09:52 Pulse Oximetry 97 10/14/21 09:52 MDM - Chest Pain Medical Decision Making Patient clinically appears in no acute distress. His vital signs are normal. Labs including CBC, CMP, troponin, BNP are all unremarkable. His CXR is normal. EKG shows no ischemic changes. Well's score is 0 for a PE. I have no concern for dissection or aneurysm based on history and physical exam. At this point recommend follow-up with PCP if symptoms persist. Chart reviewed and patient discussed with midlevel. Agree with assessment and plan. Lab Data : 10/14/21 07:58 10/14/21 08:45 Radiology Impressions Chest X-Ray 10/14/21 07:51 IMPRESSION: Normal chest Laboratory Results WBC 9.2 10^3/uL (4.0-10.0) 10/14/21 07:58 RBC 5.07 10^6/uL (4.1-5.3) 10/14/21 07:58 Hgb 15.6 g/dL (11.7-16.6) 10/14/21 07:58 Hct 46.5 % (42.0-52.0) 10/14/21 07:58 MCV 91.7 fl (80-94) 10/14/21 07:58 MCH 30.8 pg (28.0-34.0) 10/14/21 07:58 MCHC 33.5 g/dL (30.0-36.0) 10/14/21 07:58 RDW 12.8 % (12.1-15.1) 10/14/21 07:58 Plt Count 279 10^3/cmm (130-400) 10/14/21 07:58 MPV 10.0 fL (7.4-10.4) 10/14/21 07:58 Neut % (Auto) 43.4 % 10/14/21 07:58 Lymph % (Auto) 45.7 % 10/14/21 07:58 [place] % (Auto) 7.0 % 10/14/21 07:58 Eos % (Auto) 3.2 % 10/14/21 07:58 Baso % (Auto) 0.5 % 10/14/21 07:58 Neut # (Auto) 3.98 10^3/uL (1.8-7.7) 10/14/21 07:58 Lymph # (Auto) 4.2 10^3/uL (0.8-4.8) 10/14/21 07:58 [place] # (Auto) 0.6 10^3/uL (0.2-0.9) 10/14/21 07:58 Eos # (Auto) 0.3 10^3/uL (0.0-0.8) 10/14/21 07:58 Baso # (Auto) 0.1 10^3/uL (0.0-0.1) 10/14/21 07:58 Nucleated RBC % (auto) 0 % 10/14/21 07:58 Nucleated RBCs # 0.0 /100WBC 10/14/21 07:58 Sodium 139 mmol/L (136-145) 10/14/21 08:45 Potassium 4.2 mmol/L (3.5-5.1) 10/14/21 08:45 Chloride 105 mmol/L (98-107) 10/14/21 08:45 Carbon Dioxide 23 mmol/L (22-29) 10/14/21 08:45 Anion Gap 15.2 (5-19) 10/14/21 08:45 BUN 12 mg/dL (6-20) 10/14/21 08:45 Creatinine 0.9 mg/dL (0.7-1.2) 10/14/21 08:45 GFR Calculation 102.0 mL/min (90-130) 10/14/21 08:45 Glucose 98 mg/dL (65-115) 10/14/21 08:45 Calculated Osmolality 288 mOsm/kg (285-295) 10/14/21 08:45 Calcium 8.7 mg/dL (8.5-10.5) 10/14/21 08:45 Total Bilirubin 0.6 mg/dL (0.15-1.2) 10/14/21 08:45 AST 13 U/L (0-40) 10/14/21 08:45 ALT 18 U/L (0-41) 10/14/21 08:45 Alkaline Phosphatase 73 IU/L (40-130) 10/14/21 08:45 Troponin T Gen 5 ng/L 9 ng/L (0-15) 10/14/21 08:45 NT-Pro-B Natriuret Pep 37 pg/mL (0-125) 10/14/21 08:45 Total Protein 7.0 g/dL (6.6-8.7) 10/14/21 08:45 Albumin 4.5 g/dL (3.5-5.2) 10/14/21 08:45 Globulin 2.5 g/dL (1.3-4.6) 10/14/21 08:45 Discharge Plan Discharge Patient Disposition: Home Clinical Impression: Non-cardiac chest pain Condition: Stable Prescriptions: No Action multivitamin Tablet 1 tab PO QAM 0RF promethazine 25 mg tablet 6.25 mg PO BID PRN (Reason: NAAUSEA/VOMITING) 0RF Rx Instructions: take with diclofenac for headache albuterol sulfate [ProAir HFA] 90 mcg/actuation Hfa Aerosol Inhaler 1 puff INHALATION Q4H PRN (Reason: Shortness Of Breath) 0RF lisinopril 20 mg Tablet 20 mg PO QAM 0RF fluticasone propionate [Flonase Allergy Relief] 50 mcg/actuation spray,suspension 1 spray intranasal BID PRN (Reason: Allergy Symptoms) 0RF Rx Instructions: administer into each nostril pantoprazole [Protonix] 40 mg tablet,delayed release (DR/EC) 40 mg PO BID Qty: 60 0RF acetaminophen [Tylenol Extra Strength] 500 mg Tablet 500 - 1,000 mg PO Q4H PRN (Reason: Pain) 0RF Discharge Orders: Discharge ED (Routine); Ordered 10/14/21 Ordered By: Argentina Souza Referrals: Chava Castro MD [Primary Care Provider] - Patient Instructions: Noncardiac Chest Pain (ED) Coding Level of Care Code ED [place] Man for Chg Fwd Exam Comprehensive
--- NOTE | 2021-10-14 07:51 | ECG_ITS ---
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 Measurements Intervals [place] Rate: 66 P: 42 MS: 136 QRS: 32 QRSD: 88 T: 24 QT: 381 QTc: 400 Interpretive Statements SINUS RHYTHM WITH SINUS ARRHYTHMIA Compared to ECG 06/07/2021 14:15:29 Sinus bradycardia no longer present Electronically Signed On 10-14-2021 8:56:24 TOLL LINE REPAIRER by Fabio Molina M.D. [id number]
--- NOTE | 2021-10-14 07:51 | XR_ITS ---
WS: [id number] CHEST XRAY TECHNIQUE: Portable chest. CLINICAL INFORMATION: chest pain COMPARISON: June 07, 2021 FINDINGS: Heart: Normal cardiac silhouette. Lungs: Lungs are clear. No consolidation or pleural effusion. Bones: Normal visualized bony structures. XR/XR chest 1V portable [id number] IMPRESSION: Normal chest
[2021-10-14 07:52] VITALS: BP 153/94; PULSE 59; RESP 16; O2SAT 99
[2021-10-14 08:04] LABS: Basophils # 0.1 10^3/uL (0.0-0.1); Basophils % 0.5 %; Eosinophils # 0.3 10^3/uL (0.0-0.8); Eosinophils % 3.2 %; Hematocrit 46.5 % (42.0-52.0); Hemoglobin 15.6 g/dL (11.7-16.6); Lymphocytes # 4.2 10^3/uL (0.8-4.8); Lymphocytes % 45.7 %; Mean Corpuscular HGB Conc 33.5 g/dL (30.0-36.0); Mean Corpuscular Hemoglobin 30.8 pg (28.0-34.0); Mean Corpuscular Volume 91.7 fl (80-94); Monocytes # 0.6 10^3/uL (0.2-0.9); Neutrophils # 3.98 10^3/uL (1.8-7.7); Neutrophils % 43.4 %; Nucleated Red Blood Cells % 0 %; Platelet Count 279 10^3/cmm (130-400); Red Blood Count 5.07 10^6/uL (4.1-5.3); Red Cell Distribution Width 12.8 % (12.1-15.1); White Blood Count 9.2 10^3/uL (4.0-10.0)
[2021-10-14] MEDS: lidocaine 2% viscous 15 ML, aluminum-mag hydrox-simethicon 30 ML, sucralfate oral liq 1 GM PO (08:13)
[2021-10-14 08:32] VITALS: BP 120/78; PULSE 62; RESP 16; O2SAT 98
[2021-10-14 09:16] LABS: Troponin T (5th) Once 9 ng/L (0-15)
[2021-10-14 09:24] LABS: Alanine Aminotransferase 18 U/L (0-41); Albumin Level 4.5 g/dL (3.5-5.2); Alkaline Phosphatase 73 IU/L (40-130); Anion Gap 15.2 (5-19); Aspartate Amino Transferase 13 U/L (0-40); Blood Urea Nitrogen 12 mg/dL (6-20); Calcium 8.7 mg/dL (8.5-10.5); Carbon Dioxide 23 mmol/L (22-29); Chloride 105 mmol/L (98-107); Globulin 2.5 g/dL (1.3-4.6); Glucose 98 mg/dL (65-115); NT Pro B Type Natriuretic Pept 37 pg/mL (0-125); Osmolality Calculated 288 mOsm/kg (285-295); Potassium 4.2 mmol/L (3.5-5.1); Sodium 139 mmol/L (136-145); Total Bilirubin 0.6 mg/dL (0.15-1.2)
[2021-10-14 09:52] VITALS: BP 117/90; PULSE 67; RESP 20; O2SAT 97
== END 2021-10-14 09:53 | disposition home or self-care (01) ==
PROVIDERS: Emergency Provider Physician Assistant; PCP Family Medicine
DX: R07.89 Other chest pain (principal)
CPT/HCPCS: 71045; 80053; 83880; 84484; 85025; 93005; 99283

== ENCOUNTER 2021-10-19 08:57 | Emergency (ER) | payer BC, MEDICAID, SELFPAY ==
[2021-10-19 09:07] VITALS: BP 152/115; PULSE 80; RESP 17; O2SAT 98; BMI 27.2
--- NOTE | 2021-10-19 09:11 | ECG_ITS ---
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 Measurements Intervals [place] Rate: 78 P: 23 OR: 138 QRS: 3 QRSD: 81 T: 47 QT: 338 QTc: 385 Interpretive Statements SINUS RHYTHM WITH MARKED SINUS ARRHYTHMIA Compared to ECG 10/14/2021 08:03:57 No significant changes Electronically Signed On 10-21-2021 12:19:56 BAG PRINTER by Fabio Molina M.D. [id number] f
--- NOTE | 2021-10-19 09:11 | XRR_ITS ---
PROCEDURE INFORMATION: Exam: XR Chest Exam date and time: 10/19/2021 9:11 AM Age: 26 years old Clinical indication: Pain; On breathing; Additional info: Chest pain TECHNIQUE: Imaging protocol: XR of the chest. Views: 1 view. COMPARISON: CR XR chest 1V portable [id number] 10/14/2021 7:58 AM FINDINGS: Lungs: Unremarkable. No consolidation. Pleural spaces: Unremarkable. No pleural effusion. No pneumothorax. Heart/Mediastinum: Unremarkable. No cardiomegaly. Bones/joints: Unremarkable. XR/XR chest 1V portable [id number] IMPRESSION: No acute findings.
--- NOTE | 2021-10-19 09:12 | ED_ITS ---
HPI - Chest Pain General: Chief Complaint: Chest Pain Stated Complaint: Chest pain Time Seen by Provider: 10/19/21 09:02 Source: patient Mode of arrival: ambulatory Limitations: no limitations History of Present Illness: Patient is a 26-year-old male who presents to ED today with a complaint of substernal and left-sided chest pain over the past two weeks.?Patient was seen at our facility 5 days ago for same complaints. He had a negative cardiac work-up on that visit. Patient states he feels like his pain is worsening and now complains of radiation into right shoulder. Again he states that his pain seems to be worse at night/possibly corresponding to lying flat and somewhat improves throughout the day. Also feels like pain worsens with certain movements. It is not affected by eating-still taking his Protonix. He does complain of feeling mildly short of breath with exertion. He has not h ad any fevers or cough. Patient denies abdominal/epigastric pain. No nausea or vomiting. No URI symptoms. MD complaint: chest pain Onset (ago): day(s) Pain location: substernal and left chest Pain radiation: right shoulder Exacerbating factors: exertion, supine and movement Associated symptoms: Deny abdominal pain, fever(s), nausea, palpitations, syncope or vomiting Treatment prior to arrival: none Risk Factors: Coronary artery disease risk factors: none Review of Systems Const: Denies: fever(s), chills, body aches, fatigue or malaise Eyes: Denies: change in vision ENMT: Denies: throat pain, odynophagia, nasal discharge or nasal congestion Card: Reports: chest pain and dyspnea on exertion; Denies: palpitations, irregular heart rhythm, edema, swelling of feet/ankles, lightheadedness, syncope, pre-syncope, orthopnea, leg pain with exertion or acrocyanosis Resp: Denies: productive cough, non-productive cough, wheezing, hemoptysis or chest congestion GI: Denies: abdominal pain, nausea, vomiting or diarrhea : Denies: flank pain, dysuria or hematuria Musc: Denies: neck pain, back pain, extremity swelling, joint swelling, joint redness, limited range of motion or muscle cramps Skin/Breast: Denies: rash Neuro: Denies: headache(s), numbness in extremities, weakness in extremities, sensory changes or dizziness PFSH ED PFSH: Medical History Abdominal pain Dysphagia Surgical History History of colonoscopy (~08/2019) History of esophagogastroduodenoscopy (EGD) (~08/2019) Family History Father Cancer liver Grandfather Cancer lung Denies family history of Anesthesia complication Bleeding disorder Social History Smoking and tobacco status: never smoked Second hand smoke exposure: No Alcohol intake: never Adopted: No Caregiver/support person: Yes Lives independently: Yes Household members: significant other Housing: House Marital status: Single Highest education level completed: High School Graduate service: No Current occupational status: employed Current occupational exposures/hazards: No Pets and animals: No History of recent travel: No Leisure activites: exercise Sexually active: Yes Current gender identity: Male and Female Trixie/Religious: Christianity Special rtixie needs: No Agree to transfusion: No Financial difficulty paying for basics: Not Very Hard Physical Exam Const: COMMON NORMALS: no acute distress, patient oriented x3, no limitations, alert and well nourished GENERAL APPEARANCE: cooperative ORIEN TATION/CONSCIOUSNESS: Yes awake, Yes oriented to person, Yes oriented to place and Yes oriented to time HENMT: COMMON NORMALS: normocephalic and atraumatic HEAD & SCALP: normal to inspection, normocephalic and atraumatic Neck/C-Spine: COMMON NORMALS: full ROM and supple GENERAL: Yes normal visual inspection, No tender and No JVD CAROTIDS: Yes normal carotid upstroke and No bruit Lymph: LYMPHATIC: no lymphadenopathy noted Chest: COMMONS NORMALS: normal inspection of the chest OTHER: TTP to the L sternal border Resp: COMMON NORMALS: normal respiratory effort and clear to auscultation bilaterally AUSCULTATION: clear to auscultation bilaterally Cardio: COMMON NORMALS: regular rate and regular rhythm RATE: regular rate RHYTHM: regular rhythm GI: COMMON NORMALS: Normal to inspection, nondistended, normoactive bowel sounds present, Soft to palpation, non-tender, No hepatosplenomegaly present and no masses PALPATION: Yes Soft to palpation and Yes No hepatosplenomegaly present Back/Pelvis: COMMON NORMALS: thoracic and lumbar spine normal to inspection, no thoracic nor lumbar tenderness and thoraco-lumbar ROM normal Extremity: COMMON NORMALS: normal to inspection, capillary refill normal, no joint enlargement, no clubbing, cyanosis or edema, no calf tenderness and no pedal edema Neuro: GURPREET COMA SCALE: document GCS findings Gurpreet coma scale eye opening: Spontaneous Gurpreet coma scale verbal response: Orientated [place] coma scale motor response: Obey commands Gurpreet coma scale total score: 15 COMMON NORMALS: patient oriented x3, moves all extremities, no sensory deficits noted and gait normal SENSORIUM/ORIENTATION: Yes alert, Yes oriented to person, Yes oriented to place and Yes oriented to time Skin: COMMON NORMALS: no rashes or lesions noted GENERAL SKIN EXAM: no rashes or lesions noted Course Vital Signs: Vital signs: Vital Signs Pulse Rate 83 10/19/21 10:54 Respiratory Rate 16 10/19/21 10:54 Blood Pressure 137/83 10/19/21 10:54 Pulse Oximetry 95 10/19/21 10:[address] [facility] - Chest Pain Medical Decision Making Patient is a 26-year-old male here again for complaints of chest pain. History is not changed much since I last saw him 5 days ago. Work-up today including CBC, CMP, troponin, D-dimer, and BNP in addition to CXR and EKG are all unremarkable. I have seen patient here in the ED several times previously and he does have a lot of anxiety related to his health-I suspect some of that might be related here. He does have some tenderness to palpation of his chest so spoke about tylenol/motrin and ice/heat to see if this helps. He has appointment with PCP next week. Return to ED precautions given. Lab Data : 10/19/21 09:12 10/19/21 09:12 Radiology Impressions Chest X-Ray 10/19/21 09:11 IMPRESSION: No acute findings. Laboratory Results WBC 9.4 10^3/uL (4.0-10.0) 10/19/21 09:12 RBC 5.77 10^6/uL (4.1-5.3) H 10/19/21 09:12 Hgb 17.7 g/dL (11.7-16.6) H 10/19/21 09:12 Hct 53.3 % (42.0-52.0) H 10/19/21 09:12 MCV 92.4 fl (80-94) 10/19/21 09:12 MCH 30.7 pg (28.0-34.0) 10/19/21 09:12 MCHC 33.2 g/dL (30.0-36.0) 10/19/21 09:12 RDW 12.7 % (12.1-15.1) 10/19/21 09:12 Plt Count 260 10^3/cmm (130-400) 10/19/21 09:12 MPV 11.1 fL (7.4-10.4) H 10/19/21 09:12 Neut % (Auto) 51.7 % 10/19/21 09:12 Lymph % (Auto) 38.5 % 10/19/21 09:12 [place] % (Auto) 7.2 % 10/19/21 09:12 Eos % (Auto) 1.9 % 10/19/21 09:12 Baso % (Auto) 0.5 % 10/19/21 09:12 Neut # (Auto) 4.84 10^3/uL (1.8-7.7) 10/19/21 09:12 Lymph # (Auto) 3.6 10^3/uL (0.8-4.8) 10/19/21 09:12 [place] # (Auto) 0.7 10^3/uL (0.2-0.9) 10/19/21 09:12 Eos # (Auto) 0.2 10^3/uL (0.0-0.8) 10/19/21 09:12 Baso # (Auto) 0.1 10^3/uL (0.0-0.1) 10/19/21 09:12 Nucleated RBC % (auto) 0 % 10/19/21 09:12 Nucleated RBCs # 0.0 /100WBC 10/19/21 09:12 D-Dimer 0.35 ug/mIFEU (0-0.59) 10/19/21 09:12 Sodium 137 mmol/L (136-145) 10/19/21 09:12 Potassium 4.9 mmol/L (3.5-5.1) 10/19/21 09:12 Chloride 101 mmol/L (98-107) 10/19/21 09:12 Carbon Dioxide 21 mmol/L (22-29) L 10/19/21 09:12 Anion Gap 19.9 (5-19) H 10/19/21 09:12 BUN 11 mg/dL (6-20) 10/19/21 09:12 Creatinine 0.8 mg/dL (0.7-1.2) 10/19/21 09:12 GFR Calculation 116.9 mL/min (90-130) 10/19/21 09:12 Glucose 99 mg/dL (65-115) 10/19/21 09:12 Calculated Osmolality 283 mOsm/kg (285-295) L 10/19/21 09:12 Calcium 10.3 mg/dL (8.5-10.5) 10/19/21 09:12 Total Bilirubin 0.7 mg/dL (0.15-1.2) 10/19/21 09:12 AST 30 U/L (0-40) 10/19/21 09:12 ALT 44 U/L (0-41) H 10/19/21 09:12 Alkaline Phosphatase 80 IU/L (40-130) 10/19/21 09:12 Troponin T Gen 5 ng/L 8 ng/L (0-15) 10/19/21 09:12 NT-Pro-B Natriuret Pep 5 pg/mL (0-125) 10/19/21 09:12 Total Protein 8.4 g/dL (6.6-8.7) 10/19/21 09:12 Albumin 5.3 g/dL (3.5-5.2) H 10/19/21 09:12 Globulin 3.1 g/dL (1.3-4.6) 10/19/21 09:12 EKG Data EKG 1: EKG interpretation date: 10/19/21 EKG interpretation time: 09:11 Interpretation: Sinus rhythm with sinus arrhythmia Rate [address] elevation or depression changes noted No acute changes when compared to EKG performed on 10/14/2021 Discharge Plan Discharge Patient Disposition: Home Clinical Impression: Non-cardiac chest pain Condition: Stable Prescriptions: No Action multivitamin Tablet 1 tab PO QAM 0RF promethazine 25 mg tablet 6.25 mg PO BID PRN (Reason: NAAUSEA/VOMITING) 0RF Rx Instructions: take with diclofenac for headache albuterol sulfate [ProAir HFA] 90 mcg/actuation Hfa Aerosol Inhaler 1 puff INHALATION Q4H PRN (Reason: Shortness Of Breath) 0RF lisinopril 20 mg Tablet 20 mg PO QAM 0RF fluticasone propionate [Flonase Allergy Relief] 50 mcg/actuation spray,suspension 1 spray intranasal BID PRN (Reason: Allergy Symptoms) 0RF Rx Instructions: administer into each nostril pantoprazole [Protonix] 40 mg tablet,delayed release (DR/EC) 40 mg PO BID Qty: 60 0RF methocarbamol 500 mg tablet 500 mg PO Q4H 0RF diclofenac sodium 50 mg tablet,delayed release (DR/EC) 50 mg PO BID 0RF acetaminophen [Tylenol Extra Strength] 500 mg Tablet 500 - 1,000 mg PO Q4H PRN (Reason: Pain) 0RF Discharge Orders: Discharge ED (Routine); Ordered 10/19/21 Ordered By: Argentina Souza Referrals: Chava Castro MD [Primary Care Provider] - Coding Level of Care Code ED Brood Hatchery Manager for Chg Fwd Exam Comprehensive
[2021-10-19 09:20] VITALS: O2SAT 95
[2021-10-19 09:20] LABS: Basophils # 0.1 10^3/uL (0.0-0.1); Basophils % 0.5 %; Eosinophils # 0.2 10^3/uL (0.0-0.8); Eosinophils % 1.9 %; Hematocrit 53.3 % (42.0-52.0); Hemoglobin 17.7 g/dL (11.7-16.6); Lymphocytes # 3.6 10^3/uL (0.8-4.8); Lymphocytes % 38.5 %; Mean Corpuscular HGB Conc 33.2 g/dL (30.0-36.0); Mean Corpuscular Hemoglobin 30.7 pg (28.0-34.0); Mean Corpuscular Volume 92.4 fl (80-94); Mean Platelet Volume 11.1 fL (7.4-10.4); Monocytes # 0.7 10^3/uL (0.2-0.9); Monocytes % 7.2 %; Neutrophils # 4.84 10^3/uL (1.8-7.7); Neutrophils % 51.7 %; Nucleated Red Blood Cells % 0 %; Platelet Count 260 10^3/cmm (130-400); Red Blood Count 5.77 10^6/uL (4.1-5.3); Red Cell Distribution Width 12.7 % (12.1-15.1); White Blood Count 9.4 10^3/uL (4.0-10.0)
[2021-10-19 09:30] VITALS: BP 134/84; PULSE 72; RESP 18; O2SAT 95
[2021-10-19 09:34] LABS: D Dimer 0.35 ug/mIFEU (0-0.59)
[2021-10-19 09:38] LABS: Troponin T (5th) Once 8 ng/L (0-15)
[2021-10-19 10:04] LABS: Alanine Aminotransferase 44 U/L (0-41); Albumin Level 5.3 g/dL (3.5-5.2); Alkaline Phosphatase 80 IU/L (40-130); Blood Urea Nitrogen 11 mg/dL (6-20); Calcium 10.3 mg/dL (8.5-10.5); Carbon Dioxide 21 mmol/L (22-29); Chloride 101 mmol/L (98-107); Globulin 3.1 g/dL (1.3-4.6); Glomerular Filtration Rate 116.9 mL/min (90-130); Glucose 99 mg/dL (65-115); NT Pro B Type Natriuretic Pept 5 pg/mL (0-125); Osmolality Calculated 283 mOsm/kg (285-295); Sodium 137 mmol/L (136-145); Total Bilirubin 0.7 mg/dL (0.15-1.2); Total Protein 8.4 g/dL (6.6-8.7)
[2021-10-19 10:30] LABS: Anion Gap 19.9 (5-19); Aspartate Amino Transferase 30 U/L (0-40); Potassium 4.9 mmol/L (3.5-5.1)
[2021-10-19 10:34] VITALS: BP 137/83; PULSE 74; RESP 16; O2SAT 96
[2021-10-19 10:54] VITALS: BP 137/83; PULSE 83; RESP 16; O2SAT 95
== END 2021-10-19 10:55 | disposition home or self-care (01) ==
PROVIDERS: Emergency Provider Physician Assistant; PCP Family Medicine
DX: R07.89 Other chest pain (principal)
CPT/HCPCS: 71045; 80053; 83880; 84484; 85025; 85378; 93005; 99283

== ENCOUNTER 2021-10-22 17:57 | Emergency (ER) | payer BC, MEDICAID, SELFPAY ==
[2021-10-22 18:16] VITALS: BP 141/92; PULSE 88; RESP 16; TEMP 36.8; O2SAT 99; BMI 27.2
--- NOTE | 2021-10-22 18:34 | ED_ITS ---
HPI - Chest Pain General: Chief Complaint: Chest Pain Stated Complaint: Chest Pains, not getting any better Time Seen by Provider: 10/22/21 18:32 History of Present Illness: 26-year-old male patient comes in today with complaints of chest discomfort, tachycardia, and shortness of breath. Patient been seen multiple times in the ER for similar complaints. Patient has had thorough work-ups before that have ruled out acute coronary syndrome, pulmonary embolisms, and pneumonia. Patient does not feel that he has anxiety or depression. Patient does not work and lives with his girlfriend. Patient reports that his girlfriend understands that he cannot work due to his health concerns. Patient reports for the last 1 to 2 weeks he has had shortness of breath. He does have occasional nausea and vomiting. And some pain in his neck and shoulder. Patient denies any family history of heart disease except for his father who had to have a stent placed in his 50s. Patient does take lisinopril and Protonix routinely. Patient will use [id number] analgesics at times. Patient denies any surgeries. Patient has had been fully immunized for flu and Covid including. Patient denies any nicotine use, alcohol use, narcotic or methamphetamines use. Patient does report occasional use of marijuana. Patient reports the pain is constant. Patient is scheduled to follow-up with his primary care on . complaint: chest discomfort Timing of current episode: constant Prior episodes: Yes Pain location: parasternal Pain radiation: right arm and neck Relieving factors: nothing Exacerbating factors: nothing Associated symptoms: Reports nausea and vomiting Risk Factors: Coronary artery disease risk factors: hypertension Thoracic aortic dissection risk factors: none Review of Systems General: Reports: 10 or more systems reviewed and unremarkable except in HPI and below Card: Reports: chest pain GI: Reports: nausea and vomiting [facility] ED PFSH: Medical History Abdominal pain Dysphagia Surgical History History of colonoscopy (~08/2019) History of esophagogastroduodenoscopy (EGD) (~08/2019) Family History Father Cancer liver Grandfather Cancer lung Denies family history of Anesthesia complication Bleeding disorder Social History Smoking and tobacco status: never smoked Second hand smoke exposure: No Alcohol intake: never Adopted: No Caregiver/support person: Yes Lives independently: Yes Household members: significant other Housing: House Marital status: Single Highest education level completed: High School Graduate service: No Current occupational status: employed Current occupational exposures/hazards: No Pets and animals: No History of recent travel: No Leisure activites: exercise Sexually active: Yes Current gender identity: Male and Female Trixie/Religious: Taoist Special trixie needs: No Agree to transfusion: No Financial difficulty paying for basics: Not Very Hard Physical Exam Const: COMMON NORMALS: alert HENMT: COMMON NORMALS: normocephalic HEAD & SCALP: normocephalic Neck/C-Spine: COMMON NORMALS: full ROM CERVICAL SPINE: No Cervical spine tenderness Chest: CHEST: Yes tenderness pectoral muscle bilaterally Resp: COMMON NORMALS: normal respiratory effort and clear to auscultation bilaterally AUSCULTATION: clear to auscultation bilaterally Cardio: COMMON NORMALS: regular rate and regular rhythm RATE: regular rate RHYTHM: regular rhythm GI: COMMON NORMALS: Soft to palpation AUSCULTATION: Yes normoactive bowel sounds PALPATION: Yes Soft to palpation and Yes Tenderness to palpation present (GI) Details: RUQ : COMMON NORMALS: Yes no CVA tenderness BLADDER/KIDNEY EXAM: Yes no CVA tenderness Back/Pelvis: COMMON NORMALS: no CVA tenderness Extremity: COMMON NORMALS: normal to inspection and no pedal edema Neuro: SENSORIUM/ORIENTATION: Yes alert Psych: COMMON NORMALS: mental status grossly normal Skin: COMMON NORMALS: no rashes or lesions noted GENERAL SKIN EXAM: no rashes or lesions noted Course Vital Signs: Vital signs: Vital Signs Temperature 98.3 F 10/22/21 18:16 Pulse Rate 88 10/22/21 18:16 Respiratory Rate 16 10/22/21 18:16 Blood Pressure 141/92 10/22/21 18:16 Pulse Oximetry 99 10/22/21 18:16 MDM - Chest Pain Medical Decision Making 26-year-old male patient comes in today with complaints of chest discomfort. Patient reports recurrent chest pain with multiple evaluations in the ER. On exam patient appears well. Skin is warm and dry. Lungs were clear to auscultation. Heart rate was regular. Differential diagnosis includes but not limited to anxiety, atypical chest pain, arrhythmia. EKG showed sinus rhythm. CBC and CMP were unremarkable. Sed rate was evaluated and was unremarkable. I feel the patient probably has some anxiety related to his health. He will continue to follow-up with product safety coordinator as scheduled. Recommended healthy diet and exercise with plenty of sleep. Patient reported understanding and agreed to plan. Lab Data : 10/22/21 20:15 10/22/21 20:15 Laboratory Results WBC 12.9 10^3/uL (4.0-10.0) H 10/22/21 20:15 Corrected WBC Cancelled 10/22/21 19:09 RBC 5.63 10^6/uL (4.1-5.3) H 10/22/21 20:15 Hgb 17.3 g/dL (11.7-16.6) H 10/22/21 20:15 Hct 49.8 % (42.0-52.0) 10/22/21 20:15 MCV 88.5 fl (80-94) 10/22/21 20:15 MCH 30.7 pg (28.0-34.0) 10/22/21 20:15 MCHC 34.7 g/dL (30.0-36.0) 10/22/21 20:15 RDW 12.4 % (12.1-15.1) 10/22/21 20:15 Plt Count 298 10^3/cmm (130-400) 10/22/21 20:15 MPV 10.5 fL (7.4-10.4) H 10/22/21 20:15 Gran % Cancelled 10/22/21 19:09 Neut % (Auto) 52.2 % 10/22/21 20:15 Lymph % (Auto) 36.5 % 10/22/21 20:15 [place] % (Auto) 8.2 % 10/22/21 20:15 Eos % (Auto) 2.3 % 10/22/21 20:15 Baso % (Auto) 0.6 % 10/22/21 20:15 Neut # (Auto) 6.70 10^3/uL (1.8-7.7) 10/22/21 20:15 Lymph # (Auto) 4.7 10^3/uL (0.8-4.8) 10/22/21 20:15 [place] # (Auto) 1.1 10^3/uL (0.2-0.9) H 10/22/21 20:15 Eos # (Auto) 0.3 10^3/uL (0.0-0.8) 10/22/21 20:15 Baso # (Auto) 0.1 10^3/uL (0.0-0.1) 10/22/21 20:15 Absolute Gran (auto) Cancelled 10/22/21 19:09 Nucleated RBC % (auto) 0 % 10/22/21 20:15 Nucleated RBCs # 0.0 /100WBC 10/22/21 20:15 ESR 13 mm/hr (0-10) H 10/22/21 20:15 Sodium 136 mmol/L (136-145) 10/22/21 20:15 Potassium 3.8 mmol/L (3.5-5.1) 10/22/21 20:15 Chloride 102 mmol/L (98-107) 10/22/21 20:15 Carbon Dioxide 19 mmol/L (22-29) L 10/22/21 20:15 Anion Gap 18.8 (5-19) 10/22/21 20:15 BUN 14 mg/dL (6-20) 10/22/21 20:15 Creatinine 0.7 mg/dL (0.7-1.2) 10/22/21 20:15 GFR Calculation 136.3 mL/min (90-130) H 10/22/21 20:15 Glucose 94 mg/dL (65-115) 10/22/21 20:15 Calculated Osmolality 282 mOsm/kg (285-295) L 10/22/21 20:15 Calcium 10.0 mg/dL (8.5-10.5) 10/22/21 20:15 Total Bilirubin 0.7 mg/dL (0.15-1.2) 10/22/21 20:15 AST 20 U/L (0-40) 10/22/21 20:15 ALT 39 U/L (0-41) 10/22/21 20:15 Alkaline Phosphatase 88 IU/L (40-130) 10/22/21 20:15 Total Protein 8.7 g/dL (6.6-8.7) 10/22/21 20:15 Albumin 5.2 g/dL (3.5-5.2) 10/22/21 20:15 Globulin 3.5 g/dL (1.3-4.6) 10/22/21 20:15 Lipase 26 U/L (13-60) 10/22/21 20:15 EKG Data EKG 1: EKG interpretation date: 10/22/21 EKG interpretation time: 18:30 Prior EKG tracings: available for review Interpretation: EKG shows a sinus rhythm with a regular rate at 69 bpm. There is a nonspecific T wave abnormality, no ST elevation though is noted. No ectopy is noted. And no significant changes from prior exam from October 19, 2021. Discharge Plan Discharge Patient Disposition: Home Clinical Impression: Atypical chest pain Condition: Stable Prescriptions: No Action multivitamin Tablet 1 tab PO QAM 0RF promethazine 25 mg tablet 6.25 mg PO BID PRN (Reason: NAAUSEA/VOMITING) 0RF Rx Instructions: take with diclofenac for headache albuterol sulfate [ProAir HFA] 90 mcg/actuation Hfa Aerosol Inhaler 1 puff INHALATION Q4H PRN (Reason: Shortness Of Breath) 0RF lisinopril 20 mg Tablet 20 mg PO QAM 0RF fluticasone propionate [Flonase Allergy Relief] 50 mcg/actuation spray,suspension 1 spray intranasal BID PRN (Reason: Allergy Symptoms) 0RF Rx Instructions: administer into each nostril pantoprazole [Protonix] 40 mg tablet,delayed release (DR/EC) 40 mg PO BID Qty: 60 0RF methocarbamol 500 mg tablet 500 mg PO Q4H 0RF diclofenac sodium 50 mg tablet,delayed release (DR/EC) 50 mg PO BID 0RF acetaminophen [Tylenol Extra Strength] 500 mg Tablet 500 - 1,000 mg PO Q4H PRN (Reason: Pain) 0RF Discharge Orders: Discharge ED (Routine); Ordered 10/22/21 Ordered By: Gagandeep Franco Referrals: Chava Castro MD [Primary Care Provider] - Discharge Diet: Usual diet Discharge Activity: Increase activity as tolerated Patient Instructions: Chest Pain (DC) Activity Restrictions/Additional Instructions: Activity as tolerated. Continue with routine care. Follow-up with primary care for further instruction. Return to ER for new concerns. Coding Level of Care Code ED Certified Diabetes Educator for Chg Fwd Exam Comprehensive
--- NOTE | 2021-10-22 18:58 | ECG_ITS ---
[facility] Test Date: 2021-10-22 Pat Name: Anthony Del Valle Department: Room: Gender: Male Stevedoring Supervisor: : 1995 Requested By: Gagandeep Zafar Order Number: [id number] Zaheer MD: Lissett Lora M.D. Measurements Intervals [place] Rate: 69 P: 33 MA: 132 QRS: 3 QRSD: 91 T: 32 QT: 361 QTc: 388 Interpretive Statements SINUS RHYTHM NONSPECIFIC T-WAVE ABNORMALITY Compared to ECG 10/19/2021 09:11:38 T-wave abnormality now present Sinus arrhythmia no longer present Electronically Signed On 10-23-2021 7:20:17 DERMATOLOGIST AND DERMATOPATHOLOGIST by Lissett Lora M.D. [id number] f
[2021-10-22 20:40] LABS: Basophils # 0.1 10^3/uL (0.0-0.1); Basophils % 0.6 %; Eosinophils # 0.3 10^3/uL (0.0-0.8); Eosinophils % 2.3 %; Hematocrit 49.8 % (42.0-52.0); Hemoglobin 17.3 g/dL (11.7-16.6); Lymphocytes # 4.7 10^3/uL (0.8-4.8); Lymphocytes % 36.5 %; Mean Corpuscular HGB Conc 34.7 g/dL (30.0-36.0); Mean Corpuscular Hemoglobin 30.7 pg (28.0-34.0); Mean Corpuscular Volume 88.5 fl (80-94); Mean Platelet Volume 10.5 fL (7.4-10.4); Monocytes # 1.1 10^3/uL (0.2-0.9); Monocytes % 8.2 %; Neutrophils % 52.2 %; Nucleated Red Blood Cells % 0 %; Platelet Count 298 10^3/cmm (130-400); Red Blood Count 5.63 10^6/uL (4.1-5.3); Red Cell Distribution Width 12.4 % (12.1-15.1); White Blood Count 12.9 10^3/uL (4.0-10.0)
[2021-10-22 21:04] LABS: Alanine Aminotransferase 39 U/L (0-41); Albumin Level 5.2 g/dL (3.5-5.2); Alkaline Phosphatase 88 IU/L (40-130); Anion Gap 18.8 (5-19); Aspartate Amino Transferase 20 U/L (0-40); Blood Urea Nitrogen 14 mg/dL (6-20); Carbon Dioxide 19 mmol/L (22-29); Chloride 102 mmol/L (98-107); Globulin 3.5 g/dL (1.3-4.6); Glomerular Filtration Rate 136.3 mL/min (90-130); Glucose 94 mg/dL (65-115); Lipase 26 U/L (13-60); Osmolality Calculated 282 mOsm/kg (285-295); Potassium 3.8 mmol/L (3.5-5.1); Sodium 136 mmol/L (136-145); Total Bilirubin 0.7 mg/dL (0.15-1.2); Total Protein 8.7 g/dL (6.6-8.7)
[2021-10-22 21:09] LABS: Erythrocyte Sedimentation Rate 13 mm/hr (0-10)
[2021-10-22 21:27] VITALS: BP 132/88; PULSE 66; RESP 18; O2SAT 99
== END 2021-10-22 21:28 | disposition home or self-care (01) ==
PROVIDERS: Emergency Provider Nurse Practitioner Family; PCP Family Medicine
DX: R07.89 Other chest pain (principal)
CPT/HCPCS: 80053; 83690; 85025; 85651; 93005; 99283

== ENCOUNTER 2021-10-27 09:54 | Emergency (ER) | payer BC, MEDICAID, SELFPAY ==
[2021-10-27 10:12] VITALS: BP 124/76; PULSE 54; RESP 16; TEMP 36.8; O2SAT 99; BMI 27.2
--- NOTE | 2021-10-27 10:22 | XRR_ITS ---
PROCEDURE INFORMATION: Exam: XR Chest Exam date and time: 10/27/2021 10:22 AM Age: 26 years old Clinical indication: Cough TECHNIQUE: Imaging protocol: XR of the chest. Views: 2 views. COMPARISON: CR (CHEST, ) 10/19/2021 9:19 AM FINDINGS: Lungs: No pulmonary consolidation. Pleural spaces: No pleural effusion. No pneumothorax. Heart/Mediastinum: The cardiac silhouette is unchanged. No gross evidence of pneumomediastinum. Diaphragm: Unchanged mild elevation of the right hemidiaphragm. Bones/joints: No gross fracture. XR/XR chest 2V* [id number] IMPRESSION: No acute cardiopulmonary abnormality identified.
--- NOTE | 2021-10-27 10:23 | ECG_ITS ---
[facility] Test Date: 2021-10-27 Pat Name: Anthony Del Valle Department: Room: Gender: Male Mail Weigher: : 1995 Requested By: Lawrence Barker Order Number: [id number] Zaheer MD: Skinny Haley M.D. Measurements Intervals [place] Rate: 48 P: 19 SC: 135 QRS: 24 QRSD: 94 T: 26 QT: 416 QTc: 375 Interpretive Statements SINUS BRADYCARDIA Compared to ECG 10/22/2021 18:18:20 Sinus rhythm no longer present T-wave abnormality no longer present Electronically Signed On 10-27-2021 21:53:34 GARAGE WORKER by Skinny Haley M.D. [id number]
--- NOTE | 2021-10-27 10:27 | ED_ITS ---
HPI - General Adult General: Chief complaint: General Medical Stated complaint: Throwing up blood with chest, jaw, and neck pains Time Seen by Provider: 10/27/21 10:21 Source: patient Mode of arrival: ambulatory Limitations: no limitations History of Present Illness: Patient with cough productive of bloody streaked mucus today. Denies any fever. He has had some pleuritic chest pain today. Denies any other problems. Denies shortness of breath. States he started metoprolol about 1 week ago for high blood pressure. He denies tobacco use. He denies any chest surgery before denies any allergies to medications. Denies any wheezing. Severity: mild Quality: sharp Associated symptoms: Reports chest pain (Pleuritic chest pain bilaterally); Deny dyspnea, headache(s), nausea, rash, palpitations or vomiting Treatments prior to arrival: none Review of Systems Const: Denies: fever(s) or chills Eyes: Denies: change in vision ENMT: Denies: throat pain Card: Reports: chest pain (Pleuritic chest pain bilaterally); Denies: palpitations Resp: Reports: productive cough (Blood-streaked clear mucus); Denies: dyspnea or wheezing GI: Denies: abdominal pain, nausea, vomiting, hematemesis or diarrhea : Denies: flank pain Musc: Denies: neck pain, back pain, extremity pain, extremity swelling or joint pain Skin/Breast: Denies: rash or pruritus Neuro: Denies: headache(s) or numbness in extremities Psych: Denies: anxiety Ady/Lymph: Denies: easy bruising, easy bleeding or enlarged lymph nodes PFSH ED PFSH: Medical History Abdominal pain Dysphagia Surgical History History of colonoscopy (~08/2019) History of esophagogastroduodenoscopy (EGD) (~08/2019) Family History Father Cancer liver Grandfather Cancer lung Denies family history of Anesthesia complication Bleeding disorder Social History Smoking and tobacco status: never smoked Second hand smoke exposure: No Alcohol intake: never Adopted: No Caregiver/support person: Yes Lives independently: Yes Household members: significant other Housing: House Marital status: Single Highest education level completed: High School Graduate service: No Current occupational status: employed Current occupational exposures/hazards: No Pets and animals: No History of recent travel: No Leisure activites: exercise Sexually active: Yes Current gender identity: Male and Female Trixie/Muslim: Evangelical Special trixie needs: No Agree to transfusion: No Financial difficulty paying for basics: Not Very Hard Supplemental [facility] Information: Denies tobacco use Physical Exam Const: COMMON NORMALS: no acute distress, patient oriented x3, no limitations and well nourished GENERAL APPEARANCE: cooperative HENMT: COMMON NORMALS: normocephalic and atraumatic HEAD & SCALP: normocephalic and atraumatic FACE & SINUS: normal facial exam Eye: COMMON NORMALS: EOMs intact bilaterally Neck/C-Spine: COMMON NORMALS: full ROM, no lymphadenopathy, supple and no meningeal signs GENERAL: Yes normal visual inspection Lymph: LYMPHATIC: no lymphadenopathy noted Chest: COMMONS NORMALS: normal inspection of the chest and normal palpation of entire chest wall CHEST: No Ecchymosis present and No rash Resp: COMMON NORMALS: normal respiratory effort, No retractions and clear to auscultation bilaterally EFFORT & INSPECTION: No respiratory distress AUSCULTATION: clear to auscultation bilaterally Cardio: COMMON NORMALS: regular rate, regular rhythm and Peripheral pulses 2+ throughout JUGULAR VENOUS DISTENTION: no JVD RATE: regular rate RHYTHM: regular rhythm PERIPHERAL PULSES: Peripheral pulses 2+ throughout GI: COMMON NORMALS: Normal to inspection, nondistended, normoactive bowel sounds present and non-tender : COMMON NORMALS: Yes no CVA tenderness BLADDER/KIDNEY EXAM: Yes no CVA tenderness Back/Pelvis: COMMON NORMALS: no CVA tenderness Extremity: COMMON NORMALS: normal to inspection, full ROM and capillary refill normal Neuro: COMMON NORMALS: patient oriented x3, CN's II-XII intact bilaterally, no focal motor deficits and no sensory deficits noted MENINGEAL SIGNS: Yes no meningeal signs Psych: COMMON NORMALS: mental status grossly normal and Normal thought process present THOUGHT PROCESS: Normal thought process present Skin: COMMON NORMALS: no rashes or lesions noted and no wounds GENERAL SKIN EXAM: no rashes or lesions noted Course Vital Signs: Vital signs: Vital Signs Temperature 98.2 F 10/27/21 11:00 Pulse Rate 60 10/27/21 11:00 Respiratory Rate 14 10/27/21 11:00 Blood Pressure 130/74 10/27/21 11:00 Pulse Oximetry 93 10/27/21 11:00 MDM - General Adult Medical Decision Making Likely acute bronchitis. Patient feeling well and in no distress. Lab Data Radiology Impressions Chest X-Ray 10/27/21 10:22 IMPRESSION: No acute cardiopulmonary abnormality identified. Imaging Data CXR: I personally reviewed and interpreted this imaging study as follows: My impression: Nothing acute seen on chest x-ray Radiologist's impression: PROCEDURE INFORMATION: Exam: XR Chest Exam date and time: 10/27/2021 10:22 AM Age: 26 years old Clinical indication: Cough TECHNIQUE: Imaging protocol: XR of the chest. Views: 2 views. COMPARISON: CR (CHEST, ) 10/19/2021 9:19 AM FINDINGS: Lungs: No pulmonary consolidation. Pleural spaces: No pleural effusion. No pneumothorax. Heart/Mediastinum: The cardiac silhouette is unchanged. No gross evidence of pneumomediastinum. Diaphragm: Unchanged mild elevation of the right hemidiaphragm. Bones/joints: No gross fracture. XR/XR chest 2V* [id number] IMPRESSION: No acute cardiopulmonary abnormality identified. ? Dictated By: Gagandeep Myers Signed By: Gagandeep Myers Signed Date/Time: 10/27/21 1141 EKG Data EKG 1: I personally reviewed and interpreted this EKG as follows: EKG interpretation date: 10/27/21 EKG interpretation time: 10:30 Prior EKG tracings: not available for review Interpretation: EKG shows sinus bradycardia with heart rate of 48. Normal axis. Normal LA interval. Normal QT interval. Normal QRS. Normal ST segment. Normal T waves, normal P waves, impression sinus bradycardia. Computer generated interpretation: Chest X-Ray 10/27/21 10:22 IMPRESSION: No acute cardiopulmonary abnormality identified. Discharge Plan Discharge Patient Disposition: Home Clinical Impression: Cough with hemoptysis, Atypical chest pain Acute bronchitis Qualifiers: Bronchitis organism: unspecified organism Qualified Code(s): J20.9 - Acute bronchitis, unspecified Condition: Stable Prescriptions: New Zithromax Z-Rajesh 250 mg tablet See Rx Instructions PO .COMPLEX Qty: 6 0RF Rx Instructions: take 500 mg today (day 1), then 250 mg for 4 days (days 2-5) No Action multivitamin Tablet 1 tab PO QAM 0RF promethazine 25 mg tablet 6.25 mg PO BID PRN (Reason: NAAUSEA/VOMITING) 0RF Rx Instructions: take with diclofenac for headache albuterol sulfate [ProAir HFA] 90 mcg/actuation Hfa Aerosol Inhaler 1 puff INHALATION Q4H PRN (Reason: Shortness Of Breath) 0RF lisinopril 20 mg Tablet 20 mg PO QAM 0RF fluticasone propionate [Flonase Allergy Relief] 50 mcg/actuation spray,suspension 1 spray intranasal BID PRN (Reason: Allergy Symptoms) 0RF Rx Instructions: administer into each nostril pantoprazole [Protonix] 40 mg tablet,delayed release (DR/EC) 40 mg PO BID Qty: 60 0RF methocarbamol 500 mg tablet 500 mg PO Q4H 0RF diclofenac sodium 50 mg tablet,delayed release (DR/EC) 50 mg PO BID 0RF acetaminophen [Tylenol Extra Strength] 500 mg Tablet 500 - 1,000 mg PO Q4H PRN (Reason: Pain) 0RF Discharge Orders: Discharge ED (Routine); Ordered 10/27/21 Ordered By: Lawrence Bueno Referrals: Chava Castro MD [Primary Care Provider] - 1-3 days (as needed.) Discharge Diet: Usual diet Patient Instructions: Acute Bronchitis (ED) Activity Restrictions/Additional Instructions: May take ibuprofen or Tylenol as needed for pain. Take Zithromax antibiotic to cover for any bacterial infection that may be causing bronchitis. Consider using cool-mist humidifier in your room to help with the dry air. Follow-up with your family doctor this week. 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
[2021-10-27 11:00] VITALS: BP 130/74; PULSE 60; RESP 14; TEMP 36.8; O2SAT 93
[2021-10-27 12:03] VITALS: BP 104/63; PULSE 51; RESP 14; TEMP 36.7; O2SAT 95
[2021-10-27 12:05] VITALS: BP 112/61; PULSE 51; RESP 14; TEMP 36.7; O2SAT 97
== END 2021-10-27 12:00 | disposition home or self-care (01) ==
PROVIDERS: Emergency Provider Family Medicine; PCP Family Medicine
DX: R04.2 Hemoptysis (principal); R07.89 Other chest pain; J20.9 Acute bronchitis, unspecified
CPT/HCPCS: 71046; 93005; 99283

== ENCOUNTER → 2021-11-04 14:34 | Outpatient (BNVA) | payer BC, MEDICAID, SELFPAY | PROVIDERS: PCP Family Medicine; Visit Provider Specialist | DX: G89.29 Other chronic pain (principal); M53.3 Sacrococcygeal disorders, not elsewhere classified | CPT/HCPCS: 73502 ==

== ENCOUNTER 2021-11-14 16:24 | Outpatient (CLI) | payer BC, MEDICAID, SELFPAY ==
--- NOTE | 2021-11-14 16:40 | XR_ITS ---
WS: [id number] XR femur LT min 2V* [id number] REASON FOR EXAM: LEFT THIGH PAIN FINDINGS: Hip joint space is intact. Femoral head and neck are normal. Lesser greater trochanters are unremarkable. Femoral diaphysis and distal metaphysis are without abnormality. XR/XR femur LT min 2V* [id number] IMPRESSION: Normal left femur hip to knee.
== END 2021-11-14 16:25 | disposition home or self-care (01) ==
PROVIDERS: PCP Family Medicine; Visit Provider Nurse Practitioner Family
DX: M79.652 Pain in left thigh (principal)
CPT/HCPCS: 73552

== ENCOUNTER → 2021-11-26 13:28 | Outpatient (BNVA) | payer BC, MEDICAID, SELFPAY | PROVIDERS: PCP Family Medicine; Visit Provider Internal Medicine Cardiovascular Disease | DX: R00.2 Palpitations (principal); I10 Essential (primary) hypertension; Z87.891 Personal history of nicotine dependence; M25.50 Pain in unspecified joint ==

== ENCOUNTER 2022-01-06 15:28 | Emergency (ER) | payer BC, MEDICAID, SELFPAY ==
[2022-01-06 16:05] VITALS: BP 128/80; PULSE 57; RESP 14; TEMP 36.6; O2SAT 96; BMI 27.2
--- NOTE | 2022-01-06 16:15 | W.ED.HA ---
HPI - Headache General: Chief Complaint: Headache Stated Complaint: Headache, stabbing type pain on right side of head Time Seen by Provider: 01/06/22 16:12 Source: patient Mode of arrival: ambulatory Limitations: no limitations History of Present Illness: Patient is a 26-year-old male who is known to me from previous visits here for complaints of daily headaches over the past month. Patient states he has suffered and has been diagnosed with migraine headaches since 2011. He states last year he went through a period of many months where he was experiencing daily headaches. He was seen through our ED several times. He also followed up with our neurologist Dr. Sandoval. Patient states he has been on several different medications for the headaches although is not able to recall any of the specific names. Patient states over the past few months headaches had seemed to improve (he is/was not on any abortive or prophylactic therapies) but states they have returned over the past month. He complains of pain to the right side of his head, mainly parietal region, but states they sometimes do move to the right retro-orbital region. He does not experience any visual changes. Is not having any nausea or vomiting. He has no associated neurologic complaints. He does state he is currently being worked up for a possible cervical radiculopathy that could be the cause of his headaches. He states he recently had an MRI scheduled however the imaging had to be aborted secondary to patient's claustrophobia. He is in the process of trying to get this rescheduled. MD elicited complaint: headache and migraine Pertinent past history: migraines Onset (ago): month(s) Location: right Exacerbating factors: none Relieving factors: nothing Associated symptoms: Reports no associated symptoms; Deny chest pain, confusion, fever(s), malaise, nausea, rash or vomiting Treatments prior to arrival: other (aleve-states it works for about 30 mins) Review of Systems Const: Denies: fever(s), chills, body aches, fatigue or malaise Eyes: Denies: change in vision, blurry vision, blind spots, photophobia, floaters or seeing flashes ENMT: Denies: throat pain, odynophagia, nasal discharge or nasal congestion Card: Denies: chest pain or palpitations Resp: Denies: dyspnea GI: Denies: abdominal pain, nausea or vomiting Musc: Reports: neck pain (chronic); Denies: extremity pain or joint pain Skin/Breast: Denies: rash Neuro: Reports: headache(s); Denies: numbness in extremities, weakness in extremities, sensory changes, lack of coordination, difficulty walking, dizziness, confusion, Slurred speech present or difficulty communicating thoughts PFSH ED PFSH: Medical History Abdominal pain Dysphagia HTN (hypertension) Surgical History History of colonoscopy (~08/2019) History of esophagogastroduodenoscopy (EGD) (~08/2019) Family History Father Cancer liver Hypertension Stroke Grandfather Cancer lung Grandmother Diabetes Sister Hypertension Social History Smoking and tobacco status: former smoker (off and on) Second hand smoke exposure: No Alcohol intake: never Adopted: No Caregiver/support person: Yes Lives independently: Yes Household members: significant other Housing: House Marital status: Single Highest education level completed: High School Graduate service: No Current occupational status: employed Current occupational exposures/hazards: No Pets and animals: No History of recent travel: No Leisure activites: exercise Sexually active: Yes Current gender identity: Male and Female Trixie/Cheondoism: Gnosticism Special trixie needs: No Agree to transfusion: No Financial difficulty paying for basics: Not Very Hard Physical Exam Const: COMMON NORMALS: no acute distress, patient oriented x3, no limitations, alert and well nourished GENERAL APPEARANCE: cooperative ORIENTATION/CONSCIOUSNESS: Yes awake, Yes oriented to person, Yes oriented to place and Yes oriented to time HENMT: COMMON NORMALS: normocephalic, atraumatic, hearing grossly normal bilaterally, external ears normal, EAC's normal, TM's normal bilaterally and Normal external nose present HEAD & SCALP: normal to inspection, normocephalic and atraumatic FACE & SINUS: normal facial exam and sinuses nontender NOSE: Normal external nose present EXTERNAL EAR: Yes external ears normal EXTERNAL AUDITORY CANAL: EAC's normal TYMPANIC MEMBRANE: TM's normal bilaterally Eye: COMMON NORMALS: Equal, round and reactive pupils present and EOMs intact bilaterally GENERAL EYE: appearance normal, both eyes and all related structures PUPIL: Yes Equal, round and reactive pupils present Neck/C-Spine: COMMON NORMALS: full ROM, no lymphadenopathy and no meningeal signs Resp: COMMON NORMALS: normal respiratory effort and clear to auscultation bilaterally AUSCULTATION: clear to auscultation bilaterally Cardio: COMMON NORMALS: regular rate and regular rhythm RATE: regular rate RHYTHM: regular rhythm Extremity: COMMON NORMALS: normal to inspection Neuro: GURPREET COMA SCALE: document GCS findings [place] coma scale eye opening: Spontaneous Gurpreet coma scale verbal response: Orientated Gurpreet coma scale motor response: Obey commands [place] coma scale total score: 15 COMMON NORMALS: patient oriented x3, CN's II-XII intact bilaterally, moves all extremities, no focal motor deficits, no sensory deficits noted and gait normal SENSORIUM/ORIENTATION: Yes alert, Yes oriented to person, Yes oriented to place and Yes oriented to time MENINGEAL SIGNS: Yes no meningeal signs Skin: COMMON NORMALS: no rashes or lesions noted GENERAL SKIN EXAM: no rashes or lesions noted Course Vital Signs: Vital signs: Vital Signs Temperature 97.8 F 01/06/22 16:05 Pulse Rate 57 L 01/06/22 16:05 Respiratory Rate 14 01/06/22 16:05 Blood Pressure 128/80 01/06/22 16:05 Pulse Oximetry 96 01/06/22 16:05 MDM - Headache Medical Decision Making Patient has no acute neurologic complaints on history and is neurologically intact on today's exam. Headaches seem consistent with previous ones he has suffered from. Patient had 3 head CTs last year for complaints of headaches that were normal. I do not feel patient needs another head CT today. After reviewing Dr. Sandoval's note she had made a list of medications patient had stated he has previously tried unsuccessfully for treatment of his migraines that included Propranolol, Lisinopril, Effexor, Prozac, Amitriptyline, Depakote, Gabapentin, and Topamax. Patient states he would like to re-try one of these medications as he states some of them were tried several years ago and he doesn't remember his response to them. He already takes Lisinopril/Metoprolol for BP currently. I think it is reasonable to place him on Depakote at this time and place another referral for Dr. Sandoval for re-evaluation/treatment of these headaches. Patient is agreeable to this plan. Continue to contact central scheduling so they can re-schedule his MRI. Discharge Plan Discharge Patient Disposition: Home Clinical Impression: Chronic migraine without aura, intractable, with status migrainosus Condition: Stable Prescriptions: New Depakote ER 500 mg tablet extended release 24 hr 500 mg PO DAILY Qty: 30 0RF No Action multivitamin Tablet 1 tab PO QAM 0RF metoprolol tartrate 25 mg tablet 25 mg PO BID Qty: 180 1RF diazepam [Valium] 10 mg tablet 10 mg PO BID PRN (Reason: anxiety) 1 Days Qty: 2 0RF Rx Instructions: Take one tablet 1 hour prior to procedure, then take one tablet upon arrival. albuterol sulfate [ProAir HFA] 90 mcg/actuation Hfa Aerosol Inhaler 1 puff INHALATION Q4H PRN (Reason: Shortness Of Breath) 0RF fluticasone propionate [Flonase Allergy Relief] 50 mcg/actuation spray,suspension 1 spray intranasal BID PRN (Reason: Allergy Symptoms) 0RF Rx Instructions: administer into each nostril pantoprazole [Protonix] 40 mg tablet,delayed release (DR/EC) 40 mg PO BID Qty: 60 0RF lisinopril 20 mg tablet 10 mg PO QAM 0RF diclofenac sodium 50 mg tablet,delayed release (DR/EC) 50 mg PO BID 0RF acetaminophen [Tylenol Extra Strength] 500 mg Tablet 500 - 1,000 mg PO Q4H PRN (Reason: Pain) 0RF Discharge Orders: Discharge ED (Routine); Ordered 01/06/22 Ordered By: Argentina Souza Referrals: Chava Castro MD [Primary Care Provider] - Activity Restrictions/Additional Instructions: As we discussed you are open to trying Depakote for treatment of your migraine headaches. This medication can be titrated to larger doses based on response. I will place referral to get you back into see Dr. Sandoval for further evaluation and treatment of your chronic migraines. Coding Level of Care Code ED Machine Engineer for [facility]dard
--- NOTE | 2022-01-07 09:28 | DCPLANNER ---
Addendum entered by Rayna Grissom 04/22/22 17:19: Patient had a follow up appointment scheduled with neurology - appointment was cancelled Addendum entered by Rayna Grissom 01/09/22 18:37: Patient has a follow up appointment scheduled for , February 06, 2022 at 3:[address] Sandoval at neurology. Clinic will call patient with appointment information. Original Note: business analyst project manager had message to schedule a follow up appointment for patient with neurology. business analyst project manager sent patients information to the front office staff at neurology. Patients information will be printed and reviewed. Clinic will call patient with appointment information.
== END 2022-01-06 16:53 | disposition home or self-care (01) ==
PROVIDERS: Emergency Provider Physician Assistant; PCP Family Medicine
DX: G43.711 Chronic migraine without aura, intractable, with status migrainosus (principal); Z87.891 Personal history of nicotine dependence; Z79.51 Long term (current) use of inhaled steroids
CPT/HCPCS: 99283

== ENCOUNTER 2022-01-25 10:20 | Emergency (ER) | payer BC, MEDICAID, SELFPAY ==
[2022-01-25 10:54] VITALS: BP 118/75; PULSE 56; RESP 14; TEMP 37.2; O2SAT 98; BMI 26.5
--- NOTE | 2022-01-25 12:52 | CTR_ITS ---
PROCEDURE INFORMATION: Exam: CT Head Without Contrast Exam date and time: 01/25/2022 1:14 PM Age: 26 years old Clinical indication: Pain; Headache; Additional info: Headache for 2 months TECHNIQUE: Imaging protocol: Computed tomography of the head without contrast. Radiation optimization: All CT scans at this facility use at least one of these dose optimization techniques: automated exposure control; mA and/or kV adjustment per patient size (includes targeted exams where dose is matched to clinical indication); or iterative reconstruction. COMPARISON: CT head wo con* [id number] 03/19/2021 1:37 PM RADIATION DOSE METRICS: Total DLP (mGy-cm): 1505.61 FINDINGS: Brain: Normal. No hemorrhage. Unremarkable white matter. No mass effect. Cerebral ventricles: No ventriculomegaly. Paranasal sinuses: Visualized sinuses are unremarkable. No fluid levels. Mastoid air cells: Visualized mastoid air cells are well aerated. Bones/joints: Unremarkable. No acute fracture. Soft tissues: Unremarkable. CT/CT head wo con* [id number] IMPRESSION: No acute intracranial abnormality.
--- NOTE | 2022-01-25 12:54 | W.ED.HA ---
HPI - Headache General: Chief Complaint: Headache Stated Complaint: lightheaded; sinus pressure/drainage Time Seen by Provider: 01/25/22 11:43 History of Present Illness: Patient is a 26-year-old male comes to the ED with a headache. He has been having this headache now for approximately 2 months straight. He has a history of migraines says this headache is different than his past migraines. He rates his headache currently a 9 out of 10 and says it feels like a pressure throughout his head. He endorses having some nasal and sinus congestion and pressure as well. Endorses nausea with some vomiting. Bright lights make headache worse. Associated symptoms: Reports nausea and vomiting; Deny chest pain, fever(s) or rash Review of Systems Const: Denies: fever(s), chills or fatigue Eyes: Denies: change in vision or eye discomfort ENMT: Reports: nasal congestion and sinus pain; Denies: throat pain, odynophagia or nasal discharge Card: Denies: chest pain, palpitations, edema, swelling of feet/ankles, dyspnea on exertion or orthopnea Resp: Denies: dyspnea, productive cough or non-productive cough GI: Reports: nausea and vomiting; Denies: abdominal pain, diarrhea, constipation or hematochezia : Denies: flank pain, difficulty urinating, dysuria or hematuria Musc: Denies: neck pain, back pain or extremity swelling Skin/Breast: Denies: rash or new lesions Neuro: Reports: headache(s); Denies: numbness in extremities or weakness in extremities PFSH ED PFSH: Medical History Abdominal pain Dysphagia HTN (hypertension) Surgical History History of colonoscopy (~08/2019) History of esophagogastroduodenoscopy (EGD) (~08/2019) Family History Father Cancer liver Hypertension Stroke Grandfather Cancer lung Grandmother Diabetes Sister Hypertension Social History Smoking and tobacco status: former smoker (off and on) Second hand smoke exposure: No Alcohol intake: never Adopted: No Caregiver/support person: Yes Lives independently: Yes Household members: significant other Housing: House Marital status: Single Highest education level completed: High School Graduate service: No Current occupational status: employed Current occupational exposures/hazards: No Pets and animals: No History of recent travel: No Leisure activites: exercise Sexually active: Yes Current gender identity: Male and Female Trixie/Temple: Protestant Special trixie needs: No Agree to transfusion: No Financial difficulty paying for basics: Not Very Hard Physical Exam Const: COMMON NORMALS: no acute distress, patient oriented x3, healthy appearing and alert GENERAL APPEARANCE: cooperative and comfortable HENMT: COMMON NORMALS: normocephalic HEAD & SCALP: normocephalic FACE & SINUS: no sinus tenderness and no edema MOUTH: Normal oral and palatal mucosa present THROAT: posterior oropharynx normal and uvula midline Eye: COMMON NORMALS: Equal, round and reactive pupils present, EOMs intact bilaterally and conjunctivae normal CONJUNCTIVA: Yes conjunctivae normal PUPIL: Yes Equal, round and reactive pupils present Neck/C-Spine: COMMON NORMALS: supple GENERAL: Yes normal visual inspection Resp: COMMON NORMALS: normal respiratory effort, No retractions, No use of accessory muscles and clear to auscultation bilaterally AUSCULTATION: clear to auscultation bilaterally Cardio: COMMON NORMALS: regular rate, regular rhythm, S1 normal heart sound present, S2 normal heart sound present, No gallops present (Cardio), No clicks present (Cardio), No murmurs present (Cardio) and Peripheral pulses 2+ throughout RATE: regular rate RHYTHM: regular rhythm HEART SOUNDS: S1 normal heart sound present and S2 normal heart sound present PERIPHERAL PULSES: Peripheral pulses 2+ throughout GI: COMMON NORMALS: Normal to inspection, nondistended, normoactive bowel sounds present, Soft to palpation, non-tender and no masses PALPATION: Yes Soft to palpation : COMMON NORMALS: Yes no CVA tenderness BLADDER/KIDNEY EXAM: Yes no CVA tenderness Back/Pelvis: COMMON NORMALS: no CVA tenderness Extremity: COMMON NORMALS: normal to inspection and no pedal edema Neuro: COMMON NORMALS: patient oriented x3, CN's II-XII intact bilaterally, moves all extremities, no focal motor deficits and no sensory deficits noted SENSORIUM/ORIENTATION: Yes alert Skin: GENERAL SKIN EXAM: dry skin Course Reevaluation(s): Reevaluation #1: After patient received IV migraine cocktail meds his headache improved. He now rates his headache down to a 4 out of 10. He says the headache is a lot more manageable now and he is ready to be discharged home to rest. Time: 14:19 Vital Signs: Vital signs: Vital Signs Temperature 98.9 F 01/25/22 10:54 Pulse Rate 56 L 01/25/22 10:54 Respiratory Rate 14 01/25/22 10:54 Blood Pressure 118/75 01/25/22 10:54 Pulse Oximetry 98 01/25/22 10:54 MDM - Headache Medical Decision Making Patient is a 26-year-old male comes to the ED with a headache. Patient has been having this headache now for the past 2 months. He he has history of migraines but says is not like his typical migraine. He was seen here in the ED for same complaint back on January 06, 2022. Vitals are stable. Patient appears nontoxic and in no acute distress or pain. His neuro exam is normal. CT of head done since this is been going on now for 2 months and it seems different than prior headaches. CT of head showed no acute findings. IV Toradol, Reglan, Decadron and Benadryl were given to patient and his headache improved. It was now manageable and he is ready to go home and rest. He has a appointment with Dr. Sandoval in the next month for further evaluation of migraines. Return to ED precautions given. Patient understood and agreed with plan. Lab Data Radiology Impressions Head CT 01/25/22 12:52 IMPRESSION: No acute intracranial abnormality. Discharge Plan Discharge Patient Disposition: Home Clinical Impression: Headache Qualifiers: Headache type: unspecified Headache chronicity pattern: unspecified pattern Intractability: not intractable Qualified Code(s): R51.9 - Headache, unspecified Condition: Stable Prescriptions: No Action multivitamin Tablet 1 tab PO QAM 0RF metoprolol tartrate 25 mg tablet 25 mg PO BID Qty: 180 1RF diazepam [Valium] 10 mg tablet 10 mg PO BID PRN (Reason: anxiety) 1 Days Qty: 2 0RF Rx Instructions: Take one tablet 1 hour prior to procedure, then take one tablet upon arrival. albuterol sulfate [ProAir HFA] 90 mcg/actuation Hfa Aerosol Inhaler 1 puff INHALATION Q4H PRN (Reason: Shortness Of Breath) 0RF fluticasone propionate [Flonase Allergy Relief] 50 mcg/actuation spray,suspension 1 spray intranasal BID PRN (Reason: Allergy Symptoms) 0RF Rx Instructions: administer into each nostril pantoprazole [Protonix] 40 mg tablet,delayed release (DR/EC) 40 mg PO BID Qty: 60 0RF lisinopril 20 mg tablet 10 mg PO QAM 0RF diclofenac sodium 50 mg tablet,delayed release (DR/EC) 50 mg PO BID 0RF acetaminophen [Tylenol Extra Strength] 500 mg Tablet 500 - 1,000 mg PO Q4H PRN (Reason: Pain) 0RF Depakote ER 500 mg tablet extended release 24 hr 500 mg PO DAILY Qty: 30 0RF Discharge Orders: Discharge ED (Routine); Ordered 01/25/22 Ordered By: Nathan Ryan Referrals: Chava Castro MD [Primary Care Provider] - Discharge Diet: Regular Discharge Activity: Increase activity as tolerated Patient Instructions: General Headache (ED) Activity Restrictions/Additional Instructions: Follow-up with your neurologist at your next scheduled appointment. Continue taking all home medications as prescribed. Return to the ER or your medical provider if condition worsens. Please read and understand discharge instructions. Thank you for choosing [facility] for your healthcare needs today. Please realize this is an emergency room and that we are providing you with a medical screening exam and this may not be complete and all inclusive of all the testing and or work up that you may need to determine your ailment or severity of your illness. It is very important that you follow up as instructed or that you return to the Emergency Department should you have concerns or if your condition changes or worsens in any way. Coding Level of Care Code ED Dimension Warehouse Supervisor for Genaro Goddard Exam Comprehensive
[2022-01-25] MEDS: ketorolac 30 mg/mL INJ IVP (12:58)
[2022-01-25] MEDS: dexamethasone 10 mg/mL INJ IVP (12:59)
[2022-01-25] MEDS: metoclopramide 5 mg/mL SDV 2 mL 10 MG IVP (12:59)
[2022-01-25] MEDS: diphenhydrAMINE 50 mg/mL SDV 1mL 25 MG IVP (12:59)
== END 2022-01-25 14:31 | disposition home or self-care (01) ==
PROVIDERS: Emergency Provider Physician Assistant; PCP Family Medicine
DX: R51.9 Headache, unspecified (principal); R11.2 Nausea with vomiting, unspecified
CPT/HCPCS: 70450; 96374; 96375; 99284; J1100; J1200; J1885; J2765

== ENCOUNTER → 2022-02-06 13:24 | Outpatient (BNVA) | payer BC, MEDICAID, SELFPAY | PROVIDERS: PCP Family Medicine; Referring Provider Physician Assistant; Visit Provider Specialist | DX: G43.711 Chronic migraine without aura, intractable, with status migrainosus (principal) | CPT/HCPCS: 99214 ==

== ENCOUNTER 2022-02-09 10:13 | Emergency (ER) | payer BC, MEDICAID, SELFPAY ==
[2022-02-09 10:17] VITALS: BP 134/91; PULSE 127; RESP 18; TEMP 36.8; O2SAT 100; BMI 26.5
[2022-02-09 10:58] LABS: Basophils # 0.1 10^3/uL (0.0-0.1); Basophils % 0.5 %; Eosinophils # 0.2 10^3/uL (0.0-0.8); Eosinophils % 1.6 %; Hematocrit 49.9 % (42.0-52.0); Hemoglobin 17.5 g/dL (11.7-16.6); Lymphocytes # 5.4 10^3/uL (0.8-4.8); Lymphocytes % 49.8 %; Mean Corpuscular HGB Conc 35.1 g/dL (30.0-36.0); Mean Corpuscular Hemoglobin 30.5 pg (28.0-34.0); Mean Corpuscular Volume 86.9 fl (80-94); Mean Platelet Volume 10.3 fL (7.4-10.4); Monocytes # 0.8 10^3/uL (0.2-0.9); Monocytes % 7.2 %; Neutrophils % 40.7 %; Nucleated Red Blood Cells % 0 %; Platelet Count 321 10^3/cmm (130-400); Red Blood Count 5.74 10^6/uL (4.1-5.3); Red Cell Distribution Width 11.8 % (12.1-15.1); White Blood Count 10.8 10^3/uL (4.0-10.0)
[2022-02-09 11:15] VITALS: RESP 16; O2SAT 100
[2022-02-09] MEDS: morphine 4 mg/mL SDV 1 mL IVP (11:15)
[2022-02-09] MEDS: ketorolac 30 mg/mL INJ IVP (11:15)
[2022-02-09] MEDS: ondansetron 2 mg/ML SDV 2 mL 4 MG IVP (11:15)
--- NOTE | 2022-02-09 11:15 | W.ED.GENADLT ---
HPI - General Adult General: Chief complaint: General Medical Stated complaint: severe neck pain/body aches/nausea/vomiting Time Seen by Provider: 02/09/22 10:21 Source: patient Mode of arrival: ambulatory History of Present Illness: 26-year-old male presents emergency room with complaints of neck pain for the last 2 months with radiation into the arms also having nausea and vomiting for the last 3 days no medication on hematemesis cough cramps no recent trauma to the neck. He is been seen by his primary care doctor was given diclofenac he has not had any advanced imaging done no history of trauma or previous trauma or surgery. Onset (ago): day(s) (3) Location: neck Radiation: extremity Severity: moderate Quality: aching Pain Consistency: intermittent Relieving factors: none Exacerbating factors: none Associated symptoms: Reports weakness; Deny chest pain, confusion, cough, diaphoresis, decreased appetite, dyspnea, fevers/chills, headache(s), malaise, nausea, rash, palpitations, seizures, short of breath, syncope or vomiting Treatments prior to arrival: NSAID Review of Systems Const: Denies: fever(s), chills, body aches, fatigue, malaise or diaphoresis ENMT: Denies: throat pain, ear or mastoid pain, nasal discharge or nasal congestion Card: Denies: chest pain, palpitations or syncope Resp: Denies: dyspnea GI: Denies: nausea or vomiting : Denies: flank pain, dysuria, urinary frequency or urinary urgency Musc: Reports: neck pain and extremity pain Skin/Breast: Denies: rash or pruritus Neuro: Denies: headache(s) or confusion PFSH ED PFSH: Medical History Abdominal pain Dysphagia HTN (hypertension) Surgical History History of colonoscopy (~08/2019) History of esophagogastroduodenoscopy (EGD) (~08/2019) Family History Father Cancer liver Hypertension Stroke Grandfather Cancer lung Grandmother Diabetes Sister Hypertension Social History Smoking and tobacco status: former smoker (off and on) Second hand smoke exposure: No Alcohol intake: never Adopted: No Caregiver/support person: Yes Lives independently: Yes Household members: significant other Housing: House Marital status: Single Highest education level completed: High School Graduate service: No Current occupational status: employed Current occupational exposures/hazards: No Pets and animals: No History of recent travel: No Leisure activites: exercise Sexually active: Yes Current gender identity: Male and Female Triixe/Jehovah'S Witness: Mandaen Special trixie needs: No Agree to transfusion: No Financial difficulty paying for basics: Not Very Hard Physical Exam Const: GENERAL APPEARANCE: cooperative and comfortable ORIENTATION/CONSCIOUSNESS: Yes awake, Yes oriented to person, Yes oriented to place and Yes oriented to time HENMT: COMMON NORMALS: normocephalic, atraumatic and hearing grossly normal bilaterally HEAD & SCALP: normocephalic and atraumatic Eye: COMMON NORMALS: Equal, round and reactive pupils present, EOMs intact bilaterally, conjunctivae normal and no scleral icterus CONJUNCTIVA: Yes conjunctivae normal PUPIL: Yes Equal, round and reactive pupils present Neck/C-Spine: COMMON NORMALS: full ROM, no lymphadenopathy, supple and no JVD Lymph: LYMPHATIC: no lymphadenopathy noted and no lymphedema noted Resp: COMMON NORMALS: normal respiratory effort, No retractions, No use of accessory muscles and clear to auscultation bilaterally AUSCULTATION: clear to auscultation bilaterally Cardio: COMMON NORMALS: no JVD, regular rate, regular rhythm and No murmurs present (Cardio) RATE: regular rate RHYTHM: regular rhythm GI: COMMON NORMALS: Soft to palpation and No hepatosplenomegaly present AUSCULTATION: Yes normoactive bowel sounds PALPATION: Yes Soft to palpation, No Tenderness to palpation present (GI), No Guarding due to palpation present (GI) and Yes No hepatosplenomegaly present Extremity: COMMON NORMALS: normal to inspection, capillary refill normal, no clubbing, cyanosis or edema, no calf tenderness and no pedal edema OTHER: No discernible difference in the left versus right arm on neurovascular testing. Certified Surgical First Assistant strength equal bilaterally. Neuro: SENSORIUM/ORIENTATION: Yes oriented to person, Yes oriented to place and Yes oriented to time Skin: COMMON NORMALS: no rashes or lesions noted GENERAL SKIN EXAM: no rashes or lesions noted Course Vital Signs: Vital signs: Vital Signs Temperature 98.3 F 02/09/22 10:17 Pulse Rate 84 02/09/22 11:28 Respiratory Rate 16 02/09/22 11:28 Blood Pressure 133/96 02/09/22 11:28 Pulse Oximetry 96 02/09/22 11:28 MDM - General Adult Medical Decision Making Patient has some chronic neck pain also seems of some mild gastroenteritis is improved since receiving IV fluids we will discharge him home clear liquid diet promethazine as needed started on Lyrica and continue the anti-inflammatories. Follow-up with primary care doctor for evaluation for more advanced imaging if needed. Medical Records I reviewed the patient's medical records. Lab Data I reviewed the patient's lab results. : 02/09/22 10:48 02/09/22 10:48 Laboratory Results WBC 10.8 10^3/uL (4.0-10.0) H 02/09/22 10:48 RBC 5.74 10^6/uL (4.1-5.3) H 02/09/22 10:48 Hgb 17.5 g/dL (11.7-16.6) H 02/09/22 10:48 Hct 49.9 % (42.0-52.0) 02/09/22 10:48 MCV 86.9 fl (80-94) 02/09/22 10:48 MCH 30.5 pg (28.0-34.0) 02/09/22 10:48 MCHC 35.1 g/dL (30.0-36.0) 02/09/22 10:48 RDW 11.8 % (12.1-15.1) L 02/09/22 10:48 Plt Count 321 10^3/cmm (130-400) 02/09/22 10:48 MPV 10.3 fL (7.4-10.4) 02/09/22 10:48 Neut % (Auto) 40.7 % 02/09/22 10:48 Lymph % (Auto) 49.8 % 02/09/22 10:48 Mccracken % (Auto) 7.2 % 02/09/22 10:48 Eos % (Auto) 1.6 % 02/09/22 10:48 Baso % (Auto) 0.5 % 02/09/22 10:48 Neut # (Auto) 4.40 10^3/uL (1.8-7.7) 02/09/22 10:48 Lymph # (Auto) 5.4 10^3/uL (0.8-4.8) H 02/09/22 10:48 Mccracken # (Auto) 0.8 10^3/uL (0.2-0.9) 02/09/22 10:48 Eos # (Auto) 0.2 10^3/uL (0.0-0.8) 02/09/22 10:48 Baso # (Auto) 0.1 10^3/uL (0.0-0.1) 02/09/22 10:48 Nucleated RBC % (auto) 0 % 02/09/22 10:48 Nucleated RBCs # 0.0 /100WBC 02/09/22 10:48 Sodium 142 mmol/L (136-145) 02/09/22 10:48 Potassium 3.6 mmol/L (3.5-5.1) 02/09/22 10:48 Chloride 101 mmol/L (98-107) 02/09/22 10:48 Carbon Dioxide 20 mmol/L (22-29) L 02/09/22 10:48 Anion Gap 24.6 (5-19) H 02/09/22 10:48 BUN 15 mg/dL (6-20) 02/09/22 10:48 Creatinine 1.0 mg/dL (0.7-1.2) 02/09/22 10:48 GFR Calculation 90.3 mL/min (90-130) 02/09/22 10:48 Glucose 115 mg/dL (65-115) 02/09/22 10:48 Calculated Osmolality 296 mOsm/kg (285-295) H 02/09/22 10:48 Lactate 3.4 mmol/L (0.5-2.2) H 02/09/22 10:48 Calcium 10.3 mg/dL (8.5-10.5) 02/09/22 10:48 Total Bilirubin 1.2 mg/dL (0.15-1.2) 02/09/22 10:48 AST 16 U/L (0-40) 02/09/22 10:48 ALT 25 U/L (0-41) 02/09/22 10:48 Alkaline Phosphatase 70 IU/L (40-130) 02/09/22 10:48 Total Protein 8.7 g/dL (6.6-8.7) 02/09/22 10:48 Albumin 5.4 g/dL (3.5-5.2) H 02/09/22 10:48 Globulin 3.3 g/dL (1.3-4.6) 02/09/22 10:48 Lipase 21 U/L (13-60) 02/09/22 10:48 Discharge Plan Discharge Patient Disposition: Home Clinical Impression: Chronic neck pain, Nausea & vomiting Condition: Stable Prescriptions: New prednisone 20 mg tablet 20 mg PO TID Qty: 15 0RF Rx Instructions: 1 p.o. 3 times daily x3 days, 1 p.o. twice daily x2 days, 1 p.o. daily x2 days promethazine 25 mg tablet 25 mg PO Q6H PRN (Reason: nausea and vomiting) Qty: 20 0RF Lyrica 75 mg capsule 75 mg PO BID Qty: 60 0RF No Action multivitamin Tablet 1 tab PO QAM 0RF metoprolol tartrate 25 mg tablet 25 mg PO BID Qty: 180 1RF diazepam [Valium] 10 mg tablet 10 mg PO BID PRN (Reason: anxiety) 1 Days Qty: 2 0RF Rx Instructions: Take one tablet 1 hour prior to procedure, then take one tablet upon arrival. albuterol sulfate [ProAir HFA] 90 mcg/actuation Hfa Aerosol Inhaler 1 puff INHALATION Q4H PRN (Reason: Shortness Of Breath) 0RF fluticasone propionate [Flonase Allergy Relief] 50 mcg/actuation spray,suspension 1 spray intranasal BID PRN (Reason: Allergy Symptoms) 0RF Rx Instructions: administer into each nostril pantoprazole [Protonix] 40 mg tablet,delayed release (DR/EC) 40 mg PO BID Qty: 60 0RF lisinopril 20 mg tablet 10 mg PO QAM 0RF diclofenac sodium 50 mg tablet,delayed release (DR/EC) 50 mg PO BID 0RF acetaminophen [Tylenol Extra Strength] 500 mg Tablet 500 - 1,000 mg PO Q4H PRN (Reason: Pain) 0RF Depakote ER 500 mg tablet extended release 24 hr 500 mg PO DAILY Qty: 30 0RF Discharge Orders: Discharge ED (Routine); Ordered 06/12/22 Ordered By: Kyle Ruffin Referrals: Chava Castro MD [Primary Care Provider] - Patient Instructions: Opioid Safety Coding Level of Care Code ED Paint Department Supervisor for Chg Fwd Exam Comprehensive
[2022-02-09] MEDS: sodium chloride 0.9% 1,000 ML 999 ML IV ×2 (11:16→12:24)
[2022-02-09 11:20] LABS: Alanine Aminotransferase 25 U/L (0-41); Albumin Level 5.4 g/dL (3.5-5.2); Alkaline Phosphatase 70 IU/L (40-130); Anion Gap 24.6 (5-19); Aspartate Amino Transferase 16 U/L (0-40); Blood Urea Nitrogen 15 mg/dL (6-20); Calcium 10.3 mg/dL (8.5-10.5); Carbon Dioxide 20 mmol/L (22-29); Chloride 101 mmol/L (98-107); Globulin 3.3 g/dL (1.3-4.6); Glomerular Filtration Rate 90.3 mL/min (90-130); Glucose 115 mg/dL (65-115); Lipase 21 U/L (13-60); Osmolality Calculated 296 mOsm/kg (285-295); Potassium 3.6 mmol/L (3.5-5.1); Sodium 142 mmol/L (136-145); Total Bilirubin 1.2 mg/dL (0.15-1.2); Total Protein 8.7 g/dL (6.6-8.7)
[2022-02-09 11:22] LABS: Lactate (Lactic Acid level) 3.4 mmol/L (0.5-2.2)
[2022-02-09 11:28] VITALS: BP 133/96; PULSE 84; RESP 16; O2SAT 96
--- NOTE | 2022-02-09 12:28 | PC.NURSE ---
Dr. Ruffin gave verbal orders to discharge PT after second Liter of normal saline fluids.
[2022-02-09 13:17] VITALS: BP 133/74; PULSE 85; RESP 16; O2SAT 94
== END 2022-02-09 13:18 | disposition home or self-care (01) ==
PROVIDERS: Physician Assistant; Emergency Provider Family Medicine; PCP Family Medicine
DX: M54.2 Cervicalgia (principal); G89.29 Other chronic pain; K52.9 Noninfective gastroenteritis and colitis, unspecified; R11.2 Nausea with vomiting, unspecified; M79.602 Pain in left arm; M79.601 Pain in right arm
CPT/HCPCS: 80053; 83605; 83690; 85025; 96361; 96374; 96375; 99284; J1885; J2270; J2405; J2930; J7030

== ENCOUNTER 2022-02-11 14:06 | Outpatient (CLI) | payer BC, MEDICAID, SELFPAY ==
--- NOTE | 2022-02-11 14:14 | MR_ITS ---
WS: [id number] MRI LUMBAR SPINE NONCONTRAST TECHNIQUE: Sagittal T1, T2 and STIR imaging. Axial T1 and T2 imaging. CLINICAL INFORMATION: M54.50 - Low back pain, unspecified COMPARISON: None. FINDINGS: Mild lumbar curve. No acute compression. No high-grade central canal stenosis. Disc bulging worse at L5-S1. L1-L2: Normal. L2-L3: Mild annular bulging with a shallow central protrusion. Slight effacement of ventral thecal sa c. Spinal canal and foramen are patent. L3-L4: No significant disc bulging. Spinal canal and foramen are patent. Mild facet arthropathy. L4-L5: No significant disc bulging. Mild facet arthropathy. Spinal canal and foramen are patent. L5-S1: LEFT pericentral disc protrusion impinges the traversing LEFT S1 nerve root in the subarticula r recess. Recommend correlation LEFT S1 nerve root symptoms. Mild LEFT foraminal narrowing. Mild face t arthropathy. Visualized pelvic bony structures: Normal. Paravertebral soft tissues: Normal. MR/MR lumbar spine wo con* [id number] IMPRESSION: 1. Mild lumbar curve. No acute compression. No high-grade central canal stenos is. 2. LEFT pericentral disc protrusion L5-S1 impinges the traversing LEFT S1 nerv e root in the subarticular recess. Recommend correlation LEFT S1 nerve root sym ptoms. 3. Mild LEFT L5-S1 foraminal narrowing. 4. Annular bulging L2-L3 with shallow broad-based central protrusion with slig ht effacement of ventral thecal sac. Spinal canal and foramen are patent at thi s level. 5. Mild facet arthropathy L3-L5.
== END 2022-02-11 14:07 | disposition home or self-care (01) ==
LOC: RAD 14:07
PROVIDERS: PCP Family Medicine; Visit Provider Specialist
DX: M54.50 Low back pain, unspecified (principal); M54.2 Cervicalgia; M79.604 Pain in right leg; M51.17 Intervertebral disc disorders with radiculopathy, lumbosacral region; M47.816 Spondylosis without myelopathy or radiculopathy, lumbar region
CPT/HCPCS: 72148

== ENCOUNTER 2022-03-07 14:36 | Outpatient (CLI) | payer BC, MEDICAID, SELFPAY ==
--- NOTE | 2022-03-07 14:48 | MR_ITS ---
WS: [id number] MRI CERVICAL SPINE NONCONTRAST HISTORY: M54.50 - Low back pain, unspecified COMPARISON: None available. Technique: Multiplanar, multisequence noncontrast imaging of the cervical spine. Normal cervical alignment with no compression fracture or significant disc space narrowing. Signal within the cervical cord is normal. Visualized posterior fossa is unremarkable. Mild ectopia of the cerebellar tonsils. No Chiari malformation. Posterior fossa is negative. C2-C3: Normal. C3-C4: Small central disc protrusion and LEFT foraminal osteophyte. No significant stenosis. C4-C5: Normal. C5-C6: Small central disc protrusion. No stenosis or cord contact. C6-C7: Normal. C7-T1: Normal. Paraspinal soft tissue are normal. MR/MR cervical spin wo con* [id number] IMPRESSION: 1. Small central disc protrusion and LEFT foraminal osteophyte at C3-4. No sig nificant stenosis. 2. Small central disc protrusion at C5-6 with no stenosis.
== END 2022-03-07 14:37 | disposition home or self-care (01) ==
LOC: RAD 14:38
PROVIDERS: PCP Family Medicine; Visit Provider Specialist
DX: M50.222 Other cervical disc displacement at C5-C6 level (principal)
CPT/HCPCS: 72141

== ENCOUNTER 2022-03-27 13:39 | Emergency (ER) | payer BC, MEDICAID, SELFPAY ==
[2022-03-27 14:29] VITALS: BP 141/92; PULSE 53; RESP 14; TEMP 36.8; O2SAT 97; BMI 25.8
--- NOTE | 2022-03-27 14:39 | ED_ITS ---
HPI - Headache General: Chief Complaint: Headache Stated Complaint: Pressure in head Time Seen by Provider: 03/27/22 14:36 Source: patient Mode of arrival: ambulatory Limitations: no limitations History of Present Illness: Patient is a 26-year-old male who presents to ED today with a complaint of a headache over the past 5 to 6 months. He has a longstanding history of chronic migraine headaches and has been seen here in the emergency department several times for these. He has followed up with PCP as well as neurology/Dr. Sandoval. He states on his last visit with her the decision was made to attempt Botox therapy. He thinks there may have been some type of hiccup with his insurance and these have not been completed. States he has been on countless different medications for his headaches none of which make a difference. Patient has had 3-4 head CTs within the last 2 years for evaluation of headaches all of which were normal. Reportedly has never had an MRI. Patient states over the past 2 weeks/months he is now getting intermittent paresthesias throughout different parts of my body . He is also reporting some intermittent visual changes that he describes as blurry . No visual loss. He states he has tried to contact [facility] neurology several times but has a difficult time getting through. He states he did get a voicemail recently and was told he would need to wait until his scheduled appointment on 05/27. MD elicited complaint: headache and migraine Pertinent past history: migraines Onset (ago): month(s) Exacerbating factors: none Relieving factors: nothing Associated symptoms: Deny chest pain, confusion, fever(s), malaise, nausea, rash or vomiting Treatments prior to arrival: none Review of Systems Const: Denies: fever(s), chills, body aches, fatigue or malaise Eyes: Reports: change in vision and blurry vision; Denies: blind spots, photophobia, eye discomfort, eye discharge, floaters or seeing flashes ENMT: Denies: throat pain, odynophagia, ear or mastoid pain, nasal discharge or nasal congestion Card: Denies: chest pain or palpitations Resp: Denies: dyspnea GI: Denies: abdominal pain, nausea or vomiting Musc: Denies: neck pain, back pain, extremity pain or joint pain Skin/Breast: Denies: rash Neuro: Reports: headache(s) and sensory changes; Denies: numbness in extremities, weakness in extremities, lack of coordination, difficulty walking, dizziness, vertigo, confusion, behavioral changes, Slurred speech present, difficulty communicating thoughts, seizure-like activity, involuntary movements or restless legs PFSH ED PFSH: Medical History Abdominal pain Dysphagia HTN (hypertension) Surgical History History of colonoscopy (~08/2019) History of esophagogastroduodenoscopy (EGD) (~08/2019) Family History Father Cancer liver Hypertension Stroke Grandfather Cancer lung Grandmother Diabetes Sister Hypertension Social History Smoking and tobacco status: former smoker (off and on) Second hand smoke exposure: No Alcohol intake: never Adopted: No Caregiver/support person: Yes Lives independently: Yes Household members: significant other Housing: House Marital status: Single Highest education level completed: High School Graduate service: No Current occupational status: employed Current occupational exposures/hazards: No Pets and animals: No History of recent travel: No Leisure activites: exercise Sexually active: Yes Current gender identity: Male and Female Trixie/Mormon: Sikhism Special trixie needs: No Agree to transfusion: No Financial difficulty paying for basics: Not Very Hard Physical Exam Const: COMMON NORMALS: no acute distress, patient oriented x3, no limitations and alert GENERAL APPEARANCE: cooperative ORIENTATION/CONSCIOUSNESS: Yes awake, Yes oriented to person, Yes oriented to place and Yes oriented to time HENMT: COMMON NORMALS: normocephalic and atraumatic HEAD & SCALP: normal to inspection, normocephalic and atraumatic Eye: COMMON NORMALS: Equal, round and reactive pupils present, EOMs intact bilaterally, conjunctivae normal, no scleral icterus and normal visual willis by confrontation GENERAL EYE: appearance normal, both eyes and all related structures and normal light reflex VISUAL ACUITY: Yes acuity normal VISUAL WILLIS: No peripheral vision loss and No central vision loss ALIGNMENT: Yes alignment normal PERIORBITAL: periorbital findings normal EYELID: eyelids normal CONJUNCTIVA: Yes conjunctivae normal SCLERA: sclerae normal CORNEA: Yes corneas normal PUPIL: Yes Equal, round and reactive pupils present DIRECT OPHTHALMOSCOPY: Yes normal light reflex Neuro: GURPREET COMA SCALE: document GCS findings Gurpreet coma scale eye opening: Spontaneous [place] coma scale verbal response: Orientated Gurpreet coma scale motor response: Obey commands Gurpreet coma scale total score: 15 COMMON NORMALS: patient oriented x3, CN's II-XII intact bilaterally, moves all extremities, no focal motor deficits, no sensory deficits noted and gait normal SENSORIUM/ORIENTATION: Yes alert, Yes oriented to person, Yes oriented to place and Yes oriented to time SPEECH: speech normal GAIT: Yes Normal gait present MOTOR EXAM: 5/5 motor strength present throughout Skin: COMMON NORMALS: no rashes or lesions noted GENERAL SKIN EXAM: no rashes or lesions noted Course 2 Vital Signs: Vital signs: Vital Signs Temperature 98.2 F 03/27/22 14:29 Pulse Rate 53 L 03/27/22 14:29 Respiratory Rate 14 03/27/22 14:29 Blood Pressure 141/92 03/27/22 14:29 Pulse Oximetry 97 03/27/22 14:29 Oxygen Delivery Me thod 03/27/22 14:29 MDM - Headache Medical Decision Making I am not sure what else to offer patient from an emergency standpoint as he has had multiple work-ups here over the past 1 to 2 years. He admittedly has tried countless prescription medications none of which he feels like ever gave him any notable relief. He has had multiple CT scans. I do not think emergent MRI imaging is warranted today. Given his visual complaint over the last several weeks I did recommend he get a dilated ophthalmology exam to assess for possible papilledema. He is agreeable to this. We will place referral with case management to see if he can see Dr. Sandoval sooner than his scheduled appointment on 05/27 for further evaluation/treatment. Discharge Plan Discharge Patient Disposition: Home Clinical Impression: Chronic migraine without aura, intractable, with status migrainosus Condition: Stable Prescriptions: No Action multivitamin Tablet 1 tab PO QAM metoprolol tartrate 25 mg tablet 25 mg PO BID Qty: 180 1RF Emgality Pen 120 mg/mL pen injector 120 mg SUBCUT ONCE Qty: 1 2RF diazepam [Valium] 10 mg tablet 10 mg PO BID PRN (Reason: anxiety) 1 Days Qty: 2 0RF Rx Instructions: Take one tablet 1 hour prior to procedure, then take one tablet upon arrival. albuterol sulfate [ProAir HFA] 90 mcg/actuation Hfa Aerosol Inhaler 1 puff INHALATION Q4H PRN (Reason: Shortness Of Breath) fluticasone propionate [Flonase Allergy Relief] 50 mcg/actuation spray,suspension 1 spray intranasal BID PRN (Reason: Allergy Symptoms) Rx Instructions: administer into each nostril pantoprazole [Protonix] 40 mg tablet,delayed release (DR/EC) 40 mg PO BID Qty: 60 0RF lisinopril 20 mg tablet 10 mg PO QAM diclofenac sodium 50 mg tablet,delayed release (DR/EC) 50 mg PO BID acetaminophen [Tylenol Extra Strength] 500 mg Tablet 500 - 1,000 mg PO Q4H PRN (Reason: Pain) Depakote ER 500 mg tablet extended release 24 hr 500 mg PO DAILY Qty: 30 0RF prednisone 20 mg tablet 20 mg PO TID Qty: 15 0RF Rx Instructions: 1 p.o. 3 times daily x3 days, 1 p.o. twice daily x2 days, 1 p.o. daily x2 days promethazine 25 mg tablet 25 mg PO Q6H PRN (Reason: nausea and vomiting) Qty: 20 0RF Lyrica 75 mg capsule 75 mg PO BID Qty: 60 0RF Discharge Orders: Discharge ED (Routine); Ordered 03/27/22 Ordered By: Argentina Souza Referrals: Chava Castro MD [Primary Care Provider] - Coding Level of Care Code ED Gps Field Data Collector for Genaro Goddard
--- NOTE | 2022-03-29 17:00 | DCPLANNER ---
Addendum entered by Rayna Grissom 05/28/22 14:02: Patient had a follow up appointment scheduled with neurology - patient did attend appointment. Addendum entered by Rayna Grissom 04/01/22 12:43: Patient has a follow up appointment scheduled for Friday, May 27, 2022 at 3:[address] Sandoval at neurology. Clinic will call patient with appointment information. Original Note: network contract manager had message to schedule a follow up appointment for patient with neurology. network contract manager sent patients information to the front office staff at neurology. Patients information will be printed and reviewed. Clinic will call patient with appointment information.
== END 2022-03-27 15:52 | disposition home or self-care (01) ==
PROVIDERS: Emergency Provider Physician Assistant; PCP Family Medicine
DX: G43.711 Chronic migraine without aura, intractable, with status migrainosus (principal); I10 Essential (primary) hypertension; Z87.891 Personal history of nicotine dependence
CPT/HCPCS: 99281

== ENCOUNTER 2022-04-08 07:06 | Outpatient (CLI) | payer BC, MEDICAID, SELFPAY ==
--- NOTE | 2022-04-08 07:23 | MR_ITS ---
WS: [id number] MRI HEAD WITHOUT CONTRAST TECHNIQUE: Sagittal T1, T2 axial, T2 axial FLAIR, axial and coronal T1 images, axial susceptibility w eighted imaging, axial diffusion weighted images, and coronal T2 images were obtained. CLINICAL INFORMATION: MIGRAINE HEADACHES COMPARISON: CT January 25, 2022, MRI 2011 FINDINGS: No evidence of restricted diffusion to suggest acute ischemia. Ventricular system and basal cisterns are patent. No suspicious intracranial signal abnormalities. Normal salcedo-white differentiation. Suze l posterior fossa. Normal vascular flow voids at the skull base. No extra-axial fluid collections. No evidence of mass or mass effect. Mild mucosal thickening in the ethmoid air cells. No hemosiderin on susceptibly weighted images. Norm al optic chiasm and pituitary infundibulum. Normal cavernous sinuses and Meckel's cave. MR/MR head wo con* [id number] IMPRESSION: 1. No evidence of restricted diffusion to suggest acute ischemia. 2. No suspicious intracranial signal abnormalities. Normal salcedo-white differen tiation. 3. Mild mucosal thickening ethmoid air cells. 4. No hemosiderin on susceptibly weighted images. 5. No remarkable changes since 2011
== END 2022-04-08 07:07 | disposition home or self-care (01) ==
LOC: RAD 07:07
PROVIDERS: PCP Family Medicine; Visit Provider Family Medicine
DX: G43.909 Migraine, unspecified, not intractable, without status migrainosus (principal)
CPT/HCPCS: 70551

== ENCOUNTER 2022-04-09 11:26 | Oncology outpatient (recurring) (ONCR) | payer BC, MEDICAID, SELFPAY ==
[2022-04-09 11:58] LABS: Basophils % 0.5 %; Eosinophils # 0.2 10^3/uL (0.0-0.8); Hematocrit 44.6 % (42.0-52.0); Hemoglobin 14.9 g/dL (11.7-16.6); Lymphocytes # 3.6 10^3/uL (0.8-4.8); Lymphocytes % 46.1 %; Mean Corpuscular HGB Conc 33.4 g/dL (30.0-36.0); Mean Corpuscular Hemoglobin 30.9 pg (28.0-34.0); Mean Corpuscular Volume 92.5 fl (80-94); Mean Platelet Volume 10.9 fL (7.4-10.4); Monocytes # 0.8 10^3/uL (0.2-0.9); Neutrophils % 40.1 %; Nucleated Red Blood Cells % 0 %; Platelet Count 245 10^3/cmm (130-400); Red Blood Count 4.82 10^6/uL (4.1-5.3); Red Cell Distribution Width 12.2 % (12.1-15.1); White Blood Count 7.7 10^3/uL (4.0-10.0)
== END 2022-04-30 23:59 | disposition home or self-care (01) ==
PROVIDERS: Nurse Practitioner; PCP Family Medicine; Visit Provider Internal Medicine Hematology & Oncology
DX: D75.1 Secondary polycythemia (principal); R70.0 Elevated erythrocyte sedimentation rate; D72.829 Elevated white blood cell count, unspecified
CPT/HCPCS: 36415; 85025; 99214; G0463

== ENCOUNTER 2022-04-12 08:08 | Emergency (ER) | payer BC, MEDICAID, SELFPAY ==
[2022-04-12 08:12] VITALS: BP 133/91; PULSE 72; RESP 18; O2SAT 98; BMI 25.1
[2022-04-12 08:18] VITALS: BP 133/91; PULSE 53; RESP 18; O2SAT 97
--- NOTE | 2022-04-12 08:23 | ED_ITS ---
HPI - Male Genitourinary General: Chief complaint: Urogenital-Male Stated complaint: Kidney pains Time Seen by Provider: 04/12/22 08:12 Source: patient Mode of arrival: ambulatory Limitations: no limitations History of Present Illness: 27-year-old male states he been having thoracic back pain over the last 3 days he has had some sharp pains in his back states that it radiates around to his abdomen on both sides. States pain sharp in nature rates it a 5 out of 10 denies any worsening proving factors denies any dysuria at this time denies any testicle pain no vomiting or diarrhea. Associated symptoms: Deny nausea or vomiting Review of Systems Const: Denies: fever(s), chills, body aches or change in appetite Eyes: Denies: blurry vision or eye discomfort ENMT: Denies: throat pain or dental pain Card: Denies: chest pain Resp: Denies: dyspnea GI: Denies: abdominal pain, nausea, vomiting or diarrhea : Reports: flank pain Musc: Reports: back pain Skin/Breast: Denies: rash Neuro: Denies: headache(s) Psych: Denies: depression Ady/Lymph: Denies: easy bruising All/Imm: Denies: urticaria PFSH ED PFSH: Medical History Abdominal pain Dysphagia HTN (hypertension) Leukocytosis Secondary polycythemia Surgical History History of colonoscopy (~08/2019) History of esophagogastroduodenoscopy (EGD) (~08/2019) Family History Father Cancer liver Hypertension Stroke Grandfather Cancer lung Grandmother Diabetes Sister Hypertension Mother Arthritis Social History Smoking and tobacco status: never smoked Second hand smoke exposure: No Alcohol intake: never Adopted: No Caregiver/support person: Yes Lives independently: Yes Household members: significant other Housing: House Marital status: Single Highest education level completed: High School Graduate service: No Current occupational status: employed Current occupational exposures/hazards: No Pets and animals: No History of recent travel: No Leisure activites: exercise Sexually active: Yes Current gender identity: Male and Female Trixie/Worship: Amish Special trixie needs: No Agree to transfusion: No Financial difficulty paying for basics: Not Very Hard Physical Exam Const: COMMON NORMALS: no acute distress, patient oriented x3 and healthy appearing HENMT: COMMON NORMALS: normocephalic and atraumatic HEAD & SCALP: normoce phalic and atraumatic Eye: COMMON NORMALS: Equal, round and reactive pupils present and EOMs intact bilaterally PUPIL: Yes Equal, round and reactive pupils present Neck/C-Spine: COMMON NORMALS: full ROM and supple Chest: COMMONS NORMALS: normal inspection of the chest and normal palpation of entire chest wall Resp: COMMON NORMALS: normal respiratory effort, No retractions, No use of accessory muscles and clear to auscultation bilaterally AUSCULTATION: clear to auscultation bilaterally Cardio: COMMON NORMALS: regular rate, regular rhythm and No murmurs present (Cardio) RATE: regular rate RHYTHM: regular rhythm GI: COMMON NORMALS: Normal to inspection, nondistended, normoactive bowel sounds present, Soft to palpation, non-tender and no masses PALPATION: Yes Soft to palpation : COMMON NORMALS: Yes no CVA tenderness BLADDER/KIDNEY EXAM: Yes no CVA tenderness Back/Pelvis: COMMON NORMALS: no CVA tenderness OTHER: Paraspinal tenderness to the thoracic spine no midline tenderness Extremity: COMMON NORMALS: normal to inspection and full ROM Neuro: COMMON NORMALS: patient oriented x3, moves all extremities and no focal motor deficits Psych: COMMON NORMALS: mental status grossly normal, Normal thought process present and cooperative THOUGHT PROCESS: Normal thought process present Skin: COMMON NORMALS: no rashes or lesions noted and no wounds GENERAL SKIN EXAM: no rashes or lesions noted Course Vital Signs: Vital signs: Vital Signs Pulse Rate 53 L 04/12/22 08:18 Respiratory Rate 18 04/12/22 08:18 Blood Pressure 133/91 04/12/22 08:18 Pulse Oximetry 97 04/12/22 08:18 Oxygen Delivery Me thod 04/12/22 08:18 MDM - Male Medical Decision Making Patient presents with back pain likely muscular in nature he has no signs of kidney stone or kidney infection blood work and urine is normal he is pain-free currently we will place him on Naprosyn Robaxin he is to follow-up with PCP and return if worsening he understands agrees to plan. Lab Data : 04/12/22 08:04 04/12/22 08:04 Laboratory Results WBC 10.0 10^3/uL (4.0-10.0) 04/12/22 08:04 RBC 5.06 10^6/uL (4.1-5.3) 04/12/22 08:04 Hgb 15.6 g/dL (11.7-16.6) 04/12/22 08:04 Hct 47.0 % (42.0-52.0) 04/12/22 08:04 MCV 92.9 fl (80-94) 04/12/22 08:04 MCH 30.8 pg (28.0-34.0) 04/12/22 08:04 MCHC 33.2 g/dL (30.0-36.0) 04/12/22 08:04 RDW 12.2 % (12.1-15.1) 04/12/22 08:04 Plt Count 237 10^3/cmm (130-400) 04/12/22 08:04 MPV 11.8 fL (7.4-10.4) H 04/12/22 08:04 Neut % (Auto) 45.8 % 04/12/22 08:04 Lymph % (Auto) 43.0 % 04/12/22 08:04 [place] % (Auto) 7.2 % 04/12/22 08:04 Eos % (Auto) 3.3 % 04/12/22 08:04 Baso % (Auto) 0.5 % 04/12/22 08:04 Neut # (Auto) 4.56 10^3/uL (1.8-7.7) 04/12/22 08:04 Lymph # (Auto) 4.3 10^3/uL (0.8-4.8) 04/12/22 08:04 [place] # (Auto) 0.7 10^3/uL (0.2-0.9) 04/12/22 08:04 Eos # (Auto) 0.3 10^3/uL (0.0-0.8) 04/12/22 08:04 Baso # (Auto) 0.1 10^3/uL (0.0-0.1) 04/12/22 08:04 Nucleated RBC % (auto) 0 % 04/12/22 08:04 Nucleated RBCs # 0.0 /100WBC 04/12/22 08:04 Sodium 143 mmol/L (136-145) 04/12/22 08:04 Potassium 4.1 mmol/L (3.5-5.1) 04/12/22 08:04 Chloride 106 mmol/L (98-107) 04/12/22 08:04 Carbon Dioxide 25 mmol/L (22-29) 04/12/22 08:04 Anion Gap 16.1 (5-19) 04/12/22 08:04 BUN 12 mg/dL (6-20) 04/12/22 08:04 Creatinine 0.8 mg/dL (0.7-1.2) 04/12/22 08:04 GFR Calculation 116.0 mL/min (90-130) 04/12/22 08:04 Glucose 89 mg/dL (65-115) 04/12/22 08:04 Calculated Osmolality 295 mOsm/kg (285-295) 04/12/22 08:04 Calcium 9.7 mg/dL (8.5-10.5) 04/12/22 08:04 Total Bilirubin 0.7 mg/dL (0.15-1.2) 04/12/22 08:04 AST 22 U/L (0-40) 04/12/22 08:04 ALT 23 U/L (0-41) 04/12/22 08:04 Alkaline Phosphatase 56 IU/L (40-130) 04/12/22 08:04 Total Protein 7.3 g/dL (6.6-8.7) 04/12/22 08:04 Albumin 4.8 g/dL (3.5-5.2) 04/12/22 08:04 Globulin 2.5 g/dL (1.3-4.6) 04/12/22 08:04 Lipase 24 U/L (13-60) 04/12/22 08:04 Urine Color Yellow (Yellow) 04/12/22 08:52 Urine Appearance Clear (CLEAR) 04/12/22 08:52 Urine pH 5 (5-7) 04/12/22 08:52 Ur Specific Covert 1.020 (1.005-1.030) 04/12/22 08:52 Urine Protein Neg (Negative) 04/12/22 08:52 Urine Glucose (UA) Norm (Normal) 04/12/22 08:52 Urine Ketones Negative (Negative) 04/12/22 08:52 Urine Blood Neg (Negative) 04/12/22 08:52 Urine Nitrate Negative (Negative) 04/12/22 08:52 Urine Bilirubin Neg (Negative) 04/12/22 08:52 Urine Urobilinogen Norm mg/dL (Negative) 04/12/22 08:52 Ur Leukocyte Esterase Negative (Negative) 04/12/22 08:52 Discharge Plan Discharge Patient Disposition: Home Clinical Impression: Back pain Condition: Stable Prescriptions: New methocarbamol 750 mg tablet 750 mg PO Q6H PRN (Reason: spasms) Qty: 20 0RF Naprosyn 500 mg tablet 500 mg PO BID PRN (Reason: pain) Qty: 20 0RF No Action multivitamin Tablet 1 tab PO QAM metoprolol tartrate 25 mg tablet 25 mg PO BID Qty: 180 1RF diazepam [Valium] 10 mg tablet 10 mg PO BID PRN (Reason: anxiety) 1 Days Qty: 2 0RF Rx Instructions: Take one tablet 1 hour prior to procedure, then take one tablet upon arrival. albuterol sulfate [ProAir HFA] 90 mcg/actuation Hfa Aerosol Inhaler 1 puff INHALATION Q4H PRN (Reason: Shortness Of Breath) fluticasone propionate [Flonase Allergy Relief] 50 mcg/actuation spray,suspension 1 spray intranasal BID PRN (Reason: Allergy Symptoms) Rx Instructions: administer into each nostril pantoprazole [Protonix] 40 mg tablet,delayed release (DR/EC) 40 mg PO BID Qty: 60 0RF lisinopril 20 mg tablet 10 mg PO QAM diclofenac sodium 50 mg tablet,delayed release (DR/EC) 50 mg PO BID acetaminophen [Tylenol Extra Strength] 500 mg Tablet 500 - 1,000 mg PO Q4H PRN (Reason: Pain) Depakote ER 500 mg tablet extended release 24 hr 500 mg PO DAILY Qty: 30 0RF promethazine 25 mg tablet 25 mg PO Q6H PRN (Reason: nausea and vomiting) Qty: 20 0RF Discharge Orders: Discharge ED (Routine); Ordered 04/12/22 Ordered By: Meenakshi Rojas Referrals: Chava Castro MD [Primary Care Provider] - 1-3 days Discharge Diet: Advance as tolerated Discharge Activity: Resume usual activity Patient Instructions: Back Pain (ED) Coding Level of Care Code ED Strap Machine Operator for Chg Fwd Exam Comprehensive
[2022-04-12] MEDS: sodium chloride 0.9% 1,000 ML 999 ML IV (08:37)
[2022-04-12 08:57] LABS: Basophils # 0.1 10^3/uL (0.0-0.1); Basophils % 0.5 %; Eosinophils # 0.3 10^3/uL (0.0-0.8); Eosinophils % 3.3 %; Hemoglobin 15.6 g/dL (11.7-16.6); Lymphocytes # 4.3 10^3/uL (0.8-4.8); Mean Corpuscular HGB Conc 33.2 g/dL (30.0-36.0); Mean Corpuscular Hemoglobin 30.8 pg (28.0-34.0); Mean Corpuscular Volume 92.9 fl (80-94); Mean Platelet Volume 11.8 fL (7.4-10.4); Monocytes # 0.7 10^3/uL (0.2-0.9); Monocytes % 7.2 %; Neutrophils # 4.56 10^3/uL (1.8-7.7); Neutrophils % 45.8 %; Nucleated Red Blood Cells % 0 %; Platelet Count 237 10^3/cmm (130-400); Red Blood Count 5.06 10^6/uL (4.1-5.3); Red Cell Distribution Width 12.2 % (12.1-15.1)
[2022-04-12 09:02] LABS: Add Urine Microscopic? NO; Charge for UA Resulting for Rev
[2022-04-12 09:06] LABS: Bilirubin Urine Neg (Negative); Blood Urine Neg (Negative); Glucose Urine UA Norm (Normal); Ketones Urine Negative (Negative); Leukocyte Esterase Urine Negative (Negative); Nitrate Urine Negative (Negative); Protein Urine Neg (Negative); Urine Appearance Clear (CLEAR); Urine Color Yellow (Yellow); Urobilinogen Urine Norm (Negative); pH Urine 5 (5-7)
[2022-04-12 09:18] LABS: Alanine Aminotransferase 23 U/L (0-41); Albumin Level 4.8 g/dL (3.5-5.2); Alkaline Phosphatase 56 IU/L (40-130); Anion Gap 16.1 (5-19); Aspartate Amino Transferase 22 U/L (0-40); Blood Urea Nitrogen 12 mg/dL (6-20); Calcium 9.7 mg/dL (8.5-10.5); Carbon Dioxide 25 mmol/L (22-29); Chloride 106 mmol/L (98-107); Globulin 2.5 g/dL (1.3-4.6); Glucose 89 mg/dL (65-115); Lipase 24 U/L (13-60); Osmolality Calculated 295 mOsm/kg (285-295); Potassium 4.1 mmol/L (3.5-5.1); Sodium 143 mmol/L (136-145); Total Bilirubin 0.7 mg/dL (0.15-1.2); Total Protein 7.3 g/dL (6.6-8.7)
[2022-04-12 09:46] VITALS: BP 125/86; PULSE 71; RESP 18; O2SAT 97
== END 2022-04-12 09:48 | disposition home or self-care (01) ==
PROVIDERS: Emergency Provider Emergency Medicine; PCP Family Medicine
DX: M54.9 Dorsalgia, unspecified (principal); I10 Essential (primary) hypertension
CPT/HCPCS: 80053; 81003; 83690; 85025; 96360; 99284; J7030

== ENCOUNTER 2022-04-18 18:49 | Emergency (ER) | payer BC, MEDICAID, SELFPAY ==
[2022-04-18 19:52] VITALS: BP 135/77; PULSE 71; RESP 18; TEMP 36.8; O2SAT 97; BMI 25.1
[2022-04-18 20:19] LABS: Add Urine Microscopic? NO; Charge for UA Resulting for Rev
[2022-04-18 20:28] LABS: Bilirubin Urine Neg (Negative); Blood Urine Neg (Negative); Glucose Urine UA Norm (Normal); Ketones Urine 3+ (Negative); Leukocyte Esterase Urine Negative (Negative); Nitrate Urine Negative (Negative); Protein Urine Neg (Negative); Urine Appearance Clear (CLEAR); Urine Color Yellow (Yellow); Urobilinogen Urine Neg (Negative); pH Urine 5 (5-7)
[2022-04-18 20:47] LABS: Basophils # 0.1 10^3/uL (0.0-0.1); Basophils % 0.5 %; Eosinophils # 0.2 10^3/uL (0.0-0.8); Eosinophils % 1.3 %; Hematocrit 48.4 % (42.0-52.0); Hemoglobin 16.1 g/dL (11.7-16.6); Lymphocytes # 4.5 10^3/uL (0.8-4.8); Lymphocytes % 36.6 %; Mean Corpuscular HGB Conc 33.3 g/dL (30.0-36.0); Mean Corpuscular Hemoglobin 30.2 pg (28.0-34.0); Mean Corpuscular Volume 90.8 fl (80-94); Mean Platelet Volume 11.1 fL (7.4-10.4); Monocytes % 8.1 %; Neutrophils # 6.54 10^3/uL (1.8-7.7); Neutrophils % 53.3 %; Nucleated Red Blood Cells % 0 %; Platelet Count 284 10^3/cmm (130-400); Red Blood Count 5.33 10^6/uL (4.1-5.3); Red Cell Distribution Width 11.9 % (12.1-15.1); White Blood Count 12.3 10^3/uL (4.0-10.0)
[2022-04-18 21:10] LABS: Alanine Aminotransferase 21 U/L (0-41); Albumin Level 5.4 g/dL (3.5-5.2); Alkaline Phosphatase 65 U/L (40-130); Anion Gap 20.6 (5-19); Aspartate Amino Transferase 16 U/L (0-40); Blood Urea Nitrogen 16 mg/dL (6-20); Calcium 10.3 mg/dL (8.5-10.5); Carbon Dioxide 22 mmol/L (22-29); Chloride 100 mmol/L (98-107); Globulin 2.9 g/dL (1.3-4.6); Glomerular Filtration Rate 101.2 mL/min (90-130); Glucose 90 mg/dL (65-115); Lipase 28 U/L (13-60); Osmolality Calculated 289 mOsm/kg (285-295); Potassium 3.6 mmol/L (3.5-5.1); Sodium 139 mmol/L (136-145); Total Bilirubin 0.9 mg/dL (0.15-1.2); Total Protein 8.3 g/dL (6.6-8.7)
--- NOTE | 2022-04-18 22:13 | CTR_ITS ---
PROCEDURE INFORMATION: Exam: CT Abdomen And Pelvis With Contrast Exam date and time: 04/18/2022 10:24 PM Age: 27 years old Clinical indication: Abdominal pain; Localized; Right upper quadrant (ruq); Patient HX: Ruq pain with nausea. TECHNIQUE: Imaging protocol: Computed tomography of the abdomen and pelvis with contrast. Radiation optimization: All CT scans at this facility use at least one of these dose optimization techniques: automated exposure control; mA and/or kV adjustment per patient size (includes targeted exams where dose is matched to clinical indication); or iterative reconstruction. Contrast material: OMNI 350; Contrast volume: 80 ml; Contrast route: INTRAVENOUS (IV); COMPARISON: CT abdomen pelvis w con* [id number] 08/11/2020 12:00 PM RADIATION DOSE METRICS: Total DLP (mGy-cm): 545.64 FINDINGS: Liver: Normal. No mass. Gallbladder and bile ducts: Normal. No calcified stones. No ductal dilation. Pancreas: Normal. No ductal dilation. Spleen: Normal. No splenomegaly. Adrenal glands: Normal. No mass. Kidneys and ureters: Normal. No hydronephrosis. Stomach and bowel: Unremarkable. No obstruction. No mucosal thickening. Appendix: Normal. Intraperitoneal space: Unremarkable. No free air. No significant fluid collection. Vasculature: Unremarkable. No abdominal aortic aneurysm. Lymph nodes: Unremarkable. No enlarged lymph nodes. Urinary bladder: Unremarkable as visualized. Reproductive: Unremarkable as visualized. Bones/joints: Unremarkable. No acute fracture. Soft tissues: Unremarkable. CT/CT abdomen pelvis w con* [id number] IMPRESSION: No acute abnormality is seen in the abdomen or pelvis.
--- NOTE | 2022-04-18 22:14 | ED_ITS ---
HPI - Abdominal Pain General: Chief Complaint: Abdominal Pain Stated Complaint: abd/back pain Time Seen by Provider: 04/18/22 22:04 History of Present Illness: 27-year-old male who says he has been sick for around 10 days or so. He has been experiencing right upper quadrant pain into his right flank. No shortness of breath. He has been nauseated at times. The pain has been decently constant. He was seen a few days ago, and laboratory was normal. He was told his urine was normal by his PCP yesterday. No history of belly surgery. No fever. No vomiting. He has had mild diarrhea. MD elicited complaint: abdominal pain Pertinent past history: other Onset (ago): day(s) (10) Location: RUQ and R flank Quality: stabbing and aching Radiation: back Migration to: no migration Exacerbating factors: movement Relieving factors: nothing Associated Symptoms: Reports change in stool character, diarrhea, nausea and poor appetite; Denies anorexia, fever(s) and vomiting Review of Systems Const: Denies: fever(s) Card: Denies: chest pain Resp: Denies: dyspnea, productive cough or non-productive cough GI: Reports: nausea, diarrhea and change in stool character; Denies: vomiting Musc: Reports: back pain PFSH ED PFSH: Medical History Abdominal pain Dysphagia HTN (hypertension) Leukocytosis Secondary polycythemia Surgical History History of colonoscopy (~08/2019) History of esophagogastroduodenoscopy (EGD) (~08/2019) Family History Father Cancer liver Hypertension Stroke Grandfather Cancer lung Grandmother Diabetes Sister Hypertension Mother Arthritis Social History Smoking and tobacco status: never smoked Second hand smoke exposure: No Alcohol intake: never Adopted: No Caregiver/support person: Yes Lives independently: Yes Household members: significant other Housing: House Marital status: Single Highest education level completed: High School Graduate service: No Current occupational status: employed Current occupational exposures/hazards: No Pets and animals: No History of recent travel: No Leisure activites: exercise Sexually active: Yes Current gender identity: Male and Female Trixie/Baptist: Shinto Special trixie needs: No Agree to transfusion: No Financial difficulty paying for basics: Not Very Hard Physical Exam Const: COMMON NORMALS: no acute distress GENERAL APPEARANCE: cooperative; not ill appearing and not frail appearing HENMT: COMMON NORMALS: normocephalic and atraumatic HEAD & SCALP: no rmocephalic and atraumatic Eye: COMMON NORMALS: Equal, round and reactive pupils present and EOMs intact bilaterally SCLERA: sclerae normal PUPIL: Yes Equal, round and reactive pupils present Neck/C-Spine: GENERAL: Yes trachea midline Chest: CHEST: Yes Symmetrical chest wall rise Resp: COMMON NORMALS: normal respiratory effort, No use of accessory muscles and clear to auscultation bilaterally AUSCULTATION: clear to auscultation bilaterally Cardio: COMMON NORMALS: regular rate and regular rhythm RATE: regular rate RHYTHM: regular rhythm GI: COMMON NORMALS: Normal to inspection, nondistended, normoactive bowel sounds present PALPATION: Yes Tenderness to palpation present (GI) Details: RUQ : BLADDER/KIDNEY EXAM: Yes CVA tenderness on the right Back/Pelvis: GENERAL BACK: Yes CVA tenderness Extremity: COMMON NORMALS: normal to inspection and no pedal edema Neuro: GURPREET COMA SCALE: document GCS findings Gurpreet coma scale eye opening: Spontaneous Gurpreet coma scale verbal response: Orientated Gurpreet coma scale motor response: Obey commands Hecker coma scale total score: 15 Course Vital Signs: Vital signs: Vital Signs Temperature 98.2 F 04/18/22 19:52 Pulse Rate 88 04/19/22 00:09 Respiratory Rate 19 H 04/19/22 00:09 Blood Pressure 135/77 04/18/22 19:52 Pulse Oximetry 98 04/19/22 00:09 Oxygen Delivery Me thod 04/18/22 19:52 MDM - Abdominal Pain Medical Decision Making My blood cell count is 12. CBC is otherwise not remarkable. BMP is normal. Liver enzymes are normal. Urinalysis shows 3+ ketones, but is otherwise negative. CT of the belly shows no acute abnormality. No evidence of cholecystitis or kidney problem. Symptomatic treatment. Outpatient follow-up Lab Data : 04/18/22 20:42 04/18/22 20:42 Labs/Radiology: Radiology Impressions Abdomen/Pelvis CT 04/18/22 22:13 IMPRESSION: No acute abnormality is seen in the abdomen or pelvis. Laboratory Results WBC 12.3 10^3/uL (4.0-10.0) H 04/18/22 20:42 RBC 5.33 10^6/uL (4.1-5.3) H 04/18/22 20:42 Hgb 16.1 g/dL (11.7-16.6) 04/18/22 20:42 Hct 48.4 % (42.0-52.0) 04/18/22 20:42 MCV 90.8 fl (80-94) 04/18/22 20:42 MCH 30.2 pg (28.0-34.0) 04/18/22 20:42 MCHC 33.3 g/dL (30.0-36.0) 04/18/22 20:42 RDW 11.9 % (12.1-15.1) L 04/18/22 20:42 Plt Count 284 10^3/cmm (130-400) 04/18/22 20:42 MPV 11.1 fL (7.4-10.4) H 04/18/22 20:42 Neut % (Auto) 53.3 % 04/18/22 20:42 Lymph % (Auto) 36.6 % 04/18/22 20:42 [place] % (Auto) 8.1 % 04/18/22 20:42 Eos % (Auto) 1.3 % 04/18/22 20:42 Baso % (Auto) 0.5 % 04/18/22 20:42 Neut # (Auto) 6.54 10^3/uL (1.8-7.7) 04/18/22 20:42 Lymph # (Auto) 4.5 10^3/uL (0.8-4.8) 04/18/22 20:42 [place] # (Auto) 1.0 10^3/uL (0.2-0.9) H 04/18/22 20:42 Eos # (Auto) 0.2 10^3/uL (0.0-0.8) 04/18/22 20:42 Baso # (Auto) 0.1 10^3/uL (0.0-0.1) 04/18/22 20:42 Nucleated RBC % (auto) 0 % 04/18/22 20:42 Nucleated RBCs # 0.0 /100WBC 04/18/22 20:42 Sodium 139 mmol/L (136-145) 04/18/22 20:42 Potassium 3.6 mmol/L (3.5-5.1) 04/18/22 20:42 Chloride 100 mmol/L (98-107) 04/18/22 20:42 Carbon Dioxide 22 mmol/L (22-29) 04/18/22 20:42 Anion Gap 20.6 (5-19) H 04/18/22 20:42 BUN 16 mg/dL (6-20) 04/18/22 20:42 Creatinine 0.9 mg/dL (0.7-1.2) 04/18/22 20:42 GFR Calculation 101.2 mL/min (90-130) 04/18/22 20:42 Glucose 90 mg/dL (65-115) 04/18/22 20:42 Calculated Osmolality 289 mOsm/kg (285-295) 04/18/22 20:42 Calcium 10.3 mg/dL (8.5-10.5) 04/18/22 20:42 Total Bilirubin 0.9 mg/dL (0.15-1.2) 04/18/22 20:42 AST 16 U/L (0-40) 04/18/22 20:42 ALT 21 U/L (0-41) 04/18/22 20:42 Alkaline Phosphatase 65 U/L (40-130) 04/18/22 20:42 Total Protein 8.3 g/dL (6.6-8.7) 04/18/22 20:42 Albumin 5.4 g/dL (3.5-5.2) H 04/18/22 20:42 Globulin 2.9 g/dL (1.3-4.6) 04/18/22 20:42 Lipase 28 U/L (13-60) 04/18/22 20:42 Urine Color Yellow (Yellow) 04/18/22 20:15 Urine Appearance Clear (CLEAR) 04/18/22 20:15 Urine pH 5 (5-7) 04/18/22 20:15 Ur Specific [place] 1.020 (1.005-1.030) 04/18/22 20:15 Urine Protein Neg (Negative) 04/18/22 20:15 Urine Glucose (UA) Norm (Normal) 04/18/22 20:15 Urine Ketones 3+ (Negative) H 04/18/22 20:15 Urine Blood Neg (Negative) 04/18/22 20:15 Urine Nitrate Negative (Negative) 04/18/22 20:15 Urine Bilirubin Neg (Negative) 04/18/22 20:15 Urine Urobilinogen Neg mg/dL (Negative) 04/18/22 20:15 Ur Leukocyte Esterase Negative (Negative) 04/18/22 20:15 Discharge Plan Discharge Patient Disposition: Home Clinical Impression: Abdominal pain, acute, right upper quadrant Condition: Stable Prescriptions: New ketorolac 10 mg tablet 10 mg PO TID PRN (Reason: pain) Qty: 10 0RF ondansetron 4 mg film 4 mg PO DAILY PRN (Reason: nausea and vomiting) Qty: 10 0RF Discontinued diclofenac sodium 50 mg tablet,delayed release (DR/EC) 50 mg PO BID naproxen [Naprosyn] 500 mg tablet 500 mg PO BID PRN (Reason: pain) Qty: 20 0RF No Action multivitamin Tablet 1 tab PO QAM metoprolol tartrate 25 mg tablet 25 mg PO BID Qty: 180 1RF diazepam [Valium] 10 mg tablet 10 mg PO BID PRN (Reason: anxiety) 1 Days Qty: 2 0RF Rx Instructions: Take one tablet 1 hour prior to procedure, then take one tablet upon arrival. albuterol sulfate [ProAir HFA] 90 mcg/actuation Hfa Aerosol Inhaler 1 puff INHALATION Q4H PRN (Reason: Shortness Of Breath) fluticasone propionate [Flonase Allergy Relief] 50 mcg/actuation spray,suspension 1 spray intranasal BID PRN (Reason: Allergy Symptoms) Rx Instructions: administer into each nostril pantoprazole [Protonix] 40 mg tablet,delayed release (DR/EC) 40 mg PO BID Qty: 60 0RF lisinopril 20 mg tablet 10 mg PO QAM acetaminophen [Tylenol Extra Strength] 500 mg Tablet 500 - 1,000 mg PO Q4H PRN (Reason: Pain) Depakote ER 500 mg tablet extended release 24 hr 500 mg PO DAILY Qty: 30 0RF promethazine 25 mg tablet 25 mg PO Q6H PRN (Reason: nausea and vomiting) Qty: 20 0RF methocarbamol 750 mg tablet 750 mg PO Q6H PRN (Reason: spasms) Qty: 20 0RF Discharge Orders: Discharge ED (Routine); Ordered 04/18/22 Ordered By: Sonny Lloyd Referrals: Chava Castro MD [Primary Care Provider] - 1-3 days Patient Instructions: Abdominal Pain (ED) Activity Restrictions/Additional Instructions: Laboratory and CT findings did not reveal a cause of your right-sided abdominal pain this evening. Medication as directed. Follow-up with your doctor this coming week. Return to the emergency room for worsening pain despite treatment, vomiting liquids or medications, fever greater than 100, blood in the stool, or other concerning symptoms. Be sure to follow-up, as further outpatient testing may be needed. Coding Level of Care Code ED Conference Concierge for Chg Fwd Exam Comprehensive
[2022-04-18] MEDS: iohexol 350 mg/mL 100 mL Btl IV (22:28)
[2022-04-18] MEDS: sodium chloride 0.9% 1,000 ML 999 ML IV (22:34)
[2022-04-18] MEDS: ketorolac 30 mg/mL INJ IVP (22:36)
[2022-04-18] MEDS: ondansetron 2 mg/ML SDV 2 mL 4 MG IVP (22:37)
[2022-04-19 00:09] VITALS: PULSE 88; RESP 19; O2SAT 98
== END 2022-04-19 00:12 | disposition home or self-care (01) ==
PROVIDERS: Emergency Medicine; Emergency Provider Emergency Medicine; PCP Family Medicine
DX: R10.11 Right upper quadrant pain (principal); I10 Essential (primary) hypertension
CPT/HCPCS: 74177; 80053; 81003; 83690; 85025; 96374; 96375; 99285; J1885; J2405; J7030; Q9967

== ENCOUNTER 2022-05-22 06:50 | Emergency (ER) | payer BC, MEDICAID, SELFPAY ==
--- NOTE | 2022-05-22 07:06 | ECG_ITS ---
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 Measurements Intervals [place] Rate: 59 P: 53 [place]: 138 QRS: 44 QRSD: 86 T: 50 QT: 403 QTc: 402 Interpretive Statements SINUS BRADYCARDIA INTERPRETATION BASED ON A DEFAULT AGE OF 40 YEARS Compared to ECG 10/27/2021 10:18:45 No significant changes Electronically Signed On 05-22-2022 20:48:45 CDT by Skinny Haley M.D. [id number] f
[2022-05-22 07:08] VITALS: BP 125/79; PULSE 69; RESP 12; TEMP 36.8; O2SAT 96; BMI 25.8
[2022-05-22 07:22] VITALS: BP 120/76; PULSE 74; RESP 14; O2SAT 98
--- NOTE | 2022-05-22 07:22 | XR_ITS ---
WS: [id number] Portable AP upright chest, 05/22/2022 Clinical Data: chest pain Comparison: PA and lateral chest, 10/27/2021. Findings: No nodules, masses or effusions are seen. The heart is normal. The pulmonary vascularity is not increased. No pneumonia or pneumothorax is seen. XR/XR chest 1V portable [id number] Impression: Negative chest.
--- NOTE | 2022-05-22 07:37 | ED_ITS ---
HPI - Chest Pain General: Chief Complaint: Chest Pain Stated Complaint: chest pain, sob Time Seen by Provider: 05/22/22 06:51 Source: patient Mode of arrival: ambulatory History of Present Illness: 27-year-old male with a history of hypertension and recurrent episodes of chest pain. He has been having chest pain for last several weeks has been evaluated multiple times in the emergency room as well as in the hand or machine paster office they had decreased his metoprolol to see if that would improve his symptoms. He previously has had stress testing which was negative.No fever sweats chills or cough. MD complaint: chest pain Onset (ago): week(s) Timing of current episode: episodic Prior episodes: Yes Onset: during rest Pain location: left chest and epigastric Pain radiation: none Severity: moderate Quality: tightness and aching Relieving factors: nothing Exacerbating factors: nothing Associated symptoms: Deny abdominal pain, diaphoresis, dyspnea, fever(s), leg edema, nausea, palpitations, sense of impending doom, syncope or vomiting Treatment prior to arrival: none Review of Systems Const: Denies: fever(s), chills, fatigue, malaise or diaphoresis ENMT: Denies: throat pain, ear or mastoid pain, nasal discharge or nasal congestion Card: Reports: chest pain; Denies: palpitations or syncope Resp: Denies: dyspnea GI: Denies: abdominal pain, nausea or vomiting : Denies: flank pain, dysuria, urinary frequency or urinary urgency Skin/Breast: Denies: rash or pruritus PFSH ED PFSH: Medical History Abdominal pain Dysphagia HTN (hypertension) Leukocytosis Secondary polycythemia Surgical History History of colonoscopy (~08/2019) History of esophagogastroduodenoscopy (EGD) (~08/2019) Family History Father Cancer liver Hypertension Stroke Grandfather Cancer lung Grandmother Diabetes Sister Hypertension Mother Arthritis Social History Smoking and tobacco status: never smoked Second hand smoke exposure: No Alcohol intake: never Adopted: No Caregiver/support person: Yes Lives independently: Yes Household members: significant other Housing: House Marital status: Single Highest education level completed: High School Graduate service: No Current occupational status: employed Current occupational exposures/hazards: No Pets and animals: No History of recent travel: No Leisure activites: exercise Sexually active: Yes Current gender identity: Male and Female Trixie/Scientologist: Hindu Special trixie needs: No Agree to transfusion: No Financial difficulty paying for basics: Not Very Hard Course Vital Signs: Vital signs: Vital Signs Temperature 98.2 F 05/22/22 07:08 Pulse Rate 71 05/22/22 10:13 Respiratory Rate 16 05/22/22 10:13 Blood Pressure 128/77 05/22/22 10:13 Pulse Oximetry 98 05/22/22 09:43 Oxygen Delivery Me thod 05/22/22 07:22 MDM - Chest Pain Medical Decision Making Patient has had chest pain complaints for months. His troponins are negative EKG is unremarkable. He is had previous stress testing which is negative. We will refer him back to the cardiology clinic return if has further problems for Medical Records I reviewed the patient's medical records. Lab Data I reviewed the patient's lab results. Radiology Impressions Chest X-Ray 05/22/22 07:22 Impression: Negative chest. Laboratory Results Troponin T Baseline 7 ng/L (0-15) 05/22/22 08:18 Troponin T 120 Minute 6.46 ng/L (0-15) 05/22/22 10:09 Delta Troponin T -0.54 ABS# (0-10) L 05/22/22 10:09 Discharge Plan Discharge Patient Disposition: Home Clinical Impression: Atypical chest pain Condition: Stable Prescriptions: No Action multivitamin Tablet 1 tab PO QAM metoprolol tartrate 25 mg tablet 12.5 mg PO BID Qty: 180 1RF albuterol sulfate [ProAir HFA] 90 mcg/actuation Hfa Aerosol Inhaler 1 puff INHALATION Q4H PRN (Reason: Shortness Of Breath) fluticasone propionate [Flonase Allergy Relief] 50 mcg/actuation spray,suspension 1 spray intranasal BID PRN (Reason: Allergy Symptoms) Rx Instructions: administer into each nostril lisinopril 20 mg tablet 10 mg PO QAM acetaminophen [Tylenol Extra Strength] 500 mg Tablet 500 - 1,000 mg PO Q4H PRN (Reason: Pain) promethazine 25 mg tablet 25 mg PO Q6H PRN (Reason: nausea and vomiting) Qty: 20 0RF methocarbamol 750 mg tablet 750 mg PO Q6H PRN (Reason: spasms) Qty: 20 0RF Discharge Orders: Discharge ED (Routine); Ordered 05/22/22 Ordered By: Kyle Ruffin Referrals: Chava Castro MD [Primary Care Provider] - Discharge Diet: Usual diet Discharge Activity: Resume usual activity Activity Restrictions/Additional Instructions: Follow-up with cardiology. Coding Level of Care Code ED Cosmetologist Apprentice for Genaro Goddard
[2022-05-22 08:47] LABS: Troponin(5th) Baseline 7 ng/L (0-15)
--- NOTE | 2022-05-22 09:30 | ECG_ITS ---
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 Measurements Intervals [place] Rate: 50 P: 34 [place]: 133 QRS: 18 QRSD: 88 T: 18 QT: 412 QTc: 376 Interpretive Statements SINUS BRADYCARDIA Compared to ECG 10/27/2021 10:18:45 No significant changes Electronically Signed On 05-22-2022 20:49:09 CDT by Skinny Haley M.D. [id number]
[2022-05-22 09:43] VITALS: BP 118/83; PULSE 73; RESP 16; O2SAT 98
[2022-05-22 10:13] VITALS: BP 128/77; PULSE 71; RESP 16
[2022-05-22 10:50] LABS: Troponin 5 2HR 6.46 ng/L (0-15)
[2022-05-22 11:16] LABS: Troponin 5 2HR Delta -0.54 ABS# (0-10)
== END 2022-05-22 10:17 | disposition home or self-care (01) ==
PROVIDERS: Emergency Provider Family Medicine; PCP Family Medicine
DX: R07.89 Other chest pain (principal); I10 Essential (primary) hypertension
CPT/HCPCS: 71045; 84484; 93005; 99285

== ENCOUNTER 2022-05-24 18:09 | Emergency (ER) | payer BC, MEDICAID, SELFPAY ==
[2022-05-24 18:14] VITALS: BP 139/89; PULSE 75; RESP 16; TEMP 37.4; O2SAT 100; BMI 25.8
--- NOTE | 2022-05-24 18:15 | XRR_ITS ---
PROCEDURE INFORMATION: Exam: XR Chest Exam date and time: 05/24/2022 7:52 PM Age: 27 years old Clinical indication: Chest wall pain; Additional info: Cp TECHNIQUE: Imaging protocol: Radiologic exam of the chest. Views: 1 view. COMPARISON: CR XR chest 1V portable [id number] 05/22/2022 7:40 AM FINDINGS: Lungs: No consolidation. Pleural spaces: No pleural effusion. No pneumothorax. Heart/Mediastinum: No cardiomegaly. Bones/joints: Unremarkable. XR/XR chest 1V portable [id number] IMPRESSION: 1. No acute abnormality demonstrated. 2. There is no interval change from the prior examination.
--- NOTE | 2022-05-24 18:15 | ECG_ITS ---
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
--- NOTE | 2022-05-24 19:46 | PC.NURSE ---
assumed care of patient at this time.
--- NOTE | 2022-05-24 19:54 | ED_ITS ---
HPI - Chest Pain General: Chief Complaint: Chest Pain Stated Complaint: sob, cp Time Seen by Provider: 05/24/22 19:46 Source: patient Mode of arrival: ambulatory Limitations: no limitations History of Present Illness: 27-year-old male states he been having chest pain for last 3 days he was seen here 2 days ago states that today has had some numbness going down his left arm causing concern denies any shortness of breath denies any nausea denies any worsening improving factors states pain currently is a 2 out of 10. Associated symptoms: Deny abdominal pain, dyspnea, fever(s), nausea or vomiting Review of Systems Const: Denies: fever(s), chills, body aches or change in appetite Eyes: Denies: blurry vision or eye discomfort ENMT: Denies: throat pain or dental pain Card: Reports: chest pain Resp: Denies: dyspnea GI: Denies: abdominal pain, nausea, vomiting or diarrhea : Denies: dysuria Musc: Denies: neck pain or back pain Skin/Breast: Denies: rash Neuro: Denies: headache(s) Psych: Denies: depression Ady/Lymph: Denies: easy bruising All/Imm: Denies: urticaria PFSH ED PFSH: Medical History Abdominal pain Dysphagia HTN (hypertension) Leukocytosis Secondary polycythemia Surgical History History of colonoscopy (~08/2019) History of esophagogastroduodenoscopy (EGD) (~08/2019) Family History Father Cancer liver Hypertension Stroke Grandfather Cancer lung Grandmother Diabetes Sister Hypertension Mother Arthritis Social History Smoking and tobacco status: never smoked Second hand smoke exposure: No Alcohol intake: never Adopted: No Caregiver/support person: Yes Lives independently: Yes Household members: significant other Housing: House Marital status: Single Highest education level completed: High School Graduate service: No Current occupational status: employed Current occupational exposures/hazards: No Pets and animals: No History of recent travel: No Leisure activites: exercise Sexually active: Yes Current gender identity: Male and Female Trixie/Druze: Buddhist Special trixie needs: No Agree to transfusion: No Financial difficulty paying for basics: Not Very Hard Physical Exam Const: COMMON NORMALS: no acute distress, patient oriented x3 and healthy appearing HENMT: COMMON NORMALS: normocephalic and atraumatic HEAD & SCALP: normocephalic and atraumatic Eye: COMMON NORMALS: Equal, round and reactive pupils present and EOMs intact bilaterally PUPIL: Yes Equal, round and reactive pupils present Neck/C-Spine: COMMON NORMALS: full ROM and supple Chest: COMMONS NORMALS: normal inspection of the chest and normal palpation of entire chest wall Resp: COMMON NORMALS: normal respiratory effort, No retractions, No use of accessory muscles and clear to auscultation bilaterally AUSCULTATION: clear to auscultation bilaterally Cardio: COMMON NORMALS: regular rate, regular rhythm and No murmurs present (Cardio) RATE: regular rate RHYTHM: regular rhythm GI: COMMON NORMALS: Normal to inspection, nondistended, normoactive bowel sounds present, Soft to palpation, non-tender and no masses PALPATION: Yes Soft to palpation Extremity: COMMON NORMALS: normal to inspection and full ROM Neuro: COMMON NORMALS: patient oriented x3, moves all extremities and no focal motor deficits Psych: COMMON NORMALS: mental status grossly normal, Normal thought process present and cooperative THOUGHT PROCESS: Normal thought process present Skin: COMMON NORMALS: no rashes or lesions noted and no wounds GENERAL SKIN EXAM: no rashes or lesions noted Course Vital Signs: Vital signs: Vital Signs Temperature 99.3 F 05/24/22 18:14 Pulse Rate 68 05/24/22 20:00 Respiratory Rate 17 05/24/22 20:00 Blood Pressure 124/81 05/24/22 19:55 Pulse Oximetry 98 05/24/22 20:00 Oxygen Delivery Me thod 05/24/22 20:00 MDM - Chest Pain Medical Decision Making Patient presents here with chest pain is atypical in nature troponin D-dimer negative he is well-appearing here he stable for discharge he is to follow-up with PCP and return if worsening. Lab Data : 05/24/22 19:54 05/24/22 19:54 Laboratory Results WBC 12.9 10^3/uL (4.0-10.0) H 05/24/22 19:54 RBC 5.16 10^6/uL (4.1-5.3) 05/24/22 19:54 Hgb 15.9 g/dL (11.7-16.6) 05/24/22 19:54 Hct 46.7 % (42.0-52.0) 05/24/22 19:54 MCV 90.5 fl (80-94) 05/24/22 19:54 MCH 30.8 pg (28.0-34.0) 05/24/22 19:54 MCHC 34.0 g/dL (30.0-36.0) 05/24/22 19:54 RDW 11.9 % (12.1-15.1) L 05/24/22 19:54 Plt Count 283 10^3/cmm (130-400) 05/24/22 19:54 MPV 10.6 fL (7.4-10.4) H 05/24/22 19:54 Neut % (Auto) 54.9 % 05/24/22 19:54 Lymph % (Auto) 33.3 % 05/24/22 19:54 Cla[place]orne % (Auto) 8.8 % 05/24/22 19:54 Eos % (Auto) 2.2 % 05/24/22 19:54 Baso % (Auto) 0.5 % 05/24/22 19:54 Neut # (Auto) 7.05 10^3/uL (1.8-7.7) 05/24/22 19:54 Lymph # (Auto) 4.3 10^3/uL (0.8-4.8) 05/24/22 19:54 [place]orne # (Auto) 1.1 10^3/uL (0.2-0.9) H 05/24/22 19:54 Eos # (Auto) 0.3 10^3/uL (0.0-0.8) 05/24/22 19:54 Baso # (Auto) 0.1 10^3/uL (0.0-0.1) 05/24/22 19:54 Nucleated RBC % (auto) 0 % 05/24/22 19:54 Nucleated RBCs # 0.0 /100WBC 05/24/22 19:54 D-Dimer <= 0.27 ug/mIFEU (0-0.59) 05/24/22 19:54 Sodium 137 mmol/L (136-145) 05/24/22 19:54 Potassium 4.0 mmol/L (3.5-5.1) 05/24/22 19:54 Chloride 100 mmol/L (98-107) 05/24/22 19:54 Carbon Dioxide 25 mmol/L (22-29) 05/24/22 19:54 Anion Gap 16.0 (5-19) 05/24/22 19:54 BUN 21 mg/dL (6-20) H 05/24/22 19:54 Creatinine 0.9 mg/dL (0.7-1.2) 05/24/22 19:54 GFR Calculation 101.2 mL/min (90-130) 05/24/22 19:54 Glucose 98 mg/dL (65-115) 05/24/22 19:54 Calculated Osmolality 287 mOsm/kg (285-295) 05/24/22 19:54 Calcium 10.0 mg/dL (8.5-10.5) 05/24/22 19:54 Total Bilirubin 0.5 mg/dL (0.15-1.2) 05/24/22 19:54 AST 16 U/L (0-40) 05/24/22 19:54 ALT 15 U/L (0-41) 05/24/22 19:54 Alkaline Phosphatase 74 U/L (40-130) 05/24/22 19:54 Troponin T Baseline 6 ng/L (0-15) 05/24/22 19:54 Total Protein 7.6 g/dL (6.6-8.7) 05/24/22 19:54 Albumin 5.0 g/dL (3.5-5.2) 05/24/22 19:54 Globulin 2.6 g/dL (1.3-4.6) 05/24/22 19:54 EKG Data EKG 1: I personally reviewed and interpreted this EKG as follows: EKG interpretation date: 05/24/22 EKG interpretation time: 18:23 Interpretation: nsr hr [address] or t wave abnormalities qrs 88 qtc 390 Discharge Plan Discharge Patient Disposition: Home Clinical Impression: Chest pain Qualifiers: Chest pain type: unspecified Qualified Code(s): R07.9 - Chest pain, unspecified Condition: Stable Prescriptions: No Action multivitamin Tablet 1 tab PO QAM metoprolol tartrate 25 mg tablet 12.5 mg PO BID Qty: 180 1RF albuterol sulfate [ProAir HFA] 90 mcg/actuation Hfa Aerosol Inhaler 1 puff INHALATION Q4H PRN (Reason: Shortness Of Breath) fluticasone propionate [Flonase Allergy Relief] 50 mcg/actuation spray,suspension 1 spray intranasal BID PRN (Reason: Allergy Symptoms) Rx Instructions: administer into each nostril lisinopril 20 mg tablet 10 mg PO QAM acetaminophen [Tylenol Extra Strength] 500 mg Tablet 500 - 1,000 mg PO Q4H PRN (Reason: Pain) promethazine 25 mg tablet 25 mg PO Q6H PRN (Reason: nausea and vomiting) Qty: 20 0RF methocarbamol 750 mg tablet 750 mg PO Q6H PRN (Reason: spasms) Qty: 20 0RF Discharge Orders: Discharge ED (Routine); Ordered 05/24/22 Ordered By: Meenakshi Rojas Referrals: Chava Castro MD [Primary Care Provider] - 1-3 days Discharge Diet: Advance as tolerated Discharge Activity: Resume usual activity Patient Instructions: Chest Pain (ED) Coding Level of Care Code ED Revenue Cycle Analyst for Chg Fwd Exam Comprehensive
[2022-05-24 19:55] VITALS: BP 124/81; PULSE 63; RESP 19; O2SAT 97; O2SAT 98
[2022-05-24 20:00] VITALS: PULSE 68; RESP 17; O2SAT 98
[2022-05-24 20:05] LABS: Basophils # 0.1 10^3/uL (0.0-0.1); Basophils % 0.5 %; Eosinophils # 0.3 10^3/uL (0.0-0.8); Eosinophils % 2.2 %; Hematocrit 46.7 % (42.0-52.0); Hemoglobin 15.9 g/dL (11.7-16.6); Lymphocytes # 4.3 10^3/uL (0.8-4.8); Lymphocytes % 33.3 %; Mean Corpuscular Hemoglobin 30.8 pg (28.0-34.0); Mean Corpuscular Volume 90.5 fl (80-94); Mean Platelet Volume 10.6 fL (7.4-10.4); Monocytes # 1.1 10^3/uL (0.2-0.9); Monocytes % 8.8 %; Neutrophils # 7.05 10^3/uL (1.8-7.7); Neutrophils % 54.9 %; Nucleated Red Blood Cells % 0 %; Platelet Count 283 10^3/cmm (130-400); Red Blood Count 5.16 10^6/uL (4.1-5.3); Red Cell Distribution Width 11.9 % (12.1-15.1); White Blood Count 12.9 10^3/uL (4.0-10.0)
[2022-05-24 20:14] LABS: D Dimer <= 0.27 ug/mIFEU (0-0.59)
[2022-05-24 20:24] LABS: Alanine Aminotransferase 15 U/L (0-41); Alkaline Phosphatase 74 U/L (40-130); Aspartate Amino Transferase 16 U/L (0-40); Blood Urea Nitrogen 21 mg/dL (6-20); Carbon Dioxide 25 mmol/L (22-29); Chloride 100 mmol/L (98-107); Globulin 2.6 g/dL (1.3-4.6); Glomerular Filtration Rate 101.2 mL/min (90-130); Glucose 98 mg/dL (65-115); Osmolality Calculated 287 mOsm/kg (285-295); Sodium 137 mmol/L (136-145); Total Bilirubin 0.5 mg/dL (0.15-1.2); Total Protein 7.6 g/dL (6.6-8.7)
[2022-05-24 20:26] LABS: Troponin(5th) Baseline 6 ng/L (0-15)
[2022-05-24 20:39] VITALS: BP 124/85; PULSE 80; RESP 17; O2SAT 98
== END 2022-05-24 20:40 | disposition home or self-care (01) ==
PROVIDERS: Emergency Provider Emergency Medicine; PCP Family Medicine
DX: R07.9 Chest pain, unspecified (principal); I10 Essential (primary) hypertension
CPT/HCPCS: 71045; 80053; 84484; 85025; 85378; 93005; 99285

== ENCOUNTER → 2022-07-01 15:51 | Outpatient (BNVA) | payer BC, MEDICAID, SELFPAY | PROVIDERS: PCP Family Medicine; Visit Provider Orthopaedic Surgery | DX: M54.50 Low back pain, unspecified (principal); M79.604 Pain in right leg | CPT/HCPCS: 72050; 72110 ==

== ENCOUNTER 2022-07-08 08:27 | Outpatient (CLI) | payer BC, MEDICAID, SELFPAY ==
--- NOTE | 2022-07-08 08:30 | USCV_ITS ---
Anthony Del Valle Age: 27 Gender: M : 1995 Exam Date: 07/08/2022 09:03 Ordering Phys: Rosa Ma Technologist: Exam Location: [facility] [place] Indication: short of breath BP: 125 / 78 HR: 59 Rhythm: Sinus Technical Quality: Adequate MEASUREMENTS (Male / Female) Normal Values 2D ECHO LV Diastolic Diameter PLAX 4.1 cm 4.2 - 5.9 / 3.9 - 5.3 cm LV Systolic Diameter PLAX 2.0 cm IVS Diastolic Thickness 1.0 cm 0.6 - 1.0 / 0.6 - 0.9 cm IVS Systolic Thickness 1.9 cm LVPW Diastolic Thickness 1.4 cm 0.6 - 1.0 / 0.6 - 0.9 cm LVPW Systolic Thickness 1.4 cm LVOT Diameter 2.1 cm LV Ejection Fraction 2D Teich 81.6 % LV Ejection Fraction MOD 2C 61.9 % LV Ejection Fraction 2C AL 60.9 % LA Diameter 3.2 cm IVC Diameter 2.0 cm M-MODE Aortic Annulus Diameter 2.7 cm LA Ao Ratio MM 1.2 MV E Point Septal Separation 0.6 cm DOPPLER AV Peak Velocity 98.0 cm/s LVOT Peak Velocity 85.0 cm/s AV Area Cont Eq vti 2.8 cm squared AV Area Cont Eq pk 2.9 cm squared MV Area PHT 5.0 cm squared Mitral E to A Ratio 1.2 MV E' Velocity 42.5 cm/s Mitral E to MV E' Ratio 5.4 Mitral E to LV E' Lateral Ratio 4.8 Mitral E to LV E' Septal Ratio 6.1 TR Peak Velocity 238.0 cm/s TR Peak Gradient 22.7 mmHg TV Peak E Velocity 104.0 cm/s Right Atrial Pressure 3.0 mmHg Pulmonary Artery Systolic Pressu 25.7 mmHg RV Acceleration Time 0.1 s FINDINGS Left Ventricle Normal left ventricular size, systolic function and wall thickness, with no regional wall motion abnormalities. Left ventricular ejection fraction is estimated at 65 %. Normal diastolic function. Right Ventricle Normal right ventricular size and systolic function. Right ventricular systolic pressure 25 mmHg. Right Atrium Normal right atrial size. Left Atrium Normal left atrial size. Mitral Valve Structurally normal mitral valve. No mitral valve stenosis. Trace mitral valve regurgitation. Aortic Valve Structurally normal trileaflet aortic valve. No aortic valve stenosis. No aortic valve regurgitation. Tricuspid Valve Structurally normal tricuspid valve. No tricuspid valve stenosis. Trace to mild tricuspid valve regurgitation. Pulmonic Valve Structurally normal pulmonic valve. No pulmonary valve stenosis. Trace pulmonary valve regurgitation. Pericardium No pericardial effusion. Aorta Normal size aortic root and proximal ascending aorta. IVC Normal IVC dimension with >50% respiratory change of the inferior vena cava. CONCLUSIONS 1. Normal left ventricular size, systolic function and wall thickness, with no regional wall motion abnormalities. Left ventricular ejection fraction is estimated at 65 %. Normal diastolic function. 2. Pulmonary artery pressure estimated at 25 mm Hg. 3. Trace to mild tricuspid valve regurgitation. 4. No prior similar studies to compare. Lissett Lora MD (Electronically Signed) Final Date: 12 July 2022 19:55 S
== END 2022-07-08 08:28 | disposition home or self-care (01) ==
LOC: RAD 08:29
PROVIDERS: PCP Family Medicine; Visit Provider Nurse Practitioner Family
DX: R07.9 Chest pain, unspecified (principal); R06.02 Shortness of breath; R00.0 Tachycardia, unspecified
CPT/HCPCS: 93306

== ENCOUNTER 2022-08-14 16:40 | Outpatient (CLI) | payer BC, MEDICAID, SELFPAY ==
--- NOTE | 2022-08-14 16:59 | XRR_ITS ---
PROCEDURE INFORMATION: Exam: XR Chest Exam date and time: 08/14/2022 4:59 PM Age: 27 years old Clinical indication: Pain; Angina pectoris; Additional info: Atypical chest pain TECHNIQUE: Imaging protocol: Radiologic exam of the chest. Views: 2 views. PA and Lateral COMPARISON: CR (CHEST, ) 05/24/2022 7:52 PM FINDINGS: Lungs: Mildly decreased lung volumes. No interstitial or airspace opacities. Pleural spaces: No pleural effusion. No pneumothorax. Heart/Mediastinum: Normal heart size. Normal mediastinal contour. Midline trachea. Bones/joints: No acute abnormalities. XR/XR chest 2V* [id number] IMPRESSION: No chest radiographic evidence of acute cardiopulmonary disease.
== END 2022-08-14 16:41 | disposition home or self-care (01) ==
PROVIDERS: PCP Family Medicine; Visit Provider Nurse Practitioner Family
DX: R07.89 Other chest pain (principal)
CPT/HCPCS: 71046

== ENCOUNTER 2022-09-10 09:31 | Outpatient (CLI) | payer BC, MEDICAID, SELFPAY ==
--- NOTE | 2022-09-10 09:41 | XR_ITS ---
WS: [id number] RIGHT FOOT: 3 VIEW(S) TECHNIQUE: AP, oblique and lateral. HISTORY: PAIN IN R FOOT COMPARISON: None available. No acute fracture or dislocation. Normal tarsal/metatarsal alignment. No soft tissue abnormality or bone destruction. XR/XR foot RT min 3V* [id number] IMPRESSION: Normal RIGHT foot.
== END 2022-09-10 09:32 | disposition home or self-care (01) ==
LOC: RAD 09:34
PROVIDERS: PCP Family Medicine; Visit Provider Family Medicine
DX: M79.671 Pain in right foot (principal)
CPT/HCPCS: 73630

== ENCOUNTER 2022-10-01 07:15 | Outpatient (CLI) | payer BC, MEDICAID, SELFPAY | END 2022-10-01 07:16 | disposition home or self-care (01) | PROVIDERS: PCP Family Medicine; Visit Provider Family Medicine | DX: R05.3 Chronic cough (principal) | CPT/HCPCS: 94010 ==

== ENCOUNTER → 2022-10-02 15:36 | Outpatient (BNVA) | payer BC, MEDICAID, SELFPAY | PROVIDERS: PCP Family Medicine; Visit Provider Internal Medicine Pulmonary Disease | DX: R06.09 Other forms of dyspnea (principal); R06.02 Shortness of breath | CPT/HCPCS: 36415; 82785; 85025; 86003 ==

== ENCOUNTER 2022-11-28 07:02 | Day surgery (SDC) | payer BC, MEDICAID, SELFPAY ==
[2022-11-27 09:25] VITALS: BMI 25.2
[2022-11-28 07:16] VITALS: BP 128/110; PULSE 106; RESP 16; TEMP 36.5; O2SAT 97
[2022-11-28] MEDS: sodium chloride 0.9% 1,000 ML 30 ML IV (07:24)
--- NOTE | 2022-11-28 08:21 | ANES.PREANE2 ---
Pre-Anesthetic Assessment Height/Weight: Height 1.78 m Weight 79.832 kg Temp Pulse Resp BP Pulse Ox O2 Del Method 97.7 F 106 H 16 128/110 97 11/28/22 07:16 11/28/22 07:16 11/28/22 07:16 11/28/22 07:16 11/28/22 07:16 11/28/22 07:16 Preop Diagnosis: Abdominal Pain Operation Date: 11/28/22 08:45 Proposed Procedures p 44264 EGD [id number] Colon(Not Applicable) - Serg Hayden DO s Colonoscopy(Not Applicable) - Serg Hayden DO Was Beta Zay taken within 24 hours: Yes Was Clonidine taken within 24 hours: N/A Last intake: Intake Last Liquid Date 11/27/22 Last Liquid Time 23:45 Last Solid Date 11/26/22 Last Solid Time 11:00 Social No alcohol and No tobacco Exam alert, oriented x 3, clear to auscultation bilaterally and regular rate & rhythm Airway Submandibular: within normal limits Cervical ROM: within normal limits Mallampati: Class II Dentition: full History/ROS No significant history except as noted and No significant complaints Pulmonary None reported CV/HEM Hypertension None reported Hepatic None reported GI Gastroesophageal Reflux Disease Metabolic None reported Musc/skel None reported Neuropsych None reported Anesthetic Plan ASA status: 2 Anesthesia: Anesthesia Evaluation and MAC Risk of > 500 ml blood loss (7ml/kg in children): No Medications/Allergies Home Medications Medication Instructions Recorded Confirmed Last Taken Type acetaminophen 500 mg tablet 500 - 1,000 mg PO Q4H PRN Pain 08/11/20 11/28/22 06/04/21 History (Tylenol Extra Strength) multivitamin 1 tab PO QAM 03/18/21 11/28/22 11/27/22 History fluticasone propionate 50 1 spray intranasal BID PRN Allergy 06/07/21 11/28/22 Unknown History mcg/actuation nasal Symptoms spray,suspension (Flonase Allergy Relief) lisinopril 20 mg tablet 10 mg PO QAM 11/26/21 11/28/22 11/28/22 History promethazine 25 mg tablet 25 mg PO Q6H PRN nausea and 02/09/22 11/28/22 Unknown Rx vomiting #20 tabs metoprolol tartrate 25 mg tablet 12.5 mg PO BID #180 tabs 05/16/22 11/28/22 11/27/22 Rx ibuprofen 200 mg tablet (IBU-200) 200 mg PO Q6H PRN Pain 09/10/22 11/28/22 Unknown History budesonide-formoterol HFA 80 2 puff inhalation BID #10.2 grams 10/02/22 11/28/22 11/25/22 Rx mcg-4.5 mcg/actuation aerosol inhaler (Symbicort) Allergies Allergy/AdvReac Type Severity Reaction Status Date / Time No Known Allergies Allergy Verified 11/28/22 07:14 Current Medications Generic Name Dose Route Start Last Admin Trade Name Freq PRN Reason Stop Dose Admin Sodium Chloride 1,000 mls @ 30 mls/hr 11/28/22 07:15 11/28/22 07:24 Sodium Chloride 0.9% IV 11/29/22 07:14 30 mls/hr .Q24H ERIC Administration PFSH Anesthesia Medical History Abdominal pain Dysphagia Enlarged lymph node in neck Epigastric pain HTN (hypertension) Leukocytosis Secondary polycythemia Surgical History History of colonoscopy (~08/2019) History of esophagogastroduodenoscopy (EGD) (~08/2019) Family History Father Cancer liver Hypertension Stroke Grandfather Cancer lung Grandmother Diabetes Sister Hypertension Mother Arthritis Social History Smoking and tobacco status: never smoked Second hand smoke exposure: No Alcohol intake: never Adopted: No Caregiver/support person: Yes Lives independently: Yes Household members: significant other Housing: House Marital status: Single Highest education level completed: High School Graduate service: No Current occupational status: employed Current occupational exposures/hazards: No Pets and animals: No Leisure activites: exercise Sexually active: Yes Current gender identity: Male and Female Trixie/Sikh: Mormon Special tirxie needs: No Agree to transfusion: No Financial difficulty paying for basics: Not Very Hard Data Anesthesia Cardiac Studies: Echocardiogram 07/08/22 Sestamibi Stress Test (Cardiology) 09/12/19
--- NOTE | 2022-11-28 08:44 | W.PM.OPSUD ---
Surgery/Procedure H&P Update DATE OF PROCEDURE: November 28, 2022 DATE H&P PERFORMED: 11/26/22 H&P UPDATE INFORMATION: I have reviewed H&P completed within last 30 days, I have examined patient prior to procedure and No changes to prior documentation PREOP DIAGNOSIS: Abdominal Pain PLANNED PROCEDURE: Operation Date: 11/28/22 08:45 Proposed Procedures p [id number] EGD [id number] Colon(Not Applicable) - DO zulma Champagne Colonoscopy(Not Applicable) - Serg Hayden DO
[2022-11-28 09:05] VITALS: BP 92/60; PULSE 82; RESP 16; TEMP 36.1; O2SAT 91
[2022-11-28 09:18] VITALS: BP 107/74; PULSE 80; RESP 16; O2SAT 96
--- NOTE | 2022-11-28 11:34 | ANE.PACU2 ---
Inpatient post-anesthesia follow up: Airway intact: Yes Vital signs: Temperature 97 F Pulse Rate 80 Respiratory Rate 16 Blood Pressure 107/74 Pulse Oximetry 96 Oxygen Delivery Me thod Room Air Oxygen Flow Rate Fraction of Inspir ed Oxygen Hydration adequate: Yes Nausea and vomiting: No Pain level: 1 Mental status: Baseline
== END 2022-11-28 09:51 | disposition home or self-care (01) ==
PROVIDERS: PCP Family Medicine; Visit Provider Surgery
PROC: 0DJ08ZZ Inspection of Upper Intestinal Tract, Via Natural or Artificial Opening Endoscopic (ICD-10-PCS; CPT 43235; principal; 2022-11-28 08:45)
PROC: 0DJD8ZZ Inspection of Lower Intestinal Tract, Via Natural or Artificial Opening Endoscopic (ICD-10-PCS; CPT 45378; 2022-11-28 08:45)
DX: K21.9 Gastro-esophageal reflux disease without esophagitis (principal); I10 Essential (primary) hypertension; R19.5 Other fecal abnormalities; K59.00 Constipation, unspecified
CPT/HCPCS: 43239; 45378; 88305; J2704; J7030

== ENCOUNTER 2023-01-05 13:00 | Outpatient (CLI) | payer BC, MEDICAID, SELFPAY | END 2023-01-05 13:01 | disposition home or self-care (01) | LOC: SLEEP 01-06 13:22 | PROVIDERS: PCP Family Medicine; Visit Provider Internal Medicine Pulmonary Disease | DX: G47.33 Obstructive sleep apnea (adult) (pediatric) (principal); G47.19 Other hypersomnia; R09.02 Hypoxemia | CPT/HCPCS: G0399 ==

== ENCOUNTER 2023-02-04 12:05 | Emergency (ER) | payer BC, MEDICAID, SELFPAY ==
[2023-02-04 12:06] VITALS: BP 163/97; PULSE 81; RESP 17; TEMP 37; O2SAT 98; BMI 25.8
--- NOTE | 2023-02-04 12:13 | ED_ITS ---
HPI - Abdominal Pain General: Chief Complaint: Abdominal Pain Stated Complaint: URQ abd pain into back Time Seen by Provider: 02/04/23 12:07 History of Present Illness: Patient presents to the ER with right upper quadrant pain that radiated to his back. This been going on for approximately 1 month. This is intermittent. This is worse when eating. MD elicited complaint: abdominal pain Pertinent past history: none Pain Consistency: intermittent Location: RUQ Severity: mild Quality: aching Radiation: R flank Migration to: no migration Exacerbating factors: eating Relieving factors: nothing Review of Systems General: Reports: 10 or more systems reviewed and unremarkable except in HPI and below PFSH ED PFSH: Medical History Dysphagia Enlarged lymph node in neck Epigastric pain HTN (hypertension) Leukocytosis Secondary polycythemia Surgical History History of colonoscopy (~08/2019) History of esophagogastroduodenoscopy (EGD) (~08/2019) Family History Father Cancer liver Hypertension Stroke Grandfather Cancer lung Grandmother Diabetes Sister Hypertension Mother Arthritis Social History Smoking and tobacco status: never smoked Second hand smoke exposure: No Alcohol intake: never Substance/Drug Use: never Adopted: No Caregiver/support person: Yes Lives independently: Yes Household members: significant other Housing: House Marital status: Single Highest education level completed: High School Graduate service: No Current occupational status: employed Current occupational exposures/hazards: No Pets and animals: No Leisure activites: exercise Sexually active: Yes Do you think of yourself as: Straight/Heterosexual Current gender identity: Male and Female Trixie/Temple: Hoahaoism Special trixie needs: No Agree to transfusion: No Financial difficulty paying for basics: Not Very Hard Physical Exam Const: COMMON NORMALS: no acute distress, average body habitus, patient oriented x3, no limitations, healthy appearing, alert and well nourished HENMT: COMMON NORMALS: normocephalic, atraumatic, hearing grossly normal bilaterally, external ears normal, Normal external nose present and moist oral mucous membranes HEAD & SCALP: normocephalic and atraumatic NOSE: Normal external nose present EXTERNAL EAR: Yes external ears normal Eye: COMMON NORMALS: Equal, round and reactive pupils present, EOMs intact bilaterally and conjunctivae normal CONJUNCTIVA: Yes conjunctivae normal PUPIL: Yes Equal, round and reactive pupils present Neck/C-Spine: COMMON NORMALS: full ROM, no lymphadenopathy, supple, no meningeal signs, no JVD and Thyroid normal THYROID: Thyroid normal Chest: COMMONS NORMALS: normal inspection of the chest and normal palpation of entire chest wall Resp: COMMON NORMALS: normal respiratory effort, No retractions, No use of accessory muscles and clear to auscultation bilaterally AUSCULTATION: clear to auscultation bilaterally Cardio: COMMON NORMALS: no JVD, regular rate, regular rhythm, S1 normal heart sound present, S2 normal heart sound present, No gallops present (Cardio), No clicks present (Cardio), No murmurs present (Cardio) and No rub (Cardio) RATE: regular rate RHYTHM: regular rhythm HEART SOUNDS: S1 normal heart sound present and S2 normal heart sound present GI: COMMON NORMALS: Normal to inspection, nondistended, normoactive bowel val nds present, Soft to palpation, No hepatosplenomegaly present and no masses PALPATION: Yes Soft to palpation, Yes Tenderness to palpation present (GI) Details: RUQ and Yes No hepatosplenomegaly present : COMMON NORMALS: Yes no CVA tenderness BLADDER/KIDNEY EXAM: Yes no CVA tenderness Back/Pelvis: COMMON NORMALS: no CVA tenderness Neuro: COMMON NORMALS: patient oriented x3 SENSORIUM/ORIENTATION: Yes alert MENINGEAL SIGNS: Yes no meningeal signs Course Vital Signs: Vital signs: Vital Signs Temperature 98.6 F 02/04/23 12:06 Pulse Rate 81 02/04/23 12:06 Respiratory Rate 17 02/04/23 12:06 Blood Pressure 163/97 02/04/23 12:06 Pulse Oximetry 98 02/04/23 12:06 Oxygen Delivery Me thod Room Air 02/04/23 12:06 MDM - Abdominal Pain Medical Decision Making Patient presents to the ER with 1 month of right upper quadrant epigastric pain that is radiating to his back. Lab work was obtained which showed a white count of 11.6 hemoglobin adequate at 17.8 and 52.3 with platelets of 293. Metabolic panel was essentially benign, abdomen pelvis CT was obtained which showed no acute changes patient was given 1 dose of GI cocktail with no relief. Patient was informed of all these findings and was told to follow-up with his PCP as further testing/evaluation referral may be warranted. Differential Diagnosis Likely abdominal pain; Unlikely acute appendicitis, calculus of kidney, constipation, diverticulitis, endometriosis, gastroenteritis, pancreatitis or small bowel obstruction Medical Records I reviewed the patient's medical records. Lab Data I reviewed the patient's lab results. 02/04/23 12:15 02/04/23 12:15 Labs/Radiology: Radiology Impressions Abdomen/Pelvis CT 02/04/23 12:56 IMPRESSION: 1. No evidence of acute appendicitis. Normal appendix. 2. A few sigmoid diverticuli. No evidence of acute diverticulitis. 3. Rectosigmoid constipation. 4. 6 mm nodule LEFT lower lobe laterally unchanged since the CT abdomen pelvis 2021. 5. No other suspicious findings. Laboratory Results WBC 11.6 10^3/uL (4.0-10.0) H 02/04/23 12:15 RBC 5.94 10^6/uL (4.1-5.3) H 02/04/23 12:15 Hgb 17.8 g/dL (11.7-16.6) H 02/04/23 12:15 Hct 52.3 % (42.0-52.0) H 02/04/23 12:15 MCV 88.0 fl (80-94) 02/04/23 12:15 MCH 30.0 pg (28.0-34.0) 02/04/23 12:15 MCHC 34.0 g/dL (30.0-36.0) 02/04/23 12:15 RDW 12.1 % (12.1-15.1) 02/04/23 12:15 Plt Count 293 10^3/cmm (130-400) 02/04/23 12:15 MPV 10.7 fL (7.4-10.4) H 02/04/23 12:15 Neut % (Auto) 58.8 % 02/04/23 12:15 Lymph % (Auto) 29.5 % 02/04/23 12:15 [place] % (Auto) 7.3 % 02/04/23 12:15 Eos % (Auto) 3.3 % 02/04/23 12:15 Baso % (Auto) 0.9 % 02/04/23 12:15 Neut # (Auto) 6.82 10^3/uL (1.8-7.7) 02/04/23 12:15 Lymph # (Auto) 3.4 10^3/uL (0.8-4.8) 02/04/23 12:15 [place] # (Auto) 0.8 10^3/uL (0.2-0.9) 02/04/23 12:15 Eos # (Auto) 0.4 10^3/uL (0.0-0.8) 02/04/23 12:15 Baso # (Auto) 0.1 10^3/uL (0.0-0.1) 02/04/23 12:15 Nucleated RBC % (auto) 0 % 02/04/23 12:15 Nucleated RBCs # 0.0 /100WBC 02/04/23 12:15 Sodium 141 mmol/L (136-145) 02/04/23 12:15 Potassium 3.8 mmol/L (3.5-5.1) 02/04/23 12:15 Chloride 102 mmol/L (98-107) 02/04/23 12:15 Carbon Dioxide 23 mmol/L (22-29) 02/04/23 12:15 Anion Gap 19.8 (5-19) H 02/04/23 12:15 BUN 11 mg/dL (6-20) 02/04/23 12:15 Creatinine 0.9 mg/dL (0.7-1.2) 02/04/23 12:15 GFR Calculation 101.2 mL/min (90-130) 02/04/23 12:15 Glucose 85 mg/dL (65-115) 02/04/23 12:15 Calculated Osmolality 291 mOsm/kg (285-295) 02/04/23 12:15 Calcium 10.0 mg/dL (8.5-10.5) 02/04/23 12:15 Total Bilirubin 1.2 mg/dL (0.15-1.2) 02/04/23 12:15 AST 16 U/L (0-40) 02/04/23 12:15 ALT 14 U/L (0-41) 02/04/23 12:15 Alkaline Phosphatase 84 U/L (40-130) 02/04/23 12:15 Total Protein 9.0 g/dL (6.6-8.7) H 02/04/23 12:15 Albumin 5.4 g/dL (3.5-5.2) H 02/04/23 12:15 Globulin 3.6 g/dL (1.3-4.6) 02/04/23 12:15 Lipase 27 U/L (13-60) 02/04/23 12:15 Discharge Plan Discharge Patient Disposition: Home Clinical Impression: Abdominal pain Qualifiers: Abdominal location: right upper quadrant Qualified Code(s): R10.11 - Right upper quadrant pain Condition: Stable Prescriptions: No Action multivitamin Tablet 1 tab PO QAM ibuprofen [Advil] 200 mg tablet 400 mg PO Q6H PRN (Reason: Pain) Hold Instructions: Resume on 11/30/22. fluticasone propionate [Flonase Allergy Relief] 50 mcg/actuation spray,suspension 1 spray intranasal BID PRN (Reason: Allergy Symptoms) Rx Instructions: administer into each nostril acetaminophen [Tylenol Extra Strength] 500 mg Tablet 500 - 1,000 mg PO Q4H PRN (Reason: Pain) ketorolac 10 mg tablet 10 mg PO Q6H PRN (Reason: Pain) amlodipine 10 mg tablet 10 mg PO QAM pantoprazole 40 mg tablet,delayed release (DR/EC) 40 mg PO QAM metoprolol tartrate 25 mg tablet 12.5 mg PO QAM Symbicort 80-4.5 mcg/actuation HFA aerosol inhaler 2 puff inhalation BID PRN (Reason: unknown) Discharge Orders: Discharge ED (Routine); Ordered 02/04/23 Ordered By: Toni Alexander Referrals: Chava Castro MD [Primary Care Provider] - Patient Instructions: Abdominal Pain (ED) Activity Restrictions/Additional Instructions: Please follow-up with your primary care physician in the next 1 to 2 weeks as further evaluation may be warranted such as HIDA scan, EGD, referral to GI Coding Level of Care Code ED Mechanical Laboratory Technician for Chg Fwbrian
[2023-02-04 12:31] LABS: Basophils # 0.1 10^3/uL (0.0-0.1); Basophils % 0.9 %; Eosinophils # 0.4 10^3/uL (0.0-0.8); Eosinophils % 3.3 %; Hematocrit 52.3 % (42.0-52.0); Hemoglobin 17.8 g/dL (11.7-16.6); Lymphocytes # 3.4 10^3/uL (0.8-4.8); Lymphocytes % 29.5 %; Mean Platelet Volume 10.7 fL (7.4-10.4); Monocytes # 0.8 10^3/uL (0.2-0.9); Monocytes % 7.3 %; Neutrophils # 6.82 10^3/uL (1.8-7.7); Neutrophils % 58.8 %; Nucleated Red Blood Cells % 0 %; Platelet Count 293 10^3/cmm (130-400); Red Blood Count 5.94 10^6/uL (4.1-5.3); Red Cell Distribution Width 12.1 % (12.1-15.1); White Blood Count 11.6 10^3/uL (4.0-10.0)
[2023-02-04] MEDS: lidocaine 2% viscous 15 ML, aluminum-mag hydrox-simethicon 30 ML, sucralfate oral liq 1 GM PO (12:37)
[2023-02-04 12:47] LABS: Alanine Aminotransferase 14 U/L (0-41); Albumin Level 5.4 g/dL (3.5-5.2); Alkaline Phosphatase 84 U/L (40-130); Anion Gap 19.8 (5-19); Aspartate Amino Transferase 16 U/L (0-40); Blood Urea Nitrogen 11 mg/dL (6-20); Carbon Dioxide 23 mmol/L (22-29); Chloride 102 mmol/L (98-107); Globulin 3.6 g/dL (1.3-4.6); Glomerular Filtration Rate 101.2 mL/min (90-130); Glucose 85 mg/dL (65-115); Lipase 27 U/L (13-60); Osmolality Calculated 291 mOsm/kg (285-295); Potassium 3.8 mmol/L (3.5-5.1); Sodium 141 mmol/L (136-145); Total Bilirubin 1.2 mg/dL (0.15-1.2)
--- NOTE | 2023-02-04 12:56 | CT_ITS ---
WS: [id number] CT ABDOMEN PELVIS TECHNIQUE: Contrast-enhanced CT of the abdomen and pelvis with coronal and sagittal reformatted image s. CLINICAL INFORMATION: abd pain, ruq/epigastric, n/v COMPARISON: None. DLP: 576.[address] scans at [facility] use at least one of these dose optimization techniques: automated e xposure control; mA and/or kV adjustment per patient size (includes targeted exams where dose is matc hed to clinical indication); or iterative reconstruction. FINDINGS: Lung bases are well aerated. Noncalcified ovoid nodule LEFT lower lobe laterally near the diaphragm m easuring 6 mm. This is unchanged since 2021. Diffuse fatty infiltration liver. Normal gallbladder. No rmal GE junction. Normal spleen. Small splenule. Normal portal vein and splenic vein. Normal pancreat ic parenchymal enhancement. Adrenal glands are normal. Normal renal parenchymal enhancement. No hydronephrosis. Normal caliber abdominal aorta. Celiac and SMA are patent. Normal appendix in the RIGHT lower quadran t. No evidence of acute appendicitis. Rectosigmoid constipation. A few sigmoid diverticuli. No eviden ce of acute diverticulitis. Tiny fat-containing umbilical hernia. CT/CT abdomen pelvis w con* [id number] IMPRESSION: 1. No evidence of acute appendicitis. Normal appendix. 2. A few sigmoid diverticuli. No evidence of acute diverticulitis. 3. Rectosigmoid constipation. 4. 6 mm nodule LEFT lower lobe laterally unchanged since the CT abdomen pelvis 2021. 5. No other suspicious findings.
[2023-02-04] MEDS: iohexol 350 mg/mL 500 mL Btl (per mL) IV (13:05)
[2023-02-04 14:30] VITALS: BP 158/92; PULSE 79; RESP 18; O2SAT 97
== END 2023-02-04 14:31 | disposition home or self-care (01) ==
PROVIDERS: Emergency Provider Emergency Medicine; PCP Family Medicine
DX: R10.11 Right upper quadrant pain (principal); I10 Essential (primary) hypertension
CPT/HCPCS: 74177; 80053; 83690; 85025; 99284; Q9967

== ENCOUNTER 2023-02-06 15:24 | Outpatient (CLI) | payer BC, MEDICAID, SELFPAY ==
--- NOTE | 2023-02-06 15:51 | XR_ITS ---
WS: [id number] XR chest 2V* [id number] REASON FOR EXAM: DYSPNEA ON EXERTION FINDINGS: The chest is unchanged compared to 08/14/2022. Normal heart and mediastinum. Calcified granulomatous disease bilaterally. No active pulmonary parenchymal or pleural disease. Bony thorax is intact. XR/XR chest 2V* [id number] IMPRESSION: Stable chest without acute abnormality.
== END 2023-02-06 15:25 | disposition home or self-care (01) ==
LOC: LAB 15:28
PROVIDERS: PCP Family Medicine; Visit Provider Family Medicine
DX: R06.09 Other forms of dyspnea (principal)
CPT/HCPCS: 71046

== ENCOUNTER 2023-02-10 15:13 | Outpatient (CLI) | payer BC, MEDICAID, SELFPAY ==
--- NOTE | 2023-02-10 15:17 | US_ITS ---
WS: [id number] RENAL ULTRASOUND HISTORY: HEMATURIA, FLANK PAIN, RIGHT COMPARISON: None available. TECHNIQUE: 2-D and color Doppler imaging of the kidney submitted. Right kidney: 11.1 cm x 4.9 cm x 4.6 cm. Cortex: 1.1 cm Normal echogenicity with no hydronephrosis or mass. Left kidney: 10.1 cm x 4.7 cm x 3.9 cm. Cortex: 1.0 cm Normal echogenicity with no hydronephrosis or mass. Aorta: Normal. Urinary Bladder: Normal distention. No intraluminal filling defect. Normal volume. Prostate gland is normal size at 4.2 x 4.2 x 2.5 cm. US/US renal BI* [id number] IMPRESSION: Normal renal ultrasound.
== END 2023-02-10 15:14 | disposition home or self-care (01) ==
LOC: RAD 15:14
PROVIDERS: PCP Family Medicine; Visit Provider Nurse Practitioner Family
DX: R31.9 Hematuria, unspecified (principal); R10.9 Unspecified abdominal pain
CPT/HCPCS: 76770

== ENCOUNTER 2023-05-05 16:48 | Outpatient (CLI) | payer BC, MEDICAID, SELFPAY ==
--- NOTE | 2023-05-05 17:00 | CT_ITS ---
WS: [id number] CT CHEST TECHNIQUE: Noncontrast CT of the chest with coronal and sagittal reformatted images. CLINICAL INFORMATION: to evaluate for lung nodules. COMPARISON: CTA chest [address] abdomen pelvis 02/04/2023 DLP: 480.[address] scans at [facility] use at least one of these dose optimization techniques: automated e xposure control; mA and/or kV adjustment per patient size (includes targeted exams where dose is matc hed to clinical indication); or iterative reconstruction. FINDINGS: Stable noncalcified nodule LEFT lower lobe laterally measuring 6 mm. This is unchanged since 2019. Lungs are well aerated. No acute pulmonary infiltrates. No focal pneumonia or pleural fluid. No media stinal or hilar lymphadenopathy. No axillary lymphadenopathy. Adrenal glands are normal. Normal GE junction. Splenule LEFT upper quadrant. Normal thoracic spine. IMPRESSION: 1. 6 mm noncalcified nodule LEFT lower lobe laterally unchanged since 2019 2. No mediastinal or hilar lymphadenopathy. 3. No other suspicious pulmonary parenchymal opacities.
== END 2023-05-05 16:49 | disposition home or self-care (01) ==
LOC: RAD 16:49
PROVIDERS: PCP Family Medicine; Visit Provider Internal Medicine Pulmonary Disease
DX: R91.1 Solitary pulmonary nodule (principal)
CPT/HCPCS: 71250

== ENCOUNTER 2024-02-06 06:30 | Emergency (ER) | payer SELFPAY ==
[2024-02-06 06:35] VITALS: BP 151/86; PULSE 70; RESP 18; TEMP 36.6; O2SAT 97; BMI 25.8
--- NOTE | 2024-02-06 07:00 | W.ED.SKABFB ---
HPI - Skin/Abscess/Foreign Bdy General: Chief complaint: Skin/Abscess/Foreign Body Stated complaint: pain on nose Time Seen by Provider: 02/06/24 06:50 Source: patient Mode of arrival: ambulatory History of Present Illness: 28-year-old male presents emergency room with a small nodule on the left side of the nose swallowing it has been present for several weeks. Has been mildly swelling and tender. He has not treated it with anything. Associated symptoms: Deny fever(s) Review of Systems Const: Denies: fever(s) PFSH ED PFSH: Medical History Enlarged lymph node in neck Epigastric pain Leukocytosis Secondary polycythemia HTN (hypertension) Dysphagia Surgical History History of colonoscopy (~08/2019) History of esophagogastroduodenoscopy (EGD) (~08/2019) Family History Father Cancer liver Hypertension Stroke Grandfather Cancer lung Grandmother Diabetes Sister Hypertension Mother Arthritis Social History Smoking and tobacco/nicotine status: never used tobacco/nicotine Second hand smoke exposure: No Alcohol intake: never Substance/Drug Use: never Adopted: No Caregiver/support person: Yes Lives independently: Yes Household members: significant other Housing: House Marital status: Single Highest education level completed: High School Graduate service: No Current occupational status: employed Current occupational exposures/hazards: No Pets and animals: No Leisure activites: exercise Sexually active: Yes Do you think of yourself as: Straight/Heterosexual Current gender identity: Male and Female Trixie/Scientologist: Yarsani Special trixie needs: No Agree to transfusion: No Physical Exam Narrative: EXAM NARRATIVE: Examination of the lesion on the left side of the nose. Mildly tender nodule on palpation is not attached to the underlying bone it is freely moving within the dermis. There is no ulceration or induration. There is no drainage no pointing. Course Vital Signs: Vital signs: Vital Signs Temperature 98 F 02/06/24 06:35 Pulse Rate 70 02/06/24 06:35 Respiratory Rate 18 06/08/24 06:35 Blood Pressure 151/86 02/06/24 06:35 Pulse Oximetry 97 02/06/24 06:35 MDM - Skin/Abscess/Foreign Bdy Medicial Decision Making Mildly infected closed comedone. Start Bactrim follow-up with primary care if not improving No radiology studies performed this visit Discharge Plan Discharge Patient Disposition: Home Clinical Impression: Closed follicle comedo Condition: Stable Prescriptions: New Bactrim DS 800-160 mg tablet 1 tab PO DAILY 7 Days Qty: 14 0RF No Action multivitamin Tablet 1 tab PO QAM ibuprofen [Advil] 200 mg tablet 400 mg PO Q6H PRN (Reason: Pain) Hold Instructions: Resume on 11/30/22. fluticasone propionate [Flonase Allergy Relief] 50 mcg/actuation spray,suspension 1 spray intranasal BID PRN (Reason: Allergy Symptoms) Rx Instructions: administer into each nostril acetaminophen [Tylenol Extra Strength] 500 mg Tablet 500 - 1,000 mg PO Q4H PRN (Reason: Pain) ketorolac 10 mg tablet 10 mg PO Q6H PRN (Reason: Pain) amlodipine 10 mg tablet 10 mg PO QAM pantoprazole 40 mg tablet,delayed release (DR/EC) 40 mg PO QAM metoprolol tartrate 25 mg tablet 12.5 mg PO QAM Symbicort 80-4.5 mcg/actuation HFA aerosol inhaler 2 puff inhalation BID PRN (Reason: unknown) Discharge Orders: Discharge ED (Routine); Ordered 02/06/24 Ordered By: Kyle Ruffin Referrals: Chava Castro MD [Primary Care Provider] - Patient Instructions: Opioid Safety, Pain Management Activity Restrictions/Additional Instructions: Thank you for choosing [facility] for your healthcare needs today. It is very important that you follow up as instructed or that you return to the Emergency Department should you have concerns or if your condition changes or worsens in any way. You were seen today with a small nodule on the left side of the nose on exam it appears to be a closed comedone mildly infected. Recommend Bactrim DS 1 p.o. twice daily for 7 days if not improving follow-up with your primary care doctor Coding Level of Care Code ED Apartment Coordinator for Genaro Goddard
[2024-02-06 07:23] VITALS: BP 151/86; PULSE 65; O2SAT 98
== END 2024-02-06 07:23 | disposition home or self-care (01) ==
PROVIDERS: Emergency Provider Family Medicine; PCP Family Medicine
DX: L70.0 Acne vulgaris (principal); I10 Essential (primary) hypertension
CPT/HCPCS: 99283

== ENCOUNTER 2024-02-27 07:52 | Emergency (ER) | payer SELFPAY ==
--- NOTE | 2024-02-27 07:58 | XRR_ITS ---
PROCEDURE INFORMATION: Exam: XR Chest Exam date and time: 02/27/2024 8:05 AM Age: 28 years old Clinical indication: Cough and dyspnea; Additional info: Dyspnea/cough TECHNIQUE: Imaging protocol: Radiologic exam of the chest. Views: 1 view. COMPARISON: CT chest con [id number] 05/05/2023 4:55 PM FINDINGS: Lungs: Unremarkable. No consolidation or mass. Pleural spaces: Unremarkable. No pleural effusion. No pneumothorax. Heart/Mediastinum: Unremarkable. No cardiomegaly. Bones/joints: Unremarkable. XR/XR chest 1V portable [id number] IMPRESSION: No acute findings.
--- NOTE | 2024-02-27 07:59 | W.ED.GENADLT ---
HPI - General Adult General: Chief complaint: Upper Respiratory Infection Stated complaint: coughing up blood, past couple days Time Seen by Provider: 02/27/24 07:58 Source: patient Mode of arrival: ambulatory History of Present Illness: 28-year-old male presents emergency room with complaint of hemoptysis for the last 3 days intermittent. No fever sweats or chills. He has a history of a lung nodule that is been monitored and has been unchanged. He is a non-smoker nondrinker. Onset (ago): day(s) Severity: mild Associated symptoms: Reports cough; Deny chest pain, confusion, diaphoresis, decreased appetite, dyspnea, fevers/chills, headache(s), malaise, nausea, rash, palpitations, seizures, short of breath, syncope, vomiting or weakness Treatments prior to arrival: none Review of Systems Const: Denies: fever(s), chills, malaise or diaphoresis Card: Denies: chest pain, palpitations or syncope Resp: Denies: dyspnea GI: Denies: abdominal pain, nausea or vomiting : Denies: dysuria, urinary frequency or urinary urgency Musc: Denies: neck pain or back pain Skin/Breast: Denies: rash Neuro: Denies: headache(s) or confusion PFSH ED PFSH: Medical History Enlarged lymph node in neck Epigastric pain Leukocytosis Secondary polycythemia HTN (hypertension) Dysphagia Surgical History History of colonoscopy (~08/2019) History of esophagogastroduodenoscopy (EGD) (~08/2019) Family History Father Cancer liver Hypertension Stroke Grandfather Cancer lung Grandmother Diabetes Sister Hypertension Mother Arthritis Social History Smoking and tobacco/nicotine status: never used tobacco/nicotine Second hand smoke exposure: No Alcohol intake: never Substance/Drug Use: never Adopted: No Caregiver/support person: Yes Lives independently: Yes Household members: significant other Housing: House Marital status: Single Highest education level completed: High School Graduate service: No Current occupational status: employed Current occupational exposures/hazards: No Pets and animals: No Leisure activites: exercise Sexually active: Yes Do you think of yourself as: Straight/Heterosexual Current gender identity: Male and Female Trixie/Taoist: Mu-Ism Special trixie needs: No Agree to transfusion: No Physical Exam Const: COMMON NORMALS: no acute distress GENERAL APPEARANCE: cooperative and comfortable ORIENTATION/CONSCIOUSNESS: Yes awake, Yes oriented to person, Yes oriented to place and Yes oriented to time HENMT: COMMON NORMALS: normocephalic, atraumatic and hearing grossly normal bilaterally HEAD & SCALP: normocephalic and atraumatic Resp: COMMON NORMALS: normal respiratory effort, No retractions, No use of accessory muscles and clear to auscultation bilaterally AUSCULTATION: clear to auscultation bilaterally Cardio: COMMON NORMALS: regular rate, regular rhythm and No murmurs present (Cardio) RATE: regular rate RHYTHM: regular rhythm GI: COMMON NORMALS: Soft to palpation and No hepatosplenomegaly present AUSCULTATION: Yes normoactive bowel sounds PALPATION: Yes Soft to palpation, No Tenderness to palpation present (GI), No Guarding due to palpation present (GI) and Yes No hepatosplenomegaly present Extremity: COMMON NORMALS: normal to inspection, capillary refill normal, no clubbing, cyanosis or edema, no calf tenderness and no pedal edema Neuro: SENSORIUM/ORIENTATION: Yes oriented to person, Yes oriented to place and Yes oriented to time Skin: COMMON NORMALS: no rashes or lesions noted GENERAL SKIN EXAM: no rashes or lesions noted Course Vital Signs: Vital signs: Vital Signs Temperature 98.6 F 02/27/24 08:02 Pulse Rate 59 L 02/27/24 10:53 Respiratory Rate 17 02/27/24 10:53 Blood Pressure 102/73 02/27/24 10:53 Pulse Oximetry 99 02/27/24 10:53 Oxygen Delivery Me thod Room Air 02/27/24 10:30 [facility] - General Adult Medical Decision Making Labs and imaging reviewed no acute pneumonia no PE. Suspect his hemoptysis is due to irritation and trauma from coughing. Started on steroid taper doxycycline and albuterol inhaler regularly. Recheck if not improving Medical Records I reviewed the patient's medical records. Lab Data I reviewed the patient's lab results. 02/27/24 08:19 02/27/24 08:19 Radiology Impressions Chest X-Ray 02/27/24 07:58 IMPRESSION: No acute findings. Chest CTA 02/27/24 08:26 IMPRESSION: 1. No acute findings. 2. Stable small left lower lobe lung nodule Laboratory Results WBC 8.96 10^3/uL (3.29-11.43) 02/27/24 08:19 RBC 5.48 10^6/uL (3.85-5.65) 02/27/24 08:19 Hgb 16.60 g/dL (11.27-16.99) 02/27/24 08:19 Hct 49.0 % (37-53) 02/27/24 08:19 MCV 89.4 fl (82-101) 02/27/24 08:19 MCH 30.3 pg (27-33) 02/27/24 08:19 MCHC 33.9 g/dL (30-55) 02/27/24 08:19 RDW 12.2 % (12.1-15.1) 02/27/24 08:19 Plt Count 263 10^3/cmm (157-399) 02/27/24 08:19 MPV 10.2 fL (7.4-10.4) 02/27/24 08:19 Neut % (Auto) 48.1 % 02/27/24 08:19 Lymph % (Auto) 39.6 % 02/27/24 08:19 [place] % (Auto) 8.0 % 02/27/24 08:19 Eos % (Auto) 3.5 % 02/27/24 08:19 Baso % (Auto) 0.6 % 02/27/24 08:19 Neut # (Auto) 4.31 10^3/uL (1.8-7.7) 02/27/24 08:19 Lymph # (Auto) 3.6 10^3/uL (0.8-4.8) 02/27/24 08:19 [place] # (Auto) 0.7 10^3/uL (0.2-0.9) 02/27/24 08:19 Eos # (Auto) 0.3 10^3/uL (0.0-0.8) 02/27/24 08:19 Baso # (Auto) 0.1 10^3/uL (0.0-0.1) 02/27/24 08:19 Nucleated RBC % (auto) 0 % 02/27/24 08:19 Nucleated RBCs # 0.0 /100WBC 02/27/24 08:19 PT 12.60 SECONDS (12.1-14.9) 02/27/24 08:19 INR 0.92 (0.8-1.2) 02/27/24 08:19 APTT 29.3 SECONDS (23.9-36.7) 02/27/24 08:19 Sodium 142 mmol/L (136-145) 02/27/24 08:19 Potassium 4.0 mmol/L (3.5-5.1) 02/27/24 08:19 Chloride 106 mmol/L (98-107) 02/27/24 08:19 Carbon Dioxide 23 mmol/L (22-29) 02/27/24 08:19 Anion Gap 17.0 (5-19) 02/27/24 08:19 BUN 21 mg/dL (6-20) H 02/27/24 08:19 Creatinine 0.9 mg/dL (0.7-1.2) 02/27/24 08:19 GFR Calculation 100.5 mL/min (90-130) 02/27/24 08:19 Glucose 94 mg/dL (65-115) 02/27/24 08:19 Calculated Osmolality 297 mOsm/kg (285-295) H 02/27/24 08:19 Calcium 9.4 mg/dL (8.5-10.5) 02/27/24 08:19 Total Bilirubin 0.7 mg/dL (0.15-1.2) 02/27/24 08:19 AST 16 U/L (0-40) 02/27/24 08:19 ALT 18 U/L (0-41) 02/27/24 08:19 Alkaline Phosphatase 87 U/L (40-130) 02/27/24 08:19 Total Protein 7.8 g/dL (6.6-8.7) 02/27/24 08:19 Albumin 4.7 g/dL (3.5-5.2) 02/27/24 08:19 Globulin 3.1 g/dL (1.3-4.6) 02/27/24 08:19 Adenovirus (PCR) Not detected (NOT DETECT) 02/27/24 08:18 C. pneumoniae DNA (PCR) Not detected (NOT DETECT) 02/27/24 08:18 Coronavirus 229E (PCR) Not detected (NOT DETECT) 02/27/24 08:18 Human Metapneumovir PCR Not detected (NOT DETECT) 02/27/24 08:18 Influenza A (H1) PCR Not detected (NOT DETECT) 02/27/24 08:18 Influ A (H1/09) PCR Not detected (NOT DETECT) 02/27/24 08:18 Influenza A (H3) PCR Not detected (NOT DETECT) 02/27/24 08:18 Influenza Type A (PCR) Not detected (NOT DETECT) 02/27/24 08:18 Influenza Type B (PCR) Not detected (NOT DETECT) 02/27/24 08:18 M. pneumoniae (PCR) Not detected (NOT DETECT) 02/27/24 08:18 Parainfluenza 1 (PCR) Not detected (NOT DETECT) 02/27/24 08:18 Parainfluenza 2 (PCR) Not detected (NOT DETECT) 02/27/24 08:18 Parainfluenza 3 (PCR) Not detected (NOT DETECT) 02/27/24 08:18 Parainfluenza 4 (PCR) Not detected (NOT DETECT) 02/27/24 08:18 RSV Type A (PCR) Not detected (NOT DETECT) 02/27/24 08:18 RSV Type B (PCR) Not detected (NOT DETECT) 02/27/24 08:18 Entero/Rhino (PCR) Not detected (NOT DETECT) 02/27/24 08:18 SARS-CoV-2 (PCR) Not detected (NOT DETECT) 02/27/24 08:18 All radiology interpretation(s) finalized by discharge Discharge Plan Discharge Patient Disposition: Home Clinical Impression: Bronchitis Condition: Stable Prescriptions: New doxycycline hyclate 100 mg capsule 100 mg PO BID 10 Days Qty: 20 0RF Medrol (Rajesh) 4 mg tablets,dose pack See Rx Instructions .ROUTE .COMPLEX Qty: 21 0RF Rx Instructions: orally per package directions albuterol sulfate 90 mcg/actuation HFA aerosol inhaler 2 inh INHALATION Q4H PRN (Reason: shortness of breath or wheezing) Qty: 18 0RF No Action multivitamin Tablet 1 tab PO QAM ibuprofen [Advil] 200 mg tablet 400 mg PO Q6H PRN (Reason: Pain) Hold Instructions: Resume on 11/30/22. fluticasone propionate [Flonase Allergy Relief] 50 mcg/actuation spray,suspension 1 spray intranasal BID PRN (Reason: Allergy Symptoms) Rx Instructions: administer into each nostril acetaminophen [Tylenol Extra Strength] 500 mg Tablet 500 - 1,000 mg PO Q4H PRN (Reason: Pain) ketorolac 10 mg tablet 10 mg PO Q6H PRN (Reason: Pain) amlodipine 10 mg tablet 10 mg PO QAM pantoprazole 40 mg tablet,delayed release (DR/EC) 40 mg PO QAM metoprolol tartrate 25 mg tablet 12.5 mg PO QAM Symbicort 80-4.5 mcg/actuation HFA aerosol inhaler 2 puff inhalation BID PRN (Reason: unknown) Discharge Orders: Discharge ED (Routine); Ordered 02/27/24 Ordered By: Kyle Ruffin Referrals: Chava Castro MD [Primary Care Provider] - Discharge Diet: Usual diet Discharge Activity: Resume usual activity Patient Instructions: Opioid Safety, Pain Management Activity Restrictions/Additional Instructions: Thank you for choosing [facility] for your healthcare needs today. It is very important that you follow up as instructed or that you return to the Emergency Department should you have concerns or if your condition changes or worsens in any way. You were seen today for coughing up blood. CT of your chest did not show any pulmonary embolism or masses or significant abnormality. Suspect this is from trauma from coughing due to bronchitis. Recommend that you start on a steroid taper as well as starting oral antibiotics using albuterol as needed for coughing and wheezing follow-up with your primary care doctor if not improving Coding Level of Care Code ED City Supervisor for Genaro Goddard
[2024-02-27 08:02] VITALS: BP 138/98; PULSE 59; RESP 16; TEMP 37; O2SAT 98; BMI 25.8
--- NOTE | 2024-02-27 08:11 | ECG_ITS ---
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 Measurements Intervals [place] Rate: 49 P: 18 OR: 143 QRS: 5 QRSD: 90 T: 16 QT: 428 QTc: 390 Interpretive Statements SINUS BRADYCARDIA Compared to ECG 05/24/2022 18:23:07 Sinus rhythm no longer present Electronically Signed On 02-27-2024 19:07:58 CDT by Skinny Haley M.D. [id number]
[2024-02-27 08:25] LABS: Basophils # 0.1 10^3/uL (0.0-0.1); Basophils % 0.6 %; Eosinophils # 0.3 10^3/uL (0.0-0.8); Eosinophils % 3.5 %; Lymphocytes # 3.6 10^3/uL (0.8-4.8); Lymphocytes % 39.6 %; Mean Corpuscular HGB Conc 33.9 g/dL (30-55); Mean Corpuscular Hemoglobin 30.3 pg (27-33); Mean Corpuscular Volume 89.4 fl (82-101); Mean Platelet Volume 10.2 fL (7.4-10.4); Monocytes # 0.7 10^3/uL (0.2-0.9); Neutrophils # 4.31 10^3/uL (1.8-7.7); Neutrophils % 48.1 %; Nucleated Red Blood Cells % 0 %; Platelet Count 263 10^3/cmm (157-399); Red Blood Count 5.48 10^6/uL (3.85-5.65); Red Cell Distribution Width 12.2 % (12.1-15.1); White Blood Count 8.96 10^3/uL (3.29-11.43)
--- NOTE | 2024-02-27 08:26 | CTR_ITS ---
PROCEDURE INFORMATION: Exam: CTA Chest With Contrast Exam date and time: 02/27/2024 9:06 AM Age: 28 years old Clinical indication: Other: Hemoptysis, pulmonary nodule TECHNIQUE: Imaging protocol: Computed tomographic angiography of the chest with contrast. Exam focused on the arteries. 3D rendering (Not supervised by radiologist): MIP and/or 3D reconstructed images were created by the technologist. Radiation optimization: All CT scans at this facility use at least one of these dose optimization techniques: automated exposure control; mA and/or kV adjustment per patient size (includes targeted exams where dose is matched to clinical indication); or iterative reconstruction. Contrast material: OMNI 350; Contrast volume: 73 ml; Contrast route: INTRAVENOUS (IV); COMPARISON: CTA Chest w Abd/Pel w* 06/13/2019 3:32 AM RADIATION DOSE METRICS: Total DLP (mGy-cm): 424.76 FINDINGS: Pulmonary arteries: Normal. No pulmonary emboli. Aorta: Unremarkable. No aortic aneurysm. No aortic dissection. Lungs: There is a 6 mm rounded nodule involving the left lower lobe. I see no other nodule or infiltrate. Pleural spaces: Unremarkable. No pneumothorax. No pleural effusion. Heart: Unremarkable. No cardiomegaly. No pericardial effusion. Lymph nodes: Unremarkable. No enlarged lymph nodes. Bones/joints: Unremarkable. No acute fracture. Soft tissues: Unremarkable. CT/CT angio chest PE protcl [id number] IMPRESSION: 1. No acute findings. 2. Stable small left lower lobe lung nodule
[2024-02-27 08:44] LABS: Alanine Aminotransferase 18 U/L (0-41); Albumin Level 4.7 g/dL (3.5-5.2); Alkaline Phosphatase 87 U/L (40-130); Aspartate Amino Transferase 16 U/L (0-40); Blood Urea Nitrogen 21 mg/dL (6-20); Calcium 9.4 mg/dL (8.5-10.5); Carbon Dioxide 23 mmol/L (22-29); Chloride 106 mmol/L (98-107); Globulin 3.1 g/dL (1.3-4.6); Glomerular Filtration Rate 100.5 mL/min (90-130); Glucose 94 mg/dL (65-115); Osmolality Calculated 297 mOsm/kg (285-295); Sodium 142 mmol/L (136-145); Total Bilirubin 0.7 mg/dL (0.15-1.2); Total Protein 7.8 g/dL (6.6-8.7)
[2024-02-27] MEDS: iohexol 350 mg/mL 500 mL Btl (per mL) IV (09:11)
[2024-02-27 09:28] LABS: INR 0.92 (0.8-1.2)
[2024-02-27 09:29] LABS: Partial Thromboplastin Time 29.3 SECONDS (23.9-36.7)
[2024-02-27 10:11] LABS: Adenovirus Not Detected (NOT DETECT); Chlamydia Pneumoniae Not Detected (NOT DETECT); Coronavirus 229E,HKU1,NL63,OC4 Not Detected (NOT DETECT); Human Metapneumovirus Not Detected (NOT DETECT); Human Rhinovirus/Enterovirus Not Detected (NOT DETECT); Influenza A Not Detected (NOT DETECT); Influenza A H1 Not Detected (NOT DETECT); Influenza A H1-2009 Not Detected (NOT DETECT); Influenza A H3 Not Detected (NOT DETECT); Influenza B Not Detected (NOT DETECT); Mycoplasma Pneumoniae Not Detected (NOT DETECT); Parainfluenza Virus Type 1 Not Detected (NOT DETECT); Parainfluenza Virus Type 2 Not Detected (NOT DETECT); Parainfluenza Virus Type 3 Not Detected (NOT DETECT); Parainfluenza Virus Type 4 Not Detected (NOT DETECT); Respiratory Syncytial Virus A Not Detected (NOT DETECT); Respiratory Syncytial Virus B Not Detected (NOT DETECT); SARS-COV-2 Not Detected (NOT DETECT)
[2024-02-27 10:30] VITALS: BP 117/86; PULSE 54; O2SAT 95
[2024-02-27 10:53] VITALS: BP 102/73; PULSE 59; RESP 17; O2SAT 99
== END 2024-02-27 10:54 | disposition home or self-care (01) ==
PROVIDERS: Emergency Provider Family Medicine; PCP Family Medicine
DX: J40 Bronchitis, not specified as acute or chronic (principal); Z11.52 Encounter for screening for COVID-19; I10 Essential (primary) hypertension
CPT/HCPCS: 36415; 71045; 71275; 80053; 85025; 85610; 85730; 87486; 87581; 87633; 93005; 99285; Q9967

== ENCOUNTER 2024-09-02 07:49 | Outpatient (CLI) | payer SELFPAY ==
--- NOTE | 2024-09-02 08:05 | US_ITS ---
WS: [id number] THYROID ULTRASOUND HISTORY: pain in throat COMPARISON: None available. Right lobe: 1.4 cm x 1.7 cm x 3.6 cm (w x ap x l). Volume: 4.1 cm3. Normal size and echotexture. No significant are dominant nodules are present. Left lobe: 1.6 cm x 1.4 cm x 4.4 cm (w x ap x l). Volume: 4.8 cm3. Normal size and echotexture. No significant or dominant nodules are present. Isthmus: 0.2 cm. US/US thyroid [id number] IMPRESSION: Normal thyroid ultrasound.
== END 2024-09-02 07:50 | disposition home or self-care (01) ==
LOC: RAD 07:51
PROVIDERS: PCP Family Medicine; Visit Provider Otolaryngology
DX: K21.9 Gastro-esophageal reflux disease without esophagitis (principal); R07.0 Pain in throat; R13.19 Other dysphagia; R53.83 Other fatigue
CPT/HCPCS: 76536

== ENCOUNTER 2024-11-25 11:01 | Outpatient (CLI) | payer BC, MEDICAID, SELFPAY ==
--- NOTE | 2024-11-25 11:04 | US_ITS ---
WS: [id number] INDICATION: Neck pain TECHNIQUE: Ultrasound soft tissue of concern FINDINGS: Ultrasound soft tissue area of concern. Normal underlying lymph nodes in the area of concern. No suspicious cystic or solid lesions. No acute findings. US/US soft tissue head neck [id number] IMPRESSION: No suspicious findings in the area of concern
== END 2024-11-25 11:02 | disposition home or self-care (01) ==
PROVIDERS: PCP Family Medicine; Visit Provider Family Medicine
DX: M54.2 Cervicalgia (principal)
CPT/HCPCS: 76536

== ENCOUNTER 2025-07-24 06:50 | Emergency (ER) | payer BC, MEDICAID, SELFPAY ==
--- OUTSIDE RECORDS SUMMARY | 2025-07-24 06:53 | XMS_ITS | Clinical Summary ---
Author Organization [facility] Address [address] [address] Phone Care Team Providers Care Music Publicist Name Role Phone Unavailable Primary Care Provider Unavailabl e Allergies No known active allergies Medications lisinopriL (PRINIVIL) 20 mg tablet Take 20 mg by mouth daily. Active traZODone (DESYREL) 100 mg tablet Take 100 mg by mouth daily at bedtime. Active FLUoxetine (PROzac) 20 mg capsule Take 20 mg by mouth daily. Active acetaminophen-co deine (TYLENOL #3) 300-30 mg tabletIndication s:Exostosis of fibula Take 1 Tablet by mouth every 12 hours as needed for Pain. 20 Tablet 02/13/2021 Active Social History Tobacco Use Types Packs/Day Years Used Date Smoking Tobacco: Former Cigarettes 0.5 2 1 09/04/2017 - 07/05/2020 Smokeless Tobacco: Former Chew Quit: 12/04/2019 Tobacco Cessation:Counseling Given: Yes Alcohol Use Standard Drinks/Week Comments Not Currently 0 (1 standard drink = 0.6 oz pur e alcohol) Sex and Gender Information Value Date Recorded Sex Assigned at Not on file Legal Sex Male 2:23 PM CDT Gender Identity Not on file Sexual Orientation Not on file Last Filed Vital Signs Vital Sign Reading Time Taken Comments Blood Pressure 119/72 02/13/2021 3:10 PM CDT Pulse 77 12/03/2020 3:45 PM CDT Temperature 36.3 C (97.4 F) 02/13/2021 2:39 PM CDT Respiratory Rate 18 02/13/2021 3:10 PM CDT Oxygen Saturation 97% 02/13/2021 3:10 PM CDT Inhaled Oxygen Concentration - - Weight 87.9 kg (193 lb 12.6 oz) 02/13/2021 2:39 PM CDT Height 177.8 cm (5' 10 ) 02/13/2021 2:39 PM CDT Body Mass Index 27.81 02/13/2021 2:39 PM CDT Plan of Treatment Health Maintenance Due Date Last Done Comments DTAP/TDAP/TD VACCINES (1 - Tdap) 2014 HEPATITIS B VACCINES (1 of 3 - 19+ 3-dose series) 03/01 HPV VACCINES (1 - 3-dose SCDM series) 2022 INFLUENZA VACCINE (#1) [address] [place] [place] [address] MEDICAID
--- OUTSIDE RECORDS SUMMARY | 2025-07-24 06:53 | XMS_ITS | Clinical Summary ---
Author Organization [facility] Address [address] [address] Phone Care Team Providers Care Rope Walker Name Role Phone Chava Castro MD Primary Care Provider + Allergies No known active allergies Medications FLUoxetine (PROzac) 20 mg capsule Take 20 mg by mouth daily. 12/03/2020 Active lisinopriL (PRINIVIL) 20 mg tablet Take 20 mg by mouth daily. 12/03/2020 Active traZODone (DESYREL) 100 mg tablet Take 100 mg by mouth daily at bedtime. 12/03/2020 Active pantoprazole (PROTONIX) 40 mg Tablet, Delayed Release (E.C.) Take 40 mg by mouth 2 times daily. Active promethazine (PHENERGAN) 25 mg tabletIndication s:Non-intractabl e vomiting with nausea, unspecified vomiting type TAKE 1/4 TABLET BY MOUTH TWICE DAILY 03/12/2021 Active diclofenac sodium (VOLTAREN) 75 mg Tablet, Delayed Release (E.C.) TAKE 1 TABLET BY MOUTH TWICE DAILY 03/12/2021 Active Active Problems No known active problems Family History Medical History Relation Name Comments Colon Cancer Neg Hx Social History Tobacco Use Types Packs/Day Years Used Date Smoking Tobacco: Former Cigarettes 0.5 Q uit: 07/05/2020 Smokeless Tobacco: Former Quit: 12/04/2019 Tobacco Cessation:Counseling Given: No Alcohol Use Standard Drinks/Week Comments Not Currently 0 (1 standard drink = 0.6 oz pur e alcohol) Sex and Gender Information Value Date Recorded Sex Assigned at Not on file Legal Sex Male 6:14 AM CDT Gender Identity Not on file Sexual Orientation Not on file Last Filed Vital Signs Vital Sign Reading Time Taken Comments Blood Pressure 140/85 05/04/2021 5:41 PM CDT Pulse 80 05/02/2021 12:34 PM CDT Temperature 36.8 C (98.3 F) 05/04/2021 5:41 PM CDT Respiratory Rate 16 05/04/2021 5:41 PM CDT Oxygen Saturation 99% 05/04/2021 5:41 PM CDT Inhaled Oxygen Concentration - - Weight 84 kg (185 lb 3.2 oz) 05/04/2021 5:41 PM CDT Height 177.8 cm (5' 10 ) 05/04/2021 5:41 PM CDT Body Mass Index 26.57 05/04/2021 5:41 PM CDT Plan of Treatment Health Maintenance Due Date Last Done Comments DTAP/TDAP/TD VACCINES (1 - Tdap) 2014 HEPATITIS B VACCINES (1 of 3 - 19+ 3-dose series) 03/01 HPV VACCINES (1 - 3-dose SCDM series) 2022 INFLUENZA VACCINE (#1) 2025 Insurance MEDICAID Care Teams Rope Walker Relationship Specialty Start Date End Date Chava Castro MD [address] [place] [address] PCP - General Family Practice 02/28/21
--- NOTE | 2025-07-24 06:54 | XRR_ITS ---
PROCEDURE INFORMATION: Exam: XR Chest Exam date and time: 07/24/2025 7:01 AM Age: 30 years old Clinical indication: Pain; Angina pectoris; Additional info: Chest pain TECHNIQUE: Imaging protocol: Radiologic exam of the chest. Views: 1 view. COMPARISON: CT angio chest PE protcl [id number] 02/27/2024 9:06 AM FINDINGS: Lungs: Unremarkable. No consolidation. Pleural spaces: Unremarkable. No pleural effusion. No pneumothorax. Heart/Mediastinum: Unremarkable. No cardiomegaly. Bones/joints: Unremarkable. XR/XR chest 1V portable [id number] IMPRESSION: No acute findings.
[2025-07-24 06:57] VITALS: BP 134/95; PULSE 56; RESP 16; TEMP 36.6; O2SAT 100; BMI 25.8
--- NOTE | 2025-07-24 07:00 | ECG_ITS ---
[facility] Test Date: 2025-07-24 Pat Name: Anthony Del Valle Department: Room: Gender: Male Recreation Clerk: : 1995 Requested By: Jess Stout Order Number: [id number] Schwab MD: Skinny Haley M.D. Measurements Intervals [place] Rate: 59 P: 22 [place]: 140 QRS: -1 QRSD: 85 T: -2 QT: 426 QTc: 423 Interpretive Statements SINUS BRADYCARDIA WITH SINUS ARRHYTHMIA NONSPECIFIC T-WAVE ABNORMALITY Compared to ECG 02/27/2024 08:11:12 T-wave abnormality now present Electronically Signed On 07-24-2025 10:31:39 MANAGER OF SUPPLY CHAIN by Skinny Haley M.D. [id number]
--- NOTE | 2025-07-24 07:05 | W.ED.SOB ---
HPI - SOB/Dyspnea General: Chief Complaint: Shortness of Breath/Dyspnea Stated Complaint: sob, fatigue, chest tightness Time Seen by Provider: 07/24/25 07:05 History of Present Illness: HPI Narrative: 30-year-old man with no significant past medical history who presents to the emergency room with shortness of breath. Says this been going on for few days. He says he has exertional dyspnea and sometimes when he lays down he will wake up gasping. He has fatigue. His chest feels tight. No cough. No lower extremity swelling. No calf pain. No fevers. No altered mental status Related Data Home Medications ?Medication ?Instructions ?Recorded ?Confirmed acetaminophen 500 mg tablet 500 - 1,000 mg PO Q4H PRN Pain 08/11/20 04/16/23 (Tylenol Extra Strength) multivitamin 1 tab PO QAM 03/18/21 04/16/23 fluticasone propionate 50 1 spray intranasal BID PRN Allergy 06/07/21 04/16/23 mcg/actuation nasal Symptoms spray,suspension (Flonase Allergy Relief) ibuprofen 200 mg tablet (Advil) 400 mg PO Q6H PRN Pain 09/10/22 04/16/23 Held on 11/28/22. Instructions: Resume on 11/30/22. amlodipine 10 mg tablet 10 mg PO QAM 02/04/23 04/16/23 budesonide-formoterol HFA 80 2 puff inhalation BID PRN unknown 02/04/23 04/16/23 mcg-4.5 mcg/actuation aerosol inhaler (Symbicort) ketorolac 10 mg tablet 10 mg PO Q6H PRN Pain 02/04/23 04/16/23 metoprolol tartrate 25 mg tablet 12.5 mg PO QAM 02/04/23 04/16/23 pantoprazole 40 mg tablet,delayed 40 mg PO QAM 02/04/23 04/16/23 release Previous Rx's ?Medication ?Instructions ?Recorded albuterol sulfate 90 mcg/actuation 2 inh inhalation Q4H PRN shortness 02/27/24 aerosol inhaler of breath or wheezing #18 grams methylprednisolone 4 mg tablets in See Rx Instructions PO .COMPLEX 02/27/24 a dose pack (Medrol (Rajesh)) #21 ea Allergies Allergy/AdvReac Type Severity Reaction Status Date / Time No Known Allergies Allergy Verified 07/24/25 07:01 Review of Systems Narrative: Constitutional symptoms: Negative except as documented in HPI. Skin symptoms: Negative except as documented in HPI. Eye symptoms: Negative except as documented in HPI. ENMT symptoms: Negative except as documented in HPI. Respiratory symptoms: Negative except as documented in HPI. Cardiovascular symptoms: Negative except as documented in HPI. Gastrointestinal symptoms: Negative except as documented in HPI. Genitourinary symptoms: Negative except as documented in HPI. Musculoskeletal symptoms: Negative except as documented in HPI. Neurologic symptoms: Negative except as documented in HPI. Psychiatric symptoms: Negative except as documented in HPI. Endocrine symptoms: Negative except as documented in HPI. PFSH ED PFSH: Medical History (Updated 07/24/25 @ 08:00 by Jess Agustin MD) Enlarged lymph node in neck Epigastric pain Leukocytosis Secondary polycythemia HTN (hypertension) Dysphagia Surgical History History of colonoscopy (~08/2019) History of esophagogastroduodenoscopy (EGD) (~08/2019) Family History Father Cancer liver Hypertension Stroke Grandfather Cancer lung Grandmother Diabetes Sister Hypertension Mother Arthritis Social History Smoking and tobacco/nicotine status: never used tobacco/nicotine Second hand smoke exposure: No Alcohol intake: never Substance/Drug Use: never Adopted: No Caregiver/support person: Yes Lives independently: Yes Household members: significant other Housing: House Marital status: Single Highest education level completed: High School Graduate service: No Current occupational status: employed Current occupational exposures/hazards: No Pets and animals: No Leisure activites: exercise Sexually active: Yes Do you think of yourself as: Straight/Heterosexual Current gender identity: Male and Female Trixie/Scientologist: Evangelical Special trixie needs: No Agree to transfusion: No Physical Exam Narrative: EXAM NARRATIVE: General: Alert, no acute distress. Skin: Warm, dry. Head: Normocephalic, atraumatic. Neck: Supple, trachea midline. Eye: Extraocular movements are intact. Ears, nose, mouth and throat: mucosa moist. Cardiovascular: Regular, Normal peripheral perfusion. Respiratory: Lungs are clear to auscultation, respirations are non-labored, breath sounds are equal, Symmetrical chest wall expansion. Gastrointestinal: Soft, Nontender, Non distended Musculoskeletal: Normal ROM, no deformity. Neurological: Alert and oriented, No focal neurological deficit observed. Psychiatric: Cooperative, appropriate mood & affect. Course Vital Signs: Vital signs: Vital Signs Temperature 97.9 F 07/24/25 06:57 Pulse Rate 43 L 07/24/25 08:00 Respiratory Rate 16 07/24/25 06:57 Blood Pressure 122/78 07/24/25 08:00 Pulse Oximetry 97 07/24/25 08:00 Oxygen Delivery Me thod Room Air 07/24/25 08:00 MDM - SOB/Dyspnea Medical Decision Making Medical decision making Patient's reason for coming to the emergency room: Shortness of breath Social determinants: Self-employed I reviewed the patient's medical record. Patient has a history of hypertension and dysrhythmias in the past I reviewed the patient's current home meds Alternate historians: None Differential diagnosis for patient with shortness of breath includes but is not limited to and based on the above HPI, review of systems and physical exam: Pneumonia. Bronchitis. Asthma or COPD with acute exacerbation. Acute coronary syndrome / MO. Pulmonary embolism. Anxiety. Congestive heart failure. Viral infections including influenza and Covid-19. Atrial fibrillation. Anxiety. Pleural effusion. Pneumothorax. Orders placed to evaluate differential diagnosis based on the above differential, HPI and physical exam Chest x-ray: No acute process. No infiltrate. No pneumothorax. This was reviewed and interpreted by myself the emergency room physician. I also reviewed the radiology report. EKG: Time 700 a.m. Rate 59. Sinus bradycardia, No ST-T changes, no ectopy, normal ME & QRS intervals, This was reviewed and interpreted by myself the ER physician at 7:05 AM Lab Review: Laboratory results were reviewed and interpreted by myself the emergency room physician. No leukocytosis. No anemia. No renal failure. D-dimer is negative. Troponin is negative. Flu COVID and RSV are negative. Assessment of risk: Level of risk: Low risk patient Hospitalization considerations: Reexamination: Patient remained stable. No increased work of breathing. No altered mental status. No focal motor deficits. Assessment and plan: Dyspnea - Discharged home - Discussed plan with patient. Answered any questions. - Evaluation and treatment of this problem were appropriate in the emergency setting. Lab Data 07/24/25 07:03 07/24/25 07:03 Labs/Radiology: Radiology Impressions Chest X-Ray 07/24/25 06:54 IMPRESSION: No acute findings. Laboratory Results WBC 9.47 10^3/uL (3.29-11.43) 07/24/25 07:03 RBC 5.73 10^6/uL (3.85-5.65) H 07/24/25 07:03 Hgb 17.10 g/dL (11.27-16.99) H 07/24/25 07:03 Hct 50.2 % (37-53) 07/24/25 07:03 MCV 87.6 fl (82-101) 07/24/25 07:03 MCH 29.8 pg (27-33) 07/24/25 07:03 MCHC 34.1 g/dL (30-55) 07/24/25 07:03 RDW 12.2 % (12.1-15.1) 07/24/25 07:03 Plt Count 254 10^3/cmm (157-399) 07/24/25 07:03 MPV 10.6 fL (7.4-10.4) H 07/24/25 07:03 Neut % (Auto) 46.3 % 07/24/25 07:03 Lymph % (Auto) 43.4 % 07/24/25 07:03 [place] % (Auto) 7.6 % 07/24/25 07:03 Eos % (Auto) 2.0 % 07/24/25 07:03 Baso % (Auto) 0.5 % 07/24/25 07:03 Neut # (Auto) 4.38 10^3/uL (1.8-7.7) 07/24/25 07:03 Lymph # (Auto) 4.1 10^3/uL (0.8-4.8) 07/24/25 07:03 [place] # (Auto) 0.7 10^3/uL (0.2-0.9) 07/24/25 07:03 Eos # (Auto) 0.2 10^3/uL (0.0-0.8) 07/24/25 07:03 Baso # (Auto) 0.1 10^3/uL (0.0-0.1) 07/24/25 07:03 Nucleated RBC % (auto) 0 % 07/24/25 07:03 Nucleated RBCs # 0.0 /100WBC 07/24/25 07:03 D-Dimer <= 0.27 ug/mLFEU (0-0.59) 07/24/25 07:03 Sodium 140 mmol/L (136-145) 07/24/25 07:03 Potassium 3.8 mmol/L (3.5-5.1) 07/24/25 07:03 Chloride 103 mmol/L (98-107) 07/24/25 07:03 Carbon Dioxide 24 mmol/L (22-29) 07/24/25 07:03 Anion Gap 16.8 (5-19) 07/24/25 07:03 BUN 10 mg/dL (6-20) 07/24/25 07:03 Creatinine 0.9 mg/dL (0.7-1.2) 07/24/25 07:03 GFR Calculation 99.1 mL/min (90-130) 07/24/25 07:03 Glucose 113 mg/dL (65-115) 07/24/25 07:03 Calculated Osmolality 290 mOsm/kg (285-295) 07/24/25 07:03 Lactic Acid 2.0 mmol/L (0.5-2.2) 07/24/25 07:03 Calcium 10.2 mg/dL (8.5-10.5) 07/24/25 07:03 Total Bilirubin 1.4 mg/dL (0.15-1.2) H 07/24/25 07:03 AST 24 U/L (0-40) 07/24/25 07:03 ALT 30 U/L (0-41) 07/24/25 07:03 Alkaline Phosphatase 92 U/L (40-130) 07/24/25 07:03 Troponin T Baseline 8 ng/L (0-15) 07/24/25 07:03 C-Reactive Protein 3.0 mg/L (0.0-4.9) 07/24/25 07:03 Total Protein 8.1 g/dL (6.6-8.7) 07/24/25 07:03 Albumin 5.2 g/dL (3.5-5.2) 07/24/25 07:03 Globulin 2.9 g/dL (1.3-4.6) 07/24/25 07:03 Influenza A (PCR) Negative (Negative) 07/24/25 07:04 Influenza Type B (PCR) Negative (Negative) 07/24/25 07:04 RSV (PCR) Negative (Negative) 07/24/25 07:04 SARS-CoV-2 (PCR) Negative (Negative) 07/24/25 07:04 All radiology interpretation(s) finalized by discharge Discharge Plan Discharge Patient Disposition: Home Clinical Impression: Shortness of breath Condition: Stable Prescriptions: No Action multivitamin Tablet 1 tab PO QAM ibuprofen [Advil] 200 mg tablet 400 mg PO Q6H PRN (Reason: Pain) fluticasone propionate [Flonase Allergy Relief] 50 mcg/actuation spray,suspension 1 spray intranasal BID PRN (Reason: Allergy Symptoms) Rx Instructions: administer into each nostril acetaminophen [Tylenol Extra Strength] 500 mg Tablet 500 - 1,000 mg PO Q4H PRN (Reason: Pain) ketorolac 10 mg tablet 10 mg PO Q6H PRN (Reason: Pain) amlodipine 10 mg tablet 10 mg PO QAM pantoprazole 40 mg tablet,delayed release (DR/EC) 40 mg PO QAM metoprolol tartrate 25 mg tablet 12.5 mg PO QAM Symbicort 80-4.5 mcg/actuation HFA aerosol inhaler 2 puff inhalation BID PRN (Reason: unknown) Medrol (Rajesh) 4 mg tablets,dose pack See Rx Instructions .ROUTE .COMPLEX Qty: 21 0RF Rx Instructions: orally per package directions albuterol sulfate 90 mcg/actuation HFA aerosol inhaler 2 inh INHALATION Q4H PRN (Reason: shortness of breath or wheezing) Qty: 18 0RF Discharge Orders: Discharge ED (Routine); Ordered 07/24/25 Ordered By: Jess Agustin Referrals: Chava Castro MD [Primary Care Provider, Family Practice] Discharge Diet: Usual diet Discharge Activity: Increase activity as tolerated Patient Instructions: Shortness of Breath (ED), Opioid Safety, Pain Management, Patient Portal & Yusra Instructions Activity Restrictions/Additional Instructions: Thank you for choosing [facility] for your healthcare needs today. You have been screened and evaluated and felt safe for discharge. Health conditions do change or evolve sometimes and as such it is important that you follow up with your Primary Doctor to be re checked, 3-5 days is a general good time frame for follow up. You are always welcome to return to the ED for re assessment if your symptoms are worsening or you have new concerns Print Language: Kenyan Coding Level of Care Code ED Automation Mechanic for Genaro Goddard
[2025-07-24 07:08] LABS: Hematocrit 50.2 % (37-53); Hemoglobin 17.10 g/dL (11.27-16.99); Mean Corpuscular HGB Conc 34.1 g/dL (30-55); Mean Corpuscular Hemoglobin 29.8 pg (27-33); Mean Corpuscular Volume 87.6 fl (82-101); Nucleated Red Blood Cells % 0 %; Platelet Count 254 10^3/cmm (157-399); Red Blood Count 5.73 10^6/uL (3.85-5.65); White Blood Count 9.47 10^3/uL (3.29-11.43)
[2025-07-24 07:42] LABS: Alanine Aminotransferase 30 U/L (0-41); Albumin Level 5.2 g/dL (3.5-5.2); Alkaline Phosphatase 92 U/L (40-130); Anion Gap 16.8 (5-19); Aspartate Amino Transferase 24 U/L (0-40); Blood Urea Nitrogen 10 mg/dL (6-20); Calcium 10.2 mg/dL (8.5-10.5); Carbon Dioxide 24 mmol/L (22-29); Chloride 103 mmol/L (98-107); Globulin 2.9 g/dL (1.3-4.6); Glucose 113 mg/dL (65-115); Osmolality Calculated 290 mOsm/kg (285-295); Potassium 3.8 mmol/L (3.5-5.1); Sodium 140 mmol/L (136-145); Total Protein 8.1 g/dL (6.6-8.7); Troponin(5th) Baseline 8 ng/L (0-15)
[2025-07-24 07:43] LABS: Lactic Sepsis W/Reflex 2.0 mmol/L (0.5-2.2)
[2025-07-24 07:47] VITALS: BP 134/95; PULSE 49; O2SAT 97
[2025-07-24 07:49] LABS: Respiratory Syncytial Virus Ce NEGATIVE (Negative); SARS-CoV-2 PCR NEGATIVE (Negative)
[2025-07-24 08:00] VITALS: BP 122/78; PULSE 43; O2SAT 97
[2025-07-24 08:06] VITALS: BP 115/65; PULSE 50; O2SAT 98
== END 2025-07-24 08:08 | disposition home or self-care (01) ==
PROVIDERS: Emergency Provider Emergency Medicine; PCP Family Medicine
DX: R06.02 Shortness of breath (principal); I10 Essential (primary) hypertension; D75.1 Secondary polycythemia
CPT/HCPCS: 71045; 80053; 83605; 84484; 85025; 85378; 86140; 87637; 93005; 99285